=== PATIENT | female | born 1975 | race Caucasian/White ===

== ENCOUNTER → 2017-05-05 15:43 | Outpatient (CLI) | payer OTHER, SELFPAY | PROVIDERS: Visit Provider Otolaryngology | DX: J02.9 Acute pharyngitis, unspecified (principal) | CPT/HCPCS: 87070 ==

== ENCOUNTER → 2017-07-13 07:22 | Outpatient (CLI) | payer OTHER, SELFPAY ==
--- NOTE | 2017-07-13 07:36 | BI_ITS ---
MAMMOGRAPHY - BILATERAL SCREENING REASON FOR EXAM: Female, 41 years old. Routine annual screening examination. PERTINENT HISTORY: Aunt with breast cancer. TECHNIQUE: Digital bilateral breast wesley (3D mammographic acquisition) in the CC and MLO projections. 2-D mediolateral oblique (MLO) and craniocaudad (CC) views of both breasts were obtained. CAD: Full Field Digital Mammography with Computer Added Detection was performed. COMPARISON: Comparison is made with prior study dated May 28, 2016 and April 06, 2015. FINDINGS: Breast Composition: The breasts are heterogeneously dense, which may obscure small masses. There are no dominant masses or suspicious calcifications. No other significant abnormalities are identified. There has been no significant change since the prior study. BI/SCREENING MAMM (CAD), BILAT IMPRESSION: Stable bilateral screening mammogram. Yearly follow-up mammogram recommended. (A) ASSESSMENT CATEGORY: BIRADS Category 1: Negative. A letter regarding these results will be sent to the patient by the facility within 30 days. Approximately 10% of breast cancers are not detected by mammography. A normal mammogram should not delay biopsy of a clinically suspicious abnormality. [id number] Electronically Signed: Antwan Philip MD at 8:51 EDT Tel [phone], Service support ,
== END ==
DX: Z12.31 Encounter for screening mammogram for malignant neoplasm of breast (principal)
CPT/HCPCS: 77063; 77067

== ENCOUNTER → 2018-07-14 09:55 | Outpatient (CLI) | payer OTHER, SELFPAY ==
--- NOTE | 2018-07-14 09:59 | BI_ITS ---
MAMMOGRAPHY - BILATERAL SCREENING REASON FOR EXAM: Female, 42 years old. Routine annual screening examination. PERTINENT HISTORY: Aunt with breast cancer. TECHNIQUE: Digital bilateral breast wesley (3D mammographic acquisition) in the CC and MLO projections. 2-D mediolateral oblique (MLO) and craniocaudad (CC) views of both breasts were obtained. CAD: Full Field Digital Mammography with Computer Added Detection was performed. COMPARISON: Comparison is made with prior study dated July 13, 2017 and May 28, 2016. FINDINGS: Breast Composition: The breasts are heterogeneously dense, which may obscure small masses. There are no dominant masses or suspicious calcifications. No other significant abnormalities are identified. There has been no significant change since the prior study. BI/SCREENING MAMM (CAD), BILAT IMPRESSION: Stable bilateral screening mammogram. Yearly follow-up mammogram recommended. (A) ASSESSMENT CATEGORY: BIRADS Category 1: Negative. A letter regarding these results will be sent to the patient by the facility within 30 days. Approximately 10% of breast cancers are not detected by mammography. A normal mammogram should not delay biopsy of a clinically suspicious abnormality. [id number] Electronically Signed: Antwan Philip, at 11:24 EDT , Service support ,
== END ==
DX: Z12.31 Encounter for screening mammogram for malignant neoplasm of breast (principal)
CPT/HCPCS: 77063; 77067

== ENCOUNTER 2020-04-20 09:43 | Outpatient (RCR) | payer OTHER, SELFPAY | END 2020-04-20 23:59 | LOC: IMMUN 09:43 | PROVIDERS: PCP Family Medicine; Visit Provider Family Medicine | DX: Z23 Encounter for immunization (principal) | CPT/HCPCS: 0011A; 0012A; 91301 ==

== ENCOUNTER → 2021-03-27 | Outpatient (CLI) | payer OTHER, SELFPAY | END | disposition home or self-care (01) | PROVIDERS: PCP Family Medicine; Referring Provider Physician Assistant; Visit Provider Physician Assistant | DX: Z11.52 Encounter for screening for COVID-19 (principal) | CPT/HCPCS: 87635; U0005; U0003 ==

== ENCOUNTER → 2021-10-16 | Outpatient (CLI) | payer OTHER, SELFPAY ==
[2021-10-16 10:48] LABS: Mucous, Urine 0 SEEN /hpf (<or=2+)
[2021-10-16 10:55] LABS: Color, Urine Yellow (Yellow); Glucose, Dipstick Normal (Normal); Ketone-Dipstick Negative (Negative); Leukocyte Esterase-Dipstick 500 /ul (Negative); Nitrite-Dipstick Negative (Negative); Occult Blood-Urine 25 /ul (Negative); Protein-Dipstick 15 mg/dl (Negative); Specific Gravity, Urine 1.015 (1.002-1.030); Urine Bilirubin Dipstick Negative (Negative); Urine Clarity Sl. Cloudy (Clear); Urine Urobilinogen Normal (Normal)
[2021-10-16 11:03] LABS: Bacteria 1+ /hpf (None Seen); Red Blood Cells-Urine 0-5 SEEN /hpf (0-5); Squamous Epithelial Cells - UA 0-5 SEEN /hpf (5-10); White Blood Cells 25-50 SEEN /hpf (0-5)
== END | disposition home or self-care (01) ==
LOC: LABSPEC 10:20
PROVIDERS: PCP Family Medicine; Referring Provider Physician Assistant; Visit Provider Physician Assistant
DX: R53.83 Other fatigue (principal)
CPT/HCPCS: 81001; 87086; 87088

== ENCOUNTER → 2025-03-09 | Outpatient (CLI) | payer OTHER, SELFPAY ==
[2025-03-09 11:37] LABS: Follicle Stimulating Hormone 32.7 mIU/mL
[2025-03-14 01:07] LABS: Anti-Mullerian Hormone,Serum < 0.015 ng/mL (.)
== END | disposition home or self-care (01) ==
PROVIDERS: PCP Family Medicine; Referring Provider Nurse Practitioner Family; Visit Provider Nurse Practitioner Family
DX: N92.6 Irregular menstruation, unspecified (principal)
CPT/HCPCS: 36415; 82670; 83001; 83516

== ENCOUNTER → 2025-03-18 | Outpatient (CLI) | payer OTHER, SELFPAY ==
--- NOTE | 2025-03-18 10:28 | US_ITS ---
PROCEDURE: PELVIC W/ TRANSVAGINAL 03/18/2025 REASON FOR EXAM: IRREGULAR MENSES TECHNIQUE: Procedure Code: [id number] Modality: US Procedure: PELVIC W/ TRANSVAGINAL COMPARISON: None FINDINGS: Uterus measures 10.2 x 6.1 x 4 cm. Uterus is anteverted. No fibroid. Endometrium measures 9 mm. Endometrium is hyperechoic. Cervix is unremarkable. No intrauterine contraception device. Right ovary measures 3.2 x 2.6 x 2.2 cm. Dominant follicle 2.5x1.7 cm is noted. Normal blood flow. No adnexal lesions. Left ovary measures 3.2 x 1.9 x 2.2 cm. Normal blood flow. No obvious masses. No free fluid in the posterior cul-de-sac. Urinary bladder volume is 152.5 cc. US/Pelvic w/ Transvaginal IMPRESSION: No obvious abnormalities. Right ovarian dominant follicle. Reading [facility]
--- OUTSIDE RECORDS SUMMARY | 2025-03-18 10:29 | XMS RPT_ITS | CCD ---
Author Organization [facility] Team Providers Care Rotary Peel Oven Tender Name Role Phone Wanda Cm Primary Care Provider Dr. Wanda Cm Primary Care Provider Dr. Wanda Cm Referring Provider JONATHAN Hewitt Attending Provider Wanda Cm MD Primary Care Provider [phone] Wanda Cm MD Primary Care Provider ANGEL NIEVES Referring Unavailable LISRUPALI, WANDA Primary Care Unavailable CAROLYN CONLEY Referring Unavailable LISHNEVSKI, WANDA Primary Care Unavailable CAROLYN CONLEY Referring Unavailable LISHNEVSKI, WANDA Primary Care Unavailable CAROLYN CONLEY Referring Unavailable LISHNEVSKI, WANDA Primary Care Unavailable CAROLYN CONLEY Attending Unavailable STEVENI, WANDA Primary Care Unavailable CAROLYN CONLEY Admitting Unavailable Wanda Cm MD Primary Care Provider Wanda Cm MD Primary Care Provider Wanda Cm MD Primary Care Provider Wanda Cm MD Primary Care Provider [phone] Wanda Cm Referring Unavailable Lishnevski, Wanda Primary Care Unavailable Elva Lisa Attending Unavail able Wanda Cm Referring Unavailable Lishnevski, Wanda Primary Care Unavailable Sandor Ruelas Attending Unavailable Lishnevski, Wanda Referring Unavailable Jesus Max Attending Unavailable Lishnevski, Wanda Primary Care Unavailable Lishnevski, Wanda Primary Care Unavailable William Hewitt Attending Unavailable Lishnevski, Wanda Referring Unavailable LISHNEVSKI, WANDA Primary Care Unavailable LISHNEVSKI, WANDA Primary Care Unavailable JUNE EDEN Attending Unavailable LISHNEVSKI, WANDA Primary Care Unavailable LISHNEVSKI, WANDA Primary Care Unavailable LISHNEVSKI, WANDA Primary Care Unavailable LISHNEVSKI, WANDA Attending Unavailable LISHNEVSKI, WANDA Primary Care Unavailable FLORECITA GIMENEZ Attending Unavailable LISHNEVSKI, WANDA Primary Care Unavailable LISHNEVSKI, WANDA Attending Unavailable LISHNEVSKI, WANDA Primary Care Unavailable LISHNEVSKI, WANDA Attending Unavailable LISHNEVSKI, WANDA Primary Care Unavailable LISHNEVSKI, WANDA Attending Unavailable LISHNEVSKI, WANDA Primary Care Unavailable LISHNEVSKI, WANDA Primary Care Unavailable FLORECITA GIMENEZ Attending Unavailable LISHNEVSKI, WANDA Attending Unavailable LISHNEVSKI, WANDA Primary Care Unavailable MARIA M WAGNER Admitting Unavailable MARIA M WAGNER Attending Unavailable LISHNEVSKI, WANDA Primary Care Unavailable LISHNEVSKI, WANDA Attending Unavailable LISHNEVSKI, WANDA Primary Care Unavailable Allergies Allergy Classification Reported Allergen(s) Allergy Type Date of Onset Reaction(s) Facility cyclobenzaprine (1 source) cyclobenzaprine Drug Allergy 04-10-[address] [facility] Doxycycline (2 sources) Doxycycline Drug Allergy 10-04-19 15 [facility] gadobutrol (1 source) gadobutrol Drug Allergy 04-18-19 17 [facility] Opioid Agonists (2 sources) Codeine Drug Allergy 10-04-19 15 [facility] Quinolones (antibiotic) (2 sources) Ciprofloxacin Drug Allergy 10-04-19 15 [facility] Sulfamethoxazole / Trimethoprim (2 sources) Sulfamethoxazole / Trimethoprim Drug Allergy 10-04-19 15 Anaphylaxis, [facility] (20 sources) Ciprofloxacin Drug Allergy 10-04-19 15 [facility], [place] (20 sources) Codeine; Translations: [CODEINE] Drug Allergy 10-04-19 15 Unknown, [place] (20 sources) Doxycycline Drug Allergy 10-04-19 15 [place] (20 sources) Sulfamethoxazole / Trimethoprim; Translations: [SULFAMETHOXAZOLE-TR IMETHOPRIM] Drug Allergy 10-04-19 15 Anaphylaxis, [place] (2 sources) gadobutrol Drug Allergy 04-18-[address] [facility] Work Phone: (20 sources) cyclobenzaprine; Translations: [CYCLOBENZAPRINE] Drug Allergy 04-10-19 23 [facility] (20 sources) gadobutrol Drug Allergy 04-18-[address] [facility] (1 source) Codeine Drug Allergy 07-26-[address] [facility] (1 source) cyclobenzaprine Drug Allergy 10-28-[address] [facility] (1 source) gadobutrol Drug Allergy 07-26-[address] [facility] Medications Current Medications Medication Drug Class(es) Dates Sig (Normalized) Sig (Original) calcium polycarbophil (1 source) Calcium Polycarb ophil (FIBERTAB PO) Take by mouth 0 Active famotidine 20 mg oral tablet (1 source) Histamine-2 Receptor Antagonist Start: 01-05-2020 take 1 tablet by mouth twice daily famotidine (PEPCID) 20 MG tablet Indications: Gastroesophageal reflux disease without esophagitis Take 1 tablet by mouth 2 times daily 60 tablet 3 01/05/2020 Active Fish Oil-Cholecalcifero l (FISH OIL + D3 PO) (1 source) Fish Oil-Cholecalciferol (FISH OIL + D3 PO) Take by mouth 0 Active fluticasone (2 sources) Corticosteroid Fluticasone Propionate (FLONASE NA) by Nasal route 0 Active Lactobacillus acidophilus (20 sources) Lactobacillus (PROBIOTIC ACIDOPHILUS PO) Take by mouth. Active Lactobacillus (P ROBIOTIC ACIDOPHILUS PO) Take by mouth. 0 Active Lactobacillus (P ROBIOTIC ACIDOPHILUS PO) Take by mouth 0 Active levocetirizine dihydrochloride 5 mg oral tablet (20 sources) Histamine-1 Receptor Antagonist Start: 07-27-2023 End: 07-26-2024 take 1 tablet by mouth once daily in the evening levocetirizine (Xyzal) 5 MG tablet Take 1 tablet (5 mg) by mouth every evening. 30 tablet 11 07/27/2023 Active Loratadine (1 source) Loratadine (CLARITIN PO) Take by mouth daily 0 Active montelukast 10 mg oral tablet (20 sources) Leukotriene Receptor Antagonist Start: 07-27-2023 End: 01-23-2024 take 1 tablet by mouth once daily montelukast (Singulair) 10 MG tablet TAKE 1 TABLET BY MOUTH EVERY DAY NIGHTLY 90 tablet 1 11/05/2023 Active Multiple Vitamin (multivitamin) tablet (20 sources) take 1 tablet by mouth once daily Multiple Vitamin (multivitamin) tablet Take 1 tablet by mouth daily. Active take 1 tablet by mouth once geeta y Multiple Vitamin (multivitamin) tablet Take 1 tablet by mouth daily. 0 Active nitrofurantoin, macrocrystals 25 mg / nitrofurantoin, monohydrate 75 mg oral capsule (4 sources) Nitrofuran Antibacterial Start: 08-25-2024 End: 09-01-2024 take 1 capsule by mouth twice daily nitrofurantoin, macrocrystal-monohydrate, (Macrobid) 100 MG capsule Indications: Dysuria Take 1 capsule (100 mg) by mouth 2 times daily for 7 days. 14 capsule 08/25/2024 09/01/2024 Active Start: 10-16-2021 End: 10-21-2021 take 1 capsule by mouth every twelve hours at mealtime Nitrofurantoin Monohyd/M-Cryst (Macrobid) 100 mg capsule Discontinued 100 MG PO Q12H 10 5 October 16, 2021 12:00am October 21, 2021 12:03am must administer with a meal/food NONFORMULARY (1 source) NONFORMULARY Chandu n'janelle bo extract 0 Active olopatadine 1 mg/ml ophthalmic solution (20 sources) Histamine-1 Receptor Inhibitor Start: 8 take 1 drop(s) into the eye(s) twice daily olopatadine (PATANOL) 0.1 % ophthalmic solution INSTILL 1 DROP INTO BOTH EYES TWICE A DAY DIRECTED 01/01/2018 Active Olopatadine HCl (PATADAY OP) Administer into affected eye(s). Active Olopatadine HCl (PATADAY OP) Administer into affected eye(s). 0 Active Comment on above: INSTILL 1 DROP INTO BOTH EYES TWICE A DAY DIRECTED Probiotic Product (PROBIOTIC DAILY PO) (1 source) Probiotic Produc t (PROBIOTIC DAILY PO) Take by mouth 0 Active sertraline 25 mg oral tablet (8 sources) Serotonin Reuptake Inhibitor Start: 11-09-2024 End: 03-14-2025 take 1 tablet by mouth once daily sertraline (Zoloft) 25 MG tablet Take 1 tablet (25 mg) by mouth daily. 90 tablet 12/14/2024 03/14/2025 Active Start: 02-22-2020 take 1 tablet by jeanna th once daily sertraline (ZOLOFT) 25 MG tablet Indications: Depression with anxiety TAKE 1 TABLET BY MOUTH EVERY DAY 90 tablet 1 02/22/2020 Active Start: 01-05-2020 take 1 tablet by jeanna th once daily sertraline (ZOLOFT) 25 MG tablet Indications: Depression with anxiety Take 1 tablet by mouth daily 30 tablet 3 01/05/2020 Active 24 hr venlafaxine 37.5 mg extended release oral capsule (1 source) Serotonin and Norepinephrine Reuptake Inhibitor Start: 08-29-2024 take 1 capsule by mouth once daily venlafaxine ER (EFFEXOR XR) 37.5 mg 24 hr capsule Take 1 capsule by mouth once daily. 90 capsule 3 08/29/2024 Active Completed/Discontinued Medications Medication Drug Class(es) Dates Sig (Normalized) Sig (Original) [id number] 200 actuat albuterol 0.09 mg/actuat metered dose inhaler (8 sources) beta2-Adrenergic Agonist Start: 05-30-2019 End: 04-30-2022 take 2 puff(s) by inhalation every six hours as needed albuterol HFA (PROAIR HFA) 90 mcg/actuation inhaler Inhale 2 Puffs as instructed every 6 hours as needed. 1 Inhaler 05/30/2019 04/30/2022 Discontinued Comment on above: Inhale 2 Puffs as in structed every 6 hours as needed. benzonatate 100 mg oral capsule (8 sources) Non-narcotic Antitussive Start: 05-30-2019 End: 04-30-2022 take 2 capsules by mouth every eight hours as needed benzonatate (TESSALON PERLES) 100 mg capsule Take 2 capsules by mouth three times daily as needed. 30 capsule 05/30/2019 04/30/2022 Discontinued Comment on above: Take 2 capsules by [facility] three times daily as needed. EPINEPHrine 0.01 mg/ml / lidocaine hydrochloride 10 mg/ml injectable solution (1 source) Antiarrhythmic, alpha-Adrenergic Agonist, beta-Adrenergic Agonist, Catecholamine, Amide Local Anesthetic Start: 03-27-2022 End: 03-27-2022 SUBCUTANEOUS, X (OR/PROCEDURE) PRN, Starting on Eileen 03/27/22 at 1312, Until Eileen 03/27/22 at 1312, Intraprocedure Esomeprazole (8 sources) Proton Pump Inhibitor End: 04-30-2022 ESOMEPRAZOLE MAGNESIUM (NEXIUM ORAL) Take by mouth. 04/30/2022 Discontinued End: 04-30-2022 ESOMEPRAZOLE MAGNESIUM (NEXI UM ORAL) Take by mouth. 0 04/30/2022 Discontinued ESOMEPRAZOLE MAG NESIUM (NEXIUM ORAL) Take by mouth. 0 Active Comment on above: Take by mouth. 168 hr estradiol 0.80710 mg/hr transdermal system (20 sources) Estrogen Start: 09-11-2023 End: 02-22-2025 estradiol (Climara) 0.025 MG/24HR Place 1 patch on the skin 1 (one) time per week. 12 patch 3 02/23/2024 12/14/2024 Discontinued (Ineffective) estradiol (CLIMA RA) 0.025 mg/[address] 1 PATCH ON THE SKIN 1 TIME PER WEEK. Active Lidocaine (1 source) Antiarrhythmic, Amide Local Anesthetic Start: 03-27-2022 End: 03-27-2022 OTHER, X (OR/PROCEDURE) PRN, Starting on Eileen 03/27/22 at 1312, Until Eileen 03/27/22 at 1312, Intraprocedure 24 hr loratadine 10 mg / pseudoephedrine sulfate 240 mg extended release oral tablet (8 sources) alpha-Adrenergic Agonist End: 04-30-2022 take 1 tablet by mouth once loratadine-pseudoe phedrine ER (CLARITIN-D 24) 10-240 mg Tb24 Take 1 tablet by mouth. 04/30/2022 Discontinued Comment on above: Take 1 tablet by jeanna th. mupirocin 0.02 mg/mg topical ointment (8 sources) RNA Synthetase Inhibitor Antibacterial Start: 09-20-2018 End: 04-30-2022 mupirocin (BACTROBAN) 2 % ointment Indications: Hot tub folliculitis Apply 1 application to affected area three times daily. 1 Tube 09/20/2018 04/30/2022 Discontinued Comment on above: Apply 1 application to affected area three times daily. omeprazole 20 mg delayed release oral capsule (20 sources) Proton Pump Inhibitor End: 11-09-2024 take 1 capsule by mouth once daily before breakfast omeprazole (PriLOSEC) [address] capsule Take 20 mg by mouth every morning (before breakfast). Do not crush or chew. 11/09/2024 Discontinued (Therapy completed) 2 ml ondansetron 2 mg/ml injection (2 sources) Serotonin-3 Receptor Antagonist Start: 05-06-2024 End: 05-06-2024 4 mg, IntraVENous, Once PRN, nausea, vomiting, Starting on Thu05/06/24 at 1159, For 1 dose, Preprocedure oxybutynin (8 sources) Cholinergic Muscarinic Antagonist End: 04-30-2022 OXYBUTYNIN CHLORIDE (DITROPAN ORAL) Take by mouth. 04/30/2022 Discontinued End: 04-30-2022 OXYBUTYNIN CHLORIDE (DITROPA N ORAL) Take by mouth. 0 04/30/2022 Discontinued OXYBUTYNIN CHLOR KELLIE (DITROPAN ORAL) Take by mouth. 0 Active Comment on above: Take by mouth. progesterone 100 mg oral capsule (17 sources) Progesterone Start: 01-22-2024 End: 02-22-2025 take 1 capsule by mouth once daily progesterone (Prometrium) 100 MG capsule Take 1 capsule (100 mg) by mouth daily. 30 capsule 02/23/2024 11/09/2024 Discontinued (Therapy completed) Start: 09-11-2023 End: 10-11-2023 take 1 capsule by mouth once daily progesterone (Prometrium) 200 MG capsule Take 1 capsule (200 mg) by mouth daily. 12 days per month 12 capsule 6 09/11/2023 10/11/2023 Active 5 ml sodium chloride 9 mg/ml injection (6 sources) Start: 05-06-2024 End: 05-06-2024 10 mL, IntraVENous, Every 12 hours scheduled (2 times per day), First dose on Thu05/06/24 at 2100, Preprocedure Start: 05-06-2024 End: 05-06-2024 10 mL, IntraVENous, Every 12 hours scheduled (2 times per day), First dose on Thu05/06/24 at 2100, Preprocedure Start: 05-06-2024 End: 05-06-2024 take 100 mL intravenously every hour as needed, then take 20 mL intravenously every hour as needed 5-250 mL/hr, IntraVENous, PRN, if patient receiving piggyback infusions and maintenance fluids are not ordered OR KVO fluids to protect IV site / prevent frequent line interruptions/ long duration, Starting on Thu05/06/24 at 1159, Preprocedure, For piggyback infusion, administer at same rate as piggyback for a total of 25 mL. Enter 25 mL into dose field and piggyback rate into rate field of order. If piggyback is infusing at a rate less than 100 mL/hr, enter 25 mL into dose field and 100 mL/hr into rate field of order. For KVO fluids, enter rate of 20 mL/hr or less into rate field of order. Start: 05-06-2024 End: 05-06-2024 take 10 mL intravenously once as needed 10 mL, IntraVENous, PRN, line care, Starting on Thu05/06/24 at 1159, Preprocedure, After every IV line use Problems Active Problems Problem Classification Problem Date Documented Da te Episodic/Chronic Acute and chronic tonsillitis (1 source) Other chronic diseases of tonsils and adenoids; Translations: [Other chronic diseases of tonsils and adenoids] Onset: 4 Chronic Anxiety disorders (3 sources) Generalized anxiety disorder; Translations: [Generalized anxiety disorder] 11-09-2024 Chronic Cardiac dysrhythmias (1 source) Palpitations; Translations: [Palpitation] Episodic Deficiency and other anemia (1 source) Chronic anemia; Translations: [Anemia, unspecified] 12-14-2024 Episodic Deficiency and other anemia (3 sources) Anemia, unspecified; Translations: [Anemia, unspecified type] Onset: 5 Episodic Disorders of teeth and jaw (1 source) Arthralgia of left temporomandibular joint; Translations: [Arthralgia of left temporomandibular joint] Onset: 5 Episodic Esophageal disorders (18 sources) Gastroesophageal reflux disease; Translations: [Gastro-esophageal reflux disease without esophagitis] Onset: 3 Chronic Genitourinary symptoms and ill-defined conditions (6 sources) Microscopic hematuria; Translations: [Other microscopic hematuria] Onset: 5 Episodic Menopausal disorders (2 sources) Menopausal symptom; Translations: [Menopausal and female climacteric states] Onset: 5 08-29-2024 Chronic Other and unspecified benign neoplasm (2 sources) Lipoma (clinical); Translations: [Benign lipomatous neoplasm, unspecified] 01-06-2023 Episodic Other connective tissue disease (1 source) Foot pain; Translations: [Acute foot pain, right] Episodic Other diseases of kidney and ureters (20 sources) Renal mass; Translations: [Other specified disorders of kidney and ureter] Onset: 5 11-16-2014 Chronic Other female genital disorders (1 source) Abnormal uterine bleeding; Translations: [Abnormal uterine and vaginal bleeding, unspecified] Chronic Other gastrointestinal disorders (13 sources) Irritable bowel syndrome characterized by constipation; Translations: [Irritable bowel syndrome with constipation] Onset: 3 Chronic Other upper respiratory disease (1 source) Seasonal allergy; Translations: [Other seasonal allergic rhinitis] 07-27-2023 Chronic Prolapse of female genital organs (4 sources) Vaginal wall prolapse; Translations: [Cystocele, unspecified] Onset: 5 12-26-2024 Chronic Residual codes; unclassified (2 sources) Flushing; Translations: [Flushing] 08-26-2023 Episodic Residual codes; unclassified (1 source) Postmenopausal state; Translations: [Asymptomatic menopausal state] 12-14-2024 Episodic Residual codes; unclassified (3 sources) Asymptomatic menopausal state; Translations: [Late onset menopause] Onset: 5 Episodic Urinary tract infections (4 sources) Urinary tract infectious disease; Translations: [Urinary tract infection, site not specified] Episodic Viral infection (1 source) COVID-19; Translations: [COVID] Onset: 3 Past or Other Problems Problem Classification Problem Date Documented Da te Episodic/Chronic Abdominal pain (7 sources) Pain in pelvis; Translations: [Pelvic and perineal pain] Onset: 04-07-2024 Episodic E Codes: Natural/environment (1 source) Bitten or stung by nonvenomous insect and other nonvenomous arthropods, initial encounter; Translations: [Bitten or stung by nonvenomous insect and other nonvenomous arthropods, initial encounter] Onset: 12-29-2023 Episodic Immunizations and screening for infectious disease (3 sources) Viral screening status; Translations: [Encounter for screening for other viral diseases] Onset: 04-07-2024 04-07-2024 Episodic Nonmalignant breast conditions (18 sources) Breast problem; Translations: [Disorder of breast, unspecified] Onset: 05-29-2022 Episodic Other diseases of kidney and ureters (2 sources) Renal mass; Translations: [Renal mass] Onset: 11-16-2014 11-16-2014 Episodic Other screening for suspected conditions (not mental disorders or infectious disease) (16 sources) Other abnormal and inconclusive findings on diagnostic imaging of breast; Translations: [Abnormal findings on diagnostic imaging of breast] Onset: 03-27-2022 Episodic Residual codes; unclassified (2 sources) Flushing; Translations: [Flushing] Onset: 02-23-2024 Episodic Screening and history of mental health and substance abuse codes (18 sources) Ex-smoker; Translations: [Personal history of nicotine dependence] Onset: 04-30-2022 Episodic Skin and subcutaneous tissue infections (1 source) Local infection of the skin and subcutaneous tissue, unspecified; Translations: [Local infection of the skin and subcutaneous tissue, unspecified] Onset: 12-29-2023 Episodic Superficial injury; contusion (1 source) Insect bite (nonvenomous) of other part of head, initial encounter; Translations: [Insect bite (nonvenomous) of other part of head, initial encounter] Onset: 12-29-2023 Episodic Unclassified (1 source) Patient encounter status 02-23-2024 Viral infection (13 sources) Disease caused by 2019-nCoV; Translations: [COVID-19] Onset: 05-29-2022 Episodic Results Test Name Value Interpretation Reference Range Facility [id number] 01-03-2025 [id number] Only test results I received was a CMP which was normal this includes the sugar the kidney and a liver all within normal limits Normal [facility] [id number] 12-30-2024 [id number] Cmp normal Normal [facility] Comprehensive metabolic 2000 panelon 12-29-2024 Albumin [Mass/Vol] 4.4 g/dL Normal 3.9-4.9 [facility] Comment on above: Order Comment: Speci men Type: BLOOD SPECIMEN Ordering Facility: [facility] Address: [address] [place] [address] Performed By: #### 2 4323-8 #### [facility] CLIA [id number] [address] [place] [address] [place] ALP [Catalytic activity/Vol] 66 U/L Normal 34-123 [facility] Comment on above: Order Comment: Speci men Type: BLOOD SPECIMEN Ordering Facility: [facility] Address: [address] [place] [address] Performed By: #### 2 4323-8 #### [facility] CLIA [id number] [address] [place] [address] [place] ALT [Catalytic activity/Vol] 13 U/L Normal 7-38 [facility] Comment on above: Order Comment: Speci men Type: BLOOD SPECIMEN Ordering Facility: [facility] Address: [address] [place] [address] Performed By: #### 2 4323-8 #### [facility] CLIA [id number] [address] [place] [address] [place] Anion gap [Moles/Vol] 15 mmol/L Normal 8-15 [facility] Comment on above: Order Comment: Speci men Type: BLOOD SPECIMEN Ordering Facility: [facility] Address: [address] [place] [address] Performed By: #### 2 4323-8 #### [facility] CLIA [id number] [address] [place] [address] [place] AST [Catalytic activity/Vol] 16 U/L Normal 13-35 [facility] Comment on above: Order Comment: Speci men Type: BLOOD SPECIMEN Ordering Facility: [facility] Address: [place] [address] Performed By: #### 2 4323-8 #### [facility] CLIA [id number] [address] [place] [address] [place] Bilirubin [Mass/Vol] 0.4 mg/dL Normal 0.2-1.3 [facility] Comment on above: Order Comment: Speci men Type: BLOOD SPECIMEN Ordering Facility: [facility] Address: [place] [address] Performed By: #### 2 4323-8 #### [facility] CLIA [id number] [address] [place] [address] [place] Calcium [Mass/Vol] 9.3 mg/dL Normal 8.5-10.2 [facility] Comment on above: Order Comment: Speci men Type: BLOOD SPECIMEN Ordering Facility: [facility] Address: [place] [address] Performed By: #### 2 4323-8 #### [facility] CLIA [id number] [address] [place] [address] [place] Chloride [Moles/Vol] 101 mmol/L Normal 98-107 [facility] Comment on above: Order Comment: Speci men Type: BLOOD SPECIMEN Ordering Facility: [facility] Address: [place] [address] Performed By: #### 2 4323-8 #### [facility] CLIA [id number] [address] [place] [address] [place] CO2 [Moles/Vol] 23 mmol/L Normal 22-30 [facility] Comment on above: Order Comment: Speci men Type: BLOOD SPECIMEN Ordering Facility: [facility] Address: [address] [place] [address] Performed By: #### 2 4323-8 #### [facility] CLIA [id number] [address] [place] [address] [place] Creatinine [Mass/Vol] 0.76 mg/dL Normal 0.58-0.96 [facility] Comment on above: Order Comment: Speci men Type: BLOOD SPECIMEN Ordering Facility: [facility] Address: [address] [place] [address] Performed By: #### 2 4323-8 #### [facility] CLIA [id number] [address] [place] [address] [place] eGFRcr SerPlBld CKD-EPI 2020 95 mL/min/1.73m??? Normal >=60 [facility] Comment on above: Order Comment: Speci men Type: BLOOD SPECIMEN Ordering Facility: [facility] Address: [facility] [address] , [place] [address] Result Comment: Angelina mated Glomerular Filtration Rate (eGFR) is calculated using the 2020 CKD-EPI creatinine equation. This equation utilizes serum creatinine, sex, and age as parameters. The creatinine assay has traceable calibration to isotope dilution-mass spectrometry. Refer to KDIGO guidelines for clinical interpretation. In patients with unstable renal function, e.g. those with acute kidney injury, the eGFR may not accurately reflect actual GFR. Performed By: #### 2 4323-8 #### [facility] CLIA [id number] [address] [place] [address] [place] Glucose [Mass/Vol] 98 mg/dL Normal 74-99 [facility] Comment on above: Order Comment: Speci men Type: BLOOD SPECIMEN Ordering Facility: [facility] Address: [place] [address] Result Comment: The [place] [employer] (ADA) provides guidance for cutoff values for fasting glucose and random glucose. The ADA defines fasting as no caloric intake for at least 8 hours. Fasting plasma glucose results between 100 to 125 mg/dL indicate increased risk for diabetes (prediabetes). Fasting plasma glucose results greater than or equal to 126 mg/dL meet the criteria for diagnosis of diabetes. In the absence of unequivocal hyperglycemia, results should be confirmed by repeat testing. In a patient with classic symptoms of hyperglycemia or hyperglycemic crisis, random plasma glucose results greater than or equal to 200 mg/dL meet the criteria for diagnosis of diabetes. Reference: Standards of Medical Care in Diabetes 2016, [place] Diabetes Association. Diabetes Care. 2016.39(Suppl 1). Performed By: #### 2 4323-8 #### [facility] CLIA [id number] [address] [place] [address] [place] Potassium [Moles/Vol] 4.1 mmol/L Normal 3.7-5.1 [facility] Comment on above: Order Comment: Speci men Type: BLOOD SPECIMEN Ordering Facility: [facility] Address: [address] [place] [address] Performed By: #### 2 4323-8 #### [facility] CLIA [id number] [address] [place] [address] [place] Protein [Mass/Vol] 7.3 g/dL Normal 6.3-8.0 [facility] Comment on above: Order Comment: Speci men Type: BLOOD SPECIMEN Ordering Facility: [facility] Address: [address] [place] [address] Performed By: #### 2 4323-8 #### [facility] [id number] [address] [place] [address] [place] Sodium [Moles/Vol] 139 mmol/L Normal 136-144 [facility] Comment on above: Order Comment: Speci men Type: BLOOD SPECIMEN Ordering Facility: [facility] Address: [address] [place] [address] Performed By: #### 2 4323-8 #### [facility] CL[facility] [id number] [address] [place] [address] [place] Urea nitrogen [Mass/Vol] 19 mg/dL Normal 7-21 [facility] Comment on above: Order Comment: Speci men Type: BLOOD SPECIMEN Ordering Facility: [facility] Address: [address] , [place] [address] Performed By: #### 2 4323-8 #### [facility] CLIA [id number] [address] [place] [address] [place] Estradiol SerPl-mCncon 12-29 E2 [Mass/Vol] pg/mL Normal [facility] Comment on above: Order Comment: Speci men Type: BLOOD SPECIMEN Ordering Facility: [facility] Address: [address] , [place] [address] Result Comment: This test is not suitable for patients receiving treatment with the drug Fulvestrant (Faslodex). The drug causes an interference leading to falsely elevated estradiol results. Menstrual cycle Estradiol reference ranges: Follicular : < 234 pg/mL Ovulation : 41 to 398 pg/mL Luteal : < 342 pg/mL Estradiol reference ranges vary by gestational period: First trimester : 154 to 3243 pg/mL Second trimester : 1561 to 85087 pg/mL Third trimester : 8285 to >92052 pg/mL Post-menopausal Estradiol reference range: < 41 pg/mL Reference: 1. Estradiol - E2 (Estradiol III) [package insert V 3.0 Trin[place]adian]. [facility], [place], [place], August 2015. Performed By: #### 2 243-4, 32532-1 #### [facility] CLIA [id number] [address] [place] [address] [place] #### 61354-4 #### [facility] CLIA [id number] [facility] [place] [id number] [place] [facility] CLIA [id number] [address] [place] [address] [place] [facility] SerPl-aCncon 12-29-2024 Follitropin Qn 61.1 m[IU]/mL Normal See comment [facility] Comment on above: Order Comment: Speci men Type: BLOOD SPECIMEN Ordering Facility: [facility] Address: [address] [place] [address] Result Comment: Refe rence range: Follicular: 3.5-12.5 mIU/mL Ovulation: 4.7-21.5 mIU/mL Luteal: 1.7-7.7 mIU/mL Postmenopausal: 25.8-134.8 mIU/mL Performed By: #### 2 243-4, 77765-2 #### [facility] CLIA [id number] [address] [place] [address] #### 99743-1 #### [facility] CLIA [id number] [address] [place] [address] [place] [facility] CLIA [id number] [address] [place] [address] HbA1c (Bld)on 12-29-2024 Average glucose Estimated from glycated hemoglobin (Bld) [Mass/Vol] 114 mg/dL Normal [facility] Comment on above: Order Comment: Speci men Type: BLOOD SPECIMEN Ordering Facility: [facility] Address: [address] [place] [address] Result Comment: eAG: (Estimated average glucose) is a calculated value from HgbA1c and is traveling sales representative of the average blood glucose level in the last 2-3 month period. Performed By: #### 5 5454-3 #### [facility] CLIA [id number] [address] [place] [address] HbA1c (Bld) [Mass fraction] 5.6 % Normal 4.3-5.6 [facility] Comment on above: Order Comment: Speci men Type: BLOOD SPECIMEN Ordering Facility: [facility] Address: [address] [place] [address] Result Comment: Amer [place] Diabetes Association guidelines indicate that patients with HgbA1c in the range 5.7-6.4% are at increased risk for development of diabetes, and intervention by lifestyle modification may be beneficial. HgbA1c greater or equal to 6.5% is considered diagnostic of diabetes. Performed By: #### 5 5454-3 #### [facility] CLIA [id number] [address] [place] [address] [place] Lipid 1996 panelon 5 Cholesterol [Mass/Vol] 210 mg/dL High <200 [facility] Comment on above: Order Comment: Speci men Type: BLOOD SPECIMEN Ordering Facility: [facility] Address: [address] , [place] [address] Result Comment: <200 mg/dL, Desirable 200-239 mg/dL, Borderline high >239 mg/dL, High Performed By: #### 2 243-4, 03738-6 #### [facility] CLIA [id number] [address] [place] [address] [place] #### 48757-4 #### [facility] CLIA [id number] [address] [place] [address] [place] [facility] CLIA [id number] [address] [place] [address] [place] Cholesterol in HDL [Mass/Vol] 67 mg/dL Normal >39 [facility] Comment on above: Order Comment: Speci men Type: BLOOD SPECIMEN Ordering Facility: [facility] Address: [address] , [place] [address] Result Comment: 40-5 9 mg/dL, Acceptable >59 mg/dL, High: Negative risk factor for coronary heart disease <40 mg/dL, Low: Positive risk factor for coronary heart disease Performed By: #### 2 243-4, 11979-7 #### [facility] CLIA [id number] [address] [place] [address] [place] #### 77978-8 #### [facility] CLIA [id number] [address] [place] [address] [place] [facility] CLIA [id number] [address] [place] [address] [place] Cholesterol in LDL [Mass/Vol] 130 mg/dL High <100 [facility] Comment on above: Order Comment: Speci men Type: BLOOD SPECIMEN Ordering Facility: [facility] Address: [address] , [place] [address] Result Comment: <100 mg/dL, Optimal 100-129 mg/dL, Near optimal/above optimal 130-159 mg/dL, Borderline high 160-189 mg/dL, High >189 mg/dL, Very high Secondary prevention optimal LDL Cholesterol levels are recommended to be <70 mg/dL LDL cholesterol is calculated using the Aparicio-NIH equation. Performed By: #### 2 243-4, 52982-0 #### [facility] CLIA [id number] [facility] [address] [place] #### 37535-2 #### [facility] CLIA [id number] [facility] [place] [address] [place] [facility] CLIA [id number] [address] [place] [address] [place] Cholesterol in LDL/Cholesterol in HDL [Mass ratio] 1.94 {ratio} Normal <2.54 [facility] Comment on above: Order Comment: Speci men Type: BLOOD SPECIMEN Ordering Facility: [facility] Address: [facility] [address] , [place] [address] Result Comment: Refe rence: 1. National Cholesterol Education Program ATP III Guideline At-A-Glance Quick Desk Reference: National Heart, Lung, and Blood Patterson. National Institutes of Health. 2001: NIH Publication No. 01-3305. 2. An International Atherosclerosis Society position paper: global recommendations for the management of dyslipidemia: executive summary, Atherosclerosis. 2014: 232(2):410-413. Performed By: #### 2 243-4, 42286-5 #### [facility] CLIA [id number] [address] [place] #### 30271-0 #### [facility] CLIA [id number] [address] [place] [address] [place] [facility] CLIA [id number] [address] Cholesterol in VLDL [Mass/Vol] 13 mg/dL Normal <30 [facility] Comment on above: Order Comment: Speci men Type: BLOOD SPECIMEN Ordering Facility: [facility] Address: [address] , [place] [address] Performed By: #### 2 243-4, 76149-2 #### [facility] CLIA [id number] [address] [place] [address] [place] #### 38587-3 #### [facility] CLIA [id number] [address] [place] [address] [place] [facility] CLIA [id number] [address] [place] [address] [place] Cholesterol non HDL [Mass/Vol] 143 mg/dL High <130 [facility] Comment on above: Order Comment: Speci men Type: BLOOD SPECIMEN Ordering Facility: [facility] Address: [address] , [place] [address] Result Comment: <130 mg/dL, Optimal 130-159 mg/dL, Near optimal/above optimal 160-189 mg/dL, Borderline high 190-219 mg/dL, High >219 mg/dL, Very high Secondary prevention optimal non HDL Cholesterol levels are recommended to be <100 mg/dL Performed By: #### 2 243-4, 40828-9 #### [facility] CLIA [id number] [address] [place] [address] [place] #### 24487-5 #### [facility] CLIA [id number] [address] [place] [address] [place] [facility] CLIA [id number] [address] [place] [address] [place] Cholesterol.total/Chol esterol in HDL [Mass ratio] 3.13 {ratio} Normal <5.10 [facility] Comment on above: Order Comment: Speci men Type: BLOOD SPECIMEN Ordering Facility: [facility] Address: [place] [address] Performed By: #### 2 243-4, 53366-6 #### [facility] CLIA [id number] [address] [place] [address] [place] #### 77417-6 #### [facility] CLIA [id number] [address] [place] [address] [place] [facility] CLIA [id number] [address] [place] [address] [place] FASTING TIME 12 hrs Normal [facility] Comment on above: Order Comment: Speci men Type: BLOOD SPECIMEN Ordering Facility: [facility] Address: [place] [address] Performed By: #### 2 243-4, 17483-8 #### [facility] CLIA [id number] [address] [facility] [place] [address] [place] #### 66483-9 #### [facility] CLIA [id number] [address] [facility] [address] [address] [place] [facility] CLIA [id number] [address] [place] [address] [place] Triglyceride [Mass/Vol] 74 mg/dL Normal <150 [facility] Comment on above: Order Comment: Speci men Type: BLOOD SPECIMEN Ordering Facility: [facility] Address: [address], [place] [address] Result Comment: <150 mg/dL, Normal 150-199 mg/dL, Borderline high 200-499 mg/dL, High >499 mg/dL, Very high Performed By: #### 2 243-4, 13899-1 #### [facility] CLIA [id number] [address] [facility] [address] [address] [facility] [place] #### 11728-6 #### [facility] CLIA [id number] [address] [facility] [address] [address] [place] [facility] CLIA [id number] [address] [place], [place] [address] [place] [address] [place] 36on 12-26-2024 36 Appt set up with pt [facility] 36 Faxed [facility] Progress Noteon 12-26-2024 Progress Note Patient was identifi ed and seen today via Telehealth by agreement and consent. I used the following Telehealth technology: Audio and video capabilities. Patient location: Patient Location: Home. This patient encounter is appropriate and reasonable under the circumstances: . The patient has been advised of the potential risks and limitations of this mode of treatment (including but not limited to the absence of in-person examination) and has agreed to be treated in a remote fashion in spite of them. Any and all of the patient's/patient's family's questions on this issue have been answered and I have made no promises or guarantees to the patient. The patient has also been advised to contact this office for worsening conditions or problems, and seek emergency medical treatment and/or call 911 if the patient deems either necessary. The patient stated that they are currently in the [facility]. If the patient is a minor, permission has been obtained by the parent or guardian for the patient to receive medical care at this visit. [facility] - [address] [facility] [address] Dept: [phone] Dept Loc: [phone] Reason for Visit: dysuria Assessment and Plan Assessment & Plan Dysuria Orders: Urinalysis with reflex microscopic (clean catch); Future Urine culture (clean catch); Future Vaginal prolapse Orders: [facility] Urogynecology; Future current treatment plan is effective, no change in therapy, orders and follow up as documented in EMR, lab results reviewed with patient, repeat labs ordered prior to next appointment, reviewed compliance with lifestyle measures, reviewed diet, exercise and weight control, reviewed medications and side effects in detail Return visit in 1 week. Subjective HPI This is 49 year old female who complains a few days ago, she felt a bulge when she was wiping, Now she feels the bulge when she is walking .She states she has been having pressure to urinate, she states no blood in urine Review of Systems Constitutional: Negative. Negative for activity change, appetite change and fever. HENT: Negative. Negative for congestion. Eyes: Negative. Negative for discharge. Respiratory: Negative. Negative for chest tightness. Cardiovascular: Negative. Gastrointestinal: Negative. Endocrine: Negative. Negative for cold intolerance. Genitourinary: Positive for urgency. Negative for difficulty urinating. Musculoskeletal: Negative. Neurological: Negative. Negative for dizziness, facial asymmetry and headaches. Hematological: Negative. Allergies[1] Current Medications[2] Problem List[3] Medical History[4] Social History Tobacco Use Smoking status: Former Current packs/day: 0.00 Average packs/day: 0.5 packs/day for 15.0 years (7.5 ttl pk-yrs) Types: Cigarettes Start date: 11/06/2002 Quit date: 11/06/2017 Years since quittin.1 Smokeless tobacco: Never Substance Use Topics Alcohol use: Yes Alcohol/week: 10.0 standard drinks of alcohol Types: 4 Glasses of wine, 6 Cans of beer per week Comment: 1-3 weekly. Surgical History[5] Family History[6] Health Maintenance Topic Date Due MMR Vaccines (1 of 1 - Standard series) Never done Diabetes Screening Never done DTaP/Tdap/Td Vaccines (1 - Tdap) Never done Hepatitis B Vaccines (1 of 3 - 19+ 3-dose series) Never done Pneumococcal Vaccine: 50+ Years (1 of 1 - PCV) Never done Zoster Vaccines (1 of 2) Never done COVID-19 Vaccine (4 - 2024- season) 2024 Influenza Vaccine (1) 11/28/2024 Lipid Panel 01/17/2025 Mammogram 08/23/2025 Depression Screening 08/25/2025 Cervical Cancer Screening 02/22/2029 Colorectal Cancer Screening 05/06/2034 RSV Immunization for Adults (1 - 1-dose 75+ series) 2048 HIV Screening Completed Hepatitis C Screening Completed RSV Immunization under 20 Months Aged Out HIB Vaccines Aged Out IPV Vaccines Aged Out Hepatitis A Vaccines Aged Out Meningococcal Vaccine Aged Out Rotavirus Vaccines Aged Out HPV Vaccines Aged Out Meningococcal B Vaccine Aged Out Objective There were no vitals taken for this visit. Physical Exam Data Reviewed and Summarized Labs: Lab Results Component Value Date WBC 5.5 04/07/2024 HGB 13.3 04/07/2024 HCT 40.7 04/07/2024 PLT 366 04/07/2024 TSH 2.588 09/28/2020 Lab Results Component Value Date NA 137 09/01/2019 K 3.8 09/01/2019 CL 102 09/01/2019 CO2 28 04/07/2024 BUN 12 04/07/2024 CREATININE 0.66 04/07/2024 GLUCOSE 91 04/07/2024 CALCIUM 9.2 04/07/2024 PROT 7.1 04/07/2024 BILITOT 0.3 04/07/2024 ALKPHOS 55 04/07/2024 AST 15 04/07/2024 ALT 14 04/07/2024 AGRATIO 1.4 04/07/2024 GLOB 2.9 04/07/2024 @GLUCOSELAB@ No results found for: CHLPL, CHOL No results found for: TRIG No results found for: HDL No results found for: LDLCALC No results found for: (more content not included)... [facility] 36on 12-14-2024 36 Last physical was 03/2024 Patient is scheduled 04/2025 for her physical [facility] 36 Patient to be scheduled for physical I would like to go ahead and get her scheduled but please double check when her last 1 was because it cannot be earlier than a year. She believes January or February. [facility] Progress Noteon 12-14-2024 Progress Note Patient was identifi ed and seen today via Telehealth by agreement and consent. I used the following Telehealth technology: Audio and video capabilities. Patient location: Patient Location: Home. This patient encounter is appropriate and reasonable under the circumstances: Behavioral Health . The patient has been advised of the potential risks and limitations of this mode of treatment (including but not limited to the absence of in-person examination) and has agreed to be treated in a remote fashion in spite of them. Any and all of the patient's/patient's family's questions on this issue have been answered and I have made no promises or guarantees to the patient. The patient has also been advised to contact this office for worsening conditions or problems, and seek emergency medical treatment and/or call 911 if the patient deems either necessary. The patient stated that they are currently in the state [facility]. If the patient is a minor, permission has been obtained by the parent or guardian for the patient to receive medical care at this visit. [facility] - [address] [facility] [address] Dept: [phone] Dept Loc: [phone] Reason for Visit: No chief complaint on file. Assessment and Plan Assessment & Plan Chronic anemia Chronic stable recheck CBC hemoglobin Orders: Lipid panel; Future Comprehensive metabolic panel; Future Hemoglobin A1c; Future Estradiol; Future FSH; Future Estradiol; Future Postmenopausal Chronic stable patient was seeing [facility] [employer] she states she would like to switch and she is seeing a [place] provider. Who specializes in hormones. He is currently off of estradiol. She is requesting some hormone testing prior to the appointment this was done Orders: Lipid panel; Future Comprehensive metabolic panel; Future Hemoglobin A1c; Future Estradiol; Future FSH; Future Estradiol; Future SHILO (generalized anxiety disorder) Chronic stable patient doing well on Zoloft. current treatment plan is effective, no change in therapy, orders and follow up as documented in EMR, lab results reviewed with patient, repeat labs ordered prior to next appointment, reviewed compliance with lifestyle measures, reviewed diet, exercise and weight control, reviewed medications and side effects in detail Return visit in 3 months. Subjective HPI this is a 49-year-old female patient with recurrent anxiety. She feels since she got on the Zoloft she feels a lot better she still has some episodes of recurrent anxiety and depression. She is doing well she feels it is a surrounded by her. Her when she was supposed to have a.. She now switched to a new [employer] which she is david see in February. Current side effects of the Zoloft she feels its of benefit being on it Review of Systems Constitutional: Negative. Negative for activity change, appetite change and fever. HENT: Negative. Negative for congestion. Eyes: Negative. Negative for discharge. Respiratory: Negative. Negative for chest tightness. Cardiovascular: Negative. Gastrointestinal: Negative. Endocrine: Negative. Negative for cold intolerance. Genitourinary: Negative for difficulty urinating. Musculoskeletal: Negative. Neurological: Negative. Negative for dizziness, facial asymmetry and headaches. Hematological: Negative. Allergies[1] Current Medications[2] Problem List[3] Medical History[4] Social History Tobacco Use Smoking status: Former Current packs/day: 0.00 Average packs/day: 0.5 packs/day for 15.0 years (7.5 ttl pk-yrs) Types: Cigarettes Start date: 11/06/2002 Quit date: 11/06/2017 Years since quittin.1 Smokeless tobacco: Never Substance Use Topics Alcohol use: Yes Alcohol/week: 10.0 standard drinks of alcohol Types: 4 Glasses of wine, 6 Cans of beer per week Comment: 1-3 weekly. Surgical History[5] Family History[6] Health Maintenance Topic Date Due MMR Vaccines (1 of 1 - Standard series) Never done Diabetes Screening Never done DTaP/Tdap/Td Vaccines (1 - Tdap) Never done Hepatitis B Vaccines (1 of 3 - 19+ 3-dose series) Never done Pneumococcal Vaccine: 50+ Years (1 of 1 - PCV) Never done Zoster Vaccines (1 of 2) Never done COVID-19 Vaccine ( - 2024- season) 2024 Influenza Vaccine (1) 11/28/2024 Lipid Panel 01/17/2025 Mammogram 08/23/2025 Depression Screening 08/25/2025 Cervical Cancer Screening 02/22/2029 Colorectal Cancer Screening 05/06/2034 RSV Immunization for Adults (1 - 1-dose 75+ series) 2048 HIV Screening Completed Hepatitis C Screening Completed RSV Immunization under 20 Months Aged Out HIB Vaccines Aged Out IPV Vaccines Aged Out Hepatitis A Vaccines Aged Out Meningococcal Vaccine Aged Out Rotavirus Vaccines Aged Out HPV Vaccines Aged Out Meningococcal B Vaccine Aged Out Objective There wer (more content not included)... Normal [facility] 11-14-2024 36 Noted an appt is in place [facility] 11-11-2024 36 LM - called to help pt set up appt. 4 to 6-week follow-up TELEPHONE appointment is okay per Dr. Cm With DR. Cm [facility] [id number] 11-09-2024 [id number] Appt scheduled with pt per Dr. Alba [facility] [phone] I will double book myself and put 2 PM virtual or telephone to discuss [facility] 11-09-2024 29 Addended by: WANAD CM on: 11/10/2024 02:30 PM Modules accepted: Level of Service [facility] 11-09-2024 36 4 to 6-week follow-u p virtual visit by telephone anxiety [facility] Progress Note11-09-2024 Progress Note [facility] - [address] [facility] [address] Dept: [phone] Dept Loc: [phone] Reason for Visit: anxiety Patient was identified and seen today via Telehealth by agreement and consent. I used the following Telehealth technology: Audio capability only. Total length of call 20 minutes. The patient was offered and advised video for a more comprehensive evaluation, but the patient declined or was unable to use video. Patient location: Patient Location: Home. This patient encounter is appropriate and reasonable under the circumstances: Behavioral Health . The patient has been advised of the potential risks and limitations of this mode of treatment (including but not limited to the absence of in-person examination) and has agreed to be treated in a remote fashion in spite of them. Any and all of the patient's/patient's family's questions on this issue have been answered and I have made no promises or guarantees to the patient. The patient has also been advised to contact this office for worsening conditions or problems, and seek emergency medical treatment and/or call 911 if the patient deems either necessary. The patient stated that they are currently in the [facility]. If the patient is a minor, permission has been obtained by the parent or guardian for the patient to receive medical care at this visit. Assessment and Plan Assessment & Plan SHILO (generalized anxiety disorder) Acutenew onset started patient on Zoloft 25 mg 1 p.o. daily recheck in follow-up in 4 weeks if any problems or suicidal ideations to contact me immediately or go to the emergency room. current treatment plan is effective, no change in therapy, orders and follow up as documented in EMR, lab results reviewed with patient, repeat labs ordered prior to next appointment, reviewed compliance with lifestyle measures, reviewed diet, exercise and weight control, reviewed medications and side effects in detail Return visit in 4 weeks. Subjective HPI a 49 year old female patient who states she has been feeling consistent amount. She was on the low dose of Zoloft but was taken off of it as she felt better. She states that she has been having a lot of tension she is not sleeping well. She has been getting more irritable she feels she is having more episodes of surges of panic and anxiety no suicidal thoughts. Replacement follow-up yearly was doing okay at first it helped with hot flashes and her anxiety. Review of Systems Constitutional: Negative. Negative for activity change, appetite change and fever. HENT: Negative. Negative for congestion. Eyes: Negative. Negative for discharge. Respiratory: Negative. Negative for chest tightness. Cardiovascular: Negative. Gastrointestinal: Negative. Endocrine: Negative. Negative for cold intolerance. Genitourinary: Negative for difficulty urinating. Musculoskeletal: Negative. Neurological: Negative. Negative for dizziness, facial asymmetry and headaches. Hematological: Negative. Psychiatric/Behavioral : Positive for sleep disturbance. Negative for agitation, behavioral problems and suicidal ideas. The patient is nervous/anxious. The patient is not hyperactive. Allergies[1] Current Medications[2] Problem List[3] Medical History[4] Social History Tobacco Use Smoking status: Former Current packs/day: 0.00 Average packs/day: 0.5 packs/day for 15.0 years (7.5 ttl pk-yrs) Types: Cigarettes Start date: 11/06/2002 Quit date: 11/06/2017 Years since quittin.0 Smokeless tobacco: Never Substance Use Topics Alcohol use: Yes Alcohol/week: 10.0 standard drinks of alcohol Types: 4 Glasses of wine, 6 Cans of beer per week Comment: 1-3 weekly. Surgical History[5] Family History[6] Health Maintenance Topic Date Due MMR Vaccines (1 of 1 - Standard series) Never done Diabetes Screening Never done DTaP/Tdap/Td Vaccines (1 - Tdap) Never done Hepatitis B Vaccines (1 of 3 - 19+ 3-dose series) Never done Pneumococcal Vaccine: 50+ Years (1 of 1 - PCV) Never done Zoster Vaccines (1 of 2) Never done COVID-19 Vaccine ( - season) 2023 Influenza Vaccine (1) 11/28/2024 Lipid Panel 01/17/2025 Mammogram 08/23/2025 Depression Screening 08/25/2025 Cervical Cancer Screening 02/22/2029 Colorectal Cancer Screening 05/06/2034 RSV Immunization for Adults (1 - 1-dose 75+ series) 2048 HIV Screening Completed Hepatitis C Screening Completed RSV Immunization under 20 Months Aged Out HIB Vaccines Aged Out IPV Vaccines Aged Out Hepatitis A Vaccines Aged Out Meningococcal Vaccine Aged Out Rotavirus Vaccines Aged Out HPV Vaccines Aged Out Meningococcal B Vaccine Aged Out Objective There were no vitals taken for this visit. Physical Exam Data Reviewed and Summarized Labs: Lab Results Component Value Date W (more content not included)... Normal [facility] CNOVon 08-29-2024 CNOV Office Visit (OBGYWM ) DANIELLA TOLEDO ([id number]) 1975 F Date Time Provider Department 08/29/24 9:20 AM JUNE EDEN During your visit today, we recorded the following information about you: Blood pressure Weight Height Last Period 122/78 77.6 kg 1.638 m 08/25/24 June Eden MD 08/29/2024 9:55 AM Signed Daniellaadrien Toledo is a 48 year old female who presents for problem visit with menopausal symptoms. HPI: Has been on HRT for almost a year. Was doing ok at first. It did help the hot flashes and rage. Now getting significant breast pain. Has had a diagnostic mammogram and US. Mood is not as good as it was and GI symptoms. Is interested in trying a different option. Would like to try a non hormonal treatment. Did not tolerated Paxil in the past. Reviewed low dose Effexor as an option. 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 History Comments: Sexual Activity: Yes; Male Contraception: No contraception data on record PAST MEDICAL HISTORY Diagnosis Date GERD (gastroesophageal reflux disease) Urinary frequency PAST SURGICAL HISTORY Procedure Laterality Date BX BREAST W DEVICE 1ST LESION STEREOTACTIC GUIDE Left 03/27/2022 NONE FAMILY HISTORY Problem Relation Age of Onset No Known Problems Mother No Known Problems Father No Known Problems Sister No Known Problems Brother Breast Cancer Maternal Aunt Social History Tobacco Use Smoking status: Former Current packs/day: 0.00 Types: Cigarettes Quit date: 2017 Years since quittin.4 Smokeless tobacco: Never Vaping Use Vaping status: Never Used Substance Use Topics Alcohol use: Yes Alcohol/week: 3.0 standard drinks of alcohol Types: 3 Glasses of wine per week Comment: couple times a week Drug use: Never Current Outpatient Medications Medication Sig progesterone micronized (PROMETRIUM) 100 mg capsule Take 100 mg by mouth. estradiol (CLIMARA) 0.025 mg/[address] 1 PATCH ON THE SKIN 1 TIME PER WEEK. olopatadine (PATANOL) 0.1 % ophthalmic solution INSTILL 1 DROP INTO BOTH EYES TWICE A DAY DIRECTED No current facility-administered medications for this visit. Allergies As of Date: 08/29/2024 Allergen Noted Reaction BACTRIM [SULFAMETHOXAZOLE-TRIM ETH*06/13/2015 Rash CODEINE 06/13/2015 Unknown FLEXERIL [CYCLOBENZAPRINE] 04/10/2022 Rash Fully Assessed 08/29/2024 REVIEW OF SYSTEMS Abdomen: No bloating, early satiety, indigestion, or increased flatulence. Bladder: No dysuria, gross hematuria, urinary frequency, urinary urgency, or incontinence. Breast: No breast lumps, nipple d/c, overlying skin changes, redness or skin retraction and tenderness. Expanded ROS: N/A Allergies and current medication updated:Yes SENSITIVE EXAM: Sensitive exam not performed. EXAM: BP 122/78 Ht 5' 4.5 (1.64m) Wt 171 lb (77.6kg) LMP 08/25/2024 BMI 28.91 kg/(m2). GENERAL: pleasant, female in no apparent distress HEENT: Normocephalic, atraumatic, mucus membranes moist, and no lesions NECK: Supple, full range of motion, and no adenopathy DERMATOLOGY: Normal, without lesions, non-icteric, and non-hirsute BREAST: deferred CHEST: Normal inspiratory effort ABDOMEN: Deferred PELVIC: deferred BIMANUAL: deferred NEURO: alert and oriented x3,exam grossly non-focal EXTREMITIES: normal ASSESSMENT AND PLAN: Assessment AND Plan Symptomatic menopausal or female climacteric states Effexor. Wean of HRT June Eden MD Allergies As of Date: 08/29/2024 Noted Allergy Reaction BACTRIM (SULFAMETHOXAZOLE-TRIM ETH*06/13/2015 2 - Rash CODEINE 06/13/2015 16 - Unknown FLEXERIL (CYCLOBENZAPRINE) 04/10/2022 2 - Rash Date Reviewed: 08/29/2024 Reviewed by: June Eden MD - Fully Assessed Reason for Visit: Menopause Consult [1257] Primary Visit Diagnosis:Symptomatic menopausal or female climacteric states [N95.1] Order(s):venlafaxine ER (EFFEXOR XR) 37.5 mg 24 hr capsuleTake 1 capsule by mouth once daily.Disp: 90 capsuleRfl: 3 Prescriptions as of 08/29/2024 - estradiol (CLIMARA) 0.025 mg/[address] 1 PATCH ON THE SKIN 1 TIME PER WEEK. - progesterone micronized (PROMETRIUM) 100 mg capsule Take 100 mg by mouth. - venlafaxine ER (EFFEXOR XR) 37.5 mg 24 hr capsule Take 1 capsule by mouth once daily. - olopatadine (PATANOL) 0.1 % ophthalmic solution INSTILL 1 DROP INTO BOTH EYES TWICE A DAY DIRECTED Problem List As Of Date 08/29/2024 Noted Resolved Former smoker [Z87.891] 04/30/2022 GERD (gastroesophageal reflux disease) [K21.9] 04/30/2022 COVID [U07.1] 05/29/2022 Irritable bowel syndrome with constipation [K58*05/29/2022 Prescriptions ordered this encounter Disp Refills Start End VENLAFAXINE ER 37.5 (more content not included)... Normal [facility] Progress Noteon 08-25-2024 Progress Note [facility] today via [facility] by agreement and consent. I used the following Telehealth technology: Audio and video capabilities. Patient location: [place] Patient Location: Home. This patient encounter is appropriate and reasonable under the circumstances: too sick to leave home [facility] - [address] [facility] [address] Dept: [phone] Dept Loc: [phone] Reason for Visit: painful urination Assessment and Plan 1. Dysuria - Urinalysis with reflex microscopic (clean catch) - Urine culture (clean catch) - nitrofurantoin, macrocrystal-monohydra te, (Macrobid) 100 MG capsule; Take 1 capsule (100 mg) by mouth 2 times daily for 7 days., Starting Eileen 08/25/2024, Until Eileen 09/01/2024, Normal current treatment plan is effective, no change in therapy, orders and follow up as documented in EMR, lab results reviewed with patient, repeat labs ordered prior to next appointment, reviewed compliance with lifestyle measures, reviewed diet, exercise and weight control, reviewed medications and side effects in detail Return visit in 1 weeks. Subjective HPI this is a 48-year-old female who complains of urinary frequency and burning no fevers no chills no flank pain. 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 Review of Systems Constitutional: Negative. Negative for activity change, appetite change and fever. HENT: Negative. Negative for congestion. Eyes: Negative. Negative for discharge. Respiratory: Negative. Negative for chest tightness. Cardiovascular: Negative. Gastrointestinal: Negative. Endocrine: Negative. Negative for cold intolerance. Genitourinary: Positive for dysuria. Negative for difficulty urinating. Musculoskeletal: Negative. Neurological: Negative. Negative for dizziness, facial asymmetry and headaches. Hematological: Negative. Allergies[1] Current Medications[2] Problem List[3] Medical History[4] Social History Tobacco Use Smoking status: Former Current packs/day: 0.00 Average packs/day: 0.5 packs/day for 15.0 years (7.5 ttl pk-yrs) Types: Cigarettes Start date: 11/06/2002 Quit date: 11/06/2017 Years since quittin.8 Smokeless tobacco: Never Substance Use Topics Alcohol use: Yes Alcohol/week: 10.0 standard drinks of alcohol Types: 4 Glasses of wine, 6 Cans of beer per week Comment: 1-3 weekly. Surgical History[5] Family History[6] Health Maintenance Topic Date Due HIV Screening Never done MMR Vaccines (1 of 1 - Standard series) Never done Depression Screening Never done Diabetes Screening Never done DTaP/Tdap/Td Vaccines (1 - Tdap) Never done Hepatitis B Vaccines (1 of 3 - 19+ 3-dose series) Never done Pneumococcal Vaccine: 50+ Years (1 of 1 - PCV) Never done Zoster Vaccines (1 of 2) Never done COVID-19 Vaccine ( season) 2023 Influenza Vaccine (Season Ended) 2024 Lipid Panel 01/17/2025 Mammogram 08/23/2025 Cervical Cancer Screening 02/22/2029 Colorectal Cancer Screening 05/06/2034 RSV Immunization for Adults (1 - 1-dose 75+ series) 2048 Hepatitis C Screening Completed RSV Immunization under 20 Months Aged Out HIB Vaccines Aged Out IPV Vaccines Aged Out Hepatitis A Vaccines Aged Out Meningococcal Vaccine Aged Out Rotavirus Vaccines Aged Out HPV Vaccines Aged Out Meningococcal B Vaccine Aged Out Objective There were no vitals taken for this visit. Physical Exam Data Reviewed and Summarized Labs: Lab Results Component Value Date WBC 5.5 04/07/2024 HGB 13.3 04/07/2024 HCT 40.7 04/07/2024 PLT 366 04/07/2024 TSH 2.588 09/28/2020 Lab Results Component Value Date NA 137 09/01/2019 K 3.8 09/01/2019 CL 102 09/01/2019 CO2 28 04/07/2024 BUN 12 04/07/2024 CREATININE 0.66 04/07/2024 GLUCOSE 91 04/07/2024 CALCIUM 9.2 04/07/2024 PROT 7.1 04/07/2024 BILITOT 0.3 04/07/2024 ALKPHOS 55 04/07/2024 AST 15 04/07/2024 ALT 14 04/07/2024 AGRATIO 1.4 04/07/2024 GLOB 2.9 04/07/2024 @GLUCOSELAB@ No results found for: CHLPL, CHOL No results found for: TRIG No results found for: HDL No results found for: LDLCALC No results found for: VLDL No results found for: CHOLHDLRATIO Imaging/Testing: US renal complete Narrative: Patient Name: DANIELLA TOLEDO : 1975 Exam Date/Time: 01/26/2023 08:46 Procedure: US RENAL COMPLETE Ordering Provider: CM DIANA Reason For Exam: ANGIOMYOLIPOMA OF KIDNEY Examination: Renal ultrasound Clinical Indication: Angiomyolipoma Of Kidney Comparison: November 11, 2021 Findings: Multiplanar grayscale sonographic images were obtained through the kidneys and bladder. The right kidney measures 11.5 x 5.7 x 5.8 cm. No renal cysts. No solid renal parenchymal lesion, hydronephrosis, or shadowin (more content not included)... Normal [facility] DBT Breast - bilateral diagn ostic for implanton 08-23-2024 IMPRESSION: There is no mammographic or sonographic evidence of malignancy. Return to annual screening mammogram is recommended. Annual mammogram will be due in 8 months. BI-RADS Category 2: Benign RISK: Based on the Tyrer-Cuzick (TC) risk assessment model, this patient has a 13.6% lifetime risk of developing breast cancer, meaning they are at average risk for developing breast cancer. However, this is only an estimate based on available history provided on the patient's questionnaire. We encourage all patients to talk with their providers about these results, further recommendations for managing breast health, and appropriate supplemental screening options if the patient has dense breast tissue. Interpreting Radiologist: Mecca Price M.D. Electronically signed on: 08/23/2024 Vacuum Metalizing Supervisor: RADHA Transcribe Date/Time: Aug 23 2024 3:07P Dictated by: MECCA PRICE MD This examination was interpreted and the report reviewed and electronically signed by: MECCA PRICE MD on Aug 23 2024 3:48PM [facility] DIVISION OF RADIOLOGY * * *Final Report* * * DATE OF EXAM: Aug 23 2024 3:28PM [facility] 0627 - [facility] ANGELINEG W LINDSEY RJ / PROCEDURE REASON: pain * * * * Physician Interpretation * * * * RESULT: [address] [address] [place] [address] #[id number] - [facility] ANGELINEG W LINDSEY RJ #[id number] - [facility] [employer] LT HISTORY: 48 year-old patient seen for diagnostic evaluation of a palpable abnormality and diffuse pain both breasts. Patient states no personal history of breast cancer. The patient has a family history of breast cancer. COMPARISON STUDIES: The present examination has been compared to prior imaging studies dated 12/13/2020 (mammogram), 02/13/2022 (mammogram), 02/26/2022 (ultrasound), 12/16/2022 (mammogram) and 04/12/2024 (mammogram). MAMMOGRAM TECHNIQUE: The study was acquired using full field digital technology and interpreted from soft copy. Digital Breast Tomosynthesis (DBT) images were obtained and used to assist in the interpretation of this examination. MAMMOGRAM FINDINGS: The breasts are heterogeneously dense, which may obscure small masses. There are post-biopsy changes in the left breast. There is no mammographic abnormality at the site of diffuse pain. There is no mammographic abnormality at the site of left palpable concern. No suspicious masses, calcifications or other abnormalities are seen in either breast. ULTRASOUND TECHNIQUE: Targeted ultrasound of the indicated area was performed. Lozano scale images were saved. ULTRASOUND FINDINGS: No abnormality is seen at the site of clinical concern. There are no suspicious findings in the imaged area. DIVISION OF RADIOLOGY Provider, [facility] Minesh Marie - 08/23/2024 * * *Final Report* * * DATE OF EXAM: Aug 23 2024 3:28PM [facility] 0627 - [facility] DIAG W LINDSEY RJ / PROCEDURE REASON: pain * * * * Physician Interpretation * * * * RESULT: [place] [address] #[id number] APOLINAR KATY DE LA ROSA #[id number] - [facility] US BREAST LTD LT HISTORY: 48 year-old patient seen for diagnostic evaluation of a palpable abnormality and diffuse pain both breasts. Patient states no personal history of breast cancer. The patient has a family history of breast cancer. COMPARISON STUDIES: The present examination has been compared to prior imaging studies dated 12/13/2020 (mammogram), 02/13/2022 (mammogram), 02/26/2022 (ultrasound), 12/16/2022 (mammogram) and 04/12/2024 (mammogram). MAMMOGRAM TECHNIQUE: The study was acquired using full field digital technology and interpreted from soft copy. Digital Breast Tomosynthesis (DBT) images were obtained and used to assist in the interpretation of this examination. MAMMOGRAM FINDINGS: The breasts are heterogeneously dense, which may obscure small masses. There are post-biopsy changes in the left breast. There is no mammographic abnormality at the site of diffuse pain. There is no mammographic abnormality at the site of left palpable concern. No suspicious masses, calcifications or other abnormalities are seen in either breast. ULTRASOUND TECHNIQUE: Targeted ultrasound of the indicated area was performed. Lozano scale images were saved. ULTRASOUND FINDINGS: No abnormality is seen at the site of clinical concern. There are no suspicious findings in the imaged area. IMPRESSION IMPRESSION: There is no mammographic or sonographic evidence of malignancy. Return to annual screening mammogram is recommended. Annual mammogram will be due in 8 months. BI-RADS Category 2: Benign RISK: Based on the Tyrer-Cuzick (TC) risk assessment model, this patient has a 13.6% lifetime risk of developing breast cancer, meaning they are at average risk for developing breast cancer. However, this is only an estimate based on available history provided on the patient's questionnaire. We encourage all patients to talk with their providers about these results, further recommendations for managing breast health, and appropriate supplemental screening options if the patient has dense breast tissue. Interpreting Radiologist: Mecca Price M.D. Electronically signed on: 08/23/2024 Vacuum Metalizing Supervisor: RADHA Transcribe Date/Time: Aug 23 2024 3:07P Dictated by: MECCA PRICE MD This examination was interpreted and the report reviewed and electronically signed by: MECAC PRICE MD on Aug 23 2024 3:48PM EST [facility] APOLINAR DE LA ROSAon 2024 APOLINAR GALINDOO RJ * * *Final Report* * * DATE OF EXAM: Aug 23 2024 3:28PM [id number] - APOLINAR PORTILLO RJ / PROCEDURE REASON: pain * * * * Physician Interpretation * * * * RESULT: [address] [address] [place] [address] #[id number] - APOLINAR PORTILLO RJ #[id number] - [facility] [employer] BRE[employer] HISTORY: 48 year-old patient seen for diagnostic evaluation of a palpable abnormality and diffuse pain both breasts. Patient states no personal history of breast cancer. The patient has a family history of breast cancer. COMPARISON STUDIES: The present examination has been compared to prior imaging studies dated 12/13/2020 (mammogram), 02/13/2022 (mammogram), 02/26/2022 (ultrasound), 12/16/2022 (mammogram) and 04/12/2024 (mammogram). MAMMOGRAM TECHNIQUE: The study was acquired using full field digital technology and interpreted from soft copy. Digital Breast Tomosynthesis (DBT) images were obtained and used to assist in the interpretation of this examination. MAMMOGRAM FINDINGS: The breasts are heterogeneously dense, which may obscure small masses. There are post-biopsy changes in the left breast. There is no mammographic abnormality at the site of diffuse pain. There is no mammographic abnormality at the site of left palpable concern. No suspicious masses, calcifications or other abnormalities are seen in either breast. ULTRASOUND TECHNIQUE: Targeted ultrasound of the indicated area was performed. Lozano scale images were saved. ULTRASOUND FINDINGS: No abnormality is seen at the site of clinical concern. There are no suspicious findings in the imaged area. IMPRESSION: There is no mammographic or sonographic evidence of malignancy. Return to annual screening mammogram is recommended. Annual mammogram will be due in 8 months. BI-RADS Category 2: Benign RISK: Based on the Tyrer-Cuzick (TC) risk assessment model, this patient has a 13.6% lifetime risk of developing breast cancer, meaning they are at average risk for developing breast cancer. However, this is only an estimate based on available history provided on the patient's questionnaire. We encourage all patients to talk with their providers about these results, further recommendations for managing breast health, and appropriate supplemental screening options if the patient has dense breast tissue. Interpreting Radiologist: Mecca Price M.D. Electronically signed on: 08/23/2024 Vacuum Metalizing Supervisor: RADHA Transcribe Date/Time: Aug 23 2024 3:07P Dictated by: MECCA PRICE MD This examination was interpreted and the report reviewed and electronically signed by: MECCA PRICE MD on Aug 23 2024 3:48PM EST [id number] Normal [facility] BRE[facility] LTon 08-23 [facility] [employer] LT * * *Final Report* * * DATE OF EXAM: Aug 23 2024 3:43PM [id number] - [facility] [employer] LT / PROCEDURE REASON: pain * * * * Physician Interpretation * * * * [place] [address] #[id number] - [facility] KATY PORTILLO RJ #[id number] - [facility] [employer] LT HISTORY: 48 year-old patient seen for diagnostic evaluation of a palpable abnormality and diffuse pain both breasts. Patient states no personal history of breast cancer. The patient has a family history of breast cancer. COMPARISON STUDIES: The present examination has been compared to prior imaging studies dated 12/13/2020 (mammogram), 02/13/2022 (mammogram), 02/26/2022 (ultrasound), 12/16/2022 (mammogram) and 04/12/2024 (mammogram). MAMMOGRAM TECHNIQUE: The study was acquired using full field digital technology and interpreted from soft copy. Digital Breast Tomosynthesis (DBT) images were obtained and used to assist in the interpretation of this examination. MAMMOGRAM FINDINGS: The breasts are heterogeneously dense, which may obscure small masses. There are post-biopsy changes in the left breast. There is no mammographic abnormality at the site of diffuse pain. There is no mammographic abnormality at the site of left palpable concern. No suspicious masses, calcifications or other abnormalities are seen in either breast. ULTRASOUND TECHNIQUE: Targeted ultrasound of the indicated area was performed. Lozano scale images were saved. ULTRASOUND FINDINGS: No abnormality is seen at the site of clinical concern. There are no suspicious findings in the imaged area. IMPRESSION: There is no mammographic or sonographic evidence of malignancy. Return to annual screening mammogram is recommended. Annual mammogram will be due in 8 months. BI-RADS Category 2: Benign RISK: Based on the Tyrer-Cuzick (TC) risk assessment model, this patient has a 13.6% lifetime risk of developing breast cancer, meaning they are at average risk for developing breast cancer. However, this is only an estimate based on available history provided on the patient's questionnaire. We encourage all patients to talk with their providers about these results, further recommendations for managing breast health, and appropriate supplemental screening options if the patient has dense breast tissue. Interpreting Radiologist: Mecca Price M.D. Electronically signed on: 08/23/2024 Vacuum Metalizing Supervisor: RADHA Transcribe Date/Time: Aug 23 2024 3:36P Dictated by : MECCA PRICE MD This examination was interpreted and the report reviewed and electronically signed by: MECCA PRICE MD on Aug 23 2024 3:48PM EST [id number] Normal [facility] No Panel InformationOrdered By: [facility] Provider on 08-23-2024 [facility] No Panel Informationon 08-23 Radiology Study observation (narrative) [facility] US Breast - left limitedon 0 08-23-2024 IMPRESSION: There is no mammographic or sonographic evidence of malignancy. Return to annual screening mammogram is recommended. Annual mammogram will be due in 8 months. BI-RADS Category 2: Benign RISK: Based on the Tyrer-Cuzick (TC) risk assessment model, this patient has a 13.6% lifetime risk of developing breast cancer, meaning they are at average risk for developing breast cancer. However, this is only an estimate based on available history provided on the patient's questionnaire. We encourage all patients to talk with their providers about these results, further recommendations for managing breast health, and appropriate supplemental screening options if the patient has dense breast tissue. Interpreting Radiologist: Mecca Price M.D. Electronically signed on: 08/23/2024 Vacuum Metalizing Supervisor: RADHA Transcribe Date/Time: Aug 23 2024 3:36P Dictated by : MECCA PRICE MD This examination was interpreted and the report reviewed and electronically signed by: MECCA PRICE MD on Aug 23 2024 3:48PM [facility] DIVISION OF RADIOLOGY * * *Final Report* * * DATE OF EXAM: Aug 23 2024 3:43PM [facility] 0593 - [facility] BREAST LTD LT / PROCEDURE REASON: pain * * * * Physician Interpretation * * * * [place] [address] #[id number] - [facility] KATY DE LA ROSA #[id number] - [facility] BREAST [employer] LT HISTORY: 48 year-old patient seen for diagnostic evaluation of a palpable abnormality and diffuse pain both breasts. Patient states no personal history of breast cancer. The patient has a family history of breast cancer. COMPARISON STUDIES: The present examination has been compared to prior imaging studies dated 12/13/2020 (mammogram), 02/13/2022 (mammogram), 02/26/2022 (ultrasound), 12/16/2022 (mammogram) and 04/12/2024 (mammogram). MAMMOGRAM TECHNIQUE: The study was acquired using full field digital technology and interpreted from soft copy. Digital Breast Tomosynthesis (DBT) images were obtained and used to assist in the interpretation of this examination. MAMMOGRAM FINDINGS: The breasts are heterogeneously dense, which may obscure small masses. There are post-biopsy changes in the left breast. There is no mammographic abnormality at the site of diffuse pain. There is no mammographic abnormality at the site of left palpable concern. No suspicious masses, calcifications or other abnormalities are seen in either breast. ULTRASOUND TECHNIQUE: Targeted ultrasound of the indicated area was performed. Lozano scale images were saved. ULTRASOUND FINDINGS: No abnormality is seen at the site of clinical concern. There are no suspicious findings in the imaged area. DIVISION OF RADIOLOGY Provider, [facility] - 08/23/2024 * * *Final Report* * * DATE OF EXAM: Aug 23 2024 3:43PM [facility] 0593 - [facility] BREAST LTD LT / PROCEDURE REASON: pain * * * * Physician Interpretation * * * * [place] [address] #[id number] - [facility] KATY [place] #[id number] - [facility] US BREAST LTD LT HISTORY: 48 year-old patient seen for diagnostic evaluation of a palpable abnormality and diffuse pain both breasts. Patient states no personal history of breast cancer. The patient has a family history of breast cancer. COMPARISON STUDIES: The present examination has been compared to prior imaging studies dated 12/13/2020 (mammogram), 02/13/2022 (mammogram), 02/26/2022 (ultrasound), 12/16/2022 (mammogram) and 04/12/2024 (mammogram). MAMMOGRAM TECHNIQUE: The study was acquired using full field digital technology and interpreted from soft copy. Digital Breast Tomosynthesis (DBT) images were obtained and used to assist in the interpretation of this examination. MAMMOGRAM FINDINGS: The breasts are heterogeneously dense, which may obscure small masses. There are post-biopsy changes in the left breast. There is no mammographic abnormality at the site of diffuse pain. There is no mammographic abnormality at the site of left palpable concern. No suspicious masses, calcifications or other abnormalities are seen in either breast. ULTRASOUND TECHNIQUE: Targeted ultrasound of the indicated area was performed. Lozano scale images were saved. ULTRASOUND FINDINGS: No abnormality is seen at the site of clinical concern. There are no suspicious findings in the imaged area. IMPRESSION IMPRESSION: There is no mammographic or sonographic evidence of malignancy. Return to annual screening mammogram is recommended. Annual mammogram will be due in 8 months. BI-RADS Category 2: Benign RISK: Based on the Tyrer-Cuzick (TC) risk assessment model, this patient has a 13.6% lifetime risk of developing breast cancer, meaning they are at average risk for developing breast cancer. However, this is only an estimate based on available history provided on the patient's questionnaire. We encourage all patients to talk with their providers about these results, further recommendations for managing breast health, and appropriate supplemental screening options if the patient has dense breast tissue. Interpreting Radiologist: Mecca Price M.D. Electronically signed on: 08/23/2024 Vacuum Metalizing Supervisor: RADHA Transcribe Date/Time: Aug 23 2024 3:36P Dictated by : MECCA PRICE MD This examination was interpreted and the report reviewed and electronically signed by: MECCA PRICE MD on Aug 23 2024 3:48PM [facility] Urgent Care Visit Reporton 0 07-25-2024 Urgent Care Visit Report [facility] [address], [address] [place] [address] OFFICE VISIT Date of Service: 07/25/24 MR#: [id number] Acct: [id number] Name: DANIELLA TOLEDO Rep #: [id number] : 1975 Provider: JONATHAN Cowan Age/Sex: 48/F Location: [facility] Status: Signed Intake Vital Signs 10/16/21 07:59 07/25/24 11:54 Height 5 ft 5 in BP 124/80 H Position Sitting Pulse 58 L Pulse Oximetry (%) 99 Oxygen Delivery Method room air Intake Visit Reasons: JAW, EAR, FACE PAIN Accompanied by: Self Allergies codeine Allergy (Mild, Verified 07/25/24 12:04) Rash gadobutrol (From Gadavist) Allergy (Mild, Verified 07/25/24 12:04) Other Medications ???Medication ???Instructions ???Recorded ???Confirmed ???Type estradiol 0.025 mg/24 hr weekly 1 patch transdermal QWEEK 03/28/24 07/25/24 History transdermal patch levocetirizine 5 mg tablet 5 mg PO QDAY 03/28/24 07/25/24 His tory progesterone micronized 100 mg 100 mg PO QHS 03/28/24 07/25/24 Hi story capsule dexamethasone 6 mg tablet 6 mg PO DAILY #5 tabs 04/01/24 Rx prednisone 10 mg tablet 20 mg (2 x 10 mg) PO BID #20 tabs 07/25/24 07/25/24 Rx Nurse's Note: Patient has left side ear pain,jaw pain and facial pain that started about 2 hours ago and is getting worse. Patient had a HX of TMJ about 8-9 years ago. [facility] Medical History (Updated 07/25/24 @ 12:07 by William CASTILLO, PA) TMJ tenderness, left Tonsil stone Urinary tract infection with hematuria Social History (Updated 05/18/22 @ 11:09 by Rebecca Smith) Smoking Status: Current every day smoker tobacco type: cigarettes alcohol intake: current alcohol intake frequency: holidays/special occasions only HPI HPI Details: DANIELLA TOLEDO, is a 48 F who presents to the office today for initial evaluation 2 to 3-hour history of acute onset left TMJ pain. 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 She notes no left external ear discomfort to palpation. She notes no left upper extremity complaints nor complaints of chest pain/shortness of breath/dyspnea on exertion. She has taken no yijc-jxn-czjqedy products to help with her left jaw discomfort. She notes no dentition discomfort. She notes no other associated symptoms and no other alleviating/aggravatin g factors. ROS Const Constitutional: No other (As above) Exam Const General: cooperative, healthy appearing and no acute distress Orientation: alert and awake HENPA Head: normal to inspection Ears: hearing grossly normal bilaterally, external ears normal, TM's normal bilaterally and EAC's normal Nose: external nose normal Face and sinus: normal facial exam and face symmetric Mouth: oral mucosae normal, lip normal, tongue normal, oropharynx normal, moist mucous membranes and other (Point tender to palpation left TMJ aggravated with open/close of mouth) Teeth and gingiva: dentition normal Neck Neck: normal visual inspection, no meningeal signs and supple Neck mass: No Thyroid: thyroid normal Lymphatic: no lymphadenopathy noted Chest Chest palpation inspection: normal inspection of the chest Resp Effort Inspection: normal respiratory effort and able to speak in complete sentences Cardio Rate: bradycardic Pulses: radial pulses present Skin General: no rashes or lesions noted Neuro General: patient alert and patient awake Cognition: normal cognition Speech: speech normal Psych Appearance: grossly normal Mental Status: mental status grossly normal Mood: congruent mood Affect: normal affect Speech and Movement: speech and movement normal Attitude: cooperative Coding Level of Care Code Off vis,est,level 3 Diagnoses TMJ tenderness, left M26.622 Assessment and Plan Assessment and Plan (1) TMJ tenderness, left: Status: Acute Plan: Prednisone as prescribed today. Supportive measures as instructed today. Follow-up with PCP in 3 to 5 days should symptoms not resolve, sooner should symptoms only worsen or any other concerns develop. Patient states acknowledging understanding all the above. This note was generated with AutoNavi dictation software. It may contain incorrect words, spelling, and punctuation that were not noted in checking the note before signing. Medications: New prednisone 20 mg (2 x 10 mg) PO BID 20 tabs 0RF 07/25/24 1307 Date William Houston Signature: Date (if applicable) CC: Normal [facility] Office Visiton 07-15-2024 Follow-up visit [id number] Daniella Toledo 1975 F Date Provider Department Center 07/15/2024 [id number] GIMENEZ [facility] OB Offi Family History Problem Relation Age of Onset Breast cancer Other Comments: maternal aunt in 30s; maternal great aunt High Blood Pressure Mother Alcohol abuse Mother High Blood Pressure Father Breast cancer Mother's Sister Ovarian cancer Neg Hx Uterine cancer Neg Hx Colon cancer Neg Hx Family Status - Relation Status Age at Other Mother Alive Father Alive Mother's Sister Neg Hx Level of Service:82820 [place] OFFICE/OUTPATIENT ESTABLISHED LOW MDM 20 MIN Reason for Visit and Comments: Follow-up [263411] - Breast pain Normal [facility] Progress Noteon 07-15-2024 Progress Note Daniella Toledo 07/18/2024 Date Of : 1975 HPI: Daniella Bravo Paris is a 48 y.o. female No obstetric history on file. The patient was seen today. She is here regarding right intermittent breast pain. Hard area right breast outer upper quad Bilateral breast heaviness Giuliano 25 mg wnl On hrt Had cellulitis right breast few months ago took abx and got better Review Of Systems: Constitutional: No fever, chills or malaise Gastrointestinal ROS: No Indigestion, Heartburn, Nausea, vomiting, Diarrhea, Constipation,or Bowel Changes Genito-Urinary ROS: No Dysuria Psych ROS: No Depression, Homicidal thoughts,suicidal thoughts, or anxiety Physical Exam: Blood pressure 130/85, pulse 85, height 5' 5 (1.651 m), weight 173 lb (78.5 kg). General: Alert, NAD Respirations: Normal respiratory effort Right breast with 1 cm lump upper outer quad slight tenderness no skin change no nipple discharge Left breast with 1 cm lump upper outer quad +tenderness no skin changes no nipple discharge Assessment: Diagnosis Plan 1. Breast lump in female Bilateral diagnostic mammogram with tomosynthesis Bilateral breast US limited 2. Breast pain Bilateral diagnostic mammogram with tomosynthesis Bilateral breast US limited PLAN: Follow up for annual. Orders Placed This Encounter Procedures Bilateral diagnostic mammogram with tomosynthesis Breast lumps right breast upper outer quad and left breast upper outer quad Standing Status: Future Standing Expiration Date: 09/14/2025 Order Specific Question: Is the patient ? Answer: No Bilateral breast US limited Standing Status: Future Standing Expiration Date: 09/14/2025 The primary encounter diagnosis was Breast lump in female. A diagnosis of Breast pain was also pertinent to this visit. and Follow-up (Breast pain) as well as counseling on preventative health maintenance follow-up. [facility] 36on 05-09-2024 36 We have been unable to reach your patient to schedule their testing. Test Name: US abdomen, US pelvis 1st Attempt: sent [employer] message 04/13/24 Picmonic 2nd Attempt: Patient stated she is unsure if she is still needing the test. Patient is wanting to discuss at upcoming appointment. 3rd Attempt - Patient discussed with PCP, symptoms gone, exam can be canceled, 05/09 LAR [facility] Nursing Noteon 05-06-2024 Nursing Note Received pt from GI lab to recovery phase 2 alert and asking questions. brought to bedside. Vivienne CASTILLO gave update at bedside. [facility] 36on 04-28-2024 36 Reason for call:Call ed Patient to Schedule US Abdomen Complete and US pelvis. Patient stated she has an appointment today with . Patient is going to discuss if both tests are still needed at this time. Please advise. Contact [facility] Office Visiton 04-28-2024 Follow-up visit [id number] Daniella Toledo 1975 F Date Provider Department Center 04/28/2024 [id number] MAXWELL [facility] Family History Problem Relation Age of Onset Breast cancer Other Comments: maternal aunt in 30s; maternal great aunt High Blood Pressure Mother Alcohol abuse Mother High Blood Pressure Father Breast cancer Mother's Sister Ovarian cancer Neg Hx Uterine cancer Neg Hx Colon cancer Neg Hx Family Status - Relation Status Age at Other Mother Alive Father Alive Mother's Sister Neg Hx Level of Service:12856 [place] PERIODIC PREVENTIVE MED EST PATIENT 40-64YRS Reason for Visit and Comments: Annual Exam [83] [facility] Progress Noteon 04-28-2024 Progress Note Subjective Daniella Toledo is a 48 y.o. female and is here for a comprehensive physical exam. The patient reports no problems. Do you take any herbs or supplements that were not prescribed by a doctor? no Are you taking calcium supplements? no Are you taking aspirin daily? no Do you have pain that bothers you in your daily life? no Review of Systems Constitutional: Negative. Negative for activity change, appetite change and fever. HENT: Negative. Negative for congestion. Eyes: Negative. Negative for discharge. Respiratory: Negative. Negative for chest tightness. Cardiovascular: Negative. Gastrointestinal: Negative. Endocrine: Negative. Negative for cold intolerance. Genitourinary: Negative for difficulty urinating. Musculoskeletal: Negative. Neurological: Negative. Negative for dizziness, facial asymmetry and headaches. Hematological: Negative. Objective Physical Exam Vitals and nursing note reviewed. Constitutional: Appearance: Normal appearance. HENT: Head: Normocephalic and atraumatic. Nose: No congestion or rhinorrhea. Mouth/Throat: Mouth: Mucous membranes are moist. Pharynx: Oropharynx is clear. No posterior oropharyngeal erythema. Eyes: Extraocular Movements: Extraocular movements intact. Conjunctiva/sclera: Conjunctivae normal. Pupils: Pupils are equal, round, and reactive to light. Cardiovascular: Pulses: Normal pulses. Heart sounds: Normal heart sounds. No murmur heard. Pulmonary: Effort: Pulmonary effort is normal. No respiratory distress. Breath sounds: Normal breath sounds. No wheezing. Abdominal: General: Abdomen is flat. Bowel sounds are normal. Palpations: Abdomen is soft. Tenderness: There is no abdominal tenderness. Musculoskeletal: General: No swelling. Cervical back: Normal range of motion. Skin: General: Skin is warm and dry. Neurological: General: No focal deficit present. Mental Status: She is alert and oriented to person, place, and time. Mental status is at baseline. Psychiatric: Mood and Affect: Mood normal. Assessment/Plan Healthy female exam. \ 1. Patient is getting a colonoscopy and a mammogram has been already done. 2. Patient Counseling: --Nutrition: Stressed importance of moderation in sodium/caffeine intake, saturated fat and cholesterol, caloric balance, sufficient intake of fresh fruits, vegetables, fiber, calcium, iron, and 1 mg of folate supplement per day (for females capable of ). --Discussed the issue of estrogen replacement, calcium supplement, and the daily use of baby aspirin. --Exercise: Stressed the importance of regular exercise. --Substance Abuse: Discussed cessation/primary prevention of tobacco, alcohol, or other drug use; driving or other dangerous activities under the influence; availability of treatment for abuse. --Sexuality: Discussed sexually transmitted diseases, partner selection, use of condoms, avoidance of unintended and contraceptive alternatives. --Injury prevention: Discussed safety belts, safety helmets, smoke detector, smoking near bedding or upholstery. --Dental health: Discussed importance of regular tooth brushing, flossing, and dental visits. --Immunizations reviewed. --Discussed benefits of screening colonoscopy. --After hours service discussed with patient [facility]IN[facility] W LINDSEY * * *Final Report* * * DATE OF EXAM: Apr 12 2024 10:35AM [facility] 0582 - APOLINAR SCREENING W LINDSEY / PROCEDURE REASON: Z12.31 * * * * Physician Interpretation * * * * RESULT: [facility] [address] [id number] #[id number] - APOLINAR SCREENING W LINDSEY HISTORY: Patient is 48 years old and is seen for screening and area of clinical concern in the right breast. Patient states no personal history of breast cancer. Patient states no personal history of other cancers. COMPARISON STUDIES: The present examination has been compared to prior imaging studies dated 05/09/2020 (mammogram), 12/13/2020 (mammogram), 02/13/2022 (mammogram), 02/26/2022 (ultrasound) and 12/16/2022 (mammogram). MAMMOGRAM TECHNIQUE: The study was acquired using full field digital technology and interpreted from soft copy. Digital Breast Tomosynthesis (DBT) images were obtained and used to assist in the interpretation of this examination. MAMMOGRAM FINDINGS: The breasts are heterogeneously dense, which may obscure small masses. No suspicious masses, calcifications or other abnormalities are seen in either breast. There are no significant interval changes. There are benign post operative changes. IMPRESSION: There is no mammographic evidence of malignancy in either breast. Routine screening mammogram is recommended. Annual mammogram will be due in 1 year. BI-RADS Category 1: Negative RISK: Based on the Tyrer-Cuzick (TC) risk assessment model, this patient has a 11.2% lifetime risk of developing breast cancer, meaning they are at average risk for developing breast cancer. However, this is only an estimate based on available history provided on the patient's questionnaire. We encourage all patients to talk with their providers about these results, further recommendations for managing breast health, and appropriate supplemental screening options if the patient has dense breast tissue. Interpreting Radiologist: Millicent Mtz M.D. Electronically signed on: 04/13/2024 Vacuum Metalizing Supervisor: RADHA Transcribe Date/Time: Apr 12 2024 10:07A Dictated by: MILLICENT MTZ MD This examination was interpreted and the report reviewed and electronically signed by: MILLICENT MTZ MD on Apr 13 2024 11:34AM EST [id number] Normal [facility] 36on 04-11-2024 36 Pt is scheduled for a screening colonoscopy on Thursday at 12:30PM (Arrival time 11:30) w/Dr. Val Dunlap [facility] schedule updated Order submitted via new epic surgery case-Case# [id number] Endo packet mailed (see letters tab in [employer]Estrogen Gene Test for prep info) Referral updated (if available) Pt is a part of the screening program. Screening questionnaire reviewed. Reviewed any 'yes' questions with a clinician (if applicable) Ok to schedule in program. Allergies See [facility] chart Insurance: [employer] Screening Questionnaire Do you have Congestive Heart Failure ? No Do you have a pacemaker or defibrillator? No Have you had a heart attack in last 6 months? No Have you had any cardiac stents in last 12 months? No Have you had chest pain (angina)? No Are you using any blood thinner medication? No Have you been told you have an abnormal EKG, abnormal echocardiogram or heart rhythm? No Are you using Oxygen at home? If yes, how many liters of oxygen? No Do you have COPD (Chronic Obstructive Pulmonary Disease)? No Do you have Asthma? If yes, is it mild? No Do you have Sleep Apnea? Do you use a cpap? No Have you been told you have malignant hyperthermia or had any other reaction to anesthesia? No What is your height and weight? 5'5 179 BMI-30 Do you have diabetes? If yes, what medications do you take and what is your latest A1C level? No A1C- Are you Immunocompromised (have a medical condition that puts you at increased risk of infection)? No Do you have any myopathies (muscle diseases) ? No Do you have liver cirrhosis? No Are you ? No Do you receive dialysis? No Do you have any cognitive impairment like dementia; traumatic brain injury, or from stroke? No Additional questions to determine diagnostic or screening, Have you done a home stool test like the FIT or Cologuard that had a positive result? No Do you have abdominal pain? Yes Pt has occasional abdominal pain- ordered as screening Have you had any unexplained weight loss more than 20 lbs? No Have you had blood in your stool? No Have you been told you have Crohn's Disease or ulcerative colitis (inflammatory bowel disease)? No 6. Do you have anemia (low blood count)? No 7. Have you had a colonoscopy that found colon polyps? If yes, when was your last colonoscopy? No Normal [facility] Office Visiton 04-07-2024 Follow-up visit [id number] Daniella Toledo 1975 F Date Provider Department Center 04/07/2024 [id number] MAXWELL [facility] Family History Problem Relation Age of Onset Breast cancer Other Comments: maternal aunt in 30s; maternal great aunt High Blood Pressure Mother Alcohol abuse Mother High Blood Pressure Father Breast cancer Mother's Sister Ovarian cancer Neg Hx Uterine cancer Neg Hx Colon cancer Neg Hx Family Status - Relation Status Age at Other Mother Alive Father Alive Mother's Sister Neg Hx Level of Service:97158 [place] OFFICE/OUTPATIENT ESTABLISHED MOD MDM 30 MIN Reason for Visit and Comments: Abdominal Pain [518852] Follow-up [109822] - Had went to urgent care a week ago for COVID and swelling and red line to right breast, on ATB for possible cellulitis per UC, also saw UC 03/28/24 for Tonsil stones Normal [facility] Progress Noteon 04-07-2024 Progress Note [facility] - [address] [facility] [id number] Dept: [phone] Dept Loc: [phone] Reason for Visit: Abdominal Pain and Follow-up (Had went to urgent care a week ago for COVID and swelling and red line to right breast, on ATB for possible cellulitis per UC, also saw UC 03/28/24 for Tonsil stones ) Assessment and Plan 1. Epigastric pain - US abdomen complete - US pelvis - CBC auto differential - Lipase - Comprehensive metabolic panel - Urinalysis with reflex microscopic (clean catch) - Urine culture (clean catch) 2. Pelvic pain - US abdomen complete - US pelvis - CBC auto differential - Lipase - Comprehensive metabolic panel - Urinalysis with reflex microscopic (clean catch) - Urine culture (clean catch) 3. Cellulitis of right breast - US abdomen complete - US pelvis - CBC auto differential - Lipase - Comprehensive metabolic panel - Urinalysis with reflex microscopic (clean catch) - Urine culture (clean catch) 4. Need for hepatitis C screening test - Hepatitis C antibody current treatment plan is effective, no change in therapy, orders and follow up as documented in EMR, lab results reviewed with patient, repeat labs ordered prior to next appointment, reviewed compliance with lifestyle measures, reviewed diet, exercise and weight control, reviewed medications and side effects in detail Return visit in 1 weeks. Subjective Abdominal Pain Pertinent negatives include no fever or headaches. 48-year-old female that for the last 2 weeks has been in and out of the urgent care. Originally she went to the urgent care for a tonsillar stone and later was diagnosed with COVID. She is feeling better from this. She has no fevers no chills she went back to the urgent care because she saw a red streak on her breast. No lumps no bumps that she has noted no nipple discharge she was put on cephalexin and is feeling a lot better on this. She has not yet gotten her screening mammogram which we discussed the importance of getting this done now she is having abdominal pain it was around the time that she got sick. She states that she has been having alternating diarrhea and constipation. She has not yet had a colonoscopy done. She has no nausea or vomiting. Her last bowel movement was today. She denies any urinary issues. 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 Review of Systems Constitutional: Negative. Negative for activity change, appetite change and fever. HENT: Negative. Negative for congestion. Eyes: Negative. Negative for discharge. Respiratory: Negative. Negative for chest tightness. Cardiovascular: Negative. Gastrointestinal: Positive for abdominal pain. Endocrine: Negative. Negative for cold intolerance. Genitourinary: Negative for difficulty urinating. Musculoskeletal: Negative. Neurological: Negative. Negative for dizziness, facial asymmetry and headaches. Hematological: Negative. Allergies Allergen Reactions Sulfamethoxazole-Trime thoprim Anaphylaxis and Rash Doxycycline Ciprofloxacin Rash Codeine Rash Other reaction(s): Unknown Cyclobenzaprine Rash Gadobutrol Other reaction(s): Other Outpatient Medications Prior to Visit Medication Sig Dispense Refill estradiol (Climara) 0.025 MG/24HR Place 1 patch on the skin 1 (one) time per week. 12 patch 3 Lactobacillus (PROBIOTIC ACIDOPHILUS PO) Take by mouth. levocetirizine (Xyzal) 5 MG tablet Take 1 tablet (5 mg) by mouth every evening. 30 tablet 11 montelukast (Singulair) 10 MG tablet TAKE 1 TABLET BY MOUTH EVERY DAY NIGHTLY 90 tablet 1 Multiple Vitamin (multivitamin) tablet Take 1 tablet by mouth daily. Olopatadine HCl (PATADAY OP) Administer into affected eye(s). omeprazole (PriLOSEC) [address] capsule Take 20 mg by mouth every morning (before breakfast). Do not crush or chew. progesterone (Prometrium) 100 MG capsule Take 1 capsule (100 mg) by mouth daily. 30 capsule 11 No facility-administered medications prior to visit. Patient Active Problem List Diagnosis Renal mass Past Medical History: Diagnosis Date GERD (gastroesophageal reflux disease) Irritable bowel syndrome Social History Tobacco Use Smoking status: Former Current packs/day: 0.00 Average packs/day: 0.5 packs/day for 15.0 years (7.5 ttl pk-yrs) Types: Cigarettes Start date: 11/06/2002 Quit date: 11/06/2017 Years since quittin.4 Smokeless tobacco: Never Substance Use Topics Alcohol use: Yes Alcohol/week: 10.0 standard drinks of alcohol Types: 4 Glasses of wine, 6 Cans of beer per week Past Surgical History: Procedure Laterality Date BREAST SURGERY 06/04/2022 Family History Problem Relation Name Age of Onset Breast cancer Other maternal aunt in 30s; maternal great aunt High Blood Pressure Mother Lizette hoyos Alcohol abuse Mother Lizette luis (more content not included)... Normal [facility] Urgent Care Visit Reporton 0 04-01-2024 Urgent Care Visit Report [facility] [address], [address] [place] [address] OFFICE VISIT Date of Service: 04/01/24 MR#: [id number] Acct: [id number] Name: DANIELLA TOLEDO Rep #: [id number] : 1975 Provider: JONATHAN Brownlee Age/Sex: 48/F Location: [facility] Status: Signed Intake Vital Signs 10/16/21 07:59 04/01/24 13:25 Height 5 ft 5 in BP 100/60 Blood Pressure Location Rt brachial Position Sitting Respiration 15 Pulse 94 Pulse Source NIBP Temp 98.4 F Temp Source Oral Pulse Oximetry (%) 99 Oxygen Delivery Method room air Intake Visit Reasons: COUGH, DIZZY Chief Complaint: cough, dizzy, fever, sweats, nausea, diarrhea Medical Record Retrieval Specialist Required: No Is patient in pain?: No Allergies codeine Allergy (Mild, Verified 04/01/24 13:26) Rash gadobutrol (From Gadavist) Allergy (Mild, Verified 04/01/24 13:26) Other Is last menstrual period known: No Post menopausal: No Patient : No Have you fallen in the past year?: No Nurse's Note: cough, dizzy, fever, sweats x 5 days. nausea, diarrhea since last noc. also c/o right nipple swelling and redness with streak. c/o pain to same but unsure of discharge. denies hx breast CA, hx benign lumpectomy on left [facility] Medical History (Updated 04/01/24 @ 13:57 by Jesus CASTILLO, PA) Tonsil stone Urinary tract infection with hematuria Social History (Updated 05/18/22 @ 11:09 by Rebecca Smith) Smoking Status: Current every day smoker tobacco type: cigarettes alcohol intake: current alcohol intake frequency: holidays/special occasions only HPI HPI Chief Complaint: cough, dizzy, fever, sweats, nausea, diarrhea Details: DANIELLA TOLEDO, is a 48 F who presents to the office today for complaint of cough, dizziness, fever, sweats as well as some new onset of nausea and diarrhea.Patient states that the symptoms started 5 days ago and have improved somewhat with no fever today although her diarrhea and nausea have remained persistent for the past 2 days. Additionally patient states that she has right nipple irritation and swelling along with some redness. She states this has been ongoing for the past several days. She denies any history of injury to the same. No other associated symptoms or alleviating/aggravatin g factors. ROS Const Constitutional: Positive for other (ROS negative x 6 except what is described above) Exam Const General: cooperative and well developed HENPA Head: normal to inspection and atraumatic Ears: hearing grossly normal bilaterally Nose: nasal discharge clear Face and sinus: normal facial exam Mouth: oral mucosae normal Throat: abnormal tonsil bilaterally hypertrophy 1+ Chest Other: Right nipple erythema and swelling without deformity, warmth or streaking. Resp Effort Inspection: normal respiratory effort and no audible wheezes Auscultation: Bilateral: Clear to Auscultation Cardio Palpation: normal PMI Rate: regular rate Rhythm: regular rhythm Neuro General: patient alert and CN's II-XI intact bilaterally Psych Appearance: grossly normal Mental Status: mental status grossly normal Results POC YISEL Covid FluAB PCR POC Yisel Covid PCR Detected Last Edit by Dariana Urena on 04/01/24 13:44 POC YISEL FLU NOT DETECTED FLU A B Last Edit by Dariana Urena on 04/01/24 13:44 Coding Level of Care Code Off vis,new,level 3 Diagnoses COVID-19 U07.1 Cellulitis of right breast N61.0 Assessment and Plan Assessment and Plan (1) COVID-19: Status: Acute (2) Cellulitis of right breast: Status: Acute Orders: Orders POC Yisel Covid FLUAB PCR Today Medications: New cephalexin 500 mg PO Q8H 10 days 30 caps 0RF dexamethasone 6 mg PO DAILY 5 tabs 0RF Plan Keflex and Decadron as prescribed today. Patient tested positive for COVID in the office today. Encouraged to get plenty of rest, drink lots of clear liquids, and use Tylenol or Ibuprofen (unless contraindicated) for fever and comfort. Patient also educated on other symptomatic management techniques. To be seen in 7-10 days if no improvement; sooner if worsening of symptoms. Patient advised of potential red flags and when appropriate to report to the ED. Patient verbalized understanding and agreement with all the above. A grab jack man was present during entire visit. Clinical Quality Measures Falls Risk Screening/Assistive Devices Have you fallen in the past year?: No 04/01/24 1358 Date Jesus Houston Signature: Date (if applicable) CC: Normal [facility] Urgent Care Visit Reporton 1 Urgent Care Visit Report [facility] [address], [address] [place] [address] OFFICE VISIT Date of Service: 03/28/24 MR#: [id number] Acct: [id number] Name: PARISDANIELLA M Rep #: [id number] : 1975 Provider: HERMELINDO Ruelas Age/Sex: 48/F Location: [facility] Status: Signed Intake Vital Signs 10/16/21 07:59 03/28/24 11:08 Height 5 ft 5 in BP 120/78 Blood Pressure Location Rt brachial Position Sitting Respiration 12 Pulse 78 Pulse Source NIBP Temp 98.0 F Temp Source Oral Pulse Oximetry (%) 98 Oxygen Delivery Method room air Intake Visit Reasons: ST/WHITE PATCHES IN THROAT Chief Complaint: sore throat white patches in throat Medical Record Retrieval Specialist Required: No Is patient in pain?: No Allergies codeine Allergy (Mild, Verified 03/28/24 11:10) Rash gadobutrol (From Gadavist) Allergy (Mild, Verified 03/28/24 11:10) Other Medications ???Medication ???Instructions ???Recorded ???Confirmed ???Type estradiol 0.025 mg/24 hr weekly 1 patch transdermal QWEEK 03/28/24 03/28/24 History transdermal patch levocetirizine 5 mg tablet 5 mg PO QDAY 03/28/24 03/28/24 History progesterone micronized 100 mg 100 mg PO QHS 03/28/24 03/28/24 History capsule Is last menstrual period known: No Post menopausal: No Patient : No Have you fallen in the past year?: No Nurse's Note: patient here for ST, white patches in throat and left ear pain x1 day. PFS Medical History (Updated 03/28/24 @ 11:33 by Sandor Ruelas NP-C) Tonsil stone Urinary tract infection with hematuria Social History (Updated 05/18/22 @ 11:09 by Rebecca Smith) Smoking Status: Current every day smoker tobacco type: cigarettes alcohol intake: current alcohol intake frequency: holidays/special occasions only HPI HPI Chief Complaint: sore throat white patches in throat Details: DANIELLA TOLEDO, is a 48 F who presents to the office today for HPI: Patient has had a mild cough over the last several days but yesterday began to notice a sore throat and thought she noticed some white spots on her throat. She otherwise denies any nausea vomiting or fever. ROS: As noted in HPI Physical Exam: VITALS: Reviewed. GEN: Healthy appearing, well-developed, NAD. PSYCH: AOx3. Normal memory, mood, and affect. HEENT -Eyes: -No discharge or redness; -Ears: No erythema to bilateral tympanic membranes. Mild bulging of left tympanic membrane -Mouth and throat: Moist mucous membranes. No pharyngeal erythema or exudate noted NECK: CV: Regular rate and rhythm LUNGS: Normal respiratory effort. Lungs clear bilaterally. SKIN: Warm, well perfused. No skin rashes or abnormal lesions noted. MSK: Normal gait. NEURO: Ambulating with no limitations. Normal muscle strength and tone. No focal deficits. Coding Level of Care Code Off vis,est,level 3 Diagnoses Tonsil stone J35.8 Assessment and Plan Assessment and Plan (1) Tonsil stone: Status: Acute Plan: Rapid strep negative. I do feel that patient's symptoms are more consistent with a tonsillar stone on the left side. She was instructed that she could use a Waterpik or try to self dislodge if she preferred or they will eventually resolve on their own. Orders: Orders POC Yisel Rapid Strep A Today Clinical Quality Measures Falls Risk Screening/Assistive Devices Have you fallen in the past year?: No 03/28/24 1134 Date Sandor Moomaw RUG RENOVATOR-C Cosigner Signature: Date (if applicable) CC: Normal [facility] Office Visiton 02-23-2024 Follow-up visit [id number] Daniella Toledo 1975 F Date Provider Department Center 02/23/2024 [id number] VALENTIN [facility] OB Offi Family History Problem Relation Age of Onset Breast cancer Other Comments: maternal aunt in 30s; maternal great aunt High Blood Pressure Mother Alcohol abuse Mother High Blood Pressure Father Breast cancer Mother's Sister Ovarian cancer Neg Hx Uterine cancer Neg Hx Colon cancer Neg Hx Family Status - Relation Status Age at Other Mother Alive Father Alive Mother's Sister Neg Hx Level of Service:[id number] GA PERIODIC PREVENTIVE MED EST PATIENT 40-64YRS Reason for Visit and Comments: Annual Exam [83] - Annual exam Normal [facility] Progress Noteon 02-23-2024 Progress Note Daniella Toledo 02/23/2024 48 y.o. Chief Complaint Patient presents with Annual Exam Annual exam No LMP recorded. Primary Care Physician: Wanda Cm MD The patient was seen and examined. She is here for her annual exam. Pap 10/17 neg Mg 12/20 wnl Colonoscopy referral discussed Hrt doing well wants to continue Fam ho early breast cancer gene testing neg May 22 breast lump removed Specialist said no further fu needed Due for mg Missed 2 menses Over last year HPI : Daniella Toledo is a 48 y.o. female No obstetric history on file. OB History No obstetric history on file. Past Medical History: Diagnosis Date GERD (gastroesophageal reflux disease) Irritable bowel syndrome Past Surgical History: Procedure Laterality Date BREAST SURGERY 06/04/2022 Family History Problem Relation Name Age of Onset Breast cancer Other maternal aunt in 30s; maternal great aunt High Blood Pressure Mother Lizette hoyos Alcohol abuse Mother Lizette hoyos High Blood Pressure Father Breast cancer Mother's Sister Loretta hutchinson Ovarian cancer Neg Hx Uterine cancer Neg Hx Colon cancer Neg Hx Social History Socioeconomic History Marital status: Spouse name: Not on file Number of children: Not on file Years of education: Not on file Highest education level: Not on file Occupational History Not on file Tobacco Use Smoking status: Former Current packs/day: 0.00 Average packs/day: 0.5 packs/day for 15.0 years (7.5 ttl pk-yrs) Types: Cigarettes Start date: 11/06/2002 Quit date: 11/06/2017 Years since quittin.3 Smokeless tobacco: Never Vaping Use Vaping status: Never Used Substance and Sexual Activity Alcohol use: Yes Alcohol/week: 10.0 standard drinks of alcohol Types: 4 Glasses of wine, 6 Cans of beer per week Drug use: No Sexual activity: Yes Partners: Male Comment: vasectomy Other Topics Concern Not on file Social History Narrative Not on file Social Drivers of Health Financial Resource Strain: Not on file Food Insecurity: Not on file Transportation Needs: Not on file Physical Activity: Not on file Stress: Not on file Social Connections: Not on file Intimate Partner Violence: Not on file Housing Stability: Not on file MEDICATIONS: Current Outpatient Medications Medication Sig Dispense Refill Lactobacillus (PROBIOTIC ACIDOPHILUS PO) Take by mouth. levocetirizine (Xyzal) 5 MG tablet Take 1 tablet (5 mg) by mouth every evening. 30 tablet 11 montelukast (Singulair) 10 MG tablet TAKE 1 TABLET BY MOUTH EVERY DAY NIGHTLY 90 tablet 1 Multiple Vitamin (multivitamin) tablet Take 1 tablet by mouth daily. Olopatadine HCl (PATADAY OP) Administer into affected eye(s). omeprazole (PriLOSEC) [address] capsule Take 20 mg by mouth every morning (before breakfast). Do not crush or chew. estradiol (Climara) 0.025 MG/24HR Place 1 patch on the skin 1 (one) time per week. 12 patch 3 progesterone (Prometrium) 100 MG capsule Take 1 capsule (100 mg) by mouth daily. 30 capsule 11 No current facility-administered medications for this visit. ALLERGIES: Allergies as of 02/23/2024 - Reviewed 02/23/2024 Allergen Reaction Noted Sulfamethoxazole-trime thoprim Anaphylaxis and Rash 10/03/2014 Doxycycline 10/03/2014 Ciprofloxacin Rash 10/03/2014 Codeine Rash 10/03/2014 Cyclobenzaprine Rash 04/10/2022 Gadobutrol 04/18/2016 GynecologicHistory: Menstrual History: No LMP recorded. Review of Systems Constitutional: Negative for fatigue, fever and unexpected weight change. HENT: Negative for congestion and sore throat. Eyes: Negative for discharge and visual disturbance. Respiratory: Negative for cough and shortness of breath. Cardiovascular: Negative for chest pain and leg swelling. Gastrointestinal: Negative for abdominal pain, constipation, diarrhea, nausea and vomiting. Genitourinary: Negative for dysuria and pelvic pain. Musculoskeletal: Negative for arthralgias and back pain. Skin: Negative for rash. Neurological: Negative for weakness and headaches. Psychiatric/Behavioral : Negative for dysphoric mood. The patient is not nervous/anxious. PHYSICAL Exam: Constitutional: Vitals: 02/23/24 0825 BP: 129/84 Pulse: 79 Weight: 179 lb (81.2 kg) Height: 5' 5 (1.651 m) Physical Exam Constitutional: General: She is not in acute distress. Appearance: Normal appearance. HENT: Head: Normocephalic and atraumatic. Right Ear: External ear normal. Left Ear: External ear normal. Nose: Nose normal. Eyes: Conjunctiva/sclera: Conjunctivae normal. Neck: Thyroid: No thyromegaly. Cardiovascular: Rate and Rhythm: Normal rate. Pulmonary: Effort: Pulmonary effort is normal. No respiratory distress. Chest: Breasts: Right: No mass, nipple discharge, s (more content not included)... Normal [facility] 36on 01-27-2024 36 *Pharmacy requesting 90-day Rx Normal [facility] 36on 01-22-2024 36 Rx request Normal [facility] Office Visit Reporton 2023 Office Visit Report [facility] [address] [place] [address] OFFICE VISIT Date of Service: 12/29/23 MR#: [id number] Acct: [id number] Patient: DANIELLA TOLEDO Rep #: [id number] : 1975 Provider: JONATHAN Wooten Age/Sex: 48/F Location: [facility] Status: Signed Intake Vital Signs 10/16/21 07:59 12/29/23 06:39 Height 5 ft 5 in BP 128/78 H Blood Pressure Location Lt brachial Position Sitting Respiration 15 Pulse 73 Pulse Source NIBP Temp 98.6 F Temp Source Temporal Pulse Oximetry (%) 100 Oxygen Delivery Method room air Intake Visit Reasons: POSSIBLE BUG BITE ON FACE Chief Complaint: right forehead bite Medical Record Retrieval Specialist Required: No Is patient in pain?: No Allergies codeine Allergy (Mild, Verified 12/29/23 06:42) Rash gadobutrol (From Gadavist) Allergy (Mild, Verified 12/29/23 06:42) Other Is last menstrual period known: No Post menopausal: No Patient : No Have you fallen in the past year?: No Nurse's Note: right forehead bite with swelling, c/o itching x 48 hours. itching also to right latter-day with no bite/lump seen. pt concerned for infection [facility] Medical History (Updated 12/29/23 @ 06:47 by Elva CASTILLO, PA) Urinary tract infection with hematuria Social History (Updated 05/18/22 @ 11:09 by Rebecca Smith) Smoking Status: Current every day smoker tobacco type: cigarettes alcohol intake: current alcohol intake frequency: holidays/special occasions only HPI HPI Chief Complaint: right forehead bite Details: DANIELLA TOLEDO, is a 48 F who presents to the office today for concerns over a bug bite to the right side of her forehead. Patient was out camping this weekend and then woke up Thursday morning with a bite to her head where it was itchy and swollen. It is tender to touch. She also feels that beside her ear it is slightly swollen. She has not used any tvpg-aoh-drgvycy medication to help with this. ROS Const Constitutional: Positive for other (ROS negative x 6 except what is described above) Exam Const General: cooperative, healthy appearing and no acute distress Nutritional Appearance: average body habitus Orientation: alert, awake and oriented x3 HENMT Head: normal to inspection, atraumatic and other (Red raised lesion with pustular center to right side of center of scalp. ) Ears: hearing grossly normal bilaterally Nose: external nose normal Face and sinus: normal facial exam Mouth: oral mucosae normal Other: The raised area on her scalp is approximately 2 inches x 2 inches in circumference. There is some swelling noted in front of her ear it is tender to touch. Eyes General: appearance normal, both eyes and all related structures Resp Effort Inspection: normal respiratory effort Auscultation: Bilateral: Clear to Auscultation Cardio Palpation: normal PMI Rate: regular rate Rhythm: regular rhythm Heart Sounds: S1 normal, S2 normal, no gallops, no murmurs and no rubs GI Inspection: normal to inspection Auscultation: normal bowel sounds Palpation: soft, no hepatosplenomegaly and nontender Neuro General: patient alert, patient awake, patient oriented x3 and CN's II-XI intact bilaterally Coding Level of Care Code Off vis,est,level 3 Diagnoses Bug bite of face with infection S00.86XA; L08.9; W57.XXXA Assessment and Plan Assessment and Plan (1) Bug bite of face with infection: Status: Acute Plan: This does appear to be infected with cellulitis. Will treat with antibiotics and a short course of prednisone for itching. 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 Report Dictated on Electronically Signed By: Claudio Stafford MD Electronically Signed Date/Time: 01/26/2023 9:19 AM [facility] Name[facility] 1975 [id number] Exam Date/Time: 01/26/2023 08:46 Procedure: US RENAL COMPLETE Ordering Provider: CM DIANA Reason For Exam: ANGIOMYOLIPOMA OF KIDNEY Examination: Renal ultrasound Clinical Indication: Angiomyolipoma Of Kidney Comparison: November 11, 2021 Findings: Multiplanar grayscale sonographic images were obtained through the kidneys and bladder. The right kidney measures 11.5 x 5.7 x 5.8 cm. No renal cysts. No solid renal parenchymal lesion, hydronephrosis, or shadowing renal calculus. Normal echotexture. The left kidney measures 10.4 x 5.9 x 5.1 cm. No renal cysts. 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 Otherwise no solid renal parenchymal lesion, hydronephrosis, or shadowing renal calculus. Normal echotexture. Ultrasound images through the bladder demonstrate no gross evidence of bladder wall thickening. [facility] Claudio Stafford MD - 01/26/2023 Patient Name: DANIELLA TOLEDO : 1975 Exam Date/Time: 01/26/2023 08:46 Procedure: US RENAL COMPLETE Ordering Provider: CM DIANA Reason For Exam: ANGIOMYOLIPOMA OF KIDNEY Examination: Renal ultrasound Clinical Indication: Angiomyolipoma Of Kidney Comparison: November 11, 2021 Findings: Multiplanar grayscale sonographic images were obtained through the kidneys and bladder. The right kidney measures 11.5 x 5.7 x 5.8 cm. No renal cysts. No solid renal parenchymal lesion, hydronephrosis, or shadowing renal calculus. Normal echotexture. The left kidney measures 10.4 x 5.9 x 5.1 cm. No renal cysts. 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 Otherwise no solid renal parenchymal lesion, hydronephrosis, or shadowing renal calculus. Normal echotexture. Ultrasound images through the bladder demonstrate no gross evidence of bladder wall thickening. 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 Report Dictated on Electronically Signed By: Claudio Stafford MD Electronically Signed Date/Time: 01/26/2023 9:19 AM EDT [facility] Radiology Study observation (narrative) [facility] US KidneyOrdered By: Claudio corey on 01-26-2023 [facility] [employer] Work Phone: APOLINAR DIAG W LINDSEY BILATERALon 12-16-2022 [facility] ANES POSTPROC EVALon 023 ANES POSTPROC EVAL HNO ID: [id number] Author: Corey Valencia MD Service: Anesthesiology Author Type: Physician Type: Anesthesia Postprocedure Evaluation Filed: 06/04/2022 2:38 PM Note Text: POST ANESTHESIA EVALUATION NOTE : 1975 Procedure Summary Date: 06/04/22 Room / Location: [place] OR / [place] OR Anesthesia Start: 1116 Anesthesia Stop: 1253 Procedures: PLACEMENT OF BREAST LOCALIZATION DEVICE(S) PERCUTANEOUS; FIRST LESION, STEREOTACTIC GUIDANCE (Left) EXCISION BREAST LESION IDENTIFIED BY PREOPERATIVE PLACEMENT RADIOLOGICAL MARKER, OPEN, SINGLE LESION (Left) Diagnosis: Abnormal finding on breast imaging Radial scar of breast (Abnormal finding on breast imaging [R92.8]) (Radial scar of breast [N64.89]) Surgeons: Carolyn Conley MD Responsible Provider: Corey Valencia MD Anesthesia Type: general ASA Status: 2 Anesthesia Type: general Airway Type: LMA Last Vitals Vitals Value Taken Time BP 135/87 06/04/22 1315 Temp 36.8 ?C (98.2 ?F) 06/04/22 1250 HR SpO2 80 06/04/22 1250 Resp 12 06/04/22 1322 SpO2 98 % 06/04/22 1322 Vitals shown include unvalidated device data. Post Anesthesia Patient Status Patient Evaluation: PACU. PACU/ICU Patient Condition: stable. Anticipated Disposition: phase 2 then home. Neurological Status: aware and responsive. Pulmonary Status: breathing comfortably on room air Airway Control: returned to baseline unsupported. Cardiovascular Status: stable. Pain Management: clinically adequate - multimodal analgesia pain management approach Postoperative Hydration: acceptable. Intraoperative Events: no significant anesthesia events Recommendation: continue current plan of care. Anesthesia Observations No Documentation SIGNATURE: Corey Valencia MD PATIENT NAME: Daniella Toledo DATE: June 04, 2022 TIME: 2:38 PM CSN: [id number] [facility] ANES PRE-OPon 06-04-2022 ANES PRE-OP HNO ID: [id number] Author: Corey Valencia MD Service: Anesthesiology Author Type: Physician Type: Anesthesia Preprocedure Evaluation Filed: 06/04/2022 8:13 AM Note Text: ANESTHESIOLOGY DAY OF SURGERY NOTE : 1975 Procedure Information Date/Time: 06/04/22 1028 Procedures: PLACEMENT OF BREAST LOCALIZATION DEVICE(S) PERCUTANEOUS; FIRST LESION, STEREOTACTIC GUIDANCE (Left) - placed by una - betito hernandez informed will be placed at 10 EXCISION BREAST LESION IDENTIFIED BY PREOPERATIVE PLACEMENT RADIOLOGICAL MARKER, OPEN, SINGLE LESION (Left) - placed by radiology - betito florenceeter informed will be placed at 10 Location: [place] OR / [place] Surgeons: Craolyn Conley MD Estimated body mass index is 28.29 kg/m? as calculated from the following: Height as of this encounter: 165.1 cm (5' 5). Weight as of this encounter: 77.1 kg (170 lb). Most recent hematocrit and potassium results: Hematocrit 39.7 12/17/2021 Potassium 3.6 12/17/2021 Relevant Problems GI (+) GERD (gastroesophageal reflux disease) I - PHYSICAL EVALUATION AIRWAY Patient intubated: No. Tracheostomy tube not present Mallampati: I. TM distance: >3 FB. Neck ROM: full ROM without neurological symptoms. Mouth opening: adequate. Short neck: no. Thick neck: no DENTAL Dental findings: teeth intact. Additional exam findings: no II - ANESTHESIA PLAN ASA Score: 2 Anesthetic Plan: general Airway type: LMA NPO Status: adequate Beta Gabriela Monitoring Plan Monitoring plan: Standard ASA. Post Procedure Analgesic Plan Postoperative analgesic plan: parenteral or oral opioids and multimodal analgesia. Informed Consent Anesthetic risks, benefits, alternatives, personnel and consent discussed: yes. Patient / Responsible [employer] Party agrees to proceed: yes Patient / Surrogate agrees to blood products: yes DNR status not reviewed with patient and/or family prior to surgery. Significant changes in the patient condition since the History and Physical, not otherwise documented in primary service progress note: no. Potential Anesthesia issues that may suggest increased risk of complications or contraindication to planned procedure: none. Vitals Value Taken Time BP 137/80 06/04/22 0808 Pulse Resp 16 06/04/22 0808 Temp 37.4 ?C (99.3 ?F) 06/04/22 0808 SpO2 100 % 06/04/22 0808 Facility-Administered Medications as of 06/04/2022 Medication Dose Route Frequency - lidocaine (PF) 10 mg/mL (1 %) 1-2 mg injection (XYLOCAINE) 0.1-0.2 mL INTRADERMAL PRN - lactated ringers iv infusion 5-30 mL/hr INTRAVENOUS CONTINUOUS - NaCl 0.9% iv flush bag 20 mL INTRAVENOUS PRN - ceFAZolin iv piggyback 2 g in D5W (iso-osmotic) 100 mL (ANCEF) 2 g INTRAVENOUS Pre-Op Once - acetaminophen 650 mg tab(s) (TYLENOL) 650 mg ORAL Pre-Op Once - promethazine 12.5 mg tab(s) (PHENERGAN) 12.5 mg ORAL Pre-Op Once - scopolamine 1 mg over 3 days 1 Patch (TRANSDERM-SCOP) 1 Patch TRANSDERMAL ONCE Outpatient Medications as of 06/04/2022 Medication Sig - olopatadine (PATANOL) 0.1 % ophthalmic solution INSTILL 1 DROP INTO BOTH EYES TWICE A DAY DIRECTED I have interviewed and examined the patient. I have reviewed the medical record and/or the pre-anesthesia evaluation, pertinent labs, and test results. This contains updated information obtained within 48 hours of Surgery/Procedure. SIGNATURE: Corey Valencia MD PATIENT NAME: Daniella Toledo DATE: June 04, 2022 TIME: 8:12 AM CSN: [id number] [facility] BRIEF OP NOTon 06-04-2022 BRIEF OP NOT HNO ID: [id number] Author: Carolyn Conley MD Service: General Surgery Author Type: Physician Type: Brief Op Note Filed: 06/04/2022 12:51 PM Note Text: BRIEF OPERATIVE NOTATION FOR SURGICAL PROCEDURE. Daniella Toledo 1975 [id number] female LOG ID: [id number] Surgery/Procedure Date: 06/04/2022 Incision/Procedure Start Time: 11:46 AM Incision Close/Procedure End Time: 12:39 PM Surgeon(s)/Procedurali st(s) and Combination Saw Operator(s): Surgeon(s) and Role: * Carolyn Conley MD - Primary Physician Combination Saw Operator: Arminda Estevez PA-C REFERRING PHYSICIAN: Outpatient DEPT: [facility] PROVIDER: Arturo POS: [id number] ANESTHESIA: General ASA CLASS: 2 - mild DIAGNOSIS: left radial scar PROCEDURE: left preoperative stereotactic guided needle placement - [id number] EXCISION BREAST LESION - WITH SPECIMEN MAMMOGRAPHY, [id number], 70203-364-47 IVF: 700 EBL: 5 Specimens: left lumpectomy specimen ADDITIONAL DIAGNOSES: FINDINGS: good radiographic and AGNES margins COMPLICATIONS: None PMHx - PAST MEDICAL HISTORY Diagnosis Date GERD (gastroesophageal reflux disease) Urinary frequency COMORBIDITIES - None Post Op Occurrences - None Wound Classification - Clean Operative note dictated in the dictation system. - [id number] Carolyn Conley MD [facility] HISTORY PHYSICALon 3 HISTORY PHYSICAL HNO ID: [id number] Author: Carolyn Conley MD Service: General Surgery Author Type: Physician Type: HANDP Filed: 06/04/2022 7:53 AM Note Text: HISTORY AND PHYSICAL - BREAST COMPLAINT Daniella Toledo 1975 REFERRING PHYSICIAN: Wanda Cm MD CHIEF COMPLAINT: Left breast radial scar HPI: The patient is a 46 year old female with a complaint of abnormal breast imaging. Patient undergone previous screening mammography in 2020. This demonstrated no abnormalities. And had follow-up screening mammography on February 13, 2022 which demonstrated a possible left breast asymmetry and recommend additional views. She had tomograms and an ultrasound obtained on February 26, 2022. This demonstrated: IMPRESSION: SUSPICIOUS FINDING - BIOPSY SHOULD BE CONSIDERED The architectural distortion in the left breast is suspicious of malignancy. A stereotactic biopsy is recommended under tomosynthesis. She was initially scheduled for biopsy at [facility] on March 13 but inadequate visualization of the architectural distortion was noted on that facilities stereotactic machine. She was rescheduled and underwent biopsy on March 27, 2022. This demonstrated: IMPRESSION: STEREOTACTIC GUIDED BIOPSY HIGH RISK BENIGN Stereotactic guided biopsy of the area of architectural distortion in the left breast lower outer aspect posterior depth was successful with no apparent post procedure complications. 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 Pathology results are concordant with imaging findings. A surgical consultation is recommended. Localization of the architectural distortion seen on post clip lindsey images to be 1.3 cm inferior to the biopsy clip is recommended when this lesion is localized for surgical excision. The patient scheduled for surgery 2 weeks previously but then had a COVID infection. She notes some fatigue sinus issues and fog she had a light cough but no shortness of breath or other pulmonary issues. I had her return today just like a formal pulmonary exam and obtain a chest x-ray to assure that anesthesia was comfortable with her rescheduled surgery date of June 04. PAST MEDICAL HISTORY PAST MEDICAL HISTORY Diagnosis Date GERD (gastroesophageal reflux disease) Urinary frequency PAST SURGICAL HISTORY PAST SURGICAL HISTORY Procedure Laterality Date BX BREAST W DEVICE 1ST LESION STEREOTACTIC GUIDE Left 03/27/2022 NONE CURRENT MEDICATIONS Current Outpatient Medications Medication Sig Dispense Refill olopatadine (PATANOL) 0.1 % ophthalmic solution INSTILL 1 DROP INTO BOTH EYES TWICE A DAY DIRECTED No current facility-administered medications for this visit. ALLERGIES: Bactrim [Sulfamethoxazole-Trim ethoprim], Codeine, and Flexeril [Cyclobenzaprine] PERSONAL HISTORY: SOCIAL HISTORY Social History Tobacco Use Smoking status: Former Packs/day: 0.50 Types: Cigarettes Quit date: 2017 Years since quittin.1 Smokeless tobacco: Never Vaping Use Vaping Use: Never used Substance Use Topics Alcohol use: Yes Alcohol/week: 3.0 standard drinks Types: 3 Glasses of wine per week Comment: couple times a week Drug use: Never FAMILY HISTORY: FAMILY HISTORY FAMILY HISTORY Problem Relation Age of Onset No Known Problems Mother No Known Problems Father No Known Problems Sister No Known Problems Brother Breast Cancer Maternal Aunt REVIEW OF SYMPTOMS: The review of systems data was entered by the nurse and reviewed by me There are no exam notes on file for this visit. PHYSICAL EXAMINATION: General: The patient is 46 year old female, well nourished, well hydrated in no acute distress. The patient is oriented to time, place, and person. VITALS: Last menstrual period 02/12/2018. There is no height or weight on file to calculate BMI. HEENT: Normal cephalic, ataumatic, pupils are equally round, sclera are anicteric, mucous membranes are moist, oropharynx is clear. Neck has no masses, asymmetry or lymphadenopathy. Thyroid is unremarkable. Respiratory: Clear to auscultation and percussion. Normal respiratory excursion and pattern. Cardiac: Examination is regular rate and rhythm. Abdominal exam: Soft, nontender, with no palpable masses. No hepatosplenomegaly. No palpable hernias. Rectal exam: exam deferred Extremities: no clubbing, cyanosis or edema. No adenopathy. Breast: Visual inspection reveals no retractions, nipple inversion, or skin changes. Palpation of the right breast reveals no dominant or suspicious masses, but multiple benign-feeling nodules. Palpation of the left breast reveals no dominant or suspicious masses, but multiple benign-feeling nodules. Axillary exam demonstrates no suspicious masses in either the left or right axilla. There is no nipple discharge expressed from either the left or right breast. There are well-healed stereotactic biopsy site in the left upper outer quad (more content not included)... Normal [facility] NDL [facility] LTon [facility] LOC W [facility] GD LT * * *Final Report* * * DATE OF EXAM: Jun 04 2022 10:00AM MARTIN 0634 - [facility] NDL LOC W [facility] GD LT / PROCEDURE REASON: BREAST DISORDER * * * * Physician Interpretation * * * * #[id number] - [facility] NDL LOC W [facility] GD LT #[id number] - [facility] SURGICAL BREAST SPECIMEN LT STEREOTACTIC GUIDED WIRE LOCALIZATION LEFT BREAST WITH POST DIGITAL MAMMOGRAPHIC IMAGING AND RADIOGRAPHIC SPECIMEN IMAGIN06/04/2022 HISTORY: /The patient presents for left mammographic (crosshair) guided needle localization of an area of mammographic distortion and tophat clip as recommended from recent imaging study dated 06/02/2022. Pre and post localization mammographic images were obtained. Left Breast Lumpectomy. PATIENT CONSENT: A time out was performed immediately prior to procedure start with the radiology team, correctly identifying the patient name, date of , procedure, anatomy (including marking of site and side), patient position, relevant diagnostic and radiology test results, safety precautions, and procedure-specific equipment needs. The procedure was explained to the patient including the risks, benefits and alternatives. Medications and allergies were also reviewed. The risks, including but not limited to infection and bleeding, were reviewed by the performing physician and the patient agreed to undergo the procedure. The radiologist and technologist were present throughout the entire procedure. Dr. Srinivasan performed the entire procedure without an nutritional assistant. Audible Time Out Time: 932 Procedure Start Time: 934 Procedure Stop Time: 950. Correlation is made to exam dated: 03/27/2022 stereotactic biopsy - [facility]. A wire localization using stereotactic guidance was performed for the concerning area of architectural distortion located in the left breast at 3 o'clock posterior depth. This was described on the previous biopsy report. The skin was prepped in the usual manner. Local anesthetic was administered to the access site. A skin sea was made in the breast. The localization was approached from the medial aspect. A 7.5 cm modified Kopans hookwire apparatus was inserted into the targeted area through an introducer device under stereotactic guidance. The patient received additional local anesthetic during the procedure. A sterile dressing was applied to the access site. Post placement digital mammographic imaging demonstrates the tip traverses the targeted area. IMPRESSION: WIRE LOCALIZATION Wire localization for the area of architectural distortion in the left breast at 3 o'clock posterior depth was successful. The imaged specimen includes the lesion, a biopsy clip, a location device, and the distal portion of the localization wire. Targeted distortion and tophat clip is present in the surgical specimen. Results were discussed with Dr. Conley by Dr. Srinivasan at 1225 on 06/04/2022. Bridget Srinivasan M.D., jr/angie:06/04/2022 12:27:18 [employer] Professional(s): Darline Messer, RT(R)(M), [facility]; Irina Lackey RT(R)(M), [facility] Multiple national specialty organizations have released breast cancer screening guidelines for women at average risk for developing breast cancer - guidelines that are based on both evidence and opinion, yet differ on when to start and how often to screen for breast cancer. With representation from Breast Imaging, Internal Medicine, Women's Health, Family Medicine, and Medical/Surgical Oncology, the [facility] has carefully reviewed the data and reached the following consensus: 1) All women should engage in shared decision-making with their providers to decide when to start and how often to screen; 2) All women should have the opportunity to start screening mammography at age 40; 3) For women ages 45-55, we recommend annual screening mammograms; 4) For women ages 55 and over, we support both the transition from an annual to a biennial interval if this aligns more with patient's values and preferences, or continuation with annual screening; 5) All women should discuss with their providers when to stop screening mammograms. Vacuum Metalizing Supervisor: Angie Transcribe Date/Time: Jun 04 2022 10:00A Dictated by : BRIDGET SRINIVASAN MD This examination was interpreted and the report reviewed and electronically signed by: BRIDGET SRINIVASAN MD on Jun 04 2022 12:27PM EST [id number] Normal [facility] SURGICAL BREAST SPECIMEN LTon 06-04-2022 [facility] SURGICAL BREAST SPECIMEN LT * * *Final Report* * * DATE OF EXAM: Jun 04 2022 12:20PM MARTIN 0638 - [facility] SURGICAL BREAST SPECIMEN LT / PROCEDURE REASON: left breast lumpectomy * * * * Physician Interpretation * * * * #[id number] - [facility] NDL LOC W [facility] GD LT #[id number] - [facility] SURGICAL BREAST SPECIMEN LT STEREOTACTIC GUIDED WIRE LOCALIZATION LEFT BREAST WITH POST DIGITAL MAMMOGRAPHIC IMAGING AND RADIOGRAPHIC SPECIMEN IMAGIN06/04/2022 HISTORY: /The patient presents for left mammographic (crosshair) guided needle localization of an area of mammographic distortion and tophat clip as recommended from recent imaging study dated 06/02/2022. Pre and post localization mammographic images were obtained. Left Breast Lumpectomy. PATIENT CONSENT: A time out was performed immediately prior to procedure start with the radiology team, correctly identifying the patient name, date of , procedure, anatomy (including marking of site and side), patient position, relevant diagnostic and radiology test results, safety precautions, and procedure-specific equipment needs. The procedure was explained to the patient including the risks, benefits and alternatives. Medications and allergies were also reviewed. The risks, including but not limited to infection and bleeding, were reviewed by the performing physician and the patient agreed to undergo the procedure. The radiologist and technologist were present throughout the entire procedure. Dr. Srinivasan performed the entire procedure without an nutritional assistant. Audible Time Out Time: 932 Procedure Start Time: 934 Procedure Stop Time: 950. Correlation is made to exam dated: 03/27/2022 stereotactic biopsy - [facility]. A wire localization using stereotactic guidance was performed for the concerning area of architectural distortion located in the left breast at 3 o'clock posterior depth. This was described on the previous biopsy report. The skin was prepped in the usual manner. Local anesthetic was administered to the access site. A skin sea was made in the breast. The localization was approached from the medial aspect. A 7.5 cm modified Kopans hookwire apparatus was inserted into the targeted area through an introducer device under stereotactic guidance. The patient received additional local anesthetic during the procedure. A sterile dressing was applied to the access site. Post placement digital mammographic imaging demonstrates the tip traverses the targeted area. IMPRESSION: WIRE LOCALIZATION Wire localization for the area of architectural distortion in the left breast at 3 o'clock posterior depth was successful. The imaged specimen includes the lesion, a biopsy clip, a location device, and the distal portion of the localization wire. Targeted distortion and tophat clip is present in the surgical specimen. Results were discussed with Dr. Conley by Dr. Srinivasan at 1225 on 06/04/2022. Bridget Srinivasan M.D., jr/angie:06/04/2022 12:27:18 [employer] Professional(s): Darline Messer RT(R)([place]), [facility]; RT Steven(R)([place]), [facility] Multiple national specialty organizations have released breast cancer screening guidelines for women at average risk for developing breast cancer - guidelines that are based on both evidence and opinion, yet differ on when to start and how often to screen for breast cancer. With representation from Breast Imaging, Internal Medicine, Women's Health, Family Medicine, and Medical/Surgical Oncology, the [facility] has carefully reviewed the data and reached the following consensus: 1) All women should engage in shared decision-making with their providers to decide when to start and how often to screen; 2) All women should have the opportunity to start screening mammography at age 40; 3) For women ages 45-55, we recommend annual screening mammograms; 4) For women ages 55 and over, we support both the transition from an annual to a biennial interval if this aligns more with patient's values and preferences, or continuation with annual screening; 5) All women should discuss with their providers when to stop screening mammograms. Vacuum Metalizing Supervisor: Angie Transcribe Date/Time: Jun 04 2022 10:00A Dictated by : BRIDGET SRINIVASAN MD This examination was interpreted and the report reviewed and electronically signed by: BRIDGET SRINIVASAN MD on Jun 04 2022 12:27PM EST [id number] Normal [facility] OPERATIVE NOon 06-04-2022 OPERATIVE NO HNO ID: [id number] Author: Carolyn Conley MD Service: General Surgery Author Type: Physician Type: Operative Report Filed: 06/08/2022 7:09 AM Note Text: [facility] - Operative Report DANIELLA TOLEDO : 1975 AGE: 46. SEX: F PATIENT TYPE: A HOSP SVC: GNS LOCATION: [facility] ATTENDING PHYSICIAN: CAROLYN CONLEY M.D. CSN NUMBER: [id number] DATE OF SURGERY/PROCEDURE: 06/04/2022 INCISION/PROCEDURE START TIME: 11:46. INCISION CLOSE/PROCEDURE END TIME: 12:39. PREOPERATIVE DIAGNOSIS: Left breast radial scar. POSTOPERATIVE DIAGNOSIS: Left breast radial scar with good radiographic and AGNES CRUISE COORDINATOR distance measurements. SURGEON: Carolyn Conley M.D. STEREOTYPE FINISHER: Arminda Estevez PA-C SURGERY/PROCEDURE: Left preoperative stereotactic-guided needle placement by Radiology with AGNES CRUISE COORDINATOR placement earlier in the week with excisional breast biopsy/lumpectomy with specimen radiograph. ANESTHESIA: LMA. LOGIN NUMBER: [id number] ANESTHESIOLOGIST: Dr. Corey Valencia. ASA: 2. INTRAVENOUS FLUIDS: 700 mL. ESTIMATED BLOOD LOSS: 5 mL. SPECIMENS: Left lumpectomy specimen with a single tail marking the medial aspect of the excision, the wire, the superficial lateral aspect with a transverse skin ellipse, and a double tail suture marking the cranial aspect of the specimen. The closest AGNES CRUISE COORDINATOR margin was felt to be the deep margin at 5 mm. All the margins were greater than 1 cm. DRAINS: None. COMPLICATIONS: None. DISPOSITION: Patient taken to PACU in stable condition. DESCRIPTION OF PROCEDURE: Patient initially had AGNES CRUISE COORDINATOR placed earlier in the week. This was noted to be somewhat posterior and deep to the radial scar, so Radiology placed a Kopans wire prior to the patient being brought to the operating suite. I reviewed the images and planned the excision margin based on my discussion with the radiologist. She noted inserting the wire that the mass felt relatively firm, which concerned her, so we agreed to perform a wider than initially anticipated lumpectomy. The patient went to the holding area. Sign-in was performed verifying patient, site, procedure, position, critical nursing information, VTE, and antibiotic prophylaxis. Patient received 2 g of Ancef, had sequential compression devices placed. Following LMA anesthesia, the left breast was prepped and draped in usual fashion. Time-out was performed verifying patient, site, procedure, position. AGNES CRUISE COORDINATOR was used to query the breast prior to prepping and what would have been the anticipated location of the AGNES CRUISE COORDINATOR was noted to be 14 mm deep to the skin. The AGNES CRUISE COORDINATOR was noted to be deep to the radial scar and the wire was felt to be in perfect location. At this point, the left breast was prepped and draped in usual fashion. Time-out was performed verifying patient, site, procedure, position. The AGNES CRUISE COORDINATOR was again used to query the area. The midpoint of the closest AGNES CRUISE COORDINATOR site was marked and a skin ellipse was then made transversely encompassing the wire laterally. The AGNES CRUISE COORDINATOR clip, which was felt to be mid abnormality and then slightly more medially, so the entire wire would be excised. Once incision was made, dissection was carried down through subcutaneous breast tissue, then flared out and performing a lumpectomy specimen as planned. The specimen was taken down to the chest wall. Once this was completed, a single-tailed suture was placed in the medial aspect, the wire and skin ellipse were superficial to lateral, the double-tail suture was cranial. The AGNES CRUISE COORDINATOR was used to query as described above. The cavity was checked for hemostasis. With good hemostasis, it was irrigated and aspirated with sterile water. Four medium clips were placed to the deep margin, 4 small clips at the superficial margin. Subcutaneous breast closed with 3-0 Vicryl suture. Just below the dermal layer, was closed with 3-0 Vicryl sutures. Skin was closed with 4-0 Monocryl running subcuticular suture. Specimen radiograph returned, per the radiologist, clips and wire completely within the specimen and the radial scar appeared to be completely within the specimen radiograph. At this point, Dermabond was applied to the skin. Dressing applied. The patient was taken to recovery room in stable condition. Arminda Estevez was my nurse's assistant. She assisted in visualization, retraction, and subcuticular closure. There were no surgeons or qualified residents available. Carolyn Conley M.D. RG:[id number] /[id number] [facility] SURGICAL PATHOLOGYon 023 CASE REPORT [facility] Comment on above: Order Comment: Speci men Type: TISSUE SPECIMENOrdering Facility: [facility] Address: [address] [place] [phone] Result Comment: [facility] Pathology Report Case: [id number] Authorizing Provider: Carolyn Conley MD Collected: 06/04/2022 11:56 AM Ordering Location: [facility] Surgery Received: 06/04/2022 12:29 PM Pathologist: Yen Lr MD Specimen: BREAST LUMPECTOMY LEFT, Wire superficial lateral, single tail medial, double tail cranial Performed By: #### S ####[facility]CL[facility] [id number] [place] [address] [place] CLINICAL HISTORY [facility] Comment on above: Order Comment: Speci men Type: TISSUE SPECIMENOrdering Facility: [facility] Address: [address] [address] Result Comment: Pre- op diagnosis: Abnormal finding on breast imaging [R92.8] Radial scar of breast [N64.89] Performed By: #### S ####[facility] [id number] [address] [place] FINAL DIAGNOSIS [facility] Comment on above: Order Comment: Speci men Type: TISSUE SPECIMENOrdering Facility: [facility] Address: [address] [place] [address] Result Comment: A. L eft breast, lumpectomy: -Focal atypical lobular hyperplasia -Radial scar -Stromal fibrosis, pseudoangiomatous stromal hyperplasia (PASH), sclerosing adenosis, mild usual ductal hyperplasia and apocrine cysts -Biopsy site changes, biopsy clip and [facility] President identified XC 06/11/2022 Performed By: #### S ####[facility] [id number] [address] [place] FINAL PERFORMING LAB [facility] Comment on above: Order Comment: Speci men Type: TISSUE SPECIMENOrdering Facility: [facility] Address: [address] [address] Result Comment: Diag nostic interpretation performed at [facility], [address] [address] CLIA# [id number] Corrosion Engineer: Denys Power M.D. Performed By: #### S ####[facility] [id number] [address] [place] GROSS DESCRIPTION [facility] Comment on above: Order Comment: Speci men Type: TISSUE SPECIMENOrdering Facility: [facility] Address: [address], [place] [address] Result Comment: Adrien. Jovana REAST LUMPECTOMY LEFT Received in formalin in a Ketty device labeled as breast lumpectomy left is an oriented lumpectomy specimen with an embedded Agnes esl tutor device and needle localization wire. The specimen weighs 77.4 g and measures 10.5 cm medial to lateral by 7.0 cm superior to inferior by 2.0 cm anterior to posterior. There is an attached unremarkable skin segment on the anterior surface measuring 2.8 cm medial to lateral by 1.1 cm superior to inferior. The specimen is oriented per the requisition as wire superficial lateral, single suture medial, and double suture cranial. The specimen is imaged in pathology to reveal 1 biopsy clip, one AGNES esl tutor device, and one needle localization wire. The specimen is inked as follows: Superior margin blue, inferior margin green, medial margin orange, lateral margin red, anterior margin yellow, and posterior margin black. The specimen is serially sectioned from medial to lateral into 20 slices. Sectioning reveals a firm white fibrous area that involves all slices and abuts all margins. The specimen is approximately 40% soft adipose tissue and 60% firm fibrous tissue. The Agnes esl tutor is identified in slice 10 and the biopsy clip is identified in slice 11. The specimen was discussed with Dr. Berger to determine an appropriate number of sections for submission. The specimen was removed from the patient at 12:11 PM on 06/04/2022 and placed into formalin at 12:25 PM on 06/04/2022. Client Relationship Executive sections are submitted as follows: A1: Medial margin, perpendicular (slice 1, entirely submitted) A2: Client Relationship Executive of slice 3, anterior and posterior margins A3: Client Relationship Executive of slice 5, anterior and posterior margins A4: Client Relationship Executive of slice 7, anterior and posterior margins A5: Client Relationship Executive of slice 9, anterior and posterior margin A6: Slice 11, anterior posterior and superior margins A7: Slice 11, anterior and posterior margins A8: Slice 11, anterior posterior and inferior margins A9: Client Relationship Executive of slice 13, anterior and posterior margins A10: Client Relationship Executive of slice 15, anterior and posterior margins A11: Client Relationship Executive of slice 17, anterior superior and posterior margins A12: Client Relationship Executive of slice 19, anterior and posterior margins A13-14: Lateral margin, perpendicular (slice 20, entirely submitted) Gross examination performed at [facility], [address] [place] [address] ZW 06/05/22 12:17 PM Performed By: #### S ####[facility] LABALIREZA [id number] TAR[place]annah [place] [place] [address] [place] APOLINAR NDL LOC W APOLINAR GD LTon APOLINAR NDL LOC W APOLINAR GD LT * * *Final Report* * * DATE OF EXAM: Jun 02 2022 10:26AM W 0634 - APOLINAR NDL LOC W APOLINAR GD LT / PROCEDURE REASON: multiple diagnoses * * * * Physician Interpretation * * * * #[id number] - APOLINAR NDL LOC W APOLINAR GD LT STEREOTACTIC GUIDED INFRARED ACTIVATED ELECTROMAGNETIC REFLECTOR DEVICE PLACEMENT LEFT BREAST WITH POST DIGITAL MAMMOGRAPHIC AND ULTRASOUND IMAGIN06/02/2022 HISTORY: /The patient presents for LEFT mammographic (crosshair) guided needle localization with AGNES reflector of distortion and a TOPHAT clip marking the site of biopsy proven radial scar - as recommended from recent imaging study dated 03/27/2022. Pre and post localization mammographic images were obtained. PATIENT CONSENT: A time out was performed immediately prior to procedure start with the radiology team, correctly identifying the patient name, date of , procedure, anatomy (including marking of site and side), patient position, relevant diagnostic and radiology test results, safety precautions, and procedure-specific equipment needs. The procedure was explained to the patient including the risks, benefits and alternatives. Medications and allergies were also reviewed. The risks, including but not limited to infection and bleeding, were reviewed by the performing physician and the patient agreed to undergo the procedure. The radiologist and technologist were present throughout the entire procedure. Dr. Srinivasan performed the entire procedure without an nutritional assistant. Audible Time Out Time: 1000 Procedure Start Time: 1001 Procedure Stop Time: 1009 LEFT mammographic (crosshair) guided needle localization with AGNES reflector of distortion and a TOPHAT clip marking the site of biopsy proven radial scar. No prior exams were available for correlation. An infrared activated electromagnetic reflector device placement using stereotactic guidance was performed for the concerning area of architectural distortion located in the left breast at 3 o'clock middle depth. This was described on the previous ultrasound and biopsy reports. The skin was prepped in the usual manner. Local anesthetic was administered to the access site. A skin sea was made in the breast. The localization was approached from the lateral aspect. A location device was inserted into the targeted area through an introducer device under stereotactic guidance. The patient received additional local anesthetic during the procedure. A sterile dressing was applied to the access site. Post placement digital mammographic and ultrasound imaging demonstrates location device 1.5cm inferior from the geometric center of the targeted area. IMPRESSION: INFRARED ACTIVATED ELECTROMAGNETIC REFLECTOR DEVICE PLACEMENT Infrared activated electromagnetic reflector device placement for the area of architectural distortion in the left breast at 3 o'clock middle depth with placement of an infrared activated electromagnetic reflector device was successful with no apparent post procedure complications. A surgical excision, a wire localization, and a specimen radiograph are recommended. Clip placement/activation was verified with Campus President Check following the procedure. The specimen radiograph should include the Campus President reflector and the TOPHAT shaped clip. THE AGNES REFLECTOR IS 1.5CM INFERIOR TO THE CENTER OF THE MAMMOGRAPHIC DISTORTION. THEREFORE WIRE LOCALIZATION IS RECOMMENDED FOR DAY OF SURGERY. GIVEN THE PROXIMITY OF THE REFLECTOR AND TOPHAT CLIP, THEY SHOULD ALSO BE INCLUDED IN THE PLANNED EXCISION. RESULTS WERE SENT TO DR. CONLEY BY DR. SRINIVASAN VIA SECURE 3Funnel STAFF MESSAGE ON THE DAY OF THIS PROCEDURE. SRUAJ WILDER ALSO CONTACTED THE OFFICE TO CONVEY THE NEED FOR SAME DAY WIRE LOCALIZATION. Bridget Srinivasan M.D., jr/angie:06/02/2022 15:59:40 Telesales Professional(s): Melyssa Wilder RT(R)(M), [facility] Multiple national specialty organizations have released breast cancer screening guidelines for women at average risk for developing breast cancer - guidelines that are based on both evidence and opinion, yet differ on when to start and how often to screen for breast cancer. With representation from Breast Imaging, Internal Medicine, Women's Health, Family Medicine, and Medical/Surgical Oncology, the [facility] has carefully reviewed the data and reached the following consensus: 1) All women should engage in shared decision-making with their providers to decide when to start and how often to screen; 2) All women should have the opportunity to start screening mammography at age 40; 3) For women ages 45-55, we recommend annual screening mammograms; 4) For women ages 55 and over, we support both the transition from an annual to a biennial interval if this aligns more with patient's values and preferences, or continuation with annual screening; 5) All women should discuss with their providers when to stop screening mammograms. (more content not included)... [facility] HISTORY PHYSICALon HISTORY PHYSICAL HNO ID: [id number] Author: Nadine Stewart PA-C Service: ? Author Type: Physician Combination Saw Operator Type: HANDP Filed: 05/29/2022 8:35 AM Note Text: HISTORY AND PHYSICAL EXAMINATION SERVICE DATE: 05/28/2022 SERVICE TIME: 8:35 AM PRIMARY CARE PHYSICIAN: Wanda Cm MD REASON FOR VISIT: Daniella Toledo is a 46 year old female who is scheduled for Procedure(s) with comments: PLACEMENT OF BREAST LOCALIZATION DEVICE(S) PERCUTANEOUS; FIRST LESION, STEREOTACTIC GUIDANCE (Left) - placed by una - betito ceneter informed will be placed at 10 EXCISION BREAST LESION IDENTIFIED BY PREOPERATIVE PLACEMENT RADIOLOGICAL MARKER, OPEN, SINGLE LESION (Left) - placed by radiology - bteito ceneter informed will be placed at 10 at the request of Dr. Carolyn Conley for consultation. My final recommendation will be communicated back to the requesting physician by way of shared medical record or letter. Subjective The patient has the following: ACTIVE PROBLEM LIST Former Smoker Gerd (Gastroesophageal Reflux Disease) Covid Irritable Bowel Syndrome With Constipation COVID-19 Immunization Status Overdue - COVID-19 VACCINE (4 - Booster for Moderna series) Overdue since 07/22/2021 05/27/2021 Imm Admin: COVID-19 original vaccine, full dose, monovalent (MODERNA) 05/18/2020 Imm Admin: COVID-19 original vaccine, full dose, monovalent (MODERNA) 04/20/2020 Imm Admin: COVID-19 original vaccine, full dose, monovalent (MODERNA) Respiratory - COVID19 Vaccination Status: + COVID 05/18/22, symptoms completely resolved. CHIEF COMPLAINT: Pre-anesthesia optimization HPI: Daniella Toledo is a 46 year old female presenting for pre-anesthesia consultation. Pt has history of abnormal mammogram in January 2022, which lead to additional imaging and then biopsy in February 2022. 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 She was scheduled for this procedure earlier in April, but contracted COVID and it had to be rescheduled. Above procedure recommended to manage symptoms. Procedure scheduled on 06/04/2022 at [facility]. REVIEW OF SYSTEMS: General: Positive for: fever (with COVID 05/11/22-05/16/22). Negative for: unintentional weight change and weight loss >10% of BW in last 6 months. Neurological: No history of TIA's, stroke, LICENSED MARRIAGE AND FAMILY THERAPIST tumor, impaired sensorium, hemiplegia, paraplegia or quadraplegia. No neurological symptoms or problems. Negative for: multiple sclerosis. Respiratory: Positive for: tobacco use (quit in 2018, smoked x 14 years ~ 7 pack year). Negative for: asthma, COPD, current cough and obstructive sleep apnea. Cardiovascular: Negative for: arrhythmia, atrial fibrillation, CAD, chest pain, DVT/PE, hyperlipidemia, hypertension and murmur/valvular heart disease. GI: Positive for: GERD (OTC Rx prn) and irritable bowel syndrome (constipation) Negative for: dysphagia, inflammatory bowel disease, liver disease and ETOH >2 drinks/day. : Negative for: dysuria, frequent urination, urinary incontinence, nocturia >1 time per night and urgency. 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 Endocrine: No history of diabetes. Has not taken steroids within the past 30 days. No history of endocrinological symptoms or problems. Hematology: No history of bleeding or clotting disorder. Patient is not taking anti-coagulation or platelet medications. No history of hematological symptoms or problems. Oncology: No history of CA metastasis, chemo within 30 days, or radiotherapy within 90 days. No history of oncological symptoms or problems. Psych: No history of psychiatric symptoms or problems. Musculoskeletal: Negative for joint pain or swelling, back pain or muscle pain. Skin: Negative for lesions, rash and itching. PAST MEDICAL HISTORY Diagnosis Date GERD (gastroesophageal reflux disease) Urinary frequency PAST SURGICAL HISTORY Procedure Laterality Date BX BREAST W DEVICE 1ST LESION STEREOTACTIC GUIDE Left 03/27/2022 NONE FAMILY HISTORY Problem Relation Age of Onset No Known Problems Mother No Known Problems Father No Known Problems Sister No Known Problems Brother Breast Cancer Maternal Aunt Social History Tobacco Use Smoking status: Former Packs/day: 0.50 Types: Cigarettes Quit date: 2017 Years since quittin.1 Smokeless tobacco: Never Vaping Use Vaping Use: Never used Substance Use Topics Alcohol use: Yes Alcohol/week: 3.0 standard drinks Types: 3 Glasses of wine per week Comment: couple times a week Drug use: Never Prior to Admission medications as of 05/29/22 0814 Medication Sig Last Dose Taking olopatadine (PATANOL) 0.1 % ophthalmic solution INSTILL 1 DROP INTO BOTH EYES TWICE A DAY DIRECTED Taking Yes No medication comments found. ALLERGIES Allergen Reactions Bactrim [Sulfametho* Rash Codeine Unknown Flexeril [Cyclobenz* Rash Objective PHYSICAL EXAM: General: alert and oriented an (more content not included)... [facility] XR CHEST 2V FRONTAL/LATon XR CHEST 2V FRONTAL/LAT * * *Final Report* * * DATE OF EXAM: May 29 2022 10:01AM UZAIR [id number] - XR CHEST 2V FRONTAL/LAT / PROCEDURE REASON: N64.89-Radial scar of breast * * * * Physician Interpretation * * * * EXAMINATION: CHEST RADIOGRAPH (2 VIEW FRONTAL and LATERAL) CLINICAL HISTORY: Radial scar of breast . Preop MQ: XC2_6 EXAM DATE/TIME: 05/29/2022 10:01 AM COMPARISON: No relevant prior studies available. RESULT: Lines, tubes, and devices: None. Lungs and pleura: No consolidation. No lung mass. No pleural effusion. No pneumothorax. Cardiomediastinal silhouette: Normal cardiomediastinal silhouette. Bones and soft tissues: Unremarkable. IMPRESSION: No acute radiographic abnormality. Vacuum Metalizing Supervisor: ULISES Transcribe Date/Time: May 29 2022 10:57A Dictated by : PAUL PATTON MD This examination was interpreted and the report reviewed and electronically signed by: PAUL PATTON MD on May 29 2022 10:58AM EST [id number] [facility] XR Chest PA and Lateralon IMPRESSION: No acute radiographic abnormality. Vacuum Metalizing Supervisor: ULISES Transcribe Date/Time: May 29 2022 10:57A Dictated by : PAUL PATTON MD This examination was interpreted and the report reviewed and electronically signed by: PAUL PATTON MD on May 29 2022 10:58AM EST [facility] * * *Final Report* * * DATE OF EXAM: May 29 2022 10:01AM UZAIR Dickerson91 - XR CHEST 2V FRONTAL/LAT / PROCEDURE REASON: N64.89-Radial scar of breast * * * * Physician Interpretation * * * * EXAMINATION: CHEST RADIOGRAPH (2 VIEW FRONTAL & LATERAL) CLINICAL HISTORY: Radial scar of breast . Preop MQ: XC2_6 EXAM DATE/TIME: 05/29/2022 10:01 AM COMPARISON: No relevant prior studies available. RESULT: Lines, tubes, and devices: None. Lungs and pleura: No consolidation. No lung mass. No pleural effusion. No pneumothorax. Cardiomediastinal silhouette: Normal cardiomediastinal silhouette. Bones and soft tissues: Unremarkable. [facility] Provider, Lisa [facility] - 05/29/2022 * * *Final Report* * * DATE OF EXAM: May 29 2022 10:01AM UZAIR [id number] - XR CHEST 2V FRONTAL/LAT / PROCEDURE REASON: N64.89-Radial scar of breast * * * * Physician Interpretation * * * * EXAMINATION: CHEST RADIOGRAPH (2 VIEW FRONTAL & LATERAL) CLINICAL HISTORY: Radial scar of breast . Preop MQ: XC2_6 EXAM DATE/TIME: 05/29/2022 10:01 AM COMPARISON: No relevant prior studies available. RESULT: Lines, tubes, and devices: None. Lungs and pleura: No consolidation. No lung mass. No pleural effusion. No pneumothorax. Cardiomediastinal silhouette: Normal cardiomediastinal silhouette. Bones and soft tissues: Unremarkable. IMPRESSION IMPRESSION: No acute radiographic abnormality. Vacuum Metalizing Supervisor: PSCB Transcribe Date/Time: May 29 2022 10:57A Dictated by : PAUL PATTON MD This examination was interpreted and the report reviewed and electronically signed by: PAUL PATTON MD on May 29 2022 10:58AM EST [facility] Radiology Study observation (narrative) [facility] XR Chest PA and LateralOrder ed By: [facility] Provider on 05-29-2022 [facility] stereo Guidance for biops y of Breast - lefton 04-02-2022 IMPRESSION: STEREOTACTIC GUIDED BIOPSY HIGH RISK BENIGN Stereotactic guided biopsy of the area of architectural distortion in the left breast lower outer aspect posterior depth was successful with no apparent post procedure complications. 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 Pathology results are concordant with imaging findings. A surgical consultation is recommended. Localization of the architectural distortion seen on post clip lindsey images to be 1.3 cm inferior to the biopsy clip is recommended when this lesion is localized for surgical excision. SUMMARY: A breast imaging nurse navigator notified the patient of these results and helped to arrange the surgical consult. Pathology as follows: FINAL DIAGNOSIS A. Breast, left, at 3:00, posterior depth, Top hat clip, stereotactic core biopsy: ---Radial sclerosing lesion. ---Background breast with fibrocystic changes including usual ductal hyperplasia and apocrine metaplasia. ---Microcalcifications are present within benign breast. [facility] plascencia/angie:04/02/2022 19:47:04 Attending Technologist(s): RT Hanna(R)(M), [facility] Telesales Professional(s): RT Aaron(R)(M), [facility] Multiple national specialty organizations have released breast cancer screening guidelines for women at average risk for developing breast cancer - guidelines that are based on both evidence and opinion, yet differ on when to start and how often to screen for breast cancer. With representation from Breast Imaging, Internal Medicine, Women's Health, Family Medicine, and Medical/Surgical Oncology, the [facility] has carefully reviewed the data and reached the following consensus: 1) All women should engage in shared decision-making with their providers to decide when to start and how often to screen; 2) All women should have the opportunity to start screening mammography at age 40; 3) For women ages 45-55, we recommend annual screening mammograms; 4) For women ages 55 and over, we support both the transition from an annual to a biennial interval if this aligns more with patient's values and preferences, or continuation with annual screening; 5) All women should discuss with their providers when to stop screening mammograms. Vacuum Metalizing Supervisor: Angie Transcribe Date/Time: Mar 27 2022 1:09P Dictated by: SINAI VAZQUEZ MD This examination was interpreted and the report reviewed and electronically signed by: SINAI VAZQUEZ MD on Mar 27 2022 1:52PM EST This document has been addended by: SINAI VAZQUEZ MD on Apr 02 2022 7:47PM EST [facility] * * *Final Report* * * * * * SEE BOTTOM OF REPORT FOR ADDENDED TEXT * * * DATE OF EXAM: Mar 27 2022 1:31PM W 0630 - [facility] STEREO BX BREAST LT / PROCEDURE REASON: Breast disorder * * * * Physician Interpretation * * * * RESULT: #[id number] - APOLINAR STEREO BX BREAST LT STEREOTACTIC GUIDED BIOPSY LEFT BREAST USING VACUUM DEVICE WITH MARKING DEVICE INSERTED AND POST DIGITAL MAMMOGRAPHIC IMAGIN03/27/2022 HISTORY: Breast Disorder/ Left Breast Stereotactic Biopsy. central outer left breast architectural distortion. PATIENT CONSENT: A time out was performed immediately prior to procedure start with the radiology team, correctly identifying the patient name, date of , procedure, anatomy (including marking of site and side), patient position, relevant diagnostic and radiology test results, safety precautions, and procedure-specific equipment needs. The procedure was explained to the patient including the risks, benefits and alternatives. Medications and allergies were also reviewed. The risks, including but not limited to infection and bleeding, were reviewed by the performing physician and the patient agreed to undergo the procedure. The radiologist and technologist were present throughout the entire procedure. Time out: 1310 Procedure start: 1312 Procedure end: 1316 Dr. Vazquez performed the entire procedure without an nutritional assistant. Correlation is made to exams dated: 02/26/2022 mammogram, 03/13/2022 stereotactic biopsy - [facility], and 02/13/2022 mammogram. A stereotactic guided biopsy was performed for the concerning area of architectural distortion located in the left breast lower outer aspect posterior depth. This was described on the previous mammography report. The skin was prepped in the usual manner. Local anesthetic was administered to the access site. A skin sea was made in the breast. The abnormality was approached from the caudocranial aspect using a prone table. A 9 gauge biopsy needle was placed adjacent to the abnormality under computer guidance and confirmatory stereotactic mammography images were obtained to document needle placement. Once the needle was documented to be in the correct location, eight cores were obtained using the [employer] system. The patient received additional local anesthetic during the procedure. A top hat clip was inserted into the biopsy cavity. A skin closure strip and a sterile dressing were applied to the access site. As a separate procedure in a separate room with a dedicated machine, post procedure digital mammographic imaging demonstrates the location device 1.3cm superior from the geometric center of the targeted area. The specimens were sent to the laboratory for pathological analysis. [facility] Provider, [facility] - 04/03/2022 * * *Final Report* * * * * * SEE BOTTOM OF REPORT FOR ADDENDED TEXT * * * DATE OF EXAM: Mar 27 2022 1:31PM [facility] 0630 - APOLINAR STEREO BX BREAST LT / PROCEDURE REASON: Breast disorder * * * * Physician Interpretation * * * * RESULT: #[id number] - APOLINAR STEREO BX BREAST LT STEREOTACTIC GUIDED BIOPSY LEFT BREAST USING VACUUM DEVICE WITH MARKING DEVICE INSERTED AND POST DIGITAL MAMMOGRAPHIC IMAGIN03/27/2022 HISTORY: Breast Disorder/ Left Breast Stereotactic Biopsy. central outer left breast architectural distortion. PATIENT CONSENT: A time out was performed immediately prior to procedure start with the radiology team, correctly identifying the patient name, date of , procedure, anatomy (including marking of site and side), patient position, relevant diagnostic and radiology test results, safety precautions, and procedure-specific equipment needs. The procedure was explained to the patient including the risks, benefits and alternatives. Medications and allergies were also reviewed. The risks, including but not limited to infection and bleeding, were reviewed by the performing physician and the patient agreed to undergo the procedure. The radiologist and technologist were present throughout the entire procedure. Time out: 1310 Procedure start: 1312 Procedure end: 1316 Dr. Vazquez performed the entire procedure without an nutritional assistant. Correlation is made to exams dated: 02/26/2022 mammogram, 03/13/2022 stereotactic biopsy - [facility], and 02/13/2022 mammogram. A stereotactic guided biopsy was performed for the concerning area of architectural distortion located in the left breast lower outer aspect posterior depth. This was described on the previous mammography report. The skin was prepped in the usual manner. Local anesthetic was administered to the access site. A skin sea was made in the breast. The abnormality was approached from the caudocranial aspect using a prone table. A 9 gauge biopsy needle was placed adjacent to the abnormality under computer guidance and confirmatory stereotactic mammography images were obtained to document needle placement. Once the needle was documented to be in the correct location, eight cores were obtained using the [employer] system. The patient received additional local anesthetic during the procedure. A top hat clip was inserted into the biopsy cavity. A skin closure strip and a sterile dressing were applied to the access site. As a separate procedure in a separate room with a dedicated machine, post procedure digital mammographic imaging demonstrates the location device 1.3cm superior from the geometric center of the targeted area. The specimens were sent to the laboratory for pathological analysis. IMPRESSION IMPRESSION: STEREOTACTIC GUIDED BIOPSY HIGH RISK BENIGN Stereotactic guided biopsy of the area of architectural distortion in the left breast lower outer aspect posterior depth was successful with no apparent post procedure complications. 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 Pathology results are concordant with imaging findings. A surgical consultation is recommended. Localization of the architectural distortion seen on post clip lindsey images to be 1.3 cm inferior to the biopsy clip is recommended when this lesion is localized for surgical excision. SUMMARY: A breast imaging nurse navigator notified the patient of these results and helped to arrange the surgical consult. Pathology as follows: FINAL DIAGNOSIS A. Breast, left, at 3:00, posterior depth, Top hat clip, stereotactic core biopsy: ---Radial sclerosing lesion. ---Background breast with fibrocystic changes including usual ductal hyperplasia and apocrine metaplasia. ---Microcalcifications are present within benign breast. [facility]:04/02/2022 19:47:04 Attending Technologist(s): Loretta Kendrick RT(R)(M), [facility] [employer] Professional(s): Daniella Martinez RT(R)(M), [facility] Multiple national specialty organizations have released breast cancer screening guidelines for women at average risk for developing breast cancer - guidelines that are based on both evidence and opinion, yet differ on when to start and how often to screen for breast cancer. With representation from Breast Imaging, Internal Medicine, Women's Health, Family Medicine, and Medical/Surgical Oncology, the [facility] has carefully reviewed the data and reached the following consensus: 1) All women should engage in shared decision-making with their providers to decide when to start and how often to screen; 2) All women should have the opportunity to start screening mammography at age 40; 3) For women (more content not included)... [facility] Guidance for biops y of Breast - leftOrdered By: [facility] Provider on 04-02-2022 [facility] SURGICAL PATHOLOGYOrdered By : Arcenio Acuna on 03-28-2022 Case Report Surgical Pathology Report Case: [id number] Authorizing Provider: Angel Nieves MD Collected: 03/27/2022 01:15 PM Ordering Location: Mammography Received: 03/27/2022 01:45 PM Pathologist: Arcenio Acuna MD Specimen: BREAST CORE BIOPSY LEFT, Architectural distortion Left Breast 3:00 posterior depth, Top Hat Clip [facility] Work Phone: FINAL DIAGNOSIS [id number] NV mtptHcLKEriXOtP0Ipiini VHlxRW4yOP6hbTbbiFMzlZ QcFCSyUrEmb1mda773mRCl r4exRBNIfaxizYc3mQrcM8 8pv9N2LfwyE70jaZVxIXX1 FVUdGXQnoSLyARYfOZI2QT DpvJHgP1erSLAhXP9xuzaf WXobQXqcIHPnsYB4CUCdeD JfT8OuLZNuZYrnVZPfced5 AkGlRi8dsOXboHxpJVvbZH JkXHBsYWluXGZzMjBccGFy IEEuIEJyZWFzdCwgbGVmdC emQRPkLdjdOYykaZ3uzUFv oB3bWYSndARuCLHGa0EnxS Q6VWHpiFUoIHW9IBIcr2Bz Z8JpZkSim1ZzYXOxd9WpyI yvqYGxQJArlwEzZE4EKOIk NAyla4VhRVCtc7pgHlMmTI Iup99rIWVvcufiTELvIR0j JoQoq4jsu8KiKGBcnqIzr2 Mdw6x3vITdnHBhe5X0q2Pa RrGiuARuW8UoCZnoP2v4SC omIrK3t5JhiYWfuVT4REgo aEikFVDkmLSfzTCmNF1xDY Yks6ZnyO7eVS8qiOEcaTIl tYEoYBIiyiwpSGRfVS3hWQ tjmz3yRJxpjZTnQ9B1lG5i eoBhasFjjBKkf2DppQV0hM QtfK9xKsQjbXnfWYQeJWPg mE8wzMMjWOLijl4= [facility] Work Phone: Gross Description u3vakBRrJKNhvLRYIGLh MD PdRF7ftTstjWf6eYhfMFGm viL4jNQgIWkjt0neGLN7z3 llbiANClxkZWZmMVxwYXBl shdfVqM9XPhdITPnrejuFR s7NXdzNBRqpXT2BDGxsJGa T2BkOHPrRT8sdip7CLV1SN uaDGNwDhZ0IFAnWvCfVokl PDy5GIKidrP5Not1XCPuVC TeaTErj0O0QTnpqppvQXNv yOUgE487DQskj4OazYEqGD pccGFyZCANCntcKlxlcGlj w8RwmMBtPLgsOSUbWELzQO lkwpxzCUc1URViOAwsrDLz IW7jmXohFjhifGabf9DhcN BcXGlkIDUxMDAyIFxcZGIg MA5NSaLoNNPwIdY6KkNbYa M0BZt5QLMWElHvRcBoDkHs CDB6NpzvUHl9DEc4IZaGLk Q7YIV4LQPzZYOwMPW5TZL4 IFxcdCAyIFxcZiBBcmlhbC PeGDKsIHxyhpH1SNEqEBwi VIPkAGBXDAMZVLCXD1DSUT MIW3AVZDHICENXPIKlcqSV ClxlcGljTmVzdERvYzEgDQ pcbHRycGFyXGxpbjBccmlu MCANClxsdHJjaFxmczIwIF UfF0VunxBxLYjxBUSnev7b bGluIGxhYmVsZWQgYXMgYG RyGKQ4AJEoNOPylQueCoAu L2R2YQNuGRRmyHv2xCKpSN BqCFldLU56gnTuGuGmeMfd ipOipUOdhRN5yRBybRYyVL xcsrAdKBOfhxfjdK7yPY77 PFawNJ19BTotAB29NKAsGS P7GJ8ve1zizEUetV0ofPOj SEitvWqolnMgkiRrx6OmCA EooWUvXHW7MYObcbUua7Hq ezF3ByBCpCIzb4KjQ8lsQO 4gz8CvHUXlvO70VDMeOoWs wRX3xVSukBJ2pWYdrBUeaN MnWhA1YSSCVI6rRHKqBrB8 WuZuHzThWI7aDBVqCDMkWE 1lIGRheSwgdGhlIHNwZWNp bWVuIHdhcyBwbGFjZWQgaW 8kTm0bbWHrfQ8tPGLeCMmz EEQSAFAumzNpPb4bTA8qQD FdXeARk7IcwPe8KSK8Fq5l vPIkMPFkvbLnc7ZqQOilni XwzfGktcRiK9Dse8Z5nOEw OEtzXLZvOOujuRNwZE8BRT RxrfMlyBLeeMLkWDI5JCIf WWQUDzwgl2ZwFBV9OM0wie K2vM0wOHScaoFeta4oGAPo qKJLwRK5OVdpdeMwD2isks lzKOO0SYCwWIS0J6euQQYH ciCcFQLVtVH8ZCriqvGnKC 1NRCN9WGt7OYWvboBZYxfv NIJbXPrOSE9iFADqRuvyHp AyMiAxMDowMyBQTVxwYXIg DQpccGFyZFxsdHJwYXIgDQ wuGMLlF21ie3WIm7ZzFGOj g4lupNkwe4IjsWBiSLwiGQ DgiZMrMIgisP0gPkFdl9hl gNb3QUtkgjP4DCFjfn2cvN zuzE9qHDqep0cbAVZ4AHZp jQTyoRMtQWyxuYjknG9vJz HpNrn6KQubUMZdA3WfA8Dg jbL5USDrPIbjNZEyEZCzXH p9 [facility] Work Phone: Performing Lab t9fyqDAbBPNuxGCuKiMx MA QkCQNyi7odSOYsfHRqJkCx MzNcZnRuYmpcdWMxXGRlZm Wms9xnb678dWOwz4ewYWTc QkC1uQZqWMZrzUOfU763IH GiHZgpv0xbx7XaIESnzPGf n0S2STCVthcbbZz0nJhwR8 2vk6E3RjznQ1mjKDAuJSLh W3GhRE3mBLXkSup0EDX3FP N6GCAtCVUvB4EuHF9oDWGo eQXmWUk6b3nphGmdZAIyWD P0l3ngBGqqbnUrTS1dpf7n rCo8o6rioeRiAILdEFTbxS LVMQUiO2VljAvaAz0uyEn5 gVmkUojeBHG3Gjw3XV7cdz 24qrk4jOhcCUZerxoyJzC7 JIqeISGfwuqaRJu0EXugGE HywIL3KCFlwCMiT3OyODul QW7qmjr7IFU4ZMroUTAlSv V8DDBbsODsQUWbfGdsIAqh o381KDB2MzCiIB5qJ1Eli7 X1fN3qcECxLZWwkGFfVuLg CAWwsl6iwMZyAJeyp8NlDQ L3lcD4iSSwoJTuOWMfUP13 Uxvyg7MrTviak6SgX84gzZ A5KCbro8wlVF8vQwU2ixTk RLifd9orrS3zWhI6DQjhUM 4kSL7zKKUsmC0nwubgLOVx YnJkcmhlYWRccGdicmRyZm 3zuDhfMAA0ZMcxJ9ddcA8h RjB9QLemU6mmqB9fQGx3OC nrxGP2FODzvV9lYG5gqpuz d7xtZKkjIVhhYFQagaI1hu KdIRSnqVLwF6AyyP8yJQAy LM7orsbbl4bqKKJ0XErnGV OiHFY2PkDqUPCqs2Shimm4 ErWjm9DjjRUbXRtmW57bg2 73PFZwbsKjT9ipcTFsmdlm jRZjnertZZyavgI8WBIxGO BsYWluXGYxXGZzMjJcbGFu ZzEwMzNcaGljaFxmMVxkYm QdLYLaBBlxM1xnSiXiFkVw RgZVbUWsix3hjFuzNVckrL NvrSIzmYW2gM3qFTEpzrLx jj7iDVWmfEYTdNA0UTnefv RaF5pwkjrmHBZ1JNPhDEV0 J3gzGALHvvLwEWXdZFRglT EvDBXUTPZ7PLL0POQkNSRP UDJdEPG0FMQ6QSBjSXTbyF FyXHBhclxwYXJkXHBsYWlu HUFkRIIiLgRdlUjfaB4zGz VrNsDoNvxlGI3cQUYtM2cf bYHcTDMhEIUjF1ufRyWteK 9jaFxmMVxjZjJcZnMyMlxs qHUsxKRRDQCmabX7i3W2GV xwbGFpblxmMVxmczIyXGxh fknbBISrKHyrT1btNoRnSJ AdvEqxYIdgw2PiLKDiMABt UzVoPXdfVOI9u3S5AYwjsT GlbhTCQbEKMT2cqJHrjeuh YT9YYnnvBSC6 [facility] Work Phone: [facility] Work Phone: APOLINAR STEREO BX BREAST LTon APOLINAR STEREO BX BREAST LT * * *Final Report* * * * * * SEE BOTTOM OF REPORT FOR ADDENDED TEXT * * * DATE OF EXAM: Mar 27 2022 1:31PM [facility] 0630 - APOLINAR STEREO BX BREAST LT / PROCEDURE REASON: Breast disorder * * * * Physician Interpretation * * * * RESULT: #[id number] - APOLINAR STEREO BX BREAST LT STEREOTACTIC GUIDED BIOPSY LEFT BREAST USING VACUUM DEVICE WITH MARKING DEVICE INSERTED AND POST DIGITAL MAMMOGRAPHIC IMAGIN03/27/2022 HISTORY: Breast Disorder/ Left Breast Stereotactic Biopsy. central outer left breast architectural distortion. PATIENT CONSENT: A time out was performed immediately prior to procedure start with the radiology team, correctly identifying the patient name, date of , procedure, anatomy (including marking of site and side), patient position, relevant diagnostic and radiology test results, safety precautions, and procedure-specific equipment needs. The procedure was explained to the patient including the risks, benefits and alternatives. Medications and allergies were also reviewed. The risks, including but not limited to infection and bleeding, were reviewed by the performing physician and the patient agreed to undergo the procedure. The radiologist and technologist were present throughout the entire procedure. Time out: 1310 Procedure start: 1312 Procedure end: 1316 Dr. Vazquez performed the entire procedure without an nutritional assistant. Correlation is made to exams dated: 02/26/2022 mammogram, 03/13/2022 stereotactic biopsy - [facility], and 02/13/2022 mammogram. A stereotactic guided biopsy was performed for the concerning area of architectural distortion located in the left breast lower outer aspect posterior depth. This was described on the previous mammography report. The skin was prepped in the usual manner. Local anesthetic was administered to the access site. A skin sea was made in the breast. The abnormality was approached from the caudocranial aspect using a prone table. A 9 gauge biopsy needle was placed adjacent to the abnormality under computer guidance and confirmatory stereotactic mammography images were obtained to document needle placement. Once the needle was documented to be in the correct location, eight cores were obtained using the [employer] system. The patient received additional local anesthetic during the procedure. A top hat clip was inserted into the biopsy cavity. A skin closure strip and a sterile dressing were applied to the access site. As a separate procedure in a separate room with a dedicated machine, post procedure digital mammographic imaging demonstrates the location device 1.3cm superior from the geometric center of the targeted area. The specimens were sent to the laboratory for pathological analysis. IMPRESSION: STEREOTACTIC GUIDED BIOPSY HIGH RISK BENIGN Stereotactic guided biopsy of the area of architectural distortion in the left breast lower outer aspect posterior depth was successful with no apparent post procedure complications. 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 Pathology results are concordant with imaging findings. A surgical consultation is recommended. Localization of the architectural distortion seen on post clip lindsey images to be 1.3 cm inferior to the biopsy clip is recommended when this lesion is localized for surgical excision. SUMMARY: A breast imaging nurse navigator notified the patient of these results and helped to arrange the surgical consult. Pathology as follows: FINAL DIAGNOSIS ? A. Breast, left, at 3:00, posterior depth, Top hat clip, stereotactic core biopsy: ? ---Radial sclerosing lesion. ? ---Background breast with fibrocystic changes including usual ductal hyperplasia and apocrine metaplasia. ? ---Microcalcifications are present within benign breast. [facility]:04/02/2022 19:47:04 Attending Technologist(s): Loretta Kendrick RT(R)(M), [facility] [employer] Professional(s): RT Aaron(R)(M), [facility] Multiple national specialty organizations have released breast cancer screening guidelines for women at average risk for developing breast cancer - guidelines that are based on both evidence and opinion, yet differ on when to start and how often to screen for breast cancer. With representation from Breast Imaging, Internal Medicine, Women's Health, Family Medicine, and Medical/Surgical Oncology, the [facility] has carefully reviewed the data and reached the following consensus: 1) All women should engage in shared decision-making with their providers to decide when to start and how often to screen; 2) All women should have the opportunity to start screening mammography at age 40; 3) For women ages 45-55, we recommend annual screening mammograms; 4) For women ages 55 and over, we support both the transition from an annual to a biennia (more content not included)... Normal [facility] stereo Guidance for biops y of Breast - gwen 03-27-2022 IMPRESSION: STEREOTACTIC GUIDED BIOPSY Stereotactic guided biopsy of the area of architectural distortion in the left breast lower outer aspect posterior depth was successful with no apparent post procedure complications. Waiting for pathology results. A final report will be issued when these become available. [facility]:03/27/2022 13:52:14 Attending Technologist(s): Loretta Kendrick RT(R)(M), [facility] [employer] Professional(s): RT Aaron(R)(M), [facility] Multiple national specialty organizations have released breast cancer screening guidelines for women at average risk for developing breast cancer - guidelines that are based on both evidence and opinion, yet differ on when to start and how often to screen for breast cancer. With representation from Breast Imaging, Internal Medicine, Women's Health, Family Medicine, and Medical/Surgical Oncology, the [facility] has carefully reviewed the data and reached the following consensus: 1) All women should engage in shared decision-making with their providers to decide when to start and how often to screen; 2) All women should have the opportunity to start screening mammography at age 40; 3) For women ages 45-55, we recommend annual screening mammograms; 4) For women ages 55 and over, we support both the transition from an annual to a biennial interval if this aligns more with patient's values and preferences, or continuation with annual screening; 5) All women should discuss with their providers when to stop screening mammograms. Vacuum Metalizing Supervisor: Angie Transcribe Date/Time: Mar 27 2022 1:09P Dictated by: SINAI VAZQUEZ MD This examination was interpreted and the report reviewed and electronically signed by: SINAI VAZQUEZ MD on Mar 27 2022 1:52PM [facility] * * *Final Report* * * DATE OF EXAM: Mar 27 2022 1:31PM [facility] 0630 - APOLINAR STEREO BX BREAST LT / PROCEDURE REASON: Breast disorder * * * * Physician Interpretation * * * * RESULT: #[id number] - APOLINAR STEREO BX BREAST LT STEREOTACTIC GUIDED BIOPSY LEFT BREAST USING VACUUM DEVICE WITH MARKING DEVICE INSERTED AND POST DIGITAL MAMMOGRAPHIC IMAGIN03/27/2022 HISTORY: Breast Disorder/ Left Breast Stereotactic Biopsy. central outer left breast architectural distortion. PATIENT CONSENT: A time out was performed immediately prior to procedure start with the radiology team, correctly identifying the patient name, date of , procedure, anatomy (including marking of site and side), patient position, relevant diagnostic and radiology test results, safety precautions, and procedure-specific equipment needs. The procedure was explained to the patient including the risks, benefits and alternatives. Medications and allergies were also reviewed. The risks, including but not limited to infection and bleeding, were reviewed by the performing physician and the patient agreed to undergo the procedure. The radiologist and technologist were present throughout the entire procedure. Time out: 1310 Procedure start: 131 Procedure end: 1316 Dr. Vazquez performed the entire procedure without an nutritional assistant. Correlation is made to exams dated: 02/26/2022 mammogram, 03/13/2022 stereotactic biopsy - [facility], and 02/13/2022 mammogram. A stereotactic guided biopsy was performed for the concerning area of architectural distortion located in the left breast lower outer aspect posterior depth. This was described on the previous mammography report. The skin was prepped in the usual manner. Local anesthetic was administered to the access site. A skin sea was made in the breast. The abnormality was approached from the caudocranial aspect using a prone table. A 9 gauge biopsy needle was placed adjacent to the abnormality under computer guidance and confirmatory stereotactic mammography images were obtained to document needle placement. Once the needle was documented to be in the correct location, eight cores were obtained using the [employer] system. The patient received additional local anesthetic during the procedure. A top hat clip was inserted into the biopsy cavity. A skin closure strip and a sterile dressing were applied to the access site. As a separate procedure in a separate room with a dedicated machine, post procedure digital mammographic imaging demonstrates the location device 1.3cm superior from the geometric center of the targeted area. The specimens were sent to the laboratory for pathological analysis. [facility] Provider, [facility] - 03/27/2022 * * *Final Report* * * DATE OF EXAM: Mar 27 2022 1:31PM [facility] 0630 - [facility] STEREO BX BREAST LT / PROCEDURE REASON: Breast disorder * * * * Physician Interpretation * * * * RESULT: #[id number] - [facility] STEREO BX BREAST LT STEREOTACTIC GUIDED BIOPSY LEFT BREAST USING VACUUM DEVICE WITH MARKING DEVICE INSERTED AND POST DIGITAL MAMMOGRAPHIC IMAGIN03/27/2022 HISTORY: Breast Disorder/ Left Breast Stereotactic Biopsy. central outer left breast architectural distortion. PATIENT CONSENT: A time out was performed immediately prior to procedure start with the radiology team, correctly identifying the patient name, date of , procedure, anatomy (including marking of site and side), patient position, relevant diagnostic and radiology test results, safety precautions, and procedure-specific equipment needs. The procedure was explained to the patient including the risks, benefits and alternatives. Medications and allergies were also reviewed. The risks, including but not limited to infection and bleeding, were reviewed by the performing physician and the patient agreed to undergo the procedure. The radiologist and technologist were present throughout the entire procedure. Time out: 1310 Procedure start: 1312 Procedure end: 1316 Dr. Vazquez performed the entire procedure without an nutritional assistant. Correlation is made to exams dated: 02/26/2022 mammogram, 03/13/2022 stereotactic biopsy - [facility], and 02/13/2022 mammogram. A stereotactic guided biopsy was performed for the concerning area of architectural distortion located in the left breast lower outer aspect posterior depth. This was described on the previous mammography report. The skin was prepped in the usual manner. Local anesthetic was administered to the access site. A skin sea was made in the breast. The abnormality was approached from the caudocranial aspect using a prone table. A 9 gauge biopsy needle was placed adjacent to the abnormality under computer guidance and confirmatory stereotactic mammography images were obtained to document needle placement. Once the needle was documented to be in the correct location, eight cores were obtained using the [employer] system. The patient received additional local anesthetic during the procedure. A top hat clip was inserted into the biopsy cavity. A skin closure strip and a sterile dressing were applied to the access site. As a separate procedure in a separate room with a dedicated machine, post procedure digital mammographic imaging demonstrates the location device 1.3cm superior from the geometric center of the targeted area. The specimens were sent to the laboratory for pathological analysis. IMPRESSION IMPRESSION: STEREOTACTIC GUIDED BIOPSY Stereotactic guided biopsy of the area of architectural distortion in the left breast lower outer aspect posterior depth was successful with no apparent post procedure complications. Waiting for pathology results. A final report will be issued when these become available. [facility]:03/27/2022 13:52:14 Attending Technologist(s): GERARDO Ferreira)(M), [facility] [employer] Professional(s): Daniella Martinez, RT(R)(M), [facility] Multiple national specialty organizations have released breast cancer screening guidelines for women at average risk for developing breast cancer - guidelines that are based on both evidence and opinion, yet differ on when to start and how often to screen for breast cancer. With representation from Breast Imaging, Internal Medicine, Women's Health, Family Medicine, and Medical/Surgical Oncology, the [facility] has carefully reviewed the data and reached the following consensus: 1) All women should engage in shared decision-making with their providers to decide when to start and how often to screen; 2) All women should have the opportunity to start screening mammography at age 40; 3) For women ages 45-55, we recommend annual screening mammograms; 4) For women ages 55 and over, we support both the transition from an annual to a biennial interval if this aligns more with patient's values and preferences, or continuation with annual screening; 5) All women should discuss with their providers when to stop screening mammograms. Vac[employer] Metal[employer] Supervisor: Angie Transcribe Date/Time: Mar 27 2022 1:09P Dictated by: SINAI VAZQUEZ MD This examination was interpreted and the report reviewed and electronically signed by: SINAI VAZQUEZ MD on Mar 27 2022 1:52PM EST [facility] Radiology Study observation (narrative) [facility] MG stereo Guidance for biops y of Breast - leftOrdered By: Ccyumiko Provider on 03-27-2022 [facility] SURGICAL PATHOLOGYon 022 CASE REPORT Normal [facility] Comment on above: Order Comment: Speci men Type: TISSUE SPECIMEN Ordering Facility: [facility] Address: [address] [place] [phone] Result Comment: Surg ica Pathology Report Case: [id number] Authorizing Provider: Angel Nieves MD Collected: 03/27/2022 01:15 PM Ordering Location: Mammography Received: 03/27/2022 01:45 PM Pathologist: Arcenio Acuna MD Specimen: BREAST CORE BIOPSY LEFT, Architectural distortion Left Breast 3:00 posterior depth, Top Hat Clip Performed By: #### S #### [facility] CLIA [id number] [facility] DESK [address] OF [place] FINAL DIAGNOSIS Normal [facility] Comment on above: Order Comment: Speci kirstie Type: TISSUE SPECIMEN Ordering Facility: [facility] Address: [address] [place] [address] Result Comment: Mandie brandon, left, at 3:00, posterior depth, Top hat clip, stereotactic core biopsy: ---Radial sclerosing lesion. ---Background breast with fibrocystic changes including usual ductal hyperplasia and apocrine metaplasia. ---Microcalcifications are present within benign breast. Performed By: #### S #### [facility] CLIA [id number] [address] [place] [address] OF [facility] FINAL PERFORMING LAB [facility] Comment on above: Order Comment: Specisis thacker Type: TISSUE SPECIMEN Ordering Facility: [facility] Address: [address] [place] [address] Result Comment: Diag nostic interpretation performed at [facility], [address] [place] [address] CLIA# [id number] Corrosion Engineer: Denys Power M.D. Performed By: #### S #### [facility] CLIA [id number] [address] [place] [address] GROSS DESCRIPTION Normal [facility] Comment on above: Order Comment: Eulalio thacker Type: TISSUE SPECIMEN Ordering Facility: [facility] Address: [address] [place] [address] Result Comment: A. B REAST CORE BIOPSY LEFT Received in formalin labeled as ``left breast? are multiple segments of cylindrical tissue aggregating to 1.9 x 1.5 x 0.4 cm, higginbotham-white to higginbotham-yellow and of a rubbery consistency. The specimen was removed from the patient at 1:15 PM on 03/27/2022. On the same day, the specimen was placed in formalin at 1:18 PM on 03/27/2022. Totally submitted in formalin in one cassette. Gross examination performed at [facility], [address] [place] [address] MDM 03/27/2022 10:03 PM Performed By: #### S #### [facility] CLIA [id number] [address] [place] [id number] [place] APOLINAR STEREO BX BREAST LTon APOLINAR STEREO BX BREAST LT * * *Final Report* * * DATE OF EXAM: Mar 13 2022 2:18PM SSW [id number] - APOLINAR STEREO BX BREAST LT / PROCEDURE REASON: Breast disorder * * * * Physician Interpretation * * * * RESULT: #[id number] - APOLINAR STEREO BX BREAST LT STEREOTACTIC GUIDED BIOPSY: 03/13/2022 HISTORY: Not able to reproduce the distortion, pt rescheduled at [place] on 03/27/22. Correlation is made to exams dated: 02/26/2022 mammogram and 02/13/2022 mammogram. We attempted to identify the patient's targeted area of architectural distortion in the left breast at 3:00 posterior depth, however, despite multiple repositionings, this could not be visualized. Therefore the patient was rescheduled at a different facility with improved ability for visualizing architectural distortion. IMPRESSION: STEREOTACTIC GUIDED BIOPSY Biopsy not performed due to inadequate visualization of the targeted architectural distortion in the left breast. The patient was rescheduled at a different facility with improved ability for visualizing architectural distortion. The procedure was reviewed by a staff physician. rylee Glass M.D., M.D./angie:03/13/20 19:39:31 [employer] Professional(s): RT Rebecca(R)(M), [facility] Multiple national specialty organizations have released breast cancer screening guidelines for women at average risk for developing breast cancer - guidelines that are based on both evidence and opinion, yet differ on when to start and how often to screen for breast cancer. With representation from Breast Imaging, Internal Medicine, Women's Health, Family Medicine, and Medical/Surgical Oncology, the [facility] has carefully reviewed the data and reached the following consensus: 1) All women should engage in shared decision-making with their providers to decide when to start and how often to screen; 2) All women should have the opportunity to start screening mammography at age 40; 3) For women ages 45-55, we recommend annual screening mammograms; 4) For women ages 55 and over, we support both the transition from an annual to a biennial interval if this aligns more with patient's values and preferences, or continuation with annual screening; 5) All women should discuss with their providers when to stop screening mammograms. Vacuum Metal[employer] Supervisor: Angie Transcribe Date/Time: Mar 13 2022 2:17P Dictated by: PREET MCKEON MD This examination was interpreted and the report reviewed and electronically signed by: SINAI VAZQUEZ MD on Mar 13 2022 7:39PM EST [id number] Normal [facility] APOLINAR DIAG W LINDSEY LTon [facility] US BREAST LTD LTon 2 [facility] APOLINAR SCREENING W TOMOon 02-13 [facility] No Panel Informationon 11-11 Radiology Study observation (narrative) [facility] Work Phone: US PELVIS COMPLETEon Patient Name: DANIELLA TOLEDO Ultrasound ACCESSION EXAM DATE/TIME PROCEDURE ORDERING PROVIDER [id number] 11/11/2021 10:00 EDT US Pelvis Complete MD TOI, WANDA CPT code 97991 Reason For Exam (US Pelvis Complete) Other microscopic hematuria Report ULTRASOUND PELVIS: CLINICAL INDICATION: pelvic pain LMP: Not applicable COMPARISON: none TECHNIQUE: Transabdominal ultrasound of pelvis, including color flow and spectral Doppler imaging FINDINGS: Uterus: Orientation: Anteverted Size: 10.1 x 5.3 x 4.4 cm Endometrium: 4.3 mm Mass: none Cervix: normal Right Ovary: Size: 3.6 x 2.5 x 1.6 cm Mass: none Cyst: none Color flow/Doppler waveform: normal Left Ovary: Size: 4.1 x 1.6 x 2.3 cm Mass: none Cyst: none Color flow/Doppler waveform: normal Cul-de-sac: No free fluid IMPRESSION: Normal pelvic ultrasound Report Dictated on --- Final --- Dictating Physician: MD DAVIS VICTOR Signed Date and Time: 11/11/2021 10:40 am Signed by: MD DAVIS VICTOR Transcribed Date and Time: 11/11/2021 10:41 [facility] Manav Davis MD - 11/11/2021 Patient Name: DANIELLA TOLEDO Ultrasound ACCESSION EXAM DATE/TIME PROCEDURE ORDERING PROVIDER [id number] 11/11/2021 10:00 EDT US Pelvis Complete MD CM DIANA CPT code 67989 Reason For Exam (US Pelvis Complete) Other microscopic hematuria Report ULTRASOUND PELVIS: CLINICAL INDICATION: pelvic pain LMP: Not applicable COMPARISON: none TECHNIQUE: Transabdominal ultrasound of pelvis, including color flow and spectral Doppler imaging FINDINGS: Uterus: Orientation: Anteverted Size: 10.1 x 5.3 x 4.4 cm Endometrium: 4.3 mm Mass: none Cervix: normal Right Ovary: Size: 3.6 x 2.5 x 1.6 cm Mass: none Cyst: none Color flow/Doppler waveform: normal Left Ovary: Size: 4.1 x 1.6 x 2.3 cm Mass: none Cyst: none Color flow/Doppler waveform: normal Cul-de-sac: No free fluid IMPRESSION: Normal pelvic ultrasound Report Dictated on --- Final --- Dictating Physician: MD DAVIS VICTOR Signed Date and Time: 11/11/2021 10:40 am Signed by: MD DAVIS VICTOR Transcribed Date and Time: 11/11/2021 10:41 [facility] Work Phone: US PELVIS COMPLETEOrdered By : Manav Davis on 11-11-2021 [facility] Work Phone: US Pelvis Completeon 022 US Pelvis Complete Patient Name: DANIELLA TOLEDO Ultrasound ACCESSION EXAM DATE/TIME PROCEDURE ORDERING PROVIDER [id number] 11/11/2021 10:00 EDT US Pelvis Complete MD CM DIANA CPT code 74706 Reason For Exam (US Pelvis Complete) Other microscopic hematuria Report ULTRASOUND PELVIS: CLINICAL INDICATION: pelvic pain LMP: Not applicable COMPARISON: none TECHNIQUE: Transabdominal ultrasound of pelvis, including color flow and spectral Doppler imaging FINDINGS: Uterus: Orientation: Anteverted Size: 10.1 x 5.3 x 4.4 cm Endometrium: 4.3 mm Mass: none Cervix: normal Right Ovary: Size: 3.6 x 2.5 x 1.6 cm Mass: none Cyst: none Color flow/Doppler waveform: normal Left Ovary: Size: 4.1 x 1.6 x 2.3 cm Mass: none Cyst: none Color flow/Doppler waveform: normal Cul-de-sac: No free fluid IMPRESSION: Normal pelvic ultrasound Report Dictated on Final Dictating Physician: MD DAVIS VICTOR Signed Date and Time: 11/11/2021 10:40 am Signed by: MD DAVIS VICTOR Transcribed Date and Time: 11/11/2021 10:41 Normal [facility] US RETROPERITONEAL COMPLETEo n 11-11-2021 Patient Name: DANIELLA TOLEDO Ultrasound ACCESSION EXAM DATE/TIME PROCEDURE ORDERING PROVIDER [id number] 11/11/2021 10:39 EDT US Retroperitoneal MD TOI, WANDA Complete CPT code 17906 Reason For Exam (US Retroperitoneal Complete) ATTENTION TO BLADDER AND KIDNEY Report Exam type: Ultrasound retroperitoneum. CLINICAL INDICATION: ATTENTION TO BLADDER AND KIDNEY COMPARISON: None Technique: Grayscale sonographic images were obtained of the kidneys and bladder. Color Doppler was utilized. FINDINGS: Right Kidney: Size: 11.6 x 5.9 x 5.9 cm Renal Parenchyma: Normal echogenicity and cortical thickness. Hydronephrosis: None Renal Calculi: None Left Kidney: Size: 10.0 x 5.1 x 5.3 cm Renal Parenchyma: Normal echogenicity and cortical thickness. A 7 x 7 x 6 mm hyperechoic lesion is seen within the inferior kidney. Hydronephrosis: None Renal Calculi: None No intraluminal masses seen in the bladder. Prevoid volume is 391 mL. Post void volume is 20 mL. IMPRESSION: 1. No hydronephrosis. 2. 7 mm hyperechoic focus in the left inferior kidney, likely an angiomyolipoma. 6-12 month follow-up ultrasound recommended to evaluate stability. Report Dictated on --- Final --- Dictating Physician: MD STANFORD JAMES Signed Date and Time: 11/11/2021 10:34 am Signed by: MD STANFORD JAMES Transcribed Date and Time: 11/11/2021 10:39 [facility] Paul Stanford MD - 11/11/2021 Patient Name: DANIELLA TOLEDO Ultrasound ACCESSION EXAM DATE/TIME PROCEDURE ORDERING PROVIDER [id number] 11/11/2021 10:39 EDT US Retroperitoneal MD TOI, WANDA Gale CPT code 18256 Reason For Exam (US Retroperitoneal Complete) ATTENTION TO BLADDER AND KIDNEY Report Exam type: Ultrasound retroperitoneum. CLINICAL INDICATION: ATTENTION TO BLADDER AND KIDNEY COMPARISON: None Technique: Grayscale sonographic images were obtained of the kidneys and bladder. Color Doppler was utilized. FINDINGS: Right Kidney: Size: 11.6 x 5.9 x 5.9 cm Renal Parenchyma: Normal echogenicity and cortical thickness. Hydronephrosis: None Renal Calculi: None Left Kidney: Size: 10.0 x 5.1 x 5.3 cm Renal Parenchyma: Normal echogenicity and cortical thickness. A 7 x 7 x 6 mm hyperechoic lesion is seen within the inferior kidney. Hydronephrosis: None Renal Calculi: None No intraluminal masses seen in the bladder. Prevoid volume is 391 mL. Post void volume is 20 mL. IMPRESSION: 1. No hydronephrosis. 2. 7 mm hyperechoic focus in the left inferior kidney, likely an angiomyolipoma. 6-12 month follow-up ultrasound recommended to evaluate stability. Report Dictated on --- Final --- Dictating Physician: MD STANFORD JAMES Signed Date and Time: 11/11/2021 10:34 am Signed by: MD STANFORD JAMES Transcribed Date and Time: 11/11/2021 10:39 [facility] Work Phone: US RETROPERITONEAL COMPLETEO rdered By: Paul Stanford on 11-11-2021 [facility] Work Phone: US Retroperitoneal Completeo n 11-11-2021 US Retroperitoneal Complete Patient Name: DANIELLA TOLEDO Ultrasound ACCESSION EXAM DATE/TIME PROCEDURE ORDERING PROVIDER [id number] 11/11/2021 10:39 EDT US Retroperitoneal MD CM DIANA Complete CPT code 57718 Reason For Exam (US Retroperitoneal Complete) ATTENTION TO BLADDER AND KIDNEY Report Exam type: Ultrasound retroperitoneum. CLINICAL INDICATION: ATTENTION TO BLADDER AND KIDNEY COMPARISON: None Technique: Grayscale sonographic images were obtained of the kidneys and bladder. Color Doppler was utilized. FINDINGS: Right Kidney: Size: 11.6 x 5.9 x 5.9 cm Renal Parenchyma: Normal echogenicity and cortical thickness. Hydronephrosis: None Renal Calculi: None Left Kidney: Size: 10.0 x 5.1 x 5.3 cm Renal Parenchyma: Normal echogenicity and cortical thickness. A 7 x 7 x 6 mm hyperechoic lesion is seen within the inferior kidney. Hydronephrosis: None Renal Calculi: None No intraluminal masses seen in the bladder. Prevoid volume is 391 mL. Post void volume is 20 mL. IMPRESSION: 1. No hydronephrosis. 2. 7 mm hyperechoic focus in the left inferior kidney, likely an angiomyolipoma. 6-12 month follow-up ultrasound recommended to evaluate stability. Report Dictated on Final Dictating Physician: MD STANFORD JAMES Signed Date and Time: 11/11/2021 10:34 am Signed by: MD STANFORD JAMES Transcribed Date and Time: 11/11/2021 10:39 Normal [facility] Basophil percentageon 2021 Basophil percentage 25-50 SEEN /hpf 0-[address] [facility] Work Phone: Ketones Test strip Ql (U)on 10-16-2021 Ketones Ql (U) Negative Negative [facility] Work Phone: Laboratory - Chemistry and C hemistry - challengeon 10-16-2021 HCG ( test) Ql (U) Negative [facility] Work Phone: Glucose Ql (U) Negative [facility] Work Phone: Ketones Ql (U) Trace (5) [facility] Work Phone: Urobilinogen (U) [Mass/Vol] Negative [facility] Work Phone: Laboratory - Hematology and Cell countson 10-16-2021 Hemoglobin Ql (U) Hemolyzed [facility] Work Phone: Laboratory - Specimen inform ationon 10-16-2021 Clarity (U) Cloudy [facility] Work Phone: Laboratory - Urinalysison Protein Ql (U) Negative [facility] Work Phone: Mucus LM Ql (Urine sed)on Mucus Ql (Urine sed) 0 SEEN /hpf [facility] Work Phone: Nitrite ur dipstickon 2021 Nitrite Ql (U) Negative [facility] Work Phone: No Panel Informationon 10-16 Urine Leukocytes Positive [facility] Work Phone: Urine Non-Hemolyzed Blood Small [facility] Work Phone: Protein Test strip Ql (U)on 10-16-2021 Protein Ql (U) 15 mg/dl Negative [facility] Work Phone: Squamous epithelial cells de tection in urine sediment by light microscopyon 10-16-2021 Epithelial cells.squamous LM Ql (Urine sed) 0-5 SEEN /hpf 5-[address] [facility] Work Phone: Urine blood detectionon - RBC Ql (U) 25 /ul Negative [facility] Work Phone: RBC Ql (U) 0-5 SEEN /hpf 0-[address] [facility] Work Phone: Urine clarityon 10-16-2021 Clarity (U) Sl. Cloudy Clear [facility] Work Phone: Urine color determinationon 10-16-2021 Color (U) Yellow [facility] Work Phone: Urine glucose detectionon Glucose Ql (U) Normal mg/dl Normal [facility] Work Phone: Urine leukocyte esterase det ection by dipstickon 10-16-2021 Leukocyte esterase Test strip Ql (U) 500 /ul Negative [facility] Work Phone: Urine pHon 10-16-2021 pH (U) 6.0 [pH] [facility] Work Phone: Urine sediment bacteria coun t by microscopy (number/high power field)on 10-16-2021 Bacteria LM.HPF (Urine sed) [#/Area] 1 /[HPF] None Seen [facility] Work Phone: Urine specific gravity measu rementon 10-16-2021 Specific gravity (U) [Rel density] 1.[address] [facility] Work Phone: Urine total bilirubin detect ion by test stripon 10-16-2021 Bilirubin Ql (U) Negative [facility] Work Phone: Urobilinogen Auto test strip Ql (U)on 10-16-2021 Urobilinogen Ql (U) Normal mg/dl Normal [facility] Work Phone: CBCOrdered By: Florecita Gimenez on 09-28-2020 Hematocrit (Bld) [Volume fraction] 38.2 % 35.0 - 47.0 % [facility] Work Phone: Hemoglobin.gastrointes tinal spec 1 Ql (Stl) 12.7 g/dL 11.7 - 16.0 g/dL [employer] Work Phone: MCH (RBC) [Entitic mass] 32.0 pg 26.0 - 34.0 pg [employer] Work Phone: MCHC (RBC) [Mass/Vol] 33.3 % 32.0 - 36.0 % [employer] Work Phone: MCV (RBC) [Entitic vol] 96.3 fL 79.0 - 98.0 fL [employer] Work Phone: Platelet distribution width (Bld) [Ratio] 14.0 % 11.5 - 14.5 % [employer] Work Phone: Platelet mean volume (Bld) [Entitic vol] 7.6 fL 7.4 - 10.4 fL [employer] Work Phone: Platelets (Bld) [#/Vol] 246 10*3/uL 140 - 440 10*3/uL [employer] Work Phone: RBC (Bld) [#/Vol] 3.97 10*6/uL 3.80 - 5.2 0 10*6/uL [employer] Work Phone: WBC (Bld) [#/Vol] 4.2 10*3/uL 3.6 - 10.7 10*3/uL [employer] Phone: Test Performed by [facility], [address] [place], [place] [address] [employer] Work Phone: [employer] Phone: Follicle Stimulating Hormone Ordered By: Florecita Gimenez on 09-28-2020 FSH 4.2 m[IU]/mL [employer] Phone: Comment on above: Females: Follicular Phase ...... 2.3-12.6 Mid-cycle Peak ........ 5.2-17.5 Luteal Phase .......... 1.7-12.9 Post-menopausal ....... 12.7-132.2 Males: 0.7-10.8 Test Performed by [facility], [address] [place], [place] [address] [employer] Work Phone: [employer] Phone: HCG, Quantitative, Ordered By: Florecita Gimenez on 09-28-2020 hCG Quant <2 m[IU]/mL [employer] Phone: Comment on above: Females < 5 Values in should double every 2 to 3 days for the first 6 weeks.Elevated concentrations of human chorionic gonadotropin (hCG) measured in the first trimester of are observed in normal , but may serve as an indication of chorionic carcinoma, hydatiform mole, or multiple .Decreasing hCG concentrations indicate threatened or missed , recent termination of , ectopic , gestosis or intrauterine . Bailee- and postmenopausal females may have detectable hCG concentrations (< or = to 14 mIU/mL) due to pituitary production of hCG. Serum follicle-stimulating hormone measurement may aid in ruling-out in this population. Cutoffs of greater than 20 to 45 mIU/mL have been suggested and are method dependent. False-elevations (called phantom human chorionic gonadotropin: hCG) may occur with patients who have human antianimal or heterophilic antibodies. Some specimens may not dilute linearly due to abnormal forms of hCG. Elevated hCG concentrations not associated with are found in patients with other diseases such as tumors of the germ cells, ovaries, bladder, pancreas, stomach, lungs, and liver. This test is not intended to detect or monitor tumors or gestational trophoblastic disease. Test Performed by [facility], [address] [place] [id number] [employer] Work Phone: [employer] Work Phone: TSH without ReflexOrdered By : Florecita Gimenez on 09-28-2020 TSH Qn 2.588 u[IU]/mL 0.465 - 4.680 u[IU]/mL [employer] Work Phone: Test Performed by [facility], [address] [place], [place] [address] [employer] Work Phone: [employer] Work Phone: Culture, urine Bacteria identified Cx Nom (U) Positive [facility] Work Phone: Vital Signs Date Time Vital Sign Value Performing Clinician Facility 08-29-2024 09:10-0400 Body height 163.8 cm June Eden MD Work Phone: [facility] 08-29-2024 09:10-0400 Body mass index (BMI) [Ratio] 28.9 kg/m2 June Eden MD Work Phone: [facility] 08-29-2024 09:10-0400 Body weight 77.56 kg June Eden MD Work Phone: [facility] 08-29-2024 09:10-0400 Diastolic blood pressure 78 mm[Hg] June Eden MD Work Phone: [facility] 08-29-2024 09:10-0400 Systolic blood pressure 122 mm[Hg] June Eden MD Work Phone: [facility] 07-15-2024 11:22-0400 Body height 165.1 cm Florecita Gimenez MD Work Phone: [facility] 07-15-2024 11:22-0400 Body mass index (BMI) [Ratio] 28.79 kg/m2 Florecita Gimenez MD Work Phone: [facility] 07-15-2024 11:22-0400 Body weight 78.47 kg Florecita Gimenez MD Work Phone: [facility] 07-15-2024 11:22-0400 Diastolic blood pressure 85 mm[Hg] Florecita Gimenez MD Work Phone: [facility] 07-15-2024 11:22-0400 Heart rate 85 /min Florecita Gimenez MD Work Phone: [facility] 07-15-2024 11:22-0400 Systolic blood pressure 130 mm[Hg] Florecita Gimenez MD Work Phone: [facility] 05-06-2024 13:35-0500 Diastolic blood pressure 91 mm[Hg] Maria M Wagner MD Work Phone: [facility] 05-06-2024 13:35-0500 Heart rate 68 /min Maria M Wagner MD Work Phone: [facility] 05-06-2024 13:35-0500 Respiratory rate 16 /min Maria M Wagner MD Work Phone: [facility] 05-06-2024 13:35-0500 SaO2% (BldA) [Mass fraction] 98 % Maria M Wagner MD Work Phone: [facility] 05-06-2024 13:35-0500 Systolic blood pressure 126 mm[Hg] Maria M Wagner MD Work Phone: [facility] 05-06-2024 13:19-0500 Body temperature 97.5 [degF] Maria M Wagner MD Work Phone: [facility] 05-06-2024 11:47-0500 Body height 165.1 cm Maria M Wagner MD Work Phone: [facility] 05-06-2024 11:47-0500 Body mass index (BMI) [Ratio] 28.79 kg/m2 Maria M Wagner MD Work Phone: [facility] 05-06-2024 11:47-0500 Body weight 78.47 kg Maria M Wagner MD Work Phone: [facility] 04-28-2024 14:01-0500 Body height 165.1 cm Wanda Cm MD Work Phone: [facility] 04-28-2024 14:01-0500 Body mass index (BMI) [Ratio] 29.95 kg/m2 Wanda Cm MD Work Phone: [facility] 04-28-2024 14:01-0500 Body temperature 98.4 [degF] Wanda Cm MD Work Phone: [facility] 04-28-2024 14:01-0500 Body weight 81.65 kg Wanda Cm MD Work Phone: [facility] 04-28-2024 14:01-0500 Diastolic blood pressure 76 mm[Hg] Wanda Cm MD Work Phone: [facility] 04-28-2024 14:01-0500 Heart rate 82 /min Wanda Cm MD Work Phone: [facility] 04-28-2024 14:01-0500 SaO2% (BldA) [Mass fraction] 99 % Wanda Cm MD Work Phone: [facility] 04-28-2024 14:01-0500 Systolic blood pressure 126 mm[Hg] Wanda Cm MD Work Phone: [facility] 04-07-2024 08:45-0500 Body height 165.1 cm Wanda Cm MD Work Phone: [facility] 04-07-2024 08:45-0500 Body mass index (BMI) [Ratio] 30.29 kg/m2 Wanda Cm MD Work Phone: [facility] 04-07-2024 08:45-0500 Body temperature 97.59 [degF] Wanda Cm MD Work Phone: [facility] 04-07-2024 08:45-0500 Body weight 82.56 kg Wanda Cm MD Work Phone: [facility] 04-07-2024 08:45-0500 Diastolic blood pressure 88 mm[Hg] Wanda Cm MD Work Phone: [facility] 04-07-2024 08:45-0500 Heart rate 87 /min Wanda Cm MD Work Phone: [facility] 04-07-2024 08:45-0500 SaO2% (BldA) [Mass fraction] 99 % Wanda Cm MD Work Phone: [facility] 04-07-2024 08:45-0500 Systolic blood pressure 120 mm[Hg] Wanda Cm MD Work Phone: [facility] 02-23-2024 08:25-0500 Body height 165.1 cm Florecita Gimenez MD Work Phone: [facility] 02-23-2024 08:25-0500 Body mass index (BMI) [Ratio] 29.79 kg/m2 Florecita Gimenez MD Work Phone: [employer] 02-23-2024 08:25-0500 Body weight 81.19 kg Florecita Gimenez MD Work Phone: [facility] 02-23-2024 08:25-0500 Diastolic blood pressure 84 mm[Hg] Florecita Gimenez MD Work Phone: [facility] 02-23-2024 08:25-0500 Heart rate 79 /min Florecita Gimenez MD Work Phone: [facility] 02-23-2024 08:25-0500 Systolic blood pressure 129 mm[Hg] Florecita Gimenez MD Work Phone: [facility] 02-17-2023 13:46-0500 Diastolic blood pressure 88 mm[Hg] Florecita Gimenez MD Work Phone: [facility] 02-17-2023 13:46-0500 Heart rate 88 /min Florecita Gimenez MD Work Phone: [facility] 02-17-2023 13:46-0500 Systolic blood pressure 144 mm[Hg] Florecita Gimenez MD Work Phone: [facility] 02-17-2023 13:45-0500 Body height 165.1 cm Florecita Gimenez MD Work Phone: [facility] 02-17-2023 13:45-0500 Body mass index (BMI) [Ratio] 29.45 kg/m2 Florecita Gimenez MD Work Phone: [facility] 02-17-2023 13:45-0500 Body weight 80.29 kg Florecita Gimenez MD Work Phone: [facility] 01-06-2023 14:29-0400 Body height 165.1 cm Wanda Cm MD Work Phone: [facility] [employer] 01-06-2023 14:29-0400 Body mass index (BMI) [Ratio] 29.45 kg/m2 Wanda Cm MD Work Phone: [facility] 01-06-2023 14:29-0400 Body weight 80.29 kg Wanda Cm MD Work Phone: [facility] 01-06-2023 14:29-0400 Diastolic blood pressure 78 mm[Hg] Wanda Cm MD Work Phone: [facility] 01-06-2023 14:29-0400 Heart rate 94 /min Wanda Cm MD Work Phone: [facility] 01-06-2023 14:29-0400 SaO2% (BldA) [Mass fraction] 99 % Wanda Cm MD Work Phone: [facility] 01-06-2023 14:29-0400 Systolic blood pressure 124 mm[Hg] Wanda Cm MD Work Phone: [facility] 06-12-2022 14:04-0400 Body temperature 97.81 [degF] Carolyn Conley MD Work Phone: [facility] 06-12-2022 14:04-0400 Diastolic blood pressure 82 mm[Hg] Carolyn Conley MD Work Phone: [facility] 06-12-2022 14:04-0400 Heart rate 85 /min Carolyn Conley MD Work Phone: [facility] 06-12-2022 14:04-0400 SaO2% (BldA) [Mass fraction] 100 % Carolyn Conley MD Work Phone: [facility] 06-12-2022 14:04-0400 Systolic blood pressure 110 mm[Hg] Carolyn Conley MD Work Phone: [facility] 05-29-2022 08:08-0500 Body height 165.1 cm Pacc 1 Work Phone: [facility] 05-29-2022 08:08-0500 Body temperature 99.1 [degF] Pacc 1 Work Phone: [facility] 05-29-2022 08:08-0500 Body weight 77.11 kg Pacc 1 Work Phone: [facility] 05-29-2022 08:08-0500 Diastolic blood pressure 81 mm[Hg] Pacc 1 Work Phone: [facility] 05-29-2022 08:08-0500 Heart rate 92 /min Pacc 1 Work Phone: [facility] 05-29-2022 08:08-0500 Respiratory rate 18 /min Pacc 1 Work Phone: [facility] 05-29-2022 08:08-0500 SaO2% (BldA) [Mass fraction] 99 % Pacc 1 Work Phone: [facility] 05-29-2022 08:08-0500 Systolic blood pressure 126 mm[Hg] Pacc 1 Work Phone: [facility] 04-30-2022 08:38-0500 Body height 165.1 cm Pacc 1 Work Phone: [facility] 04-30-2022 08:38-0500 Body temperature 98.01 [degF] Pacc 1 Work Phone: [facility] 04-30-2022 08:38-0500 Body weight 79.83 kg Pacc 1 Work Phone: [facility] 04-30-2022 08:38-0500 Diastolic blood pressure 84 mm[Hg] Pacc 1 Work Phone: [facility] 04-30-2022 08:38-0500 Heart rate 86 /min Pacc 1 Work Phone: [facility] 04-30-2022 08:38-0500 Respiratory rate 16 /min Pacc 1 Work Phone: [facility] 04-30-2022 08:38-0500 SaO2% (BldA) [Mass fraction] 99 % Pacc 1 Work Phone: [facility] 04-30-2022 08:38-0500 Systolic blood pressure 126 mm[Hg] Pacc 1 Work Phone: [facility] 04-10-2022 08:14-0500 Body height 165.1 cm Carolyn Conley MD Work Phone: [facility] 04-10-2022 08:14-0500 Body temperature 98.49 [degF] Carolyn Conley MD Work Phone: [facility] 04-10-2022 08:14-0500 Body weight 79.38 kg Carolyn Conley MD Work Phone: [facility] 04-10-2022 08:14-0500 Diastolic blood pressure 86 mm[Hg] Carolyn Conley MD Work Phone: [facility] 04-10-2022 08:14-0500 Heart rate 100 /min Carolyn Conley MD Work Phone: [facility] 04-10-2022 08:14-0500 SaO2% (BldA) [Mass fraction] 99 % Carolyn Conley MD Work Phone: [facility] 04-10-2022 08:14-0500 Systolic blood pressure 132 mm[Hg] Carolyn Conley MD Work Phone: [facility] 10-16-2021 07:59-0400 Body height 165.[address] Wanda Cm Work Phone: [facility] Work Phone: 10-16-2021 07:59-0400 Body mass index (BMI) [Ratio] 27.9 kg/m2 Dr. Wnada Cm Work Phone: [facility] Work Phone: 10-16-2021 07:59-0400 Body temperature 98.6 [degF] Dr. Wanda Cm Work Phone: [facility] Work Phone: 10-16-2021 07:59-0400 Body weight 76.[address] Wanda Cm Work Phone: [facility] Work Phone: 10-16-2021 07:59-0400 Diastolic blood pressure 72 mm[Hg] Dr. Wanda Cm Work Phone: [facility] Work Phone: 10-16-2021 07:59-0400 Heart rate 87 /min Dr. Wanda Cm Work Phone: [facility] Work Phone: 10-16-2021 07:59-0400 Respiratory rate 14 /min Dr. Wanda Cm Work Phone: [facility] Work Phone: 10-16-2021 07:59-0400 SaO2% (BldA) [Mass fraction] 99 % Dr. Wanda Cm Work Phone: [facility] Work Phone: 10-16-2021 07:59-0400 Systolic blood pressure 122 mm[Hg] Dr. Wanda Cm Work Phone: [facility] Work Phone: Encounters Encounter Date Encounter Type Care Provider Facility Start: 12-29-2024 End: 12-29-2024 ambulatory WANDA CM Facility:[facility] Start: 12-26-2024 End: 12-26-2024 Office outpatient visit 15 minutes Wanda Cm MD Work Phone: [facility] [place] Comment on above: Dysuria (Primary Dx) ; Vaginal prolapse Start: 12-26-2024 End: 12-26-2024 ambulatory WANDA CM [facility] Start: 12-14-2024 End: 12-23-2024 Telephone encounter Wanda Cm MD Work Phone: [facility] Primary [facility] S[facility] Dunlap Start: 12-14-2024 End: 12-14-2024 Office outpatient visit 25 minutes Wanda Cm MD Work Phone: [facility] S[facility] Dunlap Comment on above: Chronic anemia (Prim mukund Dx); Postmenopausal; SHILO (generalized anxiety disorder) Start: 12-14-2024 End: 12-14-2024 ambulatory WANDA CM [facility] Start: 11-09-2024 End: 11-09-2024 Office outpatient visit 15 minutes Wanda Cm MD Work Phone: [facility] [place] Comment on above: SHILO (generalized anx iety disorder) (Primary Dx) Start: 11-09-2024 End: 11-09-2024 Office outpatient visit 25 minutes Wanda Cm MD Work Phone: [facility] [place] Comment on above: SHILO (generalized anx iety disorder) (Primary Dx) Start: 11-09-2024 End: 11-09-2024 ambulatory WANDA CM [facility] Start: 08-29-2024 End: 08-29-2024 Office outpatient new 30 minutes June Eden MD Work Phone: OB/Gynecology Comment on above: Symptomatic menopaus al or female climacteric states (Primary Dx) Start: 08-29-2024 End: 08-29-2024 ambulatory JUNE EDEN Facility:[facility] Start: 08-25-2024 End: 08-25-2024 Office outpatient visit 15 minutes Wanda Cm MD Work Phone: [facility] [place] Comment on above: Dysuria (Primary Dx) Start: 08-25-2024 End: 08-25-2024 ambulatory WANDA CM [facility] Start: 08-23-2024 [facility] Start: 08-23-2024 End: 08-23-2024 Subsequent hospital visit by physician Diagnostic Mammo On License Of [facility] Start: 07-25-2024 End: 07-25-2024 ambulatory Wanda Cm Facility:[facility] Start: 07-15-2024 End: 07-15-2024 Office outpatient visit 15 minutes Florecita Gimenez MD Work Phone: [facility] Obstetrics and Gynecology - [place] Comment on above: Breast lump in femal e (Primary Dx); Breast pain Start: 07-15-2024 End: 07-15-2024 ambulatory FLORECITA GIMENEZ [facility] Start: 05-09-2024 End: 05-12-2024 Telephone encounter [facility] Start: 05-06-2024 End: 05-06-2024 ambulatory MARIA M WAGNER [facility] Start: 05-06-2024 End: 05-06-2024 Subsequent hospital visit by physician Maria M Wagner MD Work Phone: [facility] Endoscopy Start: 05-03-2024 End: 05-03-2024 Admission to same day surgery center Maria M Wagner MD Work Phone: [facility] Colorectal Surgery - [place] Start: 05-03-2024 End: 05-03-2024 ambulatory Maria M Wagner MD Work Phone: [facility] Colorectal Surgery - [place] Start: 04-28-2024 End: 04-28-2024 Patient encounter status Wanda Cm MD Work Phone: [facility] [employer] Work Phone: Start: 04-28-2024 End: 04-28-2024 Periodic preventive med est patient 40-64yrs Wanda Cm MD Work Phone: [facility] [place] Comment on above: Well adult health ch andree (Primary Dx) Start: 04-28-2024 End: 04-28-2024 Telephone encounter Wanda Cm MD Work Phone: [facility] Start: 04-28-2024 End: 04-28-2024 ambulatory WANDA CM [facility] Start: 04-28-2024 End: 04-28-2024 Encounter for general adult medical examination without abnormal findings WANDA CM [facility] Start: 04-12-2024 End: 04-12-2024 ambulatory WANDA CM Facility:[facility] Start: 04-12-2024 End: 04-12-2024 Subsequent hospital visit by physician Screen Mammo On License Of [facility] Mammogram Start: 04-07-2024 End: 04-07-2024 Office outpatient visit 25 minutes Wanda Cm MD Work Phone: [facility] [place] Comment on above: Epigastric pain (Aissatou alexey Dx); Pelvic pain; Cellulitis of right breast; Need for hepatitis C screening test Start: 04-07-2024 End: 04-07-2024 ambulatory WANDA NANDOELISA [facility] Start: 04-01-2024 End: 04-01-2024 ambulatory Wanda Cm Facility:[facility] Start: 03-28-2024 End: 03-28-2024 ambulatory Wanda Cm Facility:[facility] Start: 02-23-2024 End: 02-23-2024 Patient encounter procedure Florecita Gimenez MD Work Phone: [facility] Start: 02-23-2024 End: 02-23-2024 Periodic preventive med est patient 40-64yrs Florecita Gimenez MD Work Phone: [facility] Obstetrics and Gynecology - [place] Comment on above: Women's annual routi ne gynecological examination (Primary Dx); Encounter for screening mammogram for malignant neoplasm of breast; Hot flashes; Screening for colon cancer Start: 02-23-2024 End: 02-23-2024 ambulatory WANDA COLLIERELISA [facility] Start: 02-23-2024 End: 02-23-2024 Encounter for gynecological examination (general) (routine) without abnormal findings FLORECITA GIMENEZ [facility] Start: 01-27-2024 End: 01-28-2024 Refill Florecita Gimenez MD Work Phone: [facility] Obstetrics and Gynecology - [place] Start: 12-29-2023 End: 12-29-2023 ambulatory Wanda Cm Facility:[facility] Start: 11-05-2023 End: 11-05-2023 Refill Wanda Cm MD Work Phone: [facility] Start: 09-11-2023 Telephone encounter Florecita luna MD Work Phone: [facility] Obstetrics & Gynecology Start: 08-26-2023 End: 08-26-2023 Office outpatient visit 10 minutes Florecita Gimenez MD Work Phone: [facility] Obstetrics & Gynecology Comment on above: Hot flashes (Primary Dx) Start: 07-27-2023 End: 07-27-2023 Office outpatient visit 15 minutes Wanda Cm MD Work Phone: [facility] Comment on above: Seasonal allergies ( Primary Dx) Start: 07-17-2023 Telephone encounter Florecita luna MD Work Phone: [facility] Start: 02-23-2023 End: 02-23-2023 Telephone encounter Giuliano Hancock [facility] Work Phone: [facility] Colorectal Surgery - [place] Comment on above: Colon Cancer Screeni ng; Colonoscopy (Screening/Surveillance program ) Start: 02-17-2023 End: 02-17-2023 Patient encounter procedure Florecita Gimenez MD Work Phone: [facility] [employer] Work Phone: Start: 02-17-2023 End: 02-17-2023 Periodic preventive med est patient 40-64yrs Florecita Gimenez MD Work Phone: [facility] Comment on above: Well woman exam with routine gynecological exam (Primary Dx); Encounter for screening mammogram for malignant neoplasm of breast; Screening for colon cancer Start: 01-26-2023 End: 01-26-2023 Patient encounter status Wanda Cm MD [facility] Work Phone: Start: 01-26-2023 End: 01-26-2023 Subsequent hospital visit by physician Wanda Cm MD Work Phone: [facility] Comment on above: Well adult health ch andree; Angiomyolipoma Start: 01-06-2023 End: 01-06-2023 Patient encounter status Wanda Cm MD [facility] Work Phone: Start: 01-06-2023 End: 01-06-2023 Periodic preventive med est patient 40-64yrs Wanda Cm MD Work Phone: [facility] Family Medicine Comment on above: Well adult health ch andree (Primary Dx); Angiomyolipoma Start: 12-16-2022 End: 12-16-2022 Subsequent hospital visit by physician Diagnostic Mammo On License Of [facility] Mammogram Start: 06-12-2022 End: 06-12-2022 Patient encounter procedure Carolyn Conley MD Work Phone: General Surgery Comment on above: Radial scar of breas t (Primary Dx); Abnormal finding on breast imaging Start: 06-10-2022 Telephone encounter Carolyn Conley MD Work Phone: General Surgery Comment on above: Patient Question (Re turn to work) opened in error Start: 06-04-2022 End: 06-04-2022 ambulatory CAROLYN CONLEY Facility:[facility] Start: 06-02-2022 ambulatory CAROLYN CONLEY Facil ity:[facility] Start: 06-02-2022 End: 06-02-2022 Subsequent hospital visit by physician Screen/Diagnostic Mammo [facility] Work Phone: Mammography Comment on above: Abnormal finding on breast imaging [R92.8] Start: 05-29-2022 End: 05-29-2022 Subsequent hospital visit by physician Radio [facility] Work Phone: Radiology Comment on above: Radial scar of breas t [N64.89] Start: 05-29-2022 Encounter for other preprocedural examination CAROLYN RIOJASTMAN [facility] Start: 05-29-2022 End: 05-29-2022 Patient encounter procedure Carolyn Conley MD Work Phone: General Surgery Comment on above: Radial scar of breas t (Primary Dx) Start: 05-29-2022 End: 05-29-2022 Admission to [place] [address] Work Phone: [facility] Start: 05-29-2022 End: 05-29-2022 ambulatory Pacc Abraham 1 Work Phone: Pre Anesthesia Comment on above: Pre-op evaluation (P rimary Dx); COVID; Gastroesophageal reflux disease, unspecified whether esophagitis present; Former smoker; Irritable bowel syndrome with constipation Start: 05-29-2022 End: 05-29-2022 [facility] Start: 05-20-2022 Telephone encounter Carolyn Conley MD Work Phone: General Surgery Comment on above: Follow Up Phone Call Start: 05-19-2022 Telephone encounter Carolyn Conley MD Work Phone: General Surgery Comment on above: Positive COVID Test Result Start: 04-30-2022 End: 04-30-2022 Admission to [facility] [place] 1 Work Phone: [facility] Start: 04-30-2022 End: 04-30-2022 ambulatory [facility] 1 Work Phone: Pre Anesthesia Comment on above: Pre-operative examin ation (Primary Dx); Gastroesophageal reflux disease, unspecified whether esophagitis present; Former smoker Start: 04-30-2022 End: 04-30-2022 Preprocedural examination done [facility] 1 Work Phone: Pre Anesthesia Start: 04-25-2022 Telephone encounter Carolyn Conley MD Work Phone: General Surgery Comment on above: Patient Update Start: 04-10-2022 End: 04-10-2022 Patient encounter procedure Carolyn Conley MD Work Phone: General Surgery Comment on above: Abnormal finding on breast imaging (Primary Dx); Radial scar of breast Start: 04-02-2022 Telephone encounter Nessa tenorio RN Work Phone: Mammography Comment on above: Results Start: 03-27-2022 ambulatory [facility] Facility:[facility] Start: 03-27-2022 End: 03-27-2022 Subsequent hospital visit by physician Procedure Mammo Muriel Kinsey Work Phone: Mammography Comment on above: Breast disorder [N64 .9] Start: 03-13-2022 End: 03-13-2022 Subsequent hospital visit by physician Procedure Mammo On License Of [facility] Mammography Start: 02-27-2022 Orders Only Angel Nieves MD Work Phone: Mammography Comment on above: Breast disorder (Aissatou alexey Dx) Start: 02-26-2022 End: 02-26-2022 Subsequent hospital visit by physician Us On License [facility] 1 Work Phone: Radiology Start: 02-14-2022 Documentation procedure Mammog allan Coordinator [facility] Start: 02-14-2022 Letter encounter Mammography Coordinator [facility] Start: 02-13-2022 End: 02-13-2022 Subsequent hospital visit by physician Screen Mammo On License Of [facility] Mammogram Start: 01-14-2022 Transcribe Orders Wanda lloyd MD Work Phone: [facility] Comment on above: Encounter for screen ing mammogram for malignant neoplasm of breast (Primary Dx) Start: 11-11-2021 End: 11-11-2021 Subsequent hospital visit by physician Wanda Cm MD Work Phone: [facility] Comment on above: Other microscopic he maturia; Pelvic pain Start: 10-16-2021 End: 10-16-[address] Wanda Cm Work Phone: [facility], Specimen Start: 10-16-2021 End: 10-16-[address] Wanda Cm Work Phone: [facility] Start: 09-28-2020 End: 09-28-2020 Subsequent hospital visit by physician Florecita Gimenez MD Work Phone: [facility] Laboratory Comment on above: Abnormal uterine ble eding Start: 06-27-2020 End: 06-27-2020 Subsequent hospital visit by physician Wanda Cm Work Phone: [facility] Comment on above: Acute foot pain, rig ht Start: 01-19-2020 End: 01-19-2020 Subsequent hospital visit by physician Wanda Cm Work Phone: [facility] Comment on above: Palpitation Procedures Date Procedure Procedure Detail Performing Clinician Start: 08-25-2024 Adult depression scr eening assessment Wanda mC MD Work Phone: Start: 08-23-2024 Us breast uni real t karlee with image limited [facility] Provider Start: 08-23-2024 End: 08-23-2024 Digital breast tomosynthesis bilateral [facility] Provider Start: 05-06-2024 Colonoscopy Maria M miranda MD Work Phone: Start: 04-12-2024 Mammography Giuliano Butler APRN - LICENSED MARRIAGE AND FAMILY THERAPIST Work Phone: Start: 02-23-2024 Microscopic observat ion [Identifier] in Cervix by Cyto stain Wanda Cm MD Work Phone: Start: 01-27-2023 Lipid 1996 panel - S sofiya or Plasma Us 1 Work Phone: Start: 01-26-2023 Us retroperitoneal r eal time w/image complete Wanda Cm MD Work Phone: Start: 12-16-2022 Digital breast tomos ynthesis bilateral Carolyn Conley MD Work Phone: Start: 06-02-2022 Perq device placemen t breast loc 1st les w/gdnce Carolyn Conley MD Work Phone: Start: 05-29-2022 Radiologic exam ches t 2 views Carolyn Conley MD Work Phone: Start: 03-27-2022 Bx breast w/device 1 st lesion stereotactic guid Angel Nieves MD Work Phone: Start: 03-27-2022 Level iv surg pathol ogy gross&microscopic exam Angel Nieves MD Work Phone: Start: 02-28-2022 Mammography Wanda perry MD Work Phone: Start: 02-26-2022 Us breast uni real t karlee with image limited [facility] Provider Start: 02-26-2022 APOLINAR DIAG W LINDSEY LEFT Cc f Provider Start: 02-13-2022 APOLINAR SCREENING W LINDSEY Cc f Provider Start: 02-13-2022 Mammography Mammograph y Coordinator Start: 11-11-2021 Us pelvic nonobstetr ic real-time image complete Wanda Cm MD Work Phone: Start: 11-11-2021 Us retroperitoneal r eal time w/image complete Wanda Cm MD Work Phone: Start: 09-28-2020 Gonadotropin follicl e stimulating hormone Florecita Gimenez MD Work Phone: Start: 09-28-2020 Microscopic observat ion [Identifier] in Cervix by Cyto stain Wanda Cm MD Work Phone: Start: 01-18-2020 Lipid 1996 panel - S sofiya or Plasma Wanda Cm MD Work Phone: Urine culture Dr. Wanda perry Work Phone: Plan of Treatment Date Care Activity Detail Author Start: 2048 RSV Immunization for Adults (1 - 1-dose 75+ series) RSV Immunization for Adults (1 - 1-dose 75+ series) [facility] Start: 05-06-2034 Screening for malign ant neoplasm of colon [facility] Start: 2033 RSV Immunization age d 60 or older (1 - 1-dose 60+ series) RSV Immunization aged 60 or older (1 - 1-dose 60+ series) [facility] Start: 02-22-2029 Screening for malign ant neoplasm of cervix [facility] Start: 01-28-2028 Lipid 1996 panel - Serum or Plasma Lipid Screening [facility] Start: 01-28-2028 Lipid panel Lipid Screening [facility] Start: 04-07-2027 Diabetes Screening Diabetes Screenin [facility] Start: 02-22-2027 Screening for malign ant neoplasm of cervix [facility] Start: 12-17-2026 LIPID SCREEN LIPID SCREEN [facility] Start: 01-27-2026 Diabetes Screening Diabetes Screenin [facility] Start: 09-28-2025 Screening for malign ant neoplasm of cervix [facility] Start: 08-25-2025 Depression Screening Depression Scre ening [facility] Start: 08-23-2025 Screening for malign ant neoplasm of breast [facility] Start: 05-04-2025 End: 05-04-2025 Patient encounter procedure 05/04/2025 8:00 AM EST [facility] [address] [place] [phone] Wanda Cm MD [address] [place] [address] [facility] Start: 04-12-2025 Screening for malign ant neoplasm of breast Mammogram [facility] Start: 03-07-2025 End: 03-07-2025 Patient encounter procedure 03/07/2025 8:30 AM EST Office Visit [facility] [address] [place] [phone] Florecita Gimenez MD [address] [place], [place] [address] [facility] Obstetrics [facility] Gynecology [facility] Start: 01-27-2025 End: 01-27-2025 Patient encounter procedure 01/27/2025 3:15 PM EDT Office Visit [facility] [address] [place] [phone] Farrukh Boykin MD [address] [place] [address] [address] [place] [address] [facility] Start: 01-17-2025 Lipid panel Lipid Panel [facility] Start: 01-13-2025 Lipid panel [facility] Start: 12-26-2024 End: 12-26-2025 Bacteria identified in Urine by Culture Urine culture (clean catch) Microbiology Routine Dysuria Expected: 12/26/2024 (Approximate), Expires: 12/26/2025 [facility] Comment on above: Expected: 12/26/2024 (Approximate), Expires: 12/26/2025 Start: 12-26-2024 End: 12-26-2025 Urinalysis complete panel - Urine Urinalysis with reflex microscopic (clean catch) Lab Routine Dysuria Expected: 12/26/2024 (Approximate), Expires: 12/26/2025 [facility] Work Phone: Comment on above: Expected: 12/26/2024 (Approximate), Expires: 12/26/2025 Start: 12-17-2024 DIABETES SCREEN DIABETES SCREEN [facility] Start: 12-14-2024 End: 12-14-2025 Comprehensive metabolic 1998 panel - Serum or Plasma Comprehensive metabolic panel Lab Routine Chronic anemia Postmenopausal Expected: 12/14/2024 (Approximate), Expires: 12/14/2025 [facility] Comment on above: Expected: 12/14/2024 (Approximate), Expires: 12/14/2025 Start: 12-14-2024 End: 12-14-2025 Estradiol Estradiol Lab Routine Chronic anemia Postmenopausal Expected: 12/14/2024 (Approximate), Expires: 12/14/2025 [employer] Comment on above: Expected: 12/14/2024 (Approximate), Expires: 12/14/2025 Start: 12-14-2024 End: 12-14-2025 FSH FSH Lab Routine Chronic anemia Postmenopausal Expected: 12/14/2024 (Approximate), Expires: 12/14/2025 [employer] Comment on above: Expected: 12/14/2024 (Approximate), Expires: 12/14/2025 Start: 12-14-2024 End: 12-14-2025 Hemoglobin A1c measurement Hemoglobin A1c Lab Routine Chronic anemia Postmenopausal Expected: 12/14/2024 (Approximate), Expires: 12/14/2025 [employer] Comment on above: Expected: 12/14/2024 (Approximate), Expires: 12/14/2025 Start: 12-14-2024 End: 12-14-2025 Lipid 1996 panel - Serum or Plasma Lipid panel Lab Routine Chronic anemia Postmenopausal Expected: 12/14/2024 (Approximate), Expires: 12/14/2025 [facility] Work Phone: Comment on above: Expected: 12/14/2024 (Approximate), Expires: 12/14/2025 Start: 11-28-2024 COVID-19 Vaccine ( season) COVID-19 Vaccine ( season) [facility] Start: 11-28-2024 Influenza vaccination [facility] Start: 11-04-2024 Screening for malign ant neoplasm of colon [facility] Start: 08-29-2024 End: 08-29-2024 Patient encounter procedure 08/29/2024 9:20 AM EDT Office Visit OB/Gynecology [address], [place] [id number] June Eden MD [address] [place] [id number] annual, new pt OB/Gynecology Comment on above: annual, new pt Start: 08-25-2024 End: 08-25-2025 Bacteria identified in Urine by Culture Urine culture (clean catch) Microbiology Routine Dysuria Expected: 08/25/2024 (Approximate), Expires: 08/25/2025 [facility] Comment on above: Expected: 08/25/2024 (Approximate), Expires: 08/25/2025 Start: 08-25-2024 End: 08-25-2025 Urinalysis complete panel - Urine Urinalysis with reflex microscopic (clean catch) Lab Routine Dysuria Expected: 08/25/2024 (Approximate), Expires: 08/25/2025 [facility] [employer] Work Phone: Comment on above: Expected: 08/25/2024 (Approximate), Expires: 08/25/2025 Start: 07-15-2024 End: 09-14-2025 DBT Breast - bilateral diagnostic Bilateral diagnostic mammogram with tomosynthesis Imaging Routine Breast pain Breast lump in female Expected: 07/15/2024, Expires: 09/14/2025 [facility] Work Phone: Comment on above: Expected: 07/15/2024 , Expires: 09/14/2025 Start: 07-15-2024 End: 09-14-2025 US Breast - bilateral limited Bilateral breast US limited Imaging Routine Breast pain Breast lump in female Expected: 07/15/2024, Expires: 09/14/2025 [facility] Comment on above: Expected: 07/15/2024 , Expires: 09/14/2025 Start: 05-06-2024 End: 05-06-2024 Admission to same day surgery center 05/06/2024 12:30 PM EST - 05/06/2024 1:00 PM EST Surgery [facility] Endoscopy [address] [place] [phone] Maria M Wagner MD [address] [place] [address] COLONOSCOPY, SCREENING [facility] Endoscopy Comment on above: COLONOSCOPY, SCREENI NG Start: 05-06-2024 End: 05-06-2024 Screening colonoscopy [facility] Start: 05-06-2024 Subsequent hospital visit by physician 05/06/2024 12:30 PM EST Hospital Encounter [facility] Endoscopy [address] [place] [phone] Maria M Wagner MD [address] [place] [address] [facility] Start: 04-28-2024 End: 04-28-2024 Patient encounter procedure 04/28/2024 2:20 PM EST Office Visit [facility] [place] [address] [place] [phone] Wanda Cm MD [address] [place] [address] [place], [place] [phone] [facility] [place] Start: 04-28-2024 End: 04-28-2025 Hemoglobin A1c measurement Hemoglobin A1c Lab Routine Well adult health check Expected: 04/28/2024 (Approximate), Expires: 04/28/2025 [facility] Comment on above: Expected: 04/28/2024 (Approximate), Expires: 04/28/2025 Start: 04-28-2024 End: 04-28-2025 Lipid 1996 panel - Serum or Plasma Lipid panel Lab Routine Well adult health check Expected: 04/28/2024 (Approximate), Expires: 04/28/2025 [facility] Work Phone: Comment on above: Expected: 04/28/2024 (Approximate), Expires: 04/28/2025 Start: 04-07-2024 End: 04-07-2025 Bacteria identified in Urine by Culture Urine culture (clean catch) Microbiology Routine Epigastric pain Pelvic pain Cellulitis of right breast Expected: 04/07/2024 (Approximate), Expires: 04/07/2025 [facility] Comment on above: Expected: 04/07/2024 (Approximate), Expires: 04/07/2025 Start: 04-07-2024 End: 04-07-2025 CBC W Auto Differential panel - Blood CBC auto differential Lab Routine Epigastric pain Pelvic pain Cellulitis of right breast Expected: 04/07/2024 (Approximate), Expires: 04/07/2025 [facility] Comment on above: Expected: 04/07/2024 (Approximate), Expires: 04/07/2025 Start: 04-07-2024 End: 04-07-2025 Comprehensive metabolic 1998 panel - Serum or Plasma Comprehensive metabolic panel Lab Routine Epigastric pain Pelvic pain Cellulitis of right breast Expected: 04/07/2024 (Approximate), Expires: 04/07/2025 [facility] Comment on above: Expected: 04/07/2024 (Approximate), Expires: 04/07/2025 Start: 04-07-2024 End: 04-07-2025 Hepatitis C virus Ab [Presence] in Serum or Plasma by Immunoassay Hepatitis C antibody Lab Routine Need for hepatitis C screening test Expected: 04/07/2024 (Approximate), Expires: 04/07/2025 [facility] Comment on above: Expected: 04/07/2024 (Approximate), Expires: 04/07/2025 Start: 04-07-2024 End: 04-07-2025 Lipase [Enzymatic activity/volume] in Serum or Plasma Lipase Lab Routine Epigastric pain Pelvic pain Cellulitis of right breast Expected: 04/07/2024 (Approximate), Expires: 04/07/2025 [employer] Comment on above: Expected: 04/07/2024 (Approximate), Expires: 04/07/2025 Start: 04-07-2024 End: 04-07-2025 Urinalysis complete panel - Urine Urinalysis with reflex microscopic (clean catch) Lab Routine Epigastric pain Pelvic pain Cellulitis of right breast Expected: 04/07/2024 (Approximate), Expires: 04/07/2025 [employer] Comment on above: Expected: 04/07/2024 (Approximate), Expires: 04/07/2025 Start: 04-07-2024 End: 04-07-2025 US Abdomen US abdomen complete Imaging Routine Epigastric pain Pelvic pain Cellulitis of right breast Expected: 04/07/2024, Expires: 04/07/2025 [facility] Work Phone: Comment on above: Expected: 04/07/2024 , Expires: 04/07/2025 Start: 04-07-2024 End: 04-07-2025 US Pelvis US pelvis Imaging Routine Epigastric pain Pelvic pain Cellulitis of right breast Expected: 04/07/2024, Expires: 04/07/2025 [employer] Comment on above: Expected: 04/07/2024 , Expires: 04/07/2025 Start: 02-23-2024 End: 04-24-2025 DBT Breast - bilateral screening Bilateral screening mammogram with tomosynthesis Imaging Routine Encounter for screening mammogram for malignant neoplasm of breast Expected: 02/23/2024, Expires: 04/24/2025 [facility] Work Phone: Comment on above: Expected: 02/23/2024 , Expires: 04/24/2025 Start: 02-23-2024 End: 02-23-2024 Patient encounter procedure [facility] Start: 12-17-2023 Mammography Mammogram Screening [facility] Start: 12-17-2023 Screening for malign ant neoplasm of breast Mammogram Screening [facility] Start: 11-29-2023 Covid-19 Vaccine () Covid-19 Vaccine () [facility] Start: 11-29-2023 Influenza vaccination Influenza Vacc ine (#1) [facility] Start: 10-08-2023 Pneumococcal Vaccine : 50+ (1 of 1 - PCV) Pneumococcal Vaccine: 50+ (1 of 1 - PCV) [facility] Start: 10-08-2023 Pneumococcal Vaccine : 50+ Years (1 of 1 - PCV) Pneumococcal Vaccine: 50+ Years (1 of 1 - PCV) [facility] Start: 10-08-2023 Shingrix Vaccine (1 of 2) Shingrix Vaccine (1 of 2) [facility] Start: 10-08-2023 Zoster Vaccines (1 o f 2) Zoster Vaccines (1 of 2) [facility] Start: 09-29-2023 Screening for malign ant neoplasm of cervix Pap smear [facility] Start: 09-01-2023 End: 09-01-2023 Telemedicine consultation with patient 09/01/2023 2:30 PM EDT Telemedicine [facility] [address] [place] [address] Florecita Gimenez MD [address] [place], [place] [phone] [facility] Start: 08-26-2023 End: 08-25-2024 Thyrotropin [Units/volume] in Serum or Plasma TSH Lab Routine Hot flashes Expected: 08/26/2023 (Approximate), Expires: 08/25/2024 [facility] Work Phone: Comment on above: Expected: 08/26/2023 (Approximate), Expires: 08/25/2024 Start: 04-26-2023 Lipid panel Lipid screen [facility] [place], [place] Start: 02-28-2023 Screening for malign ant neoplasm of breast Mammogram [facility] Start: 02-17-2023 End: 04-19-2024 DBT Breast - bilateral screening Bilateral screening mammogram with tomosynthesis Imaging Routine Encounter for screening mammogram for malignant neoplasm of breast Expected: 02/17/2023, Expires: 04/19/2024 [facility] Work Phone: Comment on above: Expected: 02/17/2023 , Expires: 04/19/2024 Start: 02-17-2023 End: 02-17-2023 Patient encounter procedure 02/17/2023 1:45 PM EST Office Visit [facility] [address] [place] [phone] Florecita Gimenez MD [address] [place], [place] [address] [facility] Start: 02-13-2023 Mammography MAMMOGRAM [facility] Start: 01-06-2023 End: 01-07-2024 CBC W Auto Differential panel - Blood CBC auto differential Lab Routine [facility] adult health check Expected: 01/06/2023 (Approximate), Expires: 01/07/2024 [facility] Comment on above: Expected: 01/06/2023 (Approximate), Expires: 01/07/2024 Start: 01-06-2023 End: 01-07-2024 Comprehensive metabolic 1998 panel - Serum or Plasma Comprehensive metabolic panel Lab Routine [facility] adult health check Expected: 01/06/2023 (Approximate), Expires: 01/07/2024 [facility] Comment on above: Expected: 01/06/2023 (Approximate), Expires: 01/07/2024 Start: 01-06-2023 End: 01-07-2024 Lipid 1996 panel - Serum or Plasma Lipid panel Lab Routine [facility] adult health check Expected: 01/06/2023 (Approximate), Expires: 01/07/2024 [facility] Work Phone: Comment on above: Expected: 01/06/2023 (Approximate), Expires: 01/07/2024 Start: 01-06-2023 End: 01-07-2024 US Kidney US renal complete Imaging Routine [facility] adult health check Angiomyolipoma Expected: 01/06/2023, Expires: 01/07/2024 [facility] Comment on above: Expected: 01/06/2023 , Expires: 01/07/2024 Start: 12-13-2022 End: 07-12-2023 Diagnostic mammography computer-aided detcj uni APOLINAR DIAGNOSTIC LT Radiology Routine Radial scar of breast Abnormal finding on breast imaging Expected: 12/13/2022, Expires: 07/12/2023 [facility] Work Phone: Comment on above: Expected: 12/13/2022 , Expires: 07/12/2023 Start: 11-28-2022 Covid-19 Vaccine ( season) Covid-19 Vaccine () [facility] Start: 11-28-2022 Influenza vaccination Influenza Vacc ine (#1) [facility] Start: 05-13-2022 End: 05-13-2022 Patient encounter procedure 05/13/2022 Office Visit Family Medicine Wanda Cm MD [address] [place] [id number] [facility] Start: 03-30-2022 DEPRESSION ASSESSMENT DEPRESSION ASS [facility] Start: 03-06-2022 Screening for malign ant neoplasm of cervix Cervical cancer screen [place] Start: 01-14-2022 End: 03-16-2023 MG Breast - bilateral Screening Bilateral screening mammogram Imaging Routine Encounter for screening mammogram for malignant neoplasm of breast Expected: 01/14/2022, Expires: 03/16/2023 [facility] Work Phone: Comment on above: Expected: 01/14/2022 , Expires: 03/16/2023 Start: 12-11-2021 End: 12-11-2021 Patient encounter procedure 12/11/2021 Office Visit Family Medicine Wanda Cm MD [address] [place] [address] [facility] Start: 11-28-2021 Influenza vaccination [facility] Start: 11-22-2021 End: 11-22-2021 Patient encounter procedure 11/22/2021 Office Visit Obstetrics and Gynecology Florecita Gimenez MD [address] [place] [address], [address] [place], [place] [id number] [facility] Start: 07-22-2021 COVID-19 VACCINE (4 - Booster for Moderna series) COVID-19 VACCINE (4 - Booster for Moderna series) [facility] Start: 07-22-2021 COVID-19 Vaccine (4 - Moderna series) COVID-19 Vaccine (4 - Moderna series) [facility] Start: 03-30-2021 DEPRESSION ASSESSMENT DEPRESSION ASS ESSMENT [facility] Start: 11-28-2020 Influenza vaccination Flu vaccine (# 1) [facility] Work Phone: Start: 10-15-2020 COVID-19 Vaccine (3 - Booster for Moderna series) COVID-19 Vaccine (3 - Booster for Moderna series) [facility] Start: 02-08-2020 End: 02-08-2020 Office Visit 02/08/2020 Office Visit Family Medicine Wanda Cm MD [address] [place] [address] [phone] [facility] Start: 11-29-2019 Influenza vaccination Flu vaccine (# 1) [place] Start: 2018 COLOGUARD (FIT-DNA) COLOGUARD (FIT-D NA) [facility] Start: 2018 Colonoscopy COLONOSCOPY [facility] Start: 2018 COLORECTAL CANCER SCREENING COLORECTAL CANCER SCREENING [facility] Start: [address] COLONOGRAPHY [facility] Start: 2018 FECAL OCCULT BLOOD FECAL OCCULT BLOO D [facility] Start: 2018 Screening for malign ant neoplasm of colon [facility] Start: 2018 SIGMOIDOSCOPY SIGMOIDOSCOPY [facility] Start: 10-08-2003 HPV TESTING HPV TESTING [facility] Start: 1994 PAP TESTING PAP TESTING [facility] Start: 1994 Screening for malign ant neoplasm of cervix Cervical Cancer Screening [facility] Start: 1992 DTaP/Tdap/Td vaccine (1 - Tdap) DTaP/Tdap/Td vaccine (1 - Tdap) [facility] Start: 1992 DTaP/Tdap/Td Vaccine s (1 - Tdap) DTaP/Tdap/Td Vaccines (1 - Tdap) [facility] Start: 1992 Hepatitis B Vaccine (1 of 3 - 19+ 3-dose series) Hepatitis B Vaccine (1 of 3 - 19+ 3-dose series) [facility] Start: 1992 Hepatitis B Vaccines (1 of 3 - 19+ 3-dose series) Hepatitis B Vaccines (1 of 3 - 19+ 3-dose series) [facility] Start: 1992 Urine microalbumin profile [facility] Start: 10-08-1991 Anxiety Screening Anxiety Screening [facility] Start: 10-08-1991 Depression Screening Depression Scre ening [facility] Start: 10-08-1991 Diabetes mellitus screening Diabetes Screening [facility] Start: 10-08-1991 Hepatitis C screening [facility] Start: 1988 HIV screening HIV screen [facility] Start: 1985 [facility] Start: 1985 Depression Screening Depression Scre ening [facility] Start: 10-08-1979 PNEUMOCOCCAL (1 - PCV) PNEUMOCOCCAL (1 - PCV) [facility] Start: 1974 MMR Vaccines (1 of 1 - Standard series) MMR Vaccines (1 of 1 - Standard series) [facility] Start: 04-09-1974 COVID-19 Vaccine (#1) COVID-19 Vacci ne (#1) [facility] Start: 1973 HEPATITIS B (1 of 3 - 3-dose series) HEPATITIS B (1 of 3 - 3-dose series) [facility] Start: 1973 Hepatitis B Vaccine (1 of 3 - 3-dose series) Hepatitis B Vaccine (1 of 3 - 3-dose series) [facility] Start: 1973 Hepatitis B Vaccines (1 of 3 - 3-dose series) Hepatitis B Vaccines (1 of 3 - 3-dose series) [facility] Start: 1973 Hepatitis C screening Hepatitis C kelsi youngn [facility] Work Phone: Start: 1973 HIV screening HIV Screening [facility] Start: 1973 Screening for malign ant neoplasm of colon [facility] End: 03-29-2023 Bx breast w/device 1st lesion stereotactic guid APOLINAR STEREO BX BREAST LT Radiology Routine Breast disorder 1 Occurrences starting 02/27/2022 until 03/29/2023 [facility] Work Phone: Comment on above: 1 Occurrences starti ng 02/27/2022 until 03/29/2023 Cytology Cervical or vaginal smear or scraping study Pap Smear Pathology and Cytology Routine Women's annual routine gynecological examination 02/23/2024 9:02 AM [employer] End: 01-19-2020 Holter Monitor 24 Hour Holter Monitor 24 Hour Cardiac Services Routine Palpitation 1 Occurrences starting 01/19/2020 until 01/19/2020 [facility] [place], [place] Comment on above: 1 Occurrences starti ng 01/19/2020 until 01/19/2020 HPV High Risk PCR HPV High Risk PCR Microbiology Routine Women's annual routine gynecological examination 02/23/2024 9:02 AM EST [employer] OUTSIDE PROCEDURE SCAN OUTSIDE P ROCEDURE SCAN Procedures Ordered: 01/23/2023 [facility] Comment on above: Ordered: 01/23/2023 End: 05-10-2023 Perq device placement breast loc 1st les w/gdnce APOLINAR NDL LOC W APOLINAR GD LT Radiology Routine Abnormal finding on breast imaging Radial scar of breast 1 Occurrences starting 04/10/2022 until 05/10/2023 [facility] Work Phone: Comment on above: 1 Occurrences starti ng 04/10/2022 until 05/10/2023 End: 06-27-2020 XR FOOT RIGHT (MIN 3 VIEWS) XR FOOT RIGHT (MIN 3 VIEWS) Imaging Routine Acute foot pain, right 1 Occurrences starting 06/27/2020 until 06/27/2020 [employer] Work Phone: Comment on above: 1 Occurrences starti ng 06/27/2020 until 06/27/2020 XR FOOT RIGHT (MIN 3 VIEWS) XR FOOT RIGHT (MIN 3 VIEWS) Imaging Routine Acute foot pain, right 06/27/2020 4:56 PM EDT [employer] Work Phone: [facility] Immunizations Immunization Date Immunization Notes Care Provider Fa [facility] 01-14-2024 influenza, seasonal, injectable, preservative free June Eden MD Work Phone: [facility] 01-14-2024 influenza virus vaccine, unspecified formulation Wanda Cm MD Work Phone: [facility] 02-03-2023 influenza virus vaccine, unspecified formulation Wanda Cm MD Work Phone: [facility] 01-02-2022 influenza, seasonal, injectable Pacc 1 Work Phone: [facility] 01-02-2022 influenza virus vaccine, unspecified formulation Wanad Cm MD Work Phone: [facility] 02-06-2021 influenza, injectabl e, quadrivalent, preservative free Pacc 1 Work Phone: [facility] 05-18-2020 Covid (Moderna) Dr. Wanda santiago Work Phone: [facility] Work Phone: 04-20-2020 Covid (Moderna) Dr. Wanda santiago Work Phone: [facility] Work Phone: 01-31-2020 influenza, injectabl e, quadrivalent, preservative free Pacc 1 Work Phone: [facility] 01-27-2019 Influenza, injectabl e, Madin Goodrich Canine Kidney, preservative free, quadrivalent Pacc 1 Work Phone: [facility] 01-11-2018 Influenza Vaccine, unspecified formulation Wanda Cm [facility] 01-11-2018 influenza, seasonal, injectable Pacc 1 Work Phone: [facility] 12-29-2015 Influenza Vaccine, unspecified formulation Wanda Cm [place] 12-29-2015 influenza virus vaccine, unspecified formulation Pacc 1 Work Phone: [facility] 12-29-2015 influenza, seasonal, injectable Pacc 1 Work Phone: [facility] Payers Date Payer Category Payer Self-pay [id number] 2023 Commercial Managed C are - HMO [id number] 2023 Private Health Insurance [id number] 2013 Private Health Insurance [id number] 2013 Commercial Managed C are - PPO [employer] PPO [id number] 2013 Private Health Insurance [id number] Unknown [id number] Unknown [id number] Unknown [id number] Unknown [id number] Social History Date Type Detail Facility Start: 01-04-2020 End: 05-06-2024 Tobacco smoking status [facility] Former smoker [facility] Start: 11-06-2002 End: 03-30-2018 History of tobacco use [facility] Start: 01-04-2020 End: 04-06-2024 Cigarettes smoked current (pack per day) - Reported [facility] Start: 01-04-2020 End: 05-06-2024 Tobacco use and exposure Never used [facility] Start: 01-04-2020 End: 07-15-2024 Alcohol intake Current drinker of alcohol (finding) [place] Start: 10-03-2014 Alcohol Comment socially [place] Start: 1975 [facility] [place] [place] Start: 10-14-2021 End: 02-26-2022 Exposure to SARS-CoV-2 (event) Not sure [facility] Start: 1975 Sex Assigned At Female S [facility] Start: 11-06-2002 End: 03-30-2018 History of tobacco use Cigarette Smoker [facility] Work Phone: Start: 03-09-2018 [facility] Work Phone: Start: 05-30-2019 Alcohol intake Not Asked [facility] Start: 04-10-2022 Alcohol Comment couple times a week [facility] Start: 01-06-2023 End: 04-06-2024 Tobacco use panel [facility] Start: 10-24-2022 Gender identity Identifies as female gender (finding) [facility] Start: 10-24-2022 Sexual orientation Heterosexual (fin ding) [facility] National Score (1-10 0), lower number is lower risk Not on file [facility] Start: 10-28-2021 Sex Female (finding) [facility] Has the [employer], [employer], [employer], or water [employer] threatened to shut off services in your home in past 12Mo No [facility] Are you now , , , , never or living with a partner? [facility] How often to you hav e a drink containing alcohol? 2-4 times a month [facility] How many standard drinks containing alcohol do you have on a typical day? 3 or 4 [facility] How often do you hav e 6 or more drinks on 1 occasion? Less than monthly [facility] Do you feel stress - tense, restless, nervous, or anxious, or unable to sleep at night because your mind is troubled all the time - these days [OSQ] Only a little [facility] (I/We) worried wheth er (my/our) food would run out before (I/we) got money to buy more. Never true [facility] Start: 05-06-2024 Alcohol Comment 1-3 weekly. [facility] ealt How often do you nee d to have someone help you when you read instructions, pamphlets, or other written material from your doctor or pharmacy [SILS] Never [facility] Functional Status Date Assessment Result Facility 08-25-2024 Patient Health Quest ionnaire 2 item (PHQ-2) [Reported] [facility] 08-25-2024 Little interest or p martha in doing things Not at all 08/25/2024 1:50 PM EDT Mychart, Generic Not at all [facility] 08-25-2024 Feeling down, depres sed, or hopeless Not at all 08/25/2024 1:50 PM EDT Populishart, Generic Not at all [facility] Clinical Notes 02-13-2022 to 12-26-2024 Wanda Cm MD - 12/26/2024 11:00 AM EDTTelephone Encounter - [place], [place] - 12/14/2024 3:09 PM EDTTelephone Encounter - [place] - 12/14/2024 3:09 PM EDTPatient Instructions Note Date & Type Note Facility 12-26-2024 History of Present illness Narrative Patient was identified and seen today via Telehealth by agreement and consent. I used the following Telehealth technology: Audio and video capabilities. Patient location: Patient Location: Home. This patient encounter is appropriate and reasonable under the circumstances: . The patient has been advised of the potential risks and limitations of this mode of treatment (including but not limited to the absence of in-person examination) and has agreed to be treated in a remote fashion in spite of them. Any and all of the patient's/patient's family's questions on this issue have been answered and I have made no promises or guarantees to the patient. The patient has also been advised to contact this office for worsening conditions or problems, and seek emergency medical treatment and/or call 911 if the patient deems either necessary. The patient stated that they are currently in the state [facility]. If the patient is a minor, permission has been obtained by the parent or guardian for the patient to receive medical care at this visit. [facility] - [address] [facility] [address] Dept: [phone] Dept Loc: [phone] Reason for Visit: dysuria Assessment and Plan Assessment & Plan Dysuria Orders: Urinalysis with reflex microscopic (clean catch); Future Urine culture (clean catch); Future Vaginal prolapse Orders: [facility] Urogynecology; Future current treatment plan is effective, no change in therapy, orders and follow up as documented in EMR, lab results reviewed with patient, repeat labs ordered prior to next appointment, reviewed compliance with lifestyle measures, reviewed diet, exercise and weight control, reviewed medications and side effects in detail Return visit in 1 week. Subjective HPI This is 49 year old female who complains a few days ago, she felt a bulge when she was wiping, Now she feels the bulge when she is walking .She states she has been having pressure to urinate, she states no blood in urine Review of Systems Constitutional: Negative. Negative for activity change, appetite change and fever. HENT: Negative. Negative for congestion. Eyes: Negative. Negative for discharge. Respiratory: Negative. Negative for chest tightness. Cardiovascular: Negative. Gastrointestinal: Negative. Endocrine: Negative. Negative for cold intolerance. Genitourinary: Positive for urgency. Negative for difficulty urinating. Musculoskeletal: Negative. Neurological: Negative. Negative for dizziness, facial asymmetry and headaches. Hematological: Negative. Allergies[1] Current Medications[2] Problem List[3] Medical History[4] Social History Tobacco Use Smoking status: Former Current packs/day: 0.00 Average packs/day: 0.5 packs/day for 15.0 years (7.5 ttl pk-yrs) Types: Cigarettes Start date: 11/06/2002 Quit date: 11/06/2017 Years since quittin.1 Smokeless tobacco: Never Substance Use Topics Alcohol use: Yes Alcohol/week: 10.0 standard drinks of alcohol Types: 4 Glasses of wine, 6 Cans of beer per week Comment: 1-3 weekly. Surgical History[5] Family History[6] Health Maintenance Topic Date Due MMR Vaccines (1 of 1 - Standard series) Never done Diabetes Screening Never done DTaP/Tdap/Td Vaccines (1 - Tdap) Never done Hepatitis B Vaccines (1 of 3 - 19+ 3-dose series) Never done Pneumococcal Vaccine: 50+ Years (1 of 1 - PCV) Never done Zoster Vaccines (1 of 2) Never done COVID-19 Vaccine (4 - 2024- season) 2024 Influenza Vaccine (1) 11/28/2024 Lipid Panel 01/17/2025 Mammogram 08/23/2025 Depression Screening 08/25/2025 Cervical Cancer Screening 02/22/2029 Colorectal Cancer Screening 05/06/2034 RSV Immunization for Adults (1 - 1-dose 75+ series) 2048 HIV Screening Completed Hepatitis C Screening Completed RSV Immunization under 20 Months Aged Out HIB Vaccines Aged Out IPV Vaccines Aged Out Hepatitis A Vaccines Aged Out Meningococcal Vaccine Aged Out Rotavirus Vaccines Aged Out HPV Vaccines Aged Out Meningococcal B Vaccine Aged Out Objective There were no vitals taken for this visit. Physical Exam Data Reviewed and Summarized Labs: Lab Results Component Value Date WBC 5.5 04/07/2024 HGB 13.3 04/07/2024 HCT 40.7 04/07/2024 PLT 366 04/07/2024 TSH 2.588 09/28/2020 Lab Results Component Value Date NA 137 09/01/2019 K 3.8 09/01/2019 CL 102 09/01/2019 CO2 28 04/07/2024 BUN 12 04/07/2024 CREATININE 0.66 04/07/2024 GLUCOSE 91 04/07/2024 CALCIUM 9.2 04/07/2024 PROT 7.1 04/07/2024 BILITOT 0.3 04/07/2024 ALKPHOS 55 04/07/2024 AST 15 04/07/2024 ALT 14 04/07/2024 AGRATIO 1.4 04/07/2024 GLOB 2.9 04/07/2024 @GLUCOSELAB@ No results found for: CHLPL, CHOL No results found for: TRIG No results found for: HDL No results found for: LDLCALC No results found for: VLDL No results found for: CHOLHDLRATIO Imaging/Testing: US renal complete Narrative: Patient Name: DANIELLA TOLEDO : 1975 [facility]#: [id number] Exam Date/Time: 01/26/2023 08:46 Procedure: US RENAL COMPLETE Ordering Provider: CM DIANA Reason For Exam: ANGIOMYOLIPOMA OF KIDNEY Examination: Renal ultrasound Clinical Indication: Angiomyolipoma Of Kidney Comparison: November 11, 2021 Findings: Multiplanar grayscale sonographic images were obtained through the kidneys and bladder. The right kidney measures 11.5 x 5.7 x 5.8 cm. No renal cysts. No solid renal parenchymal lesion, hydronephrosis, or shadowing renal calculus. Normal echotexture. The left kidney measures 10.4 x 5.9 x 5.1 cm. No renal cysts. 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 Otherwise no solid renal parenchymal lesion, hydronephrosis, or shadowing renal calculus. Normal echotexture. Ultrasound images through the bladder demonstrate no gross evidence of bladder wall thickening. 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 Report Dictated on Electronically Signed By: Claudio Stafford MD Electronically Signed Date/Time: 01/26/2023 9:19 AM EDT Wanda Cm MD [1] Allergies Allergen Reactions Sulfamethoxazole-Trimethoprim Anaphylaxis and Rash Doxycycline Ciprofloxacin Rash Codeine Rash Other reaction(s): Unknown Cyclobenzaprine Rash Flexeril Gadobutrol Rash Other reaction(s): Other. MRI based contrast [2] Current Outpatient Medications Medication Sig Dispense Refill Lactobacillus (PROBIOTIC ACIDOPHILUS PO) Take by mouth. levocetirizine (Xyzal) 5 MG tablet Take 1 tablet (5 mg) by mouth every evening. 30 tablet 11 montelukast (Singulair) 10 MG tablet TAKE 1 TABLET BY MOUTH EVERY DAY NIGHTLY 90 tablet 1 Multiple Vitamin (multivitamin) tablet Take 1 tablet by mouth daily. Olopatadine HCl (PATADAY OP) Administer into affected eye(s). (Patient not taking: Reported on 05/06/2024) sertraline (Zoloft) 25 MG tablet Take 1 tablet (25 mg) by mouth daily. 90 tablet 0 No current facility-administered medications for this visit. [3] Patient Active Problem List Diagnosis Renal mass [4] Past Medical History: Diagnosis Date GERD (gastroesophageal reflux disease) Irritable bowel syndrome [5] Past Surgical History: Procedure Laterality Date BREAST SURGERY 06/04/2022 COLONOSCOPY N/A 05/06/2024 Performed by Maria M Wagner MD at [facility] END[facility] [6] Family History Problem Relation Name Age of Onset Breast cancer Other maternal aunt in 30s; maternal great aunt High Blood Pressure Mother Lizette hoyos Alcohol abuse Mother Lizette hoyos High Blood Pressure Father Breast cancer Mother's Sister Loretta hutchinson Ovarian cancer Neg Hx Uterine cancer Neg Hx Colon cancer Neg Hx documented in this encounter [facility] 12-14-2024 Telephone encounter Note Last physical was 03/2024 Patient is scheduled 04/2025 for her physical [facility] 12-14-2024 Miscellaneous Notes Last physical was 03/2024 Patient is scheduled 04/2025 for her physical Patient to be scheduled for physical I would like to go ahead and get her scheduled but please double check when her last 1 was because it cannot be earlier than a year. She believes January or February. documented in this encounter [facility] 12-14-2024 Telephone encounter Note Patient to be scheduled for physical I would like to go ahead and get her scheduled but please double check when her last 1 was because it cannot be earlier than a year. She believes January or February. [facility] 12-14-2024 History of Present illness Narrative Images from the original note were not included. Patient was identified and seen today via Telehealth by agreement and consent. I used the following Telehealth technology: Audio and video capabilities. Patient location: Patient Location: Home. This patient encounter is appropriate and reasonable under the circumstances: Behavioral Health . The patient has been advised of the potential risks and limitations of this mode of treatment (including but not limited to the absence of in-person examination) and has agreed to be treated in a remote fashion in spite of them. Any and all of the patient's/patient's family's questions on this issue have been answered and I have made no promises or guarantees to the patient. The patient has also been advised to contact this office for worsening conditions or problems, and seek emergency medical treatment and/or call 911 if the patient deems either necessary. The patient stated that they are currently in the [facility]. If the patient is a minor, permission has been obtained by the parent or guardian for the patient to receive medical care at this visit. [facility] - [address] [facility] [address] Dept: [phone] Dept Loc: [phone] Reason for Visit: No chief complaint on file. Assessment and Plan Assessment & Plan Chronic anemia Chronic stable recheck CBC hemoglobin Orders: Lipid panel; Future Comprehensive metabolic panel; Future Hemoglobin A1c; Future Estradiol; Future FSH; Future Estradiol; Future Postmenopausal Chronic stable patient was seeing [facility] [employer] she states she would like to switch and she is seeing a [place] provider. Who specializes in hormones. He is currently off of estradiol. She is requesting some hormone testing prior to the appointment this was done Orders: Lipid panel; Future Comprehensive metabolic panel; Future Hemoglobin A1c; Future Estradiol; Future FSH; Future Estradiol; Future SHILO (generalized anxiety disorder) Chronic stable patient doing well on Zoloft. current treatment plan is effective, no change in therapy, orders and follow up as documented in EMR, lab results reviewed with patient, repeat labs ordered prior to next appointment, reviewed compliance with lifestyle measures, reviewed diet, exercise and weight control, reviewed medications and side effects in detail Return visit in 3 months. Subjective HPI this is a 49-year-old female patient with recurrent anxiety. She feels since she got on the Zoloft she feels a lot better she still has some episodes of recurrent anxiety and depression. She is doing well she feels it is a surrounded by her. Her when she was supposed to have a.. She now switched to a new [employer] which she is david see in February. Current side effects of the Zoloft she feels its of benefit being on it Review of Systems Constitutional: Negative. Negative for activity change, appetite change and fever. HENT: Negative. Negative for congestion. Eyes: Negative. Negative for discharge. Respiratory: Negative. Negative for chest tightness. Cardiovascular: Negative. Gastrointestinal: Negative. Endocrine: Negative. Negative for cold intolerance. Genitourinary: Negative for difficulty urinating. Musculoskeletal: Negative. Neurological: Negative. Negative for dizziness, facial asymmetry and headaches. Hematological: Negative. Allergies[1] Current Medications[2] Problem List[3] Medical History[4] Social History Tobacco Use Smoking status: Former Current packs/day: 0.00 Average packs/day: 0.5 packs/day for 15.0 years (7.5 ttl pk-yrs) Types: Cigarettes Start date: 11/06/2002 Quit date: 11/06/2017 Years since quittin.1 Smokeless tobacco: Never Substance Use Topics Alcohol use: Yes Alcohol/week: 10.0 standard drinks of alcohol Types: 4 Glasses of wine, 6 Cans of beer per week Comment: 1-3 weekly. Surgical History[5] Family History[6] Health Maintenance Topic Date Due MMR Vaccines (1 of 1 - Standard series) Never done Diabetes Screening Never done DTaP/Tdap/Td Vaccines (1 - Tdap) Never done Hepatitis B Vaccines (1 of 3 - 19+ 3-dose series) Never done Pneumococcal Vaccine: 50+ Years (1 of 1 - PCV) Never done Zoster Vaccines (1 of 2) Never done COVID-19 Vaccine (4 - 2024- season) 2024 Influenza Vaccine (1) 11/28/2024 Lipid Panel 01/17/2025 Mammogram 08/23/2025 Depression Screening 08/25/2025 Cervical Cancer Screening 02/22/2029 Colorectal Cancer Screening 05/06/2034 RSV Immunization for Adults (1 - 1-dose 75+ series) 2048 HIV Screening Completed Hepatitis C Screening Completed RSV Immunization under 20 Months Aged Out HIB Vaccines Aged Out IPV Vaccines Aged Out Hepatitis A Vaccines Aged Out Meningococcal Vaccine Aged Out Rotavirus Vaccines Aged Out HPV Vaccines Aged Out Meningococcal B Vaccine Aged Out Objective There were no vitals taken for this visit. Physical Exam Data Reviewed and Summarized Labs: Lab Results Component Value Date WBC 5.5 04/07/2024 HGB 13.3 04/07/2024 HCT 40.7 04/07/2024 PLT 366 04/07/2024 TSH 2.588 09/28/2020 Lab Results Component Value Date NA 137 09/01/2019 K 3.8 09/01/2019 CL 102 09/01/2019 CO2 28 04/07/2024 BUN 12 04/07/2024 CREATININE 0.66 04/07/2024 GLUCOSE 91 04/07/2024 CALCIUM 9.2 04/07/2024 PROT 7.1 04/07/2024 BILITOT 0.3 04/07/2024 ALKPHOS 55 04/07/2024 AST 15 04/07/2024 ALT 14 04/07/2024 AGRATIO 1.4 04/07/2024 GLOB 2.9 04/07/2024 @GLUCOSELAB@ No results found for: CHLPL, CHOL No results found for: TRIG No results found for: HDL No results found for: LDLCALC No results found for: VLDL No results found for: CHOLHDLRATIO Imaging/Testing: US renal complete Narrative: [facility] Name[facility] 1975 [id number] Exam Date/Time: 01/26/2023 08:46 Procedure: US RENAL COMPLETE Ordering Provider: CM DIANA Reason For Exam: ANGIOMYOLIPOMA OF KIDNEY Examination: Renal ultrasound Clinical Indication: Angiomyolipoma Of Kidney Comparison: November 11, 2021 Findings: Multiplanar grayscale sonographic images were obtained through the kidneys and bladder. The right kidney measures 11.5 x 5.7 x 5.8 cm. No renal cysts. No solid renal parenchymal lesion, hydronephrosis, or shadowing renal calculus. Normal echotexture. The left kidney measures 10.4 x 5.9 x 5.1 cm. No renal cysts. 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 Otherwise no solid renal parenchymal lesion, hydronephrosis, or shadowing renal calculus. Normal echotexture. Ultrasound images through the bladder demonstrate no gross evidence of bladder wall thickening. 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 Report Dictated on Electronically Signed By: Claudio Stafford MD Electronically Signed Date/Time: 01/26/2023 9:19 AM EDT Wanda Cm MD [1] Allergies Allergen Reactions Sulfamethoxazole-Trimethoprim Anaphylaxis and Rash Doxycycline Ciprofloxacin Rash Codeine Rash Other reaction(s): Unknown Cyclobenzaprine Rash Flexeril Gadobutrol Rash Other reaction(s): Other. MRI based contrast [2] Current Outpatient Medications Medication Sig Dispense Refill Lactobacillus (PROBIOTIC ACIDOPHILUS PO) Take by mouth. levocetirizine (Xyzal) 5 MG tablet Take 1 tablet (5 mg) by mouth every evening. 30 tablet 11 montelukast (Singulair) 10 MG tablet TAKE 1 TABLET BY MOUTH EVERY DAY NIGHTLY 90 tablet 1 Multiple Vitamin (multivitamin) tablet Take 1 tablet by mouth daily. Olopatadine HCl (PATADAY OP) Administer into affected eye(s). (Patient not taking: Reported on 05/06/2024) sertraline (Zoloft) 25 MG tablet Take 1 tablet (25 mg) by mouth daily. 90 tablet 0 No current facility-administered medications for this visit. [3] Patient Active Problem List Diagnosis Renal mass [4] Past Medical History: Diagnosis Date GERD (gastroesophageal reflux disease) Irritable bowel syndrome [5] Past Surgical History: Procedure Laterality Date BREAST SURGERY 06/04/2022 COLONOSCOPY N/A 05/06/2024 Performed by Maria M Wagner MD at [facility] [6] Family History Problem Relation Name Age of Onset Breast cancer Other maternal aunt in 30s; maternal great aunt High Blood Pressure Mother Lizette hoyos Alcohol abuse Mother Lizette hoyos High Blood Pressure Father Breast cancer Mother's Sister Loretta hutchinson Ovarian cancer Neg Hx Uterine cancer Neg Hx Colon cancer Neg Hx documented in this encounter [facility] 11-09-2024 History of Present illness Narrative Images from the original note were not included. [facility] - [address] [facility] [address] Dept: [phone] Dept Loc: [phone] Reason for Visit: anxiety Patient was identified and seen today via Telehealth by agreement and consent. I used the following Telehealth technology: Audio capability only. Total length of call 20 minutes. The patient was offered and advised video for a more comprehensive evaluation, but the patient declined or was unable to use video. Patient location: Patient Location: Home. This patient encounter is appropriate and reasonable under the circumstances: Behavioral Health . The patient has been advised of the potential risks and limitations of this mode of treatment (including but not limited to the absence of in-person examination) and has agreed to be treated in a remote fashion in spite of them. Any and all of the patient's/patient's family's questions on this issue have been answered and I have made no promises or guarantees to the patient. The patient has also been advised to contact this office for worsening conditions or problems, and seek emergency medical treatment and/or call 911 if the patient deems either necessary. The patient stated that they are currently in the [facility]. If the patient is a minor, permission has been obtained by the parent or guardian for the patient to receive medical care at this visit. Assessment and Plan Assessment & Plan SHILO (generalized anxiety disorder) Acutenew onset started patient on Zoloft 25 mg 1 p.o. daily recheck in follow-up in 4 weeks if any problems or suicidal ideations to contact me immediately or go to the emergency room. current treatment plan is effective, no change in therapy, orders and follow up as documented in EMR, lab results reviewed with patient, repeat labs ordered prior to next appointment, reviewed compliance with lifestyle measures, reviewed diet, exercise and weight control, reviewed medications and side effects in detail Return visit in 4 weeks. Subjective HPI a 49 year old female patient who states she has been feeling consistent amount. She was on the low dose of Zoloft but was taken off of it as she felt better. She states that she has been having a lot of tension she is not sleeping well. She has been getting more irritable she feels she is having more episodes of surges of panic and anxiety no suicidal thoughts. Replacement follow-up yearly was doing okay at first it helped with hot flashes and her anxiety. Review of Systems Constitutional: Negative. Negative for activity change, appetite change and fever. HENT: Negative. Negative for congestion. Eyes: Negative. Negative for discharge. Respiratory: Negative. Negative for chest tightness. Cardiovascular: Negative. Gastrointestinal: Negative. Endocrine: Negative. Negative for cold intolerance. Genitourinary: Negative for difficulty urinating. Musculoskeletal: Negative. Neurological: Negative. Negative for dizziness, facial asymmetry and headaches. Hematological: Negative. Psychiatric/Behavioral: Positive for sleep disturbance. Negative for agitation, behavioral problems and suicidal ideas. The patient is nervous/anxious. The patient is not hyperactive. Allergies[1] Current Medications[2] Problem List[3] Medical History[4] Social History Tobacco Use Smoking status: Former Current packs/day: 0.00 Average packs/day: 0.5 packs/day for 15.0 years (7.5 ttl pk-yrs) Types: Cigarettes Start date: 11/06/2002 Quit date: 11/06/2017 Years since quittin.0 Smokeless tobacco: Never Substance Use Topics Alcohol use: Yes Alcohol/week: 10.0 standard drinks of alcohol Types: 4 Glasses of wine, 6 Cans of beer per week Comment: 1-3 weekly. Surgical History[5] Family History[6] Health Maintenance Topic Date Due MMR Vaccines (1 of 1 - Standard series) Never done Diabetes Screening Never done DTaP/Tdap/Td Vaccines (1 - Tdap) Never done Hepatitis B Vaccines (1 of 3 - 19+ 3-dose series) Never done Pneumococcal Vaccine: 50+ Years (1 of 1 - PCV) Never done Zoster Vaccines (1 of 2) Never done COVID-19 Vaccine (4 - 2023- season) 2023 Influenza Vaccine (1) 11/28/2024 Lipid Panel 01/17/2025 Mammogram 08/23/2025 Depression Screening 08/25/2025 Cervical Cancer Screening 02/22/2029 Colorectal Cancer Screening 05/06/2034 RSV Immunization for Adults (1 - 1-dose 75+ series) 2048 HIV Screening Completed Hepatitis C Screening Completed RSV Immunization under 20 Months Aged Out HIB Vaccines Aged Out IPV Vaccines Aged Out Hepatitis A Vaccines Aged Out Meningococcal Vaccine Aged Out Rotavirus Vaccines Aged Out HPV Vaccines Aged Out Meningococcal B Vaccine Aged Out Objective There were no vitals taken for this visit. Physical Exam Data Reviewed and Summarized Labs: Lab Results Component Value Date WBC 5.5 04/07/2024 HGB 13.3 04/07/2024 HCT 40.7 04/07/2024 PLT 366 04/07/2024 TSH 2.588 09/28/2020 Lab Results Component Value Date NA 137 09/01/2019 K 3.8 09/01/2019 CL 102 09/01/2019 CO2 28 04/07/2024 BUN 12 04/07/2024 CREATININE 0.66 04/07/2024 GLUCOSE 91 04/07/2024 CALCIUM 9.2 04/07/2024 PROT 7.1 04/07/2024 BILITOT 0.3 04/07/2024 ALKPHOS 55 04/07/2024 AST 15 04/07/2024 ALT 14 04/07/2024 AGRATIO 1.4 04/07/2024 GLOB 2.9 04/07/2024 @GLUCOSELAB@ No results found for: CHLPL, CHOL No results found for: TRIG No results found for: HDL No results found for: LDLCALC No results found for: VLDL No results found for: CHOLHDLRATIO Imaging/Testing: US renal complete Narrative: Patient Name: DANIELLA TOLEDO : 1975 Exam Date/Time: 01/26/2023 08:46 Procedure: US RENAL COMPLETE Ordering Provider: CM DIANA Reason For Exam: ANGIOMYOLIPOMA OF KIDNEY Examination: Renal ultrasound Clinical Indication: Angiomyolipoma Of Kidney Comparison: November 11, 2021 Findings: Multiplanar grayscale sonographic images were obtained through the kidneys and bladder. The right kidney measures 11.5 x 5.7 x 5.8 cm. No renal cysts. No solid renal parenchymal lesion, hydronephrosis, or shadowing renal calculus. Normal echotexture. The left kidney measures 10.4 x 5.9 x 5.1 cm. No renal cysts. 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 Otherwise no solid renal parenchymal lesion, hydronephrosis, or shadowing renal calculus. Normal echotexture. Ultrasound images through the bladder demonstrate no gross evidence of bladder wall thickening. 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 Report Dictated on Electronically Signed By: Claudio Stafford MD Electronically Signed Date/Time: 01/26/2023 9:19 AM EDT Wanda Cm MD [1] Allergies Allergen Reactions Sulfamethoxazole-Trimethoprim Anaphylaxis and Rash Doxycycline Ciprofloxacin Rash Codeine Rash Other reaction(s): Unknown Cyclobenzaprine Rash Flexeril Gadobutrol Rash Other reaction(s): Other. MRI based contrast [2] Current Outpatient Medications Medication Sig Dispense Refill estradiol ([place]) 0.025 MG/24HR Place 1 patch on the skin 1 (one) time per week. 12 patch 3 Lactobacillus (PROBIOTIC ACIDOPHILUS PO) Take by mouth. levocetirizine (Xyzal) 5 MG tablet Take 1 tablet (5 mg) by mouth every evening. 30 tablet 11 montelukast (Singulair) 10 MG tablet TAKE 1 TABLET BY MOUTH EVERY DAY NIGHTLY 90 tablet 1 Multiple Vitamin (multivitamin) tablet Take 1 tablet by mouth daily. Olopatadine HCl (PATADAY OP) Administer into affected eye(s). (Patient not taking: Reported on 05/06/2024) sertraline (Zoloft) 25 MG tablet Take 1 tablet (25 mg) by mouth daily. 30 tablet 1 No current facility-administered medications for this visit. [3] Patient Active Problem List Diagnosis Renal mass [4] Past Medical History: Diagnosis Date GERD (gastroesophageal reflux disease) Irritable bowel syndrome [5] Past Surgical History: Procedure Laterality Date BREAST SURGERY 06/04/2022 COLONOSCOPY N/A 05/06/2024 Performed by Maria M Wagner MD at [facility] [6] Family History Problem Relation Name Age of Onset Breast cancer Other maternal aunt in 30s; maternal great aunt High Blood Pressure Mother Lizette hoyos Alcohol abuse Mother Lizette hoyos High Blood Pressure Father Breast cancer Mother's Sister Loretta hutchinson Ovarian cancer Neg Hx Uterine cancer Neg Hx Colon cancer Neg Hx documented in this encounter [facility] 11-09-2024 History of Present illness Narrative Images from the original note were not included. [facility] [place] [address] [facility] [address] Dept: [phone] Dept Loc: [phone] Reason for Visit: anxiety Patient was identified and seen today via Telehealth by agreement and consent. I used the following Telehealth technology: Audio capability only. Total length of call 20 minutes. The patient was offered and advised video for a more comprehensive evaluation, but the patient declined or was unable to use video. Patient location: Patient Location: Home. This patient encounter is appropriate and reasonable under the circumstances: Behavioral Health . The patient has been advised of the potential risks and limitations of this mode of treatment (including but not limited to the absence of in-person examination) and has agreed to be treated in a remote fashion in spite of them. Any and all of the patient's/patient's family's questions on this issue have been answered and I have made no promises or guarantees to the patient. The patient has also been advised to contact this office for worsening conditions or problems, and seek emergency medical treatment and/or call 911 if the patient deems either necessary. The patient stated that they are currently in the state of [place]. If the patient is a minor, permission has been obtained by the parent or guardian for the patient to receive medical care at this visit. Assessment and Plan Assessment & Plan SHILO (generalized anxiety disorder) Acutenew onset started patient on Zoloft 25 mg 1 p.o. daily recheck in follow-up in 4 weeks if any problems or suicidal ideations to contact me immediately or go to the emergency room. current treatment plan is effective, no change in therapy, orders and follow up as documented in EMR, lab results reviewed with patient, repeat labs ordered prior to next appointment, reviewed compliance with lifestyle measures, reviewed diet, exercise and weight control, reviewed medications and side effects in detail Return visit in 4 weeks. Subjective HPI a 49 year old female patient who states she has been feeling consistent amount. She was on the low dose of Zoloft but was taken off of it as she felt better. She states that she has been having a lot of tension she is not sleeping well. She has been getting more irritable she feels she is having more episodes of surges of panic and anxiety no suicidal thoughts. Replacement follow-up yearly was doing okay at first it helped with hot flashes and her anxiety. Review of Systems Constitutional: Negative. Negative for activity change, appetite change and fever. HENT: Negative. Negative for congestion. Eyes: Negative. Negative for discharge. Respiratory: Negative. Negative for chest tightness. Cardiovascular: Negative. Gastrointestinal: Negative. Endocrine: Negative. Negative for cold intolerance. Genitourinary: Negative for difficulty urinating. Musculoskeletal: Negative. Neurological: Negative. Negative for dizziness, facial asymmetry and headaches. Hematological: Negative. Psychiatric/Behavioral: Positive for sleep disturbance. Negative for agitation, behavioral problems and suicidal ideas. The patient is nervous/anxious. The patient is not hyperactive. Allergies[1] Current Medications[2] Problem List[3] Medical History[4] Social History Tobacco Use Smoking status: Former Current packs/day: 0.00 Average packs/day: 0.5 packs/day for 15.0 years (7.5 ttl pk-yrs) Types: Cigarettes Start date: 11/06/2002 Quit date: 11/06/2017 Years since quittin.0 Smokeless tobacco: Never Substance Use Topics Alcohol use: Yes Alcohol/week: 10.0 standard drinks of alcohol Types: 4 Glasses of wine, 6 Cans of beer per week Comment: 1-3 weekly. Surgical History[5] Family History[6] Health Maintenance Topic Date Due MMR Vaccines (1 of 1 - Standard series) Never done Diabetes Screening Never done DTaP/Tdap/Td Vaccines (1 - Tdap) Never done Hepatitis B Vaccines (1 of 3 - 19+ 3-dose series) Never done Pneumococcal Vaccine: 50+ Years (1 of 1 - PCV) Never done Zoster Vaccines (1 of 2) Never done COVID-19 Vaccine (4 - season) 2023 Influenza Vaccine (1) 11/28/2024 Lipid Panel 01/17/2025 Mammogram 08/23/2025 Depression Screening 08/25/2025 Cervical Cancer Screening 02/22/2029 Colorectal Cancer Screening 05/06/2034 RSV Immunization for Adults (1 - 1-dose 75+ series) 2048 HIV Screening Completed Hepatitis C Screening Completed RSV Immunization under 20 Months Aged Out HIB Vaccines Aged Out IPV Vaccines Aged Out Hepatitis A Vaccines Aged Out Meningococcal Vaccine Aged Out Rotavirus Vaccines Aged Out HPV Vaccines Aged Out Meningococcal B Vaccine Aged Out Objective There were no vitals taken for this visit. Physical Exam Data Reviewed and Summarized Labs: Lab Results Component Value Date WBC 5.5 04/07/2024 HGB 13.3 04/07/2024 HCT 40.7 04/07/2024 PLT 366 04/07/2024 TSH 2.588 09/28/2020 Lab Results Component Value Date NA 137 09/01/2019 K 3.8 09/01/2019 CL 102 09/01/2019 CO2 28 04/07/2024 BUN 12 04/07/2024 CREATININE 0.66 04/07/2024 GLUCOSE 91 04/07/2024 CALCIUM 9.2 04/07/2024 PROT 7.1 04/07/2024 BILITOT 0.3 04/07/2024 ALKPHOS 55 04/07/2024 AST 15 04/07/2024 ALT 14 04/07/2024 AGRATIO 1.4 04/07/2024 GLOB 2.9 04/07/2024 @GLUCOSELAB@ No results found for: CHLPL, CHOL No results found for: TRIG No results found for: HDL No results found for: LDLCALC No results found for: VLDL No results found for: CHOLHDLRATIO Imaging/Testing: US renal complete Narrative: Patient Name: DANIELLA TOLEDO : 1975 Exam Date/Time: 01/26/2023 08:46 Procedure: US RENAL COMPLETE Ordering Provider: CM DIANA Reason For Exam: ANGIOMYOLIPOMA OF KIDNEY Examination: Renal ultrasound Clinical Indication: Angiomyolipoma Of Kidney Comparison: November 11, 2021 Findings: Multiplanar grayscale sonographic images were obtained through the kidneys and bladder. The right kidney measures 11.5 x 5.7 x 5.8 cm. No renal cysts. No solid renal parenchymal lesion, hydronephrosis, or shadowing renal calculus. Normal echotexture. The left kidney measures 10.4 x 5.9 x 5.1 cm. No renal cysts. 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 Otherwise no solid renal parenchymal lesion, hydronephrosis, or shadowing renal calculus. Normal echotexture. Ultrasound images through the bladder demonstrate no gross evidence of bladder wall thickening. 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 Report Dictated on Electronically Signed By: Claudio Stafford MD Electronically Signed Date/Time: 01/26/2023 9:19 AM EDT Wanda Cm MD [1] Allergies Allergen Reactions Sulfamethoxazole-Trimethoprim Anaphylaxis and Rash Doxycycline Ciprofloxacin Rash Codeine Rash Other reaction(s): Unknown Cyclobenzaprine Rash Flexeril Gadobutrol Rash Other reaction(s): Other. MRI based contrast [2] Current Outpatient Medications Medication Sig Dispense Refill estradiol (Climara) 0.025 MG/24HR Place 1 patch on the skin 1 (one) time per week. 12 patch 3 Lactobacillus (PROBIOTIC ACIDOPHILUS PO) Take by mouth. levocetirizine (Xyzal) 5 MG tablet Take 1 tablet (5 mg) by mouth every evening. 30 tablet 11 montelukast (Singulair) 10 MG tablet TAKE 1 TABLET BY MOUTH EVERY DAY NIGHTLY 90 tablet 1 Multiple Vitamin (multivitamin) tablet Take 1 tablet by mouth daily. Olopatadine HCl (PATADAY OP) Administer into affected eye(s). (Patient not taking: Reported on 05/06/2024) sertraline (Zoloft) 25 MG tablet Take 1 tablet (25 mg) by mouth daily. 30 tablet 1 No current facility-administered medications for this visit. [3] Patient Active Problem List Diagnosis Renal mass [4] Past Medical History: Diagnosis Date GERD (gastroesophageal reflux disease) Irritable bowel syndrome [5] Past Surgical History: Procedure Laterality Date BREAST SURGERY 06/04/2022 COLONOSCOPY N/A 05/06/2024 Performed by Maria M Wagner MD at [facility] [6] Family History Problem Relation Name Age of Onset Breast cancer Other maternal aunt in 30s; maternal great aunt High Blood Pressure Mother Lizette hoyos Alcohol abuse Mother Lizette hoyos High Blood Pressure Father Breast cancer Mother's Sister Loretta hutchinson Ovarian cancer Neg Hx Uterine cancer Neg Hx Colon cancer Neg Hx documented in this encounter [facility] 11-09-2024 Miscellaneous Notes Addended by: WANDA CM on: 11/10/2024 02:30 PM Modules accepted: Level of Service documented in this encounter [facility] 11-09-2024 Note Addended by: WANDA ARECHIGA on: 11/10/2024 02:30 PM Modules accepted: Level of Service [facility] 08-29-2024 Note HNO ID: [id number] Author: JUNE EDEN MD Service: ? Author Type: Physician Type: Progress Notes Filed: 08/29/2024 09:55 Note Text: Daniella Toledo is a 48 year old female who presents for problem visit with menopausal symptoms. HPI: Has been on HRT for almost a year. Was doing ok at first. It did help the hot flashes and rage. Now getting significant breast pain. Has had a diagnostic mammogram and US. Mood is not as good as it was and GI symptoms. Is interested in trying a different option. Would like to try a non hormonal treatment. Did not tolerated Paxil in the past. Reviewed low dose Effexor as an option. 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 History Comments: Sexual Activity: Yes; Male Contraception: No contraception data on record PAST MEDICAL HISTORY Diagnosis Date GERD (gastroesophageal reflux disease) Urinary frequency PAST SURGICAL HISTORY Procedure Laterality Date BX BREAST W DEVICE 1ST LESION STEREOTACTIC GUIDE Left 03/27/2022 NONE FAMILY HISTORY Problem Relation Age of Onset No Known Problems Mother No Known Problems Father No Known Problems Sister No Known Problems Brother Breast Cancer Maternal Aunt Social History Tobacco Use Smoking status: Former Current packs/day: 0.00 Types: Cigarettes Quit date: 2017 Years since quittin.4 Smokeless tobacco: Never Vaping Use Vaping status: Never Used Substance Use Topics Alcohol use: Yes Alcohol/week: 3.0 standard drinks of alcohol Types: 3 Glasses of wine per week Comment: couple times a week Drug use: Never Current Outpatient Medications Medication Sig progesterone micronized (PROMETRIUM) 100 mg capsule Take 100 mg by mouth. estradiol (CLIMARA) 0.025 mg/[address] 1 PATCH ON THE SKIN 1 TIME PER WEEK. olopatadine (PATANOL) 0.1 % ophthalmic solution INSTILL 1 DROP INTO BOTH EYES TWICE A DAY DIRECTED No current facility-administered medications for this visit. Allergies As of Date: 08/29/2024 Allergen Noted Reaction BACTRIM [SULFAMETHOXAZOLE-TRIMETH* 016 Rash CODEINE 06/13/2015 Unknown FLEXERIL [CYCLOBENZAPRINE] 04/10/2022 Rash Fully Assessed 08/29/2024 REVIEW OF SYSTEMS Abdomen: No bloating, early satiety, indigestion, or increased flatulence. Bladder: No dysuria, gross hematuria, urinary frequency, urinary urgency, or incontinence. Breast: No breast lumps, nipple d/c, overlying skin changes, redness or skin retraction and tenderness. Expanded ROS: N/A Allergies and current medication updated:Yes SENSITIVE EXAM: Sensitive exam not performed. EXAM: BP 122/78 Ht 5' 4.5 (1.64m) Wt 171 lb (77.6kg) LMP 08/25/2024 BMI 28.91 kg/(m2). GENERAL: pleasant, female in no apparent distress HEENT: Normocephalic, atraumatic, mucus membranes moist, and no lesions NECK: Supple, full range of motion, and no adenopathy DERMATOLOGY: Normal, without lesions, non-icteric, and non-hirsute BREAST: deferred CHEST: Normal inspiratory effort ABDOMEN: Deferred PELVIC: deferred BIMANUAL: deferred NEURO: alert and oriented x3,exam grossly non-focal EXTREMITIES: normal ASSESSMENT AND PLAN: Assessment AND Plan Symptomatic menopausal or female climacteric states Effexor. Wean of HRT June Eden MD [facility] 08-29-2024 History of Present illness Narrative Daniella Toledo is a 48 year old female who presents for problem visit with menopausal symptoms. HPI: Has been on HRT for almost a year. Was doing ok at first. It did help the hot flashes and rage. Now getting significant breast pain. Has had a diagnostic mammogram and US. Mood is not as good as it was and GI symptoms. Is interested in trying a different option. Would like to try a non hormonal treatment. Did not tolerated Paxil in the past. Reviewed low dose Effexor as an option. 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 History Comments: Sexual Activity: Yes; Male Contraception: No contraception data on record PAST MEDICAL HISTORY Diagnosis Date GERD (gastroesophageal reflux disease) Urinary frequency PAST SURGICAL HISTORY Procedure Laterality Date BX BREAST W DEVICE 1ST LESION STEREOTACTIC GUIDE Left 03/27/2022 NONE FAMILY HISTORY Problem Relation Age of Onset No Known Problems Mother No Known Problems Father No Known Problems Sister No Known Problems Brother Breast Cancer Maternal Aunt Social History Tobacco Use Smoking status: Former Current packs/day: 0.00 Types: Cigarettes Quit date: 2017 Years since quittin.4 Smokeless tobacco: Never Vaping Use Vaping status: Never Used Substance Use Topics Alcohol use: Yes Alcohol/week: 3.0 standard drinks of alcohol Types: 3 Glasses of wine per week Comment: couple times a week Drug use: Never Current Outpatient Medications Medication Sig progesterone micronized (PROMETRIUM) 100 mg capsule Take 100 mg by mouth. estradiol (CLIMARA) 0.025 mg/[address] 1 PATCH ON THE SKIN 1 TIME PER WEEK. olopatadine (PATANOL) 0.1 % ophthalmic solution INSTILL 1 DROP INTO BOTH EYES TWICE A DAY DIRECTED No current facility-administered medications for this visit. Allergies As of Date: 08/29/2024 Allergen Noted Reaction BACTRIM [SULFAMETHOXAZOLE-TRIMETH* 016 Rash CODEINE 06/13/2015 Unknown FLEXERIL [CYCLOBENZAPRINE] 04/10/2022 Rash Fully Assessed 08/29/2024 REVIEW OF SYSTEMS Abdomen: No bloating, early satiety, indigestion, or increased flatulence. Bladder: No dysuria, gross hematuria, urinary frequency, urinary urgency, or incontinence. Breast: No breast lumps, nipple d/c, overlying skin changes, redness or skin retraction and tenderness. Expanded ROS: N/A Allergies and current medication updated:Yes SENSITIVE EXAM: Sensitive exam not performed. EXAM: BP 122/78 Ht 5' 4.5 (1.64m) Wt 171 lb (77.6kg) LMP 08/25/2024 BMI 28.91 kg/(m^2). GENERAL: pleasant, female in no apparent distress HEENT: Normocephalic, atraumatic, mucus membranes moist, and no lesions NECK: Supple, full range of motion, and no adenopathy DERMATOLOGY: Normal, without lesions, non-icteric, and non-hirsute BREAST: deferred CHEST: Normal inspiratory effort ABDOMEN: Deferred PELVIC: deferred BIMANUAL: deferred NEURO: alert and oriented x3,exam grossly non-focal EXTREMITIES: normal ASSESSMENT AND PLAN: Assessment & Plan Symptomatic menopausal or female climacteric states Effexor. Wean of HRT June Eden MD documented in this encounter [facility] 08-25-2024 History of Present illness Narrative Images from the original note were not included. Patient was identified and seen today via Telehealth by agreement and consent. I used the following Telehealth technology: Audio and video capabilities. Patient location: [place] Patient Location: Home. This patient encounter is appropriate and reasonable under the circumstances: too sick to leave home [facility] - [address] [facility] [address] Dept: [phone] Dept Loc: [phone] Reason for Visit: No chief complaint on file. Assessment and Plan 1. Dysuria - Urinalysis with reflex microscopic (clean catch) - Urine culture (clean catch) - nitrofurantoin, macrocrystal-monohydrate, (Macrobid) 100 MG capsule; Take 1 capsule (100 mg) by mouth 2 times daily for 7 days., Starting Eileen 08/25/2024, Until Eileen 09/01/2024, Normal current treatment plan is effective, no change in therapy, orders and follow up as documented in EMR, lab results reviewed with patient, repeat labs ordered prior to next appointment, reviewed compliance with lifestyle measures, reviewed diet, exercise and weight control, reviewed medications and side effects in detail Return visit in 1 weeks. Subjective HPI this is a 48-year-old female who complains of urinary frequency and burning no fevers no chills no flank pain. 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 Review of Systems Constitutional: Negative. Negative for activity change, appetite change and fever. HENT: Negative. Negative for congestion. Eyes: Negative. Negative for discharge. Respiratory: Negative. Negative for chest tightness. Cardiovascular: Negative. Gastrointestinal: Negative. Endocrine: Negative. Negative for cold intolerance. Genitourinary: Positive for dysuria. Negative for difficulty urinating. Musculoskeletal: Negative. Neurological: Negative. Negative for dizziness, facial asymmetry and headaches. Hematological: Negative. Allergies[1] Current Medications[2] Problem List[3] Medical History[4] Social History Tobacco Use Smoking status: Former Current packs/day: 0.00 Average packs/day: 0.5 packs/day for 15.0 years (7.5 ttl pk-yrs) Types: Cigarettes Start date: 11/06/2002 Quit date: 11/06/2017 Years since quittin.8 Smokeless tobacco: Never Substance Use Topics Alcohol use: Yes Alcohol/week: 10.0 standard drinks of alcohol Types: 4 Glasses of wine, 6 Cans of beer per week Comment: 1-3 weekly. Surgical History[5] Family History[6] Health Maintenance Topic Date Due HIV Screening Never done MMR Vaccines (1 of 1 - Standard series) Never done Depression Screening Never done Diabetes Screening Never done DTaP/Tdap/Td Vaccines (1 - Tdap) Never done Hepatitis B Vaccines (1 of 3 - 19+ 3-dose series) Never done Pneumococcal Vaccine: 50+ Years (1 of 1 - PCV) Never done Zoster Vaccines (1 of 2) Never done COVID-19 Vaccine ( - season) 2023 Influenza Vaccine (Season Ended) 2024 Lipid Panel 01/17/2025 Mammogram 08/23/2025 Cervical Cancer Screening 02/22/2029 Colorectal Cancer Screening 05/06/2034 RSV Immunization for Adults (1 - 1-dose 75+ series) 2048 Hepatitis C Screening Completed RSV Immunization under 20 Months Aged Out HIB Vaccines Aged Out IPV Vaccines Aged Out Hepatitis A Vaccines Aged Out Meningococcal Vaccine Aged Out Rotavirus Vaccines Aged Out HPV Vaccines Aged Out Meningococcal B Vaccine Aged Out Objective There were no vitals taken for this visit. Physical Exam Data Reviewed and Summarized Labs: Lab Results Component Value Date WBC 5.5 04/07/2024 HGB 13.3 04/07/2024 HCT 40.7 04/07/2024 PLT 366 04/07/2024 TSH 2.588 09/28/2020 Lab Results Component Value Date NA 137 09/01/2019 K 3.8 09/01/2019 CL 102 09/01/2019 CO2 28 04/07/2024 BUN 12 04/07/2024 CREATININE 0.66 04/07/2024 GLUCOSE 91 04/07/2024 CALCIUM 9.2 04/07/2024 PROT 7.1 04/07/2024 BILITOT 0.3 04/07/2024 ALKPHOS 55 04/07/2024 AST 15 04/07/2024 ALT 14 04/07/2024 AGRATIO 1.4 04/07/2024 GLOB 2.9 04/07/2024 @GLUCOSELAB@ No results found for: CHLPL, CHOL No results found for: TRIG No results found for: HDL No results found for: LDLCALC No results found for: VLDL No results found for: CHOLHDLRATIO Imaging/Testing: US renal complete Narrative: Patient Name: DANIELLA TOLEDO : 1975 Exam Date/Time: 01/26/2023 08:46 Procedure: US RENAL COMPLETE Ordering Provider: CM DIANA Reason For Exam: ANGIOMYOLIPOMA OF KIDNEY Examination: Renal ultrasound Clinical Indication: Angiomyolipoma Of Kidney Comparison: November 11, 2021 Findings: Multiplanar grayscale sonographic images were obtained through the kidneys and bladder. The right kidney measures 11.5 x 5.7 x 5.8 cm. No renal cysts. No solid renal parenchymal lesion, hydronephrosis, or shadowing renal calculus. Normal echotexture. The left kidney measures 10.4 x 5.9 x 5.1 cm. No renal cysts. 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 Otherwise no solid renal parenchymal lesion, hydronephrosis, or shadowing renal calculus. Normal echotexture. Ultrasound images through the bladder demonstrate no gross evidence of bladder wall thickening. 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 Report Dictated on Electronically Signed By: Claudio Stafford MD Electronically Signed Date/Time: 01/26/2023 9:19 AM EDT Wanda Cm MD . The patient has been advised of the potential risks and limitations of this mode of treatment (including but not limited to the absence of in-person examination) and has agreed to be treated in a remote fashion in spite of them. Any and all of the patient's/patient's family's questions on this issue have been answered and I have made no promises or guarantees to the patient. The patient has also been advised to contact this office for worsening conditions or problems, and seek emergency medical treatment and/or call 911 if the patient deems either necessary. The patient stated that they are currently in the [facility]. If the patient is a minor, permission has been obtained by the parent or guardian for the patient to receive medical care at this visit. [1] Allergies Allergen Reactions Sulfamethoxazole-Trimethoprim Anaphylaxis and Rash Doxycycline Ciprofloxacin Rash Codeine Rash Other reaction(s): Unknown Cyclobenzaprine Rash Flexeril Gadobutrol Rash Other reaction(s): Other. MRI based contrast [2] Current Outpatient Medications Medication Sig Dispense Refill estradiol (Climara) 0.025 MG/24HR Place 1 patch on the skin 1 (one) time per week. 12 patch 3 Lactobacillus (PROBIOTIC ACIDOPHILUS PO) Take by mouth. levocetirizine (Xyzal) 5 MG tablet Take 1 tablet (5 mg) by mouth every evening. 30 tablet 11 montelukast (Singulair) 10 MG tablet TAKE 1 TABLET BY MOUTH EVERY DAY NIGHTLY 90 tablet 1 Multiple Vitamin (multivitamin) tablet Take 1 tablet by mouth daily. nitrofurantoin, macrocrystal-monohydrate, (Macrobid) 100 MG capsule Take 1 capsule (100 mg) by mouth 2 times daily for 7 days. 14 capsule 0 Olopatadine HCl (PATADAY OP) Administer into affected eye(s). (Patient not taking: Reported on 05/06/2024) omeprazole (PriLOSEC) [address] capsule Take 20 mg by mouth every morning (before breakfast). Do not crush or chew. (Patient not taking: Reported on 05/06/2024) progesterone (Prometrium) 100 MG capsule Take 1 capsule (100 mg) by mouth daily. 30 capsule 11 No current facility-administered medications for this visit. [3] Patient Active Problem List Diagnosis Renal mass [4] Past Medical History: Diagnosis Date GERD (gastroesophageal reflux disease) Irritable bowel syndrome [5] Past Surgical History: Procedure Laterality Date BREAST SURGERY 06/04/2022 COLONOSCOPY N/A 05/06/2024 Performed by Maria M Wagner MD at [facility] [6] Family History Problem Relation Name Age of Onset Breast cancer Other maternal aunt in 30s; maternal great aunt High Blood Pressure Mother Lizette hoyos Alcohol abuse Mother Lizette hoyos High Blood Pressure Father Breast cancer Mother's Sister Loretta hutchinson Ovarian cancer Neg Hx Uterine cancer Neg Hx Colon cancer Neg Hx documented in this encounter [facility] 08-25-2024 History of Present illness Narrative Images from the original note were not included. Patient was identified and seen today via Telehealth by agreement and consent. I used the following Telehealth technology: Audio and video capabilities. Patient location: VV Patient Location: Home. This patient encounter is appropriate and reasonable under the circumstances: too sick to leave home [facility] - [address] [facility] [address] Dept: [phone] Dept Loc: [phone] Reason for Visit: painful urination Assessment and Plan 1. Dysuria - Urinalysis with reflex microscopic (clean catch) - Urine culture (clean catch) - nitrofurantoin, macrocrystal-monohydrate, (Macrobid) 100 MG capsule; Take 1 capsule (100 mg) by mouth 2 times daily for 7 days., Starting Eileen 08/25/2024, Until Eileen 09/01/2024, Normal current treatment plan is effective, no change in therapy, orders and follow up as documented in EMR, lab results reviewed with patient, repeat labs ordered prior to next appointment, reviewed compliance with lifestyle measures, reviewed diet, exercise and weight control, reviewed medications and side effects in detail Return visit in 1 weeks. Subjective HPI this is a 48-year-old female who complains of urinary frequency and burning no fevers no chills no flank pain. 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 Review of Systems Constitutional: Negative. Negative for activity change, appetite change and fever. HENT: Negative. Negative for congestion. Eyes: Negative. Negative for discharge. Respiratory: Negative. Negative for chest tightness. Cardiovascular: Negative. Gastrointestinal: Negative. Endocrine: Negative. Negative for cold intolerance. Genitourinary: Positive for dysuria. Negative for difficulty urinating. Musculoskeletal: Negative. Neurological: Negative. Negative for dizziness, facial asymmetry and headaches. Hematological: Negative. Allergies[1] Current Medications[2] Problem List[3] Medical History[4] Social History Tobacco Use Smoking status: Former Current packs/day: 0.00 Average packs/day: 0.5 packs/day for 15.0 years (7.5 ttl pk-yrs) Types: Cigarettes Start date: 11/06/2002 Quit date: 11/06/2017 Years since quittin.8 Smokeless tobacco: Never Substance Use Topics Alcohol use: Yes Alcohol/week: 10.0 standard drinks of alcohol Types: 4 Glasses of wine, 6 Cans of beer per week Comment: 1-3 weekly. Surgical History[5] Family History[6] Health Maintenance Topic Date Due HIV Screening Never done MMR Vaccines (1 of 1 - Standard series) Never done Depression Screening Never done Diabetes Screening Never done DTaP/Tdap/Td Vaccines (1 - Tdap) Never done Hepatitis B Vaccines (1 of 3 - 19+ 3-dose series) Never done Pneumococcal Vaccine: 50+ Years (1 of 1 - PCV) Never done Zoster Vaccines (1 of 2) Never done COVID-19 Vaccine ( season) 2023 Influenza Vaccine (Season Ended) 2024 Lipid Panel 01/17/2025 Mammogram 08/23/2025 Cervical Cancer Screening 02/22/2029 Colorectal Cancer Screening 05/06/2034 RSV Immunization for Adults (1 - 1-dose 75+ series) 2048 Hepatitis C Screening Completed RSV Immunization under 20 Months Aged Out HIB Vaccines Aged Out IPV Vaccines Aged Out Hepatitis A Vaccines Aged Out Meningococcal Vaccine Aged Out Rotavirus Vaccines Aged Out HPV Vaccines Aged Out Meningococcal B Vaccine Aged Out Objective There were no vitals taken for this visit. Physical Exam Data Reviewed and Summarized Labs: Lab Results Component Value Date WBC 5.5 04/07/2024 HGB 13.3 04/07/2024 HCT 40.7 04/07/2024 PLT 366 04/07/2024 TSH 2.588 09/28/2020 Lab Results Component Value Date NA 137 09/01/2019 K 3.8 09/01/2019 CL 102 09/01/2019 CO2 28 04/07/2024 BUN 12 04/07/2024 CREATININE 0.66 04/07/2024 GLUCOSE 91 04/07/2024 CALCIUM 9.2 04/07/2024 PROT 7.1 04/07/2024 BILITOT 0.3 04/07/2024 ALKPHOS 55 04/07/2024 AST 15 04/07/2024 ALT 14 04/07/2024 AGRATIO 1.4 04/07/2024 GLOB 2.9 04/07/2024 @GLUCOSELAB@ No results found for: CHLPL, CHOL No results found for: TRIG No results found for: HDL No results found for: LDLCALC No results found for: VLDL No results found for: CHOLHDLRATIO Imaging/Testing: US renal complete Narrative: Patient Name: DANIELLA TOLEDO : 1975 [facility]#: [id number] Exam Date/Time: 01/26/2023 08:46 Procedure: US RENAL COMPLETE Ordering Provider: CM DIANA Reason For Exam: ANGIOMYOLIPOMA OF KIDNEY Examination: Renal ultrasound Clinical Indication: Angiomyolipoma Of Kidney Comparison: November 11, 2021 Findings: Multiplanar grayscale sonographic images were obtained through the kidneys and bladder. The right kidney measures 11.5 x 5.7 x 5.8 cm. No renal cysts. No solid renal parenchymal lesion, hydronephrosis, or shadowing renal calculus. Normal echotexture. The left kidney measures 10.4 x 5.9 x 5.1 cm. No renal cysts. 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 Otherwise no solid renal parenchymal lesion, hydronephrosis, or shadowing renal calculus. Normal echotexture. Ultrasound images through the bladder demonstrate no gross evidence of bladder wall thickening. 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 Report Dictated on Electronically Signed By: Claudio Stafford MD Electronically Signed Date/Time: 01/26/2023 9:19 AM EDT Wanda Cm MD . The patient has been advised of the potential risks and limitations of this mode of treatment (including but not limited to the absence of in-person examination) and has agreed to be treated in a remote fashion in spite of them. Any and all of the patient's/patient's family's questions on this issue have been answered and I have made no promises or guarantees to the patient. The patient has also been advised to contact this office for worsening conditions or problems, and seek emergency medical treatment and/or call 911 if the patient deems either necessary. The patient stated that they are currently in the [facility]. If the patient is a minor, permission has been obtained by the parent or guardian for the patient to receive medical care at this visit. [1] Allergies Allergen Reactions Sulfamethoxazole-Trimethoprim Anaphylaxis and Rash Doxycycline Ciprofloxacin Rash Codeine Rash Other reaction(s): Unknown Cyclobenzaprine Rash Flexeril Gadobutrol Rash Other reaction(s): Other. MRI based contrast [2] Current Outpatient Medications Medication Sig Dispense Refill estradiol (Climara) 0.025 MG/24HR Place 1 patch on the skin 1 (one) time per week. 12 patch 3 Lactobacillus (PROBIOTIC ACIDOPHILUS PO) Take by mouth. levocetirizine (Xyzal) 5 MG tablet Take 1 tablet (5 mg) by mouth every evening. 30 tablet 11 montelukast (Singulair) 10 MG tablet TAKE 1 TABLET BY MOUTH EVERY DAY NIGHTLY 90 tablet 1 Multiple Vitamin (multivitamin) tablet Take 1 tablet by mouth daily. nitrofurantoin, macrocrystal-monohydrate, (Macrobid) 100 MG capsule Take 1 capsule (100 mg) by mouth 2 times daily for 7 days. 14 capsule 0 Olopatadine HCl (PATADAY OP) Administer into affected eye(s). (Patient not taking: Reported on 05/06/2024) omeprazole (PriLOSEC) [address] capsule Take 20 mg by mouth every morning (before breakfast). Do not crush or chew. (Patient not taking: Reported on 05/06/2024) progesterone (Prometrium) 100 MG capsule Take 1 capsule (100 mg) by mouth daily. 30 capsule 11 No current facility-administered medications for this visit. [3] Patient Active Problem List Diagnosis Renal mass [4] Past Medical History: Diagnosis Date GERD (gastroesophageal reflux disease) Irritable bowel syndrome [5] Past Surgical History: Procedure Laterality Date BREAST SURGERY 06/04/2022 COLONOSCOPY N/A 05/06/2024 Performed by Maria M Wagner MD at [facility] ENDOSCOPY [6] Family History Problem Relation Name Age of Onset Breast cancer Other maternal aunt in 30s; maternal great aunt High Blood Pressure Mother Lizette hoyos Alcohol abuse Mother Lizette hoyos High Blood Pressure Father Breast cancer Mother's Sister Loretta hutchinson Ovarian cancer Neg Hx Uterine cancer Neg Hx Colon cancer Neg Hx documented in this encounter [facility] 08-23-2024 History of Present illness Narrative Radiology Service Progress Note PATIENT NAME: Daniella Toledo DATE OF SERVICE: August 23, 2024 TIME: 4:31 PM PATIENT IDENTITY VERIFICATION COMPLETED USING TWO (2) IDENTIFIERS: Name and Date of confirmed by patient verbally. FALL SCREENING: Has the patient had 2 falls in the last year or 1 fall with injury or currently using an Ambulatory Assistive Device (Walker, Cane, Wheelchair, Crutches, etc.)? No PATIENT GENDER DATA: Assigned female at . status: : No status: NO. PATIENT RELEVANT IMPLANT DATA REVIEWED: Not Applicable PATIENT PRESENTS WITH AN IMPLANTABLE OR ATTACHED MAINSPRING STRIP GAUGER: No RADIOLOGY DEPARTMENT: Ultrasound PERIPHERAL IV DATA: Not applicable SIGNED BY: Ananya Ga RDMS August 23, 2024 4:31 PM documented in this encounter [facility] 08-23-2024 Note HNO ID: [id number] Author: ANANYA GA RDMS Service: ? Author Type: Shift Mgr Type: Progress Notes Filed: 08/23/2024 16:31 Note Text: Radiology Service Progress Note PATIENT NAME: Daniella Toledo DATE OF SERVICE: August 23, 2024 TIME: 4:31 PM PATIENT IDENTITY VERIFICATION COMPLETED USING TWO (2) IDENTIFIERS: Name and Date of confirmed by patient verbally. FALL SCREENING: Has the patient had 2 falls in the last year or 1 fall with injury or currently using an Ambulatory Assistive Device (Walker, Cane, Wheelchair, Crutches, etc.)? No PATIENT GENDER DATA: Assigned female at . status: : No status: NO. PATIENT RELEVANT IMPLANT DATA REVIEWED: Not Applicable PATIENT PRESENTS WITH AN IMPLANTABLE OR ATTACHED MAINSPRING STRIP GAUGER: No RADIOLOGY DEPARTMENT: Ultrasound PERIPHERAL IV DATA: Not applicable SIGNED BY: Ananya Ga RDMS August 23, 2024 4:31 PM [facility] 08-23-2024 History of Present illness Narrative Radiology Service Progress Note PATIENT NAME: Daniella Toledo DATE OF SERVICE: August 23, 2024 TIME: 3:57 PM PATIENT IDENTITY VERIFICATION COMPLETED USING TWO (2) IDENTIFIERS: Name and Date of confirmed by patient verbally. FALL SCREENING: Has the patient had 2 falls in the last year or 1 fall with injury or currently using an Ambulatory Assistive Device (Walker, Cane, Wheelchair, Crutches, etc.)? No PATIENT GENDER DATA: Assigned female at . status: : No status: NO. PATIENT RELEVANT IMPLANT DATA REVIEWED: Not Applicable PATIENT PRESENTS WITH AN IMPLANTABLE OR ATTACHED MAINSPRING STRIP GAUGER: No RADIOLOGY DEPARTMENT: Mammography PERIPHERAL IV DATA: Not applicable SIGNED BY: Sergio Rees August 23, 2024 3:57 PM documented in this encounter [facility] 08-23-2024 Note HNO ID: [id number] Author: JUAN M KANG Mammo Tech Service: ? Author Type: Technologist Type: Progress Notes Filed: 08/23/2024 15:57 Note Text: Radiology Service Progress Note PATIENT NAME: Daniella Toledo DATE OF SERVICE: August 23, 2024 TIME: 3:57 PM PATIENT IDENTITY VERIFICATION COMPLETED USING TWO (2) IDENTIFIERS: Name and Date of confirmed by patient verbally. FALL SCREENING: Has the patient had 2 falls in the last year or 1 fall with injury or currently using an Ambulatory Assistive Device (Walker, Cane, Wheelchair, Crutches, etc.)? No PATIENT GENDER DATA: Assigned female at . status: : No status: NO. PATIENT RELEVANT IMPLANT DATA REVIEWED: Not Applicable PATIENT PRESENTS WITH AN IMPLANTABLE OR ATTACHED MAINSPRING STRIP GAUGER: No RADIOLOGY DEPARTMENT: Mammography PERIPHERAL IV DATA: Not applicable SIGNED BY: Sergio Rees August 23, 2024 3:57 PM [facility] 07-15-2024 History of Present illness Narrative Daniella Toledo 07/18/2024 Date Of : 1975 HPI: Daniella Toledo is a 48 y.o. female No obstetric history on file. The patient was seen today. She is here regarding right intermittent breast pain. Hard area right breast outer upper quad Bilateral breast heaviness Giuliano 25 mg wnl On hrt Had cellulitis right breast few months ago took abx and got better Review Of Systems: Constitutional: No fever, chills or malaise Gastrointestinal ROS: No Indigestion, Heartburn, Nausea, vomiting, Diarrhea, Constipation,or Bowel Changes Genito-Urinary ROS: No Dysuria Psych ROS: No Depression, Homicidal thoughts,suicidal thoughts, or anxiety Physical Exam: Blood pressure 130/85, pulse 85, height 5' 5 (1.651 m), weight 173 lb (78.5 kg). General: Alert, NAD Respirations: Normal respiratory effort Right breast with 1 cm lump upper outer quad slight tenderness no skin change no nipple discharge Left breast with 1 cm lump upper outer quad +tenderness no skin changes no nipple discharge Assessment: Diagnosis Plan 1. Breast lump in female Bilateral diagnostic mammogram with tomosynthesis Bilateral breast US limited 2. Breast pain Bilateral diagnostic mammogram with tomosynthesis Bilateral breast US limited PLAN: Follow up for annual. Orders Placed This Encounter Procedures Bilateral diagnostic mammogram with tomosynthesis Breast lumps right breast upper outer quad and left breast upper outer quad Standing Status: Future Standing Expiration Date: 09/14/2025 Order Specific Question: Is the patient ? Answer: No Bilateral breast US limited Standing Status: Future Standing Expiration Date: 09/14/2025 The primary encounter diagnosis was Breast lump in female. A diagnosis of Breast pain was also pertinent to this visit. and Follow-up (Breast pain) as well as counseling on preventative health maintenance follow-up. documented in this encounter [facility] 05-09-2024 Telephone encounter Note We have been unable to reach your patient to schedule their testing. Test Name: US abdomen, US pelvis 1st Attempt: sent Culture Jam message 04/13/24 sms 2nd Attempt: Patient stated she is unsure if she is still needing the test. Patient is wanting to discuss at upcoming appointment. 3rd Attempt - Patient discussed with PCP, symptoms gone, exam can be canceled, 05/09 LAR [facility] 05-09-2024 Miscellaneous Notes We have been unable to reach your patient to schedule their testing. Test Name: US abdomen, US pelvis 1st Attempt: sent Culture Jam message 04/13/24 sms 2nd Attempt: Patient stated she is unsure if she is still needing the test. Patient is wanting to discuss at upcoming appointment. 3rd Attempt - Patient discussed with PCP, symptoms gone, exam can be canceled, 05/09 LAR documented in this encounter [facility] 05-06-2024 Note Patient: Daniella espinal Procedure Summary Date: 05/06/24 Room / Location: [place] [address] / [facility] Gastroenterology Anesthesia Start: 1248 Anesthesia Stop: 1318 Procedure: COLONOSCOPY, SCREENING Diagnosis: Encounter for screening for malignant neoplasm of colon Providers: Maria M Wagner MD Responsible Provider: No Anesthesiologist - Denisha/MD Maritza Anesthesia Type: TIVA ASA Status: 2 Anesthesia Type: TIVA Vitals Value Taken Time BP 122/70 05/06/24 1319 Temp 36.4 ?C (97.5 ?F) 05/06/24 1319 Pulse 97 05/06/24 1319 Resp 14 05/06/24 1319 SpO2 97 % 05/06/24 1319 Anesthesia Post Evaluation Patient location during evaluation: PACU Patient participation: complete - patient participated Level of consciousness: awake and alert Pain management: satisfactory to patient Airway patency: patent Dental Injury: no Cardiovascular status: acceptable, blood pressure returned to baseline and hemodynamically stable Respiratory status: acceptable and spontaneous ventilation Hydration status: euvolemic Nausea/Vomiting: controlled No notable events documented. Patient can be discharged once all PACU criteria has been met. [facility] 05-06-2024 Note Patient: Daniella espinal Procedure Summary Date: 05/06/24 Room / Location: [place] [address] / [facility] Gastroenterology Anesthesia Start: 1247 Anesthesia Stop: 1318 Procedure: COLONOSCOPY, SCREENING Diagnosis: Encounter for screening for malignant neoplasm of colon Providers: Maria M Wagner MD Responsible Provider: No Anesthesiologist - Denisha/MD Maritza Anesthesia Type: TIVA ASA Status: 2 Anesthesia Type: TIVA Vitals Value Taken Time BP 122/70 05/06/24 1319 Temp 36.4 ?C (97.5 ?F) 05/06/24 1319 Pulse 97 05/06/24 1319 Resp 14 05/06/24 1319 SpO2 97 % 05/06/24 1319 Anesthesia Post Evaluation Patient location during evaluation: PACU Patient participation: complete - patient participated Level of consciousness: awake and alert Pain score: 0 Pain management: satisfactory to patient Multimodal analgesia pain management approach Airway patency: patent Two or more strategies used to mitigate risk of obstructive sleep apnea Cardiovascular status: acceptable and hemodynamically stable Respiratory status: acceptable Hydration status: acceptable No notable events documented. MIPS #430 PONV Patient did not receive an inhalational anesthetic (XX430) MIPS # 424 Perioperative Temperature Management Anesthesia time was less than 60 minutes (4256F) MIPS #477 Multimodal Pain Management Not emergent case Patient was not administered multimodal pain management (G2149) Patient reports no pain in PACU (G2149) MIPS #404 Anesthesiology Smoking Abstinence The patient is not a current smoker (e.g. cigarette, cigar, pipe, e-cigarette/vaping/marijuana) If no stop here (XX404) I completed my handoff to the receiving clinician during which we: 1. Identified the patient 2. Identified the responsible provider 3. Reviewed the pertinent medical history 4. Discussed the surgical course 5. Reviewed intra-op anesthesia management and issues during anesthesia 6. Set expectations for post-procedure period 7. Allowed opportunity for questions and acknowledgement of understanding. [facility] 05-06-2024 Miscellaneous Notes Received pt from GI lab to recovery phase 2 alert and asking questions. brought to bedside. Vivienne CASTILLO [facility] update at bedside[facility] Dan[facility] Procedure Date: 05/06/2024 7:02 AM Gender: Female Date of : 1975 Age: 48 Admit Type: Outpatient Note Status: Finalized Endoscopist: Maria M Wagner MD, [id number] Procedure: Colonoscopy Indications: Screening for colorectal malignant neoplasm Findings: The entire examined colon appeared normal on direct and retroflexion views. Impression: - The entire examined colon is normal on direct and retroflexion views. - No specimens collected. Recommendation: - Patient has a contact number available for emergencies. The signs and symptoms of potential delayed complications were discussed with the patient. Return to normal activities tomorrow. Written discharge instructions were provided to the patient. - Resume previous diet. - Continue present medications. - Return to my office PRN. - Repeat colonoscopy in 10 years for surveillance. Referring MD: Wanda Cm MD Medicines: Monitored Anesthesia Care Procedure: Pre-Anesthesia Assessment: - Prior to the procedure, a History and Physical was performed, and patient medications and allergies were reviewed. The patient's tolerance of previous anesthesia was also reviewed. The risks and benefits of the procedure and the sedation options and risks were discussed with the patient. All questions were answered, and informed consent was obtained. Prior Anticoagulants: The patient has taken no anticoagulant or antiplatelet agents. ASA Grade Assessment: II - A patient with mild systemic disease. After reviewing the risks and benefits, the patient was deemed in satisfactory condition to undergo the procedure. - The anesthesia plan was to use monitored anesthesia care (MAC). After I obtained informed consent, the scope was passed under direct vision. Throughout the procedure, the patient's blood pressure, pulse, and oxygen saturations were monitored continuously. The Colonoscope was introduced through the anus and advanced to the cecum, identified by appendiceal orifice and ileocecal valve. The colonoscopy was performed without difficulty. The patient tolerated the procedure well. The quality of the bowel preparation was excellent. The ileocecal valve, appendiceal orifice, and rectum were photographed. Complications: No immediate complications. Procedure Code(s): --- Professional --- G0121, Colorectal cancer screening; colonoscopy on individual not meeting criteria for high risk --- Technical --- G0121, Colorectal cancer screening; colonoscopy on individual not meeting criteria for high risk Diagnosis Code(s): --- Professional --- Z12.11, Encounter for screening for malignant neoplasm of colon --- Technical --- Z12.11, Encounter for screening for malignant neoplasm of colon CPT copyright 2021 [employer]. All rights reserved. The codes documented in this report are preliminary and upon medical technologist chemistry review may be revised to meet current compliance requirements. Attending Participation: I personally performed the entire procedure. Maria M Wagner MD 05/06/2024 1:18:19 PM This report has been signed electronically. Number of Addenda: 0 Note Initiated On: 05/06/2024 7:02 AM documented in this encounter [facility] 05-06-2024 Note Formatting of this n ote might be different from the original. Received pt from GI lab to recovery phase 2 alert and asking questions. brought to bedside. Vivienne CASTILLO gave update at bedside. [facility] 05-06-2024 Note Formatting of this n ote might be different from the original. Received pt from GI lab to recovery phase 2 alert and asking questions. brought to bedside. Vivienne CASTILLO gave update at bedside. [facility] 05-06-2024 History and physical note @ASSESSMENTBEGINPHANTOM@ HPI: Daniella Toledo is a 48 y.o. female who presents today for a screening colonoscopy. She has no change in bowel pattern, blood in her stool, diarrhea, constipation, abdominal pain, change in appetite, weight loss, or other concerning GI symptoms. Physical Exam: @VSAMB@ Gen: NAD, well-developed HEENT: atraumatic; normo-cephalic; conjunctivae pink; no jaundice Resp: normal effort, no accessory muscle use CV: pulse: regular Abdomen: non-distended, non-tender Skin: no rashes, lesions, or ulcers ROS: as per HPI, otherwise non-contributory Allergies: Allergies Allergen Reactions Sulfamethoxazole-Trimethoprim Anaphylaxis and Rash Doxycycline Ciprofloxacin Rash Codeine Rash Other reaction(s): Unknown Cyclobenzaprine Rash Flexeril Gadobutrol Rash Other reaction(s): Other. MRI based contrast Past Medical History: Diagnosis Date GERD (gastroesophageal reflux disease) Irritable bowel syndrome Past Surgical History: Procedure Laterality Date BREAST SURGERY 06/04/2022 COLONOSCOPY N/A 05/06/2024 Performed by Maria M Wagner MD at [facility] ENDOSCOPY @MEDCMED@ Social History Socioeconomic History Marital status: Spouse name: Not on file Number of children: Not on file Years of education: Not on file Highest education level: Not on file Occupational History Not on file Tobacco Use Smoking status: Former Current packs/day: 0.00 Average packs/day: 0.5 packs/day for 15.0 years (7.5 ttl pk-yrs) Types: Cigarettes Start date: 11/06/2002 Quit date: 11/06/2017 Years since quittin.5 Smokeless tobacco: Never Vaping Use Vaping status: Never Used Substance and Sexual Activity Alcohol use: Yes Alcohol/week: 10.0 standard drinks of alcohol Types: 4 Glasses of wine, 6 Cans of beer per week Comment: 1-3 weekly. Drug use: No Sexual activity: Yes Partners: Male Comment: vasectomy Other Topics Concern Not on file Social History Narrative Not on file Social Drivers of Health Financial Resource Strain: Low Risk (04/06/2024) Overall Financial Resource Strain (CARDIA) Difficulty of Paying Living Expenses: Not hard at all Food Insecurity: No Food Insecurity (04/06/2024) Hunger Vital Sign Worried About Running Out of Food in the Last Year: Never true Ran Out of Food in the Last Year: Never true Transportation Needs: No Transportation Needs (04/06/2024) PRAPARE - Transportation Lack of Transportation (Medical): No Lack of Transportation (Non-Medical): No Physical Activity: Sufficiently Active (04/06/2024) Exercise Vital Sign Days of Exercise per Week: 4 days Minutes of Exercise per Session: 50 min Stress: No Stress Concern Present (04/06/2024) [employer] - Occupational Stress Questionnaire Feeling of Stress : Only a little Social Connections: Moderately Isolated (04/06/2024) Social Connection and Isolation Panel [NHANES] Frequency of Communication with Friends and Family: Twice a week Frequency of Social Gatherings with Friends and Family: Once a week Attends Adventism Services: Never Active Member of Clubs or Organizations: No Attends Club or Organization Meetings: Never Marital Status: Intimate Partner Violence: Not on file Housing Stability: Low Risk (04/06/2024) Housing Stability Vital Sign Unable to Pay for Housing in the Last Year: No Number of Times Moved in the Last Year: 0 Homeless in the Last Year: No Family History Problem Relation Name Age of Onset Breast cancer Other maternal aunt in 30s; maternal great aunt High Blood Pressure Mother Lizette hoyos Alcohol abuse Mother Lizette hoyos High Blood Pressure Father Breast cancer Mother's Sister Loretta hutchinson Ovarian cancer Neg Hx Uterine cancer Neg Hx Colon cancer Neg Hx @JORGE@ Assessment: 48 y.o. female in need of a screening colonoscopy. Plan: Details of colonoscopy are discussed including the risks of bleeding, perforation, splenic injury, respiratory and anesthetic complications. She is informed that results will be discussed with her following the procedure. Pathology results will be relayed via [employer]. Office follow up will be scheduled as indicated. No office visit is scheduled at the present time. . [facility] Phone: 05-06-2024 Note @ASSESSMENTBECKY [email or web address]@ HPI: Daniella Toledo is a 48 y.o. female who presents today for a screening colonoscopy. She has no change in bowel pattern, blood in her stool, diarrhea, constipation, abdominal pain, change in appetite, weight loss, or other concerning GI symptoms. Physical Exam: @VSAMB@ Gen: NAD, well-developed HEENT: atraumatic; normo-cephalic; conjunctivae pink; no jaundice Resp: normal effort, no accessory muscle use CV: pulse: regular Abdomen: non-distended, non-tender Skin: no rashes, lesions, or ulcers ROS: as per HPI, otherwise non-contributory Allergies: Allergies Allergen Reactions Sulfamethoxazole-Trimethoprim Anaphylaxis and Rash Doxycycline Ciprofloxacin Rash Codeine Rash Other reaction(s): Unknown Cyclobenzaprine Rash Flexeril Gadobutrol Rash Other reaction(s): Other. MRI based contrast Past Medical History: Diagnosis Date GERD (gastroesophageal reflux disease) Irritable bowel syndrome Past Surgical History: Procedure Laterality Date BREAST SURGERY 06/04/2022 COLONOSCOPY N/A 05/06/2024 Performed by Maria M Wagner MD at [facility] @[email or web address]@ Social History Socioeconomic History Marital status: Spouse name: Not on file Number of children: Not on file Years of education: Not on file Highest education level: Not on file Occupational History Not on file Tobacco Use Smoking status: Former Current packs/day: 0.00 Average packs/day: 0.5 packs/day for 15.0 years (7.5 ttl pk-yrs) Types: Cigarettes Start date: 11/06/2002 Quit date: 11/06/2017 Years since quittin.5 Smokeless tobacco: Never Vaping Use Vaping status: Never Used Substance and Sexual Activity Alcohol use: Yes Alcohol/week: 10.0 standard drinks of alcohol Types: 4 Glasses of wine, 6 Cans of beer per week Comment: 1-3 weekly. Drug use: No Sexual activity: Yes Partners: Male Comment: vasectomy Other Topics Concern Not on file Social History Narrative Not on file Social Drivers of Health Financial Resource Strain: Low Risk (04/06/2024) Overall Financial Resource Strain (CARDIA) Difficulty of Paying Living Expenses: Not hard at all Food Insecurity: No Food Insecurity (04/06/2024) Hunger Vital Sign Worried About Running Out of Food in the Last Year: Never true Ran Out of Food in the Last Year: Never true Transportation Needs: No Transportation Needs (04/06/2024) PRAPARE - Transportation Lack of Transportation (Medical): No Lack of Transportation (Non-Medical): No Physical Activity: Sufficiently Active (04/06/2024) Exercise Vital Sign Days of Exercise per Week: 4 days Minutes of Exercise per Session: 50 min Stress: No Stress Concern Present (04/06/2024) [employer] - Occupational Stress Questionnaire Feeling of Stress : Only a little Social Connections: Moderately Isolated (04/06/2024) Social Connection and Isolation Panel [NHANES] Frequency of Communication with Friends and Family: Twice a week Frequency of Social Gatherings with Friends and Family: Once a week Attends Adventism Services: Never Active Member of Clubs or Organizations: No Attends Club or Organization Meetings: Never Marital Status: Intimate Partner Violence: Not on file Housing Stability: Low Risk (04/06/2024) Housing Stability Vital Sign Unable to Pay for Housing in the Last Year: No Number of Times Moved in the Last Year: 0 Homeless in the Last Year: No Family History Problem Relation Name Age of Onset Breast cancer Other maternal aunt in 30s; maternal great aunt High Blood Pressure Mother Lizette hoyos Alcohol abuse Mother Lizette hoyos High Blood Pressure Father Breast cancer Mother's Sister Loretta hutchinson Ovarian cancer Neg Hx Uterine cancer Neg Hx Colon cancer Neg Hx @PLANBEGINPHANTOM@ Assessment: 48 y.o. female in need of a screening colonoscopy. Plan: Details of colonoscopy are discussed including the risks of bleeding, perforation, splenic injury, respiratory and anesthetic complications. She is informed that results will be discussed with her following the procedure. Pathology results will be relayed via [employer]. Office follow up will be scheduled as indicated. No office visit is scheduled at the present time. . [facility] 05-06-2024 History and physical note @[email or web address]@ HPI: Daniella Toledo is a 48 y.o. female who presents today for a screening colonoscopy. She has no change in bowel pattern, blood in her stool, diarrhea, constipation, abdominal pain, change in appetite, weight loss, or other concerning GI symptoms. Physical Exam: @VSAMB@ Gen: NAD, well-developed HEENT: atraumatic; normo-cephalic; conjunctivae pink; no jaundice Resp: normal effort, no accessory muscle use CV: pulse: regular Abdomen: non-distended, non-tender Skin: no rashes, lesions, or ulcers ROS: as per HPI, otherwise non-contributory Allergies: Allergies Allergen Reactions Sulfamethoxazole-Trimethoprim Anaphylaxis and Rash Doxycycline Ciprofloxacin Rash Codeine Rash Other reaction(s): Unknown Cyclobenzaprine Rash Flexeril Gadobutrol Rash Other reaction(s): Other. MRI based contrast Past Medical History: Diagnosis Date GERD (gastroesophageal reflux disease) Irritable bowel syndrome Past Surgical History: Procedure Laterality Date BREAST SURGERY 06/04/2022 COLONOSCOPY N/A 05/06/2024 Performed by Maria M Wagner MD at [facility] @MEDCMED@ Social History Socioeconomic History Marital status: Spouse name: Not on file Number of children: Not on file Years of education: Not on file Highest education level: Not on file Occupational History Not on file Tobacco Use Smoking status: Former Current packs/day: 0.00 Average packs/day: 0.5 packs/day for 15.0 years (7.5 ttl pk-yrs) Types: Cigarettes Start date: 11/06/2002 Quit date: 11/06/2017 Years since quittin.5 Smokeless tobacco: Never Vaping Use Vaping status: Never Used Substance and Sexual Activity Alcohol use: Yes Alcohol/week: 10.0 standard drinks of alcohol Types: 4 Glasses of wine, 6 Cans of beer per week Comment: 1-3 weekly. Drug use: No Sexual activity: Yes Partners: Male Comment: vasectomy Other Topics Concern Not on file Social History Narrative Not on file Social Drivers of Health Financial Resource Strain: Low Risk (04/06/2024) Overall Financial Resource Strain (CARDIA) Difficulty of Paying Living Expenses: Not hard at all Food Insecurity: No Food Insecurity (04/06/2024) Hunger Vital Sign Worried About Running Out of Food in the Last Year: Never true Ran Out of Food in the Last Year: Never true Transportation Needs: No Transportation Needs (04/06/2024) PRAPARE - Transportation Lack of Transportation (Medical): No Lack of Transportation (Non-Medical): No Physical Activity: Sufficiently Active (04/06/2024) Exercise Vital Sign Days of Exercise per Week: 4 days Minutes of Exercise per Session: 50 min Stress: No Stress Concern Present (04/06/2024) [employer] - Occupational Stress Questionnaire Feeling of Stress : Only a little Social Connections: Moderately Isolated (04/06/2024) Social Connection and Isolation Panel [NHANES] Frequency of Communication with Friends and Family: Twice a week Frequency of Social Gatherings with Friends and Family: Once a week Attends Adventism Services: Never Active Member of Clubs or Organizations: No Attends Club or Organization Meetings: Never Marital Status: Intimate Partner Violence: Not on file Housing Stability: Low Risk (04/06/2024) Housing Stability Vital Sign Unable to Pay for Housing in the Last Year: No Number of Times Moved in the Last Year: 0 Homeless in the Last Year: No Family History Problem Relation Name Age of Onset Breast cancer Other maternal aunt in 30s; maternal great aunt High Blood Pressure Mother Lizette hoyos Alcohol abuse Mother Lizette hoyos High Blood Pressure Father Breast cancer Mother's Sister Loretta hutchinson Ovarian cancer Neg Hx Uterine cancer Neg Hx Colon cancer Neg Hx @PLANBEGINPHANTOM@ Assessment: 48 y.o. female in need of a screening colonoscopy. Plan: Details of colonoscopy are discussed including the risks of bleeding, perforation, splenic injury, respiratory and anesthetic complications. She is informed that results will be discussed with her following the procedure. Pathology results will be relayed via [employer]. Office follow up will be scheduled as indicated. No office visit is scheduled at the present time. . documented in this encounter [facility] 05-06-2024 Note Patient: Daniella espinal Procedure Information Date/Time: 05/06/24 1230 Procedure: COLONOSCOPY, SCREENING - 30 minutes for colonoscopy Location: [place] [address] / [facility] Gastroenterology Providers: Maria M Wagner MD Relevant Problems No relevant active problems Past Medical History: Past Medical History: No date: GERD (gastroesophageal reflux disease) No date: Irritable bowel syndrome Past Surgical History: Past Surgical History: 06/04/2022: BREAST SURGERY 05/06/2024: COLONOSCOPY; N/A Comment: Performed by Maria M Wagner MD at [facility] Social History: TOBACCO: reports that she quit smoking about 6 years ago. Her smoking use included cigarettes. She started smoking about 21 years ago. She has a 7.5 pack-year smoking history. She has never used smokeless tobacco. ETOH: reports current alcohol use of about 10.0 standard drinks of alcohol per week. Social History Substance and Sexual Activity Drug Use No Family History: Family History Problem Relation Name Age of Onset Breast cancer Other maternal aunt in 30s; maternal great aunt High Blood Pressure Mother Lizette hoyos Alcohol abuse Mother Lizette hoyos High Blood Pressure Father Breast cancer Mother's Sister Loretta hutchinson Ovarian cancer Neg Hx Uterine cancer Neg Hx Colon cancer Neg Hx Screening: Having periods Clinical information reviewed: Tobacco Allergies Meds Med Hx Surg Hx OB Status Fam Hx Soc Hx Physical Exam Airway Mallampati: I TM distance: >3 FB Neck ROM: full Mouth Open: normalendotracheal tube not in place Cardiovascular Dental Comments: [place] x1 dentition normal Pulmonary Abdominal Anesthesia Plan patient is NPO appropriate Any family history or previous problems with anesthesia no ASA 2 TIVA Any family history or previous problems with anesthesia no The patient is not a current smoker. Anesthetic plan and risks discussed with patient. ROSA MARIA Screening Labs: Lab Results Component Value Date WBC 5.5 04/07/2024 HGB 13.3 04/07/2024 HCT 40.7 04/07/2024 MCV 98.5 04/07/2024 PLT 366 04/07/2024 Lab Results Component Value Date SODIUM 138 04/07/2024 NA 137 09/01/2019 POTASSIUM 4.3 04/07/2024 K 3.8 09/01/2019 CHLORIDE 101 04/07/2024 CL 102 09/01/2019 CO2 28 04/07/2024 BUN 12 04/07/2024 CREATININE 0.66 04/07/2024 GLUCOSE 91 04/07/2024 CALCIUM 9.2 04/07/2024 PROT 7.1 04/07/2024 ALKPHOS 55 04/07/2024 AST 15 04/07/2024 ALT 14 04/07/2024 EGFR 107 04/07/2024 GLOB 2.9 04/07/2024 No echocardiogram results found for the past 14 days No results found for this or any previous visit. Equipment Requests: Additional Equipment Requests [facility] 05-06-2024 Note Formatting of this n ote might be different from the original. [facility]: Daniella Tol[facility] Procedure Date: 05/06/2024 7:02 AM Gender: Female Date of : 1975 Age: 48 Admit Type: Outpatient Note Status: Finalized Endoscopist: Maria M Wagner MD, [id number] Procedure: Colonoscopy Indications: Screening for colorectal malignant neoplasm Findings: The entire examined colon appeared normal on direct and retroflexion views. Impression: - The entire examined colon is normal on direct and retroflexion views. - No specimens collected. Recommendation: - Patient has a contact number available for emergencies. The signs and symptoms of potential delayed complications were discussed with the patient. Return to normal activities tomorrow. Written discharge instructions were provided to the patient. - Resume previous diet. - Continue present medications. - Return to my office PRN. - Repeat colonoscopy in 10 years for surveillance. Referring MD: Wanda Cm MD Medicines: Monitored Anesthesia Care Procedure: Pre-Anesthesia Assessment: - Prior to the procedure, a History and Physical was performed, and patient medications and allergies were reviewed. The patient's tolerance of previous anesthesia was also reviewed. The risks and benefits of the procedure and the sedation options and risks were discussed with the patient. All questions were answered, and informed consent was obtained. Prior Anticoagulants: The patient has taken no anticoagulant or antiplatelet agents. ASA Grade Assessment: II - A patient with mild systemic disease. After reviewing the risks and benefits, the patient was deemed in satisfactory condition to undergo the procedure. - The anesthesia plan was to use monitored anesthesia care (MAC). After I obtained informed consent, the scope was passed under direct vision. Throughout the procedure, the patient's blood pressure, pulse, and oxygen saturations were monitored continuously. The Colonoscope was introduced through the anus and advanced to the cecum, identified by appendiceal orifice and ileocecal valve. The colonoscopy was performed without difficulty. The patient tolerated the procedure well. The quality of the bowel preparation was excellent. The ileocecal valve, appendiceal orifice, and rectum were photographed. Complications: No immediate complications. Procedure Code(s): --- Professional --- G0121, Colorectal cancer screening; colonoscopy on individual not meeting criteria for high risk --- Technical --- G0121, Colorectal cancer screening; colonoscopy on individual not meeting criteria for high risk Diagnosis Code(s): --- Professional --- Z12.11, Encounter for screening for malignant neoplasm of colon --- Technical --- Z12.11, Encounter for screening for malignant neoplasm of colon CPT copyright 2021 [employer]. All rights reserved. The codes documented in this report are preliminary and upon medical technologist chemistry review may be revised to meet current compliance requirements. Attending Participation: I personally performed the entire procedure. Maria M Wagner MD 05/06/2024 1:18:19 PM This report has been signed electronically. Number of Addenda: 0 Note Initiated On: 05/06/2024 7:02 AM [facility] 05-06-2024 Note Formatting of this n ote might be different from the original. [facility] Name: Daniella Toledo Procedure Date: 05/06/2024 7:02 AM Gender: Female Date of : 1975 Age: 48 Admit Type: Outpatient Note Status: Finalized Endoscopist: Maria M Wagner MD, [id number] Procedure: Colonoscopy Indications: Screening for colorectal malignant neoplasm Findings: The entire examined colon appeared normal on direct and retroflexion views. Impression: - The entire examined colon is normal on direct and retroflexion views. - No specimens collected. Recommendation: - Patient has a contact number available for emergencies. The signs and symptoms of potential delayed complications were discussed with the patient. Return to normal activities tomorrow. Written discharge instructions were provided to the patient. - Resume previous diet. - Continue present medications. - Return to my office PRN. - Repeat colonoscopy in 10 years for surveillance. Referring MD: Wanda Cm MD Medicines: Monitored Anesthesia Care Procedure: Pre-Anesthesia Assessment: - Prior to the procedure, a History and Physical was performed, and patient medications and allergies were reviewed. The patient's tolerance of previous anesthesia was also reviewed. The risks and benefits of the procedure and the sedation options and risks were discussed with the patient. All questions were answered, and informed consent was obtained. Prior Anticoagulants: The patient has taken no anticoagulant or antiplatelet agents. ASA Grade Assessment: II - A patient with mild systemic disease. After reviewing the risks and benefits, the patient was deemed in satisfactory condition to undergo the procedure. - The anesthesia plan was to use monitored anesthesia care (MAC). After I obtained informed consent, the scope was passed under direct vision. Throughout the procedure, the patient's blood pressure, pulse, and oxygen saturations were monitored continuously. The Colonoscope was introduced through the anus and advanced to the cecum, identified by appendiceal orifice and ileocecal valve. The colonoscopy was performed without difficulty. The patient tolerated the procedure well. The quality of the bowel preparation was excellent. The ileocecal valve, appendiceal orifice, and rectum were photographed. Complications: No immediate complications. Procedure Code(s): --- Professional --- G0121, Colorectal cancer screening; colonoscopy on individual not meeting criteria for high risk --- Technical --- G0121, Colorectal cancer screening; colonoscopy on individual not meeting criteria for high risk Diagnosis Code(s): --- Professional --- Z12.11, Encounter for screening for malignant neoplasm of colon --- Technical --- Z12.11, Encounter for screening for malignant neoplasm of colon CPT copyright 2021 [employer]. All rights reserved. The codes documented in this report are preliminary and upon medical technologist chemistry review may be revised to meet current compliance requirements. Attending Participation: I personally performed the entire procedure. Maria M Wagner MD 05/06/2024 1:18:19 PM This report has been signed electronically. Number of Addenda: 0 Note Initiated On: 05/06/2024 7:02 AM [facility] 05-06-2024 Note [facility] Patient Name: Daniella Toledo Procedure Date: 05/06/2024 7:02 AM Gender: Female Date of : 1975 Age: 48 Admit Type: Outpatient Note Status: Finalized Endoscopist: Maria M Wagner MD, [id number] Procedure: Colonoscopy Indications: Screening for colorectal malignant neoplasm Findings: The entire examined colon appeared normal on direct and retroflexion views. Impression: - The entire examined colon is normal on direct and retroflexion views. - No specimens collected. Recommendation: - Patient has a contact number available for emergencies. The signs and symptoms of potential delayed complications were discussed with the patient. Return to normal activities tomorrow. Written discharge instructions were provided to the patient. - Resume previous diet. - Continue present medications. - Return to my office PRN. - Repeat colonoscopy in 10 years for surveillance. Referring MD: Wanda Cm MD Medicines: Monitored Anesthesia Care Procedure: Pre-Anesthesia Assessment: - Prior to the procedure, a History and Physical was performed, and patient medications and allergies were reviewed. The patient's tolerance of previous anesthesia was also reviewed. The risks and benefits of the procedure and the sedation options and risks were discussed with the patient. All questions were answered, and informed consent was obtained. Prior Anticoagulants: The patient has taken no anticoagulant or antiplatelet agents. ASA Grade Assessment: II - A patient with mild systemic disease. After reviewing the risks and benefits, the patient was deemed in satisfactory condition to undergo the procedure. - The anesthesia plan was to use monitored anesthesia care (MAC). After I obtained informed consent, the scope was passed under direct vision. Throughout the procedure, the patient's blood pressure, pulse, and oxygen saturations were monitored continuously. The Colonoscope was introduced through the anus and advanced to the cecum, identified by appendiceal orifice and ileocecal valve. The colonoscopy was performed without difficulty. The patient tolerated the procedure well. The quality of the bowel preparation was excellent. The ileocecal valve, appendiceal orifice, and rectum were photographed. Complications: No immediate complications. Procedure Code(s): --- Professional --- G0121, Colorectal cancer screening; colonoscopy on individual not meeting criteria for high risk --- Technical --- G0121, Colorectal cancer screening; colonoscopy on individual not meeting criteria for high risk Diagnosis Code(s): --- Professional --- Z12.11, Encounter for screening for malignant neoplasm of colon --- Technical --- Z12.11, Encounter for screening for malignant neoplasm of colon CPT copyright 2021 [employer]. All rights reserved. The codes documented in this report are preliminary and upon medical technologist chemistry review may be revised to meet current compliance requirements. Attending Participation: I personally performed the entire procedure. Maria M Wagner MD 05/06/2024 1:18:19 PM This report has been signed electronically. Number of Addenda: 0 Note Initiated On: 05/06/2024 7:02 AM [facility] 04-28-2024 History of Present illness Narrative Subjective Daniella Toledo is a 48 y.o. female and is here for a comprehensive physical exam. The patient reports no problems. Do you take any herbs or supplements that were not prescribed by a doctor? no Are you taking calcium supplements? no Are you taking aspirin daily? no Do you have pain that bothers you in your daily life? no Review of Systems Constitutional: Negative. Negative for activity change, appetite change and fever. HENT: Negative. Negative for congestion. Eyes: Negative. Negative for discharge. Respiratory: Negative. Negative for chest tightness. Cardiovascular: Negative. Gastrointestinal: Negative. Endocrine: Negative. Negative for cold intolerance. Genitourinary: Negative for difficulty urinating. Musculoskeletal: Negative. Neurological: Negative. Negative for dizziness, facial asymmetry and headaches. Hematological: Negative. Objective Physical Exam Vitals and nursing note reviewed. Constitutional: Appearance: Normal appearance. HENT: Head: Normocephalic and atraumatic. Nose: No congestion or rhinorrhea. Mouth/Throat: Mouth: Mucous membranes are moist. Pharynx: Oropharynx is clear. No posterior oropharyngeal erythema. Eyes: Extraocular Movements: Extraocular movements intact. Conjunctiva/sclera: Conjunctivae normal. Pupils: Pupils are equal, round, and reactive to light. Cardiovascular: Pulses: Normal pulses. Heart sounds: Normal heart sounds. No murmur heard. Pulmonary: Effort: Pulmonary effort is normal. No respiratory distress. Breath sounds: Normal breath sounds. No wheezing. Abdominal: General: Abdomen is flat. Bowel sounds are normal. Palpations: Abdomen is soft. Tenderness: There is no abdominal tenderness. Musculoskeletal: General: No swelling. Cervical back: Normal range of motion. Skin: General: Skin is warm and dry. Neurological: General: No focal deficit present. Mental Status: She is alert and oriented to person, place, and time. Mental status is at baseline. Psychiatric: Mood and Affect: Mood normal. Assessment/Plan Healthy female exam. \ 1. Patient is getting a colonoscopy and a mammogram has been already done. 2. Patient Counseling: --Nutrition: Stressed importance of moderation in sodium/caffeine intake, saturated fat and cholesterol, caloric balance, sufficient intake of fresh fruits, vegetables, fiber, calcium, iron, and 1 mg of folate supplement per day (for females capable of ). --Discussed the issue of estrogen replacement, calcium supplement, and the daily use of baby aspirin. --Exercise: Stressed the importance of regular exercise. --Substance Abuse: Discussed cessation/primary prevention of tobacco, alcohol, or other drug use; driving or other dangerous activities under the influence; availability of treatment for abuse. --Sexuality: Discussed sexually transmitted diseases, partner selection, use of condoms, avoidance of unintended and contraceptive alternatives. --Injury prevention: Discussed safety belts, safety helmets, smoke detector, smoking near bedding or upholstery. --Dental health: Discussed importance of regular tooth brushing, flossing, and dental visits. --Immunizations reviewed. --Discussed benefits of screening colonoscopy. --After hours service discussed with patient documented in this encounter [facility] 04-28-2024 Telephone encounter Note Reason for call:Called Patient to Schedule US Abdomen Complete and US pelvis. Patient stated she has an appointment today with . Patient is going to discuss if both tests are still needed at this time. Please advise. Contact [facility] 04-28-2024 Miscellaneous Notes Reason for call:Called Patient to Schedule US Abdomen Complete and US pelvis. Patient stated she has an appointment today with . Patient is going to discuss if both tests are still needed at this time. Please advise. Contact documented in this encounter [facility] 04-26-2024 Note Colonoscopy Screenin g Program Called patient to confirm upcoming colonoscopy Spoke with patient and advised of all appointment details for procedure and answered any questions Patient confirmed appointment. [facility] 04-26-2024 Telephone encounter Note Colonoscopy Screening Program Called patient to confirm upcoming colonoscopy Spoke with patient and advised of all appointment details for procedure and answered any questions Patient confirmed appointment. [facility] 04-26-2024 Miscellaneous Notes Colonoscopy Screening Program Called patient to confirm upcoming colonoscopy Spoke with patient and advised of all appointment details for procedure and answered any questions Patient confirmed appointment. Pt is scheduled for a screening colonoscopy on Thursday at 12:30PM (Arrival time 11:30) w/Dr. Wagner Location [facility] schedule updated Order submitted via [facility] case-Case# [id number] Endo packet mailed (see letters tab in [facility] for prep info) Referral updated (if available) Pt is a part of the screening program. Screening questionnaire reviewed. Reviewed any 'yes' questions with a clinician (if applicable) Ok to schedule in program. [facility]ergies [facility] Insurance: [employer] Screening Questionnaire Do you have Congestive Heart Failure ? No Do you have a pacemaker or defibrillator? No Have you had a heart attack in last 6 months? No Have you had any cardiac stents in last 12 months? No Have you had chest pain (angina)? No Are you using any blood thinner medication? No Have you been told you have an abnormal EKG, abnormal echocardiogram or heart rhythm? No Are you using Oxygen at home? If yes, how many liters of oxygen? No Do you have COPD (Chronic Obstructive Pulmonary Disease)? No Do you have Asthma? If yes, is it mild? No Do you have Sleep Apnea? Do you use a cpap? No Have you been told you have malignant hyperthermia or had any other reaction to anesthesia? No What is your height and weight? 5'5 179 BMI-30 Do you have diabetes? If yes, what medications do you take and what is your latest A1C level? No A1C- Are you Immunocompromised (have a medical condition that puts you at increased risk of infection)? No Do you have any myopathies (muscle diseases) ? No Do you have liver cirrhosis? No Are you ? No Do you receive dialysis? No Do you have any cognitive impairment like dementia; traumatic brain injury, or from stroke? No Additional questions to determine diagnostic or screening, Have you done a home stool test like the FIT or Cologuard that had a positive result? No Do you have abdominal pain? Yes Pt has occasional abdominal pain- ordered as screening Have you had any unexplained weight loss more than 20 lbs? No Have you had blood in your stool? No Have you been told you have Crohn's Disease or ulcerative colitis (inflammatory bowel disease)? No 6. Do you have anemia (low blood count)? No 7. Have you had a colonoscopy that found colon polyps? If yes, when was your last colonoscopy? No 2nd referral Patient called office and left message requesting to schedule. I returned patients call and had to leave a message to call screening program [phone] (2nd attempt) Called today to schedule screening colonoscopy (surveillance program) Left message to call colorectal office at [phone] Screening Colonoscopy (surveillance program) Called pt today to schedule colonoscopy Left message to call colorectal office at [phone] documented in this encounter [facility] 04-12-2024 History of Present illness Narrative Radiology Service Progress Note PATIENT NAME: Daniella Toledo DATE OF SERVICE: April 12, 2024 TIME: 10:36 AM PATIENT IDENTITY VERIFICATION COMPLETED USING TWO (2) IDENTIFIERS: Name and Date of confirmed by patient verbally. FALL SCREENING: Has the patient had 2 falls in the last year or 1 fall with injury or currently using an Ambulatory Assistive Device (Walker, Cane, Wheelchair, Crutches, etc.)? No PATIENT GENDER DATA: Assigned female at . status: : No status: NO. PATIENT RELEVANT IMPLANT DATA REVIEWED: Not Applicable PATIENT PRESENTS WITH AN IMPLANTABLE OR ATTACHED MAINSPRING STRIP GAUGER: No RADIOLOGY DEPARTMENT: Mammography PERIPHERAL IV DATA: Not applicable SIGNED BY: Sergio Rees April 12, 2024 10:36 AM documented in this encounter [facility] 04-12-2024 Note HNO ID: [id number] Author: JUAN M KANG Mammo Tech Service: ? Author Type: Technologist Type: Progress Notes Filed: 04/12/2024 10:36 Note Text: Radiology Service Progress Note PATIENT NAME: Daniella Toledo DATE OF SERVICE: April 12, 2024 TIME: 10:36 AM PATIENT IDENTITY VERIFICATION COMPLETED USING TWO (2) IDENTIFIERS: Name and Date of confirmed by patient verbally. FALL SCREENING: Has the patient had 2 falls in the last year or 1 fall with injury or currently using an Ambulatory Assistive Device (Walker, Cane, Wheelchair, Crutches, etc.)? No PATIENT GENDER DATA: Assigned female at . status: : No status: NO. PATIENT RELEVANT IMPLANT DATA REVIEWED: Not Applicable PATIENT PRESENTS WITH AN IMPLANTABLE OR ATTACHED MAINSPRING STRIP GAUGER: No RADIOLOGY DEPARTMENT: Mammography PERIPHERAL IV DATA: Not applicable SIGNED BY: Sergio Rees April 12, 2024 10:36 AM [facility] 04-11-2024 Telephone encounter Note Pt is scheduled for a screening colonoscopy on Thursday at 12:30PM (Arrival time 11:30) w/Dr. Wagner Location [facility] schedule updated Order submitted via [facility] case-Case# [id number] Endo packet mailed (see letters tab in [facility] for prep info) Referral updated (if available) Pt is a part of the screening program. Screening questionnaire reviewed. Reviewed any 'yes' questions with a clinician (if applicable) Ok to schedule in program. Allergies [facility] chart Insurance: [employer] Screening Questionnaire Do you have Congestive Heart Failure ? No Do you have a pacemaker or defibrillator? No Have you had a heart attack in last 6 months? No Have you had any cardiac stents in last 12 months? No Have you had chest pain (angina)? No Are you using any blood thinner medication? No Have you been told you have an abnormal EKG, abnormal echocardiogram or heart rhythm? No Are you using Oxygen at home? If yes, how many liters of oxygen? No Do you have COPD (Chronic Obstructive Pulmonary Disease)? No Do you have Asthma? If yes, is it mild? No Do you have Sleep Apnea? Do you use a cpap? No Have you been told you have malignant hyperthermia or had any other reaction to anesthesia? No What is your height and weight? 5'5 179 BMI-30 Do you have diabetes? If yes, what medications do you take and what is your latest A1C level? No A1C- Are you Immunocompromised (have a medical condition that puts you at increased risk of infection)? No Do you have any myopathies (muscle diseases) ? No Do you have liver cirrhosis? No Are you ? No Do you receive dialysis? No Do you have any cognitive impairment like dementia; traumatic brain injury, or from stroke? No Additional questions to determine diagnostic or screening, Have you done a home stool test like the FIT or Cologuard that had a positive result? No Do you have abdominal pain? Yes Pt has occasional abdominal pain- ordered as screening Have you had any unexplained weight loss more than 20 lbs? No Have you had blood in your stool? No Have you been told you have Crohn's Disease or ulcerative colitis (inflammatory bowel disease)? No 6. Do you have anemia (low blood count)? No 7. Have you had a colonoscopy that found colon polyps? If yes, when was your last colonoscopy? No [facility] 04-11-2024 Miscellaneous Notes Pt is scheduled for a screening colonoscopy on Thursday at 12:30PM (Arrival time 11:30) w/Dr. Wagner Location [facility] schedule updated Order submitted via [facility] case-Case# [id number] Endo packet mailed (see letters tab in [facility] for prep info) Referral updated (if available) Pt is a part of the screening program. Screening questionnaire reviewed. Reviewed any 'yes' questions with a clinician (if applicable) Ok to schedule in program. Allergies [facility] chart Insurance: [employer] Screening Questionnaire Do you have Congestive Heart Failure ? No Do you have a pacemaker or defibrillator? No Have you had a heart attack in last 6 months? No Have you had any cardiac stents in last 12 months? No Have you had chest pain (angina)? No Are you using any blood thinner medication? No Have you been told you have an abnormal EKG, abnormal echocardiogram or heart rhythm? No Are you using Oxygen at home? If yes, how many liters of oxygen? No Do you have COPD (Chronic Obstructive Pulmonary Disease)? No Do you have Asthma? If yes, is it mild? No Do you have Sleep Apnea? Do you use a cpap? No Have you been told you have malignant hyperthermia or had any other reaction to anesthesia? No What is your height and weight? 5'5 179 BMI-30 Do you have diabetes? If yes, what medications do you take and what is your latest A1C level? No A1C- Are you Immunocompromised (have a medical condition that puts you at increased risk of infection)? No Do you have any myopathies (muscle diseases) ? No Do you have liver cirrhosis? No Are you ? No Do you receive dialysis? No Do you have any cognitive impairment like dementia; traumatic brain injury, or from stroke? No Additional questions to determine diagnostic or screening, Have you done a home stool test like the FIT or Cologuard that had a positive result? No Do you have abdominal pain? Yes Pt has occasional abdominal pain- ordered as screening Have you had any unexplained weight loss more than 20 lbs? No Have you had blood in your stool? No Have you been told you have Crohn's Disease or ulcerative colitis (inflammatory bowel disease)? No 6. Do you have anemia (low blood count)? No 7. Have you had a colonoscopy that found colon polyps? If yes, when was your last colonoscopy? No 2nd referral Patient called office and left message requesting to schedule. I returned patients call and had to leave a message to call screening program [phone] (2nd attempt) Called today to schedule screening colonoscopy (surveillance program) Left message to call colorectal office at [phone] Screening Colonoscopy (surveillance program) Called pt today to schedule colonoscopy Left message to call colorectal office at [phone] documented in this encounter [facility] 04-08-2024 Note 2nd referral Patient called office and left message requesting to schedule. I returned patients call and had to leave a message to call screening program [phone] [facility] 04-08-2024 Telephone encounter Note 2nd referral Patient called office and left message requesting to schedule. I returned patients call and had to leave a message to call screening program [phone] [facility] 04-08-2024 Miscellaneous Notes 2nd referral Patient called office and left message requesting to schedule. I returned patients call and had to leave a message to call screening program [phone] (2nd attempt) Called today to schedule screening colonoscopy (surveillance program) Left message to call colorectal office at [phone] Screening Colonoscopy (surveillance program) Called pt today to schedule colonoscopy Left message to call colorectal office at [phone] documented in this encounter [facility] 04-07-2024 History of Present illness Narrative Images from the original note were not included. [facility] - [address] [facility] [address] Dept: [phone] Dept Loc: [phone] Reason for Visit: Abdominal Pain and Follow-up (Had went to urgent care a week ago for COVID and swelling and red line to right breast, on ATB for possible cellulitis per UC, also saw UC 03/28/24 for Tonsil stones ) Assessment and Plan 1. Epigastric pain - US abdomen complete - US pelvis - CBC auto differential - Lipase - Comprehensive metabolic panel - Urinalysis with reflex microscopic (clean catch) - Urine culture (clean catch) 2. Pelvic pain - US abdomen complete - US pelvis - CBC auto differential - Lipase - Comprehensive metabolic panel - Urinalysis with reflex microscopic (clean catch) - Urine culture (clean catch) 3. Cellulitis of right breast - US abdomen complete - US pelvis - CBC auto differential - Lipase - Comprehensive metabolic panel - Urinalysis with reflex microscopic (clean catch) - Urine culture (clean catch) 4. Need for hepatitis C screening test - Hepatitis C antibody current treatment plan is effective, no change in therapy, orders and follow up as documented in EMR, lab results reviewed with patient, repeat labs ordered prior to next appointment, reviewed compliance with lifestyle measures, reviewed diet, exercise and weight control, reviewed medications and side effects in detail Return visit in 1 weeks. Subjective Abdominal Pain Pertinent negatives include no fever or headaches. 48-year-old female that for the last 2 weeks has been in and out of the urgent care. Originally she went to the urgent care for a tonsillar stone and later was diagnosed with COVID. She is feeling better from this. She has no fevers no chills she went back to the urgent care because she saw a red streak on her breast. No lumps no bumps that she has noted no nipple discharge she was put on cephalexin and is feeling a lot better on this. She has not yet gotten her screening mammogram which we discussed the importance of getting this done now she is having abdominal pain it was around the time that she got sick. She states that she has been having alternating diarrhea and constipation. She has not yet had a colonoscopy done. She has no nausea or vomiting. Her last bowel movement was today. She denies any urinary issues. 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 Review of Systems Constitutional: Negative. Negative for activity change, appetite change and fever. HENT: Negative. Negative for congestion. Eyes: Negative. Negative for discharge. Respiratory: Negative. Negative for chest tightness. Cardiovascular: Negative. Gastrointestinal: Positive for abdominal pain. Endocrine: Negative. Negative for cold intolerance. Genitourinary: Negative for difficulty urinating. Musculoskeletal: Negative. Neurological: Negative. Negative for dizziness, facial asymmetry and headaches. Hematological: Negative. Allergies Allergen Reactions Sulfamethoxazole-Trimethoprim Anaphylaxis and Rash Doxycycline Ciprofloxacin Rash Codeine Rash Other reaction(s): Unknown Cyclobenzaprine Rash Gadobutrol Other reaction(s): Other Outpatient Medications Prior to Visit Medication Sig Dispense Refill estradiol (Climara) 0.025 MG/24HR Place 1 patch on the skin 1 (one) time per week. 12 patch 3 Lactobacillus (PROBIOTIC ACIDOPHILUS PO) Take by mouth. levocetirizine (Xyzal) 5 MG tablet Take 1 tablet (5 mg) by mouth every evening. 30 tablet 11 montelukast (Singulair) 10 MG tablet TAKE 1 TABLET BY MOUTH EVERY DAY NIGHTLY 90 tablet 1 Multiple Vitamin (multivitamin) tablet Take 1 tablet by mouth daily. Olopatadine HCl (PATADAY OP) Administer into affected eye(s). omeprazole (PriLOSEC) [address] capsule Take 20 mg by mouth every morning (before breakfast). Do not crush or chew. progesterone (Prometrium) 100 MG capsule Take 1 capsule (100 mg) by mouth daily. 30 capsule 11 No facility-administered medications prior to visit. Patient Active Problem List Diagnosis Renal mass Past Medical History: Diagnosis Date GERD (gastroesophageal reflux disease) Irritable bowel syndrome Social History Tobacco Use Smoking status: Former Current packs/day: 0.00 Average packs/day: 0.5 packs/day for 15.0 years (7.5 ttl pk-yrs) Types: Cigarettes Start date: 11/06/2002 Quit date: 11/06/2017 Years since quittin.4 Smokeless tobacco: Never Substance Use Topics Alcohol use: Yes Alcohol/week: 10.0 standard drinks of alcohol Types: 4 Glasses of wine, 6 Cans of beer per week Past Surgical History: Procedure Laterality Date BREAST SURGERY 06/04/2022 Family History Problem Relation Name Age of Onset Breast cancer Other maternal aunt in 30s; maternal great aunt High Blood Pressure Mother Lizette hoyos Alcohol abuse Mother Lizette hoyos High Blood Pressure Father Breast cancer Mother's Sister Loretta hutchinson Ovarian cancer Neg Hx Uterine cancer Neg Hx Colon cancer Neg Hx Health Maintenance Topic Date Due HIV Screening Never done MMR Vaccines (1 of 1 - Standard series) Never done Depression Screening Never done Hepatitis C Screening Never done Diabetes Screening Never done DTaP/Tdap/Td Vaccines (1 - Tdap) Never done Hepatitis B Vaccines (1 of 3 - 19+ 3-dose series) Never done Mammogram 02/28/2023 Pneumococcal Vaccine: 50+ Years (1 of 1 - PCV) Never done Zoster Vaccines (1 of 2) Never done COVID-19 Vaccine ( season) 2023 Colorectal Cancer Screening 11/04/2024 Lipid Panel 01/17/2025 Cervical Cancer Screening 02/22/2029 RSV Immunization for Adults (1 - 1-dose 75+ series) 2048 Influenza Vaccine Completed RSV Immunization under 20 Months Aged Out HIB Vaccines Aged Out IPV Vaccines Aged Out Hepatitis A Vaccines Aged Out Meningococcal Vaccine Aged Out Rotavirus Vaccines Aged Out HPV Vaccines Aged Out Objective BP 120/88 Pulse 87 Temp 36.4 C (97.6 F) Ht 5' 5 (1.651 m) Wt 182 lb (82.6 kg) LMP 03/27/2024 (Exact Date) SpO2 99% BMI 30.29 kg/m Physical Exam Vitals and nursing note reviewed. Constitutional: Appearance: Normal appearance. HENT: Head: Normocephalic and atraumatic. Nose: No congestion or rhinorrhea. Mouth/Throat: Mouth: Mucous membranes are moist. Pharynx: Oropharynx is clear. No posterior oropharyngeal erythema. Eyes: Extraocular Movements: Extraocular movements intact. Conjunctiva/sclera: Conjunctivae normal. Pupils: Pupils are equal, round, and reactive to light. Cardiovascular: Pulses: Normal pulses. Heart sounds: Normal heart sounds. No murmur heard. Pulmonary: Effort: Pulmonary effort is normal. No respiratory distress. Breath sounds: Normal breath sounds. No wheezing. Abdominal: General: Abdomen is flat. Bowel sounds are normal. Palpations: Abdomen is soft. There is no mass. Tenderness: There is abdominal tenderness. There is no right CVA tenderness, left CVA tenderness, guarding or rebound. Hernia: No hernia is present. Musculoskeletal: General: No swelling. Cervical back: Normal range of motion. Skin: General: Skin is warm and dry. Neurological: General: No focal deficit present. Mental Status: She is alert and oriented to person, place, and time. Mental status is at baseline. Psychiatric: Mood and Affect: Mood normal. Data Reviewed and Summarized Labs: Lab Results Component Value Date WBC 4.2 09/28/2020 HGB 12.7 09/28/2020 TSH 2.588 09/28/2020 Lab Results Component Value Date NA 137 09/01/2019 K 3.8 09/01/2019 CL 102 09/01/2019 CO2 23 09/01/2019 BUN 12 09/01/2019 CREATININE 0.76 09/01/2019 GLUCOSE 93 09/01/2019 CALCIUM 8.9 09/01/2019 PROT 6.9 09/01/2019 BILITOT 0.3 09/01/2019 ALKPHOS 48 09/01/2019 AST 20 09/01/2019 @GLUCOSELAB@ No results found for: CHLPL, CHOL No results found for: TRIG No results found for: HDL No results found for: LDLCALC No results found for: VLDL No results found for: CHOLHDLRATIO Imaging/Testing: US renal complete Narrative: Patient Name: DANIELLA TOLEDO : 1975 Exam Date/Time: 01/26/2023 08:46 Procedure: US RENAL COMPLETE Ordering Provider: CM DIANA Reason For Exam: ANGIOMYOLIPOMA OF KIDNEY Examination: Renal ultrasound Clinical Indication: Angiomyolipoma Of Kidney Comparison: November 11, 2021 Findings: Multiplanar grayscale sonographic images were obtained through the kidneys and bladder. The right kidney measures 11.5 x 5.7 x 5.8 cm. No renal cysts. No solid renal parenchymal lesion, hydronephrosis, or shadowing renal calculus. Normal echotexture. The left kidney measures 10.4 x 5.9 x 5.1 cm. No renal cysts. 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 Otherwise no solid renal parenchymal lesion, hydronephrosis, or shadowing renal calculus. Normal echotexture. Ultrasound images through the bladder demonstrate no gross evidence of bladder wall thickening. 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 Report Dictated on Electronically Signed By: Claudio Stafford MD Electronically Signed Date/Time: 01/26/2023 9:19 AM EDT Wanda Cm MD documented in this encounter [facility] 02-23-2024 History of Present illness Narrative Daniella Toledo 02/23/2026 48 y.o. Chief Complaint Patient presents with Annual Exam Annual exam No LMP recorded. Primary Care Physician: Wanda Cm MD The patient was seen and examined. She is here for her annual exam. Pap 10/17 neg Mg 12/20 wnl Colonoscopy referral discussed Hrt doing well wants to continue Fam ho early breast cancer gene testing neg May 22 breast lump removed Specialist said no further fu needed Due for mg Missed 2 menses Over last year HPI : Daniella Toledo is a 48 y.o. female No obstetric history on file. OB History No obstetric history on file. Past Medical History: Diagnosis Date GERD (gastroesophageal reflux disease) Irritable bowel syndrome Past Surgical History: Procedure Laterality Date BREAST SURGERY 06/04/2022 Family History Problem Relation Name Age of Onset Breast cancer Other maternal aunt in 30s; maternal great aunt High Blood Pressure Mother Lizette hoyos Alcohol abuse Mother Lizette hoyos High Blood Pressure Father Breast cancer Mother's Sister Loretta hutchinson Ovarian cancer Neg Hx Uterine cancer Neg Hx Colon cancer Neg Hx Social History Socioeconomic History Marital status: Spouse name: Not on file Number of children: Not on file Years of education: Not on file Highest education level: Not on file Occupational History Not on file Tobacco Use Smoking status: Former Current packs/day: 0.00 Average packs/day: 0.5 packs/day for 15.0 years (7.5 ttl pk-yrs) Types: Cigarettes Start date: 11/06/2002 Quit date: 11/06/2017 Years since quittin.3 Smokeless tobacco: Never Vaping Use Vaping status: Never Used Substance and Sexual Activity Alcohol use: Yes Alcohol/week: 10.0 standard drinks of alcohol Types: 4 Glasses of wine, 6 Cans of beer per week Drug use: No Sexual activity: Yes Partners: Male Comment: vasectomy Other Topics Concern Not on file Social History Narrative Not on file Social Drivers of Health Financial Resource Strain: Not on file Food Insecurity: Not on file Transportation Needs: Not on file Physical Activity: Not on file Stress: Not on file Social Connections: Not on file Intimate Partner Violence: Not on file Housing Stability: Not on file MEDICATIONS: Current Outpatient Medications Medication Sig Dispense Refill Lactobacillus (PROBIOTIC ACIDOPHILUS PO) Take by mouth. levocetirizine (Xyzal) 5 MG tablet Take 1 tablet (5 mg) by mouth every evening. 30 tablet 11 montelukast (Singulair) 10 MG tablet TAKE 1 TABLET BY MOUTH EVERY DAY NIGHTLY 90 tablet 1 Multiple Vitamin (multivitamin) tablet Take 1 tablet by mouth daily. Olopatadine HCl (PATADAY OP) Administer into affected eye(s). omeprazole (PriLOSEC) [address] capsule Take 20 mg by mouth every morning (before breakfast). Do not crush or chew. estradiol (Climara) 0.025 MG/24HR Place 1 patch on the skin 1 (one) time per week. 12 patch 3 progesterone (Prometrium) 100 MG capsule Take 1 capsule (100 mg) by mouth daily. 30 capsule 11 No current facility-administered medications for this visit. ALLERGIES: Allergies as of 02/23/2024 - Reviewed 02/23/2024 Allergen Reaction Noted Sulfamethoxazole-trimethoprim Anaphylaxis and Rash 10/03/2014 Doxycycline 10/03/2014 Ciprofloxacin Rash 10/03/2014 Codeine Rash 10/03/2014 Cyclobenzaprine Rash 04/10/2022 Gadobutrol 04/18/2016 GynecologicHistory: Menstrual History: No LMP recorded. Review of Systems Constitutional: Negative for fatigue, fever and unexpected weight change. HENT: Negative for congestion and sore throat. Eyes: Negative for discharge and visual disturbance. Respiratory: Negative for cough and shortness of breath. Cardiovascular: Negative for chest pain and leg swelling. Gastrointestinal: Negative for abdominal pain, constipation, diarrhea, nausea and vomiting. Genitourinary: Negative for dysuria and pelvic pain. Musculoskeletal: Negative for arthralgias and back pain. Skin: Negative for rash. Neurological: Negative for weakness and headaches. Psychiatric/Behavioral: Negative for dysphoric mood. The patient is not nervous/anxious. PHYSICAL Exam: Constitutional: Vitals: 02/23/24 0825 BP: 129/84 Pulse: 79 Weight: 179 lb (81.2 kg) Height: 5' 5 (1.651 m) Physical Exam Constitutional: General: She is not in acute distress. Appearance: Normal appearance. HENT: Head: Normocephalic and atraumatic. Right Ear: External ear normal. Left Ear: External ear normal. Nose: Nose normal. Eyes: Conjunctiva/sclera: Conjunctivae normal. Neck: Thyroid: No thyromegaly. Cardiovascular: Rate and Rhythm: Normal rate. Pulmonary: Effort: Pulmonary effort is normal. No respiratory distress. Chest: Breasts: Right: No mass, nipple discharge, skin change or tenderness. Left: No mass, nipple discharge, skin change or tenderness. Abdominal: General: There is no distension. Palpations: Abdomen is soft. Tenderness: There is no abdominal tenderness. Genitourinary: General: Normal vulva. Pubic Area: No rash. Labia: Right: No rash or lesion. Left: No rash or lesion. Vagina: No vaginal discharge or bleeding. Cervix: No cervical motion tenderness. Uterus: Not enlarged and not tender. Adnexa: Right: No mass or tenderness. Left: No mass or tenderness. Rectum: Normal. Musculoskeletal: General: No swelling. Normal range of motion. Cervical back: Normal range of motion. Right lower leg: No edema. Left lower leg: No edema. Skin: General: Skin is warm and dry. Neurological: Mental Status: She is alert and oriented to person, place, and time. Mental status is at baseline. Psychiatric: Mood and Affect: Mood normal. Behavior: Behavior normal. ASSESSMENT: 48 y.o. Annual Diagnosis Plan 1. Women's annual routine gynecological examination Pap Smear HPV High Risk PCR 2. Encounter for screening mammogram for malignant neoplasm of breast Bilateral screening mammogram with tomosynthesis 3. Hot flashes 4. Screening for colon cancer [facility] Gastroenterology Chief Complaint Patient presents with Annual Exam Annual exam Past Medical History: Diagnosis Date GERD (gastroesophageal reflux disease) Irritable bowel syndrome Hereditary Breast, Ovarian, Colon and Uterine Cancer screening Done. Tobacco & Secondary smoke risks reviewed; instructed on cessation and avoidance PLAN: Follow up in about 1 year (around 02/22/2025) for annual. Repeat Annual every 1 year PAP guidelines reviewed with pt Mammograms annually if normal. colonoscopy recommendations reviewed with patient. Routine health maintenance per patients PCP. Orders Placed This Encounter Procedures HPV High Risk PCR THIS IS A CARVE-OUT LAB: SPECIMEN MUST BE SENT TO [facility] FOR PROCESSING Bilateral screening mammogram with tomosynthesis Standing Status: Future Standing Expiration Date: 04/24/2025 [facility] Gastroenterology Standing Status: Future Standing Expiration Date: 08/22/2024 Referral Priority: Routine Referral Type: Consultation Referral Reason: Specialty Services Required Requested Specialty: Gastroenterology Number of Visits Requested: 1 documented in this encounter [facility] 01-27-2024 Telephone encounter Note *Pharmacy requesting 90-day Rx [facility] 01-27-2024 Miscellaneous Notes *Pharmacy requesting 90-day Rx documented in this encounter [facility] 11-05-2023 Telephone encounter Note Recent Visits Date Type Provider Dept 01/06/23 Office Visit Wanda Cm MD [facility] Showing recent visits within past 365 days and meeting all other requirements Future Appointments No visits were found meeting these conditions. Showing future appointments within next 90 days and meeting all other requirements Requested Prescriptions Pending Prescriptions Disp Refills montelukast (Singulair) 10 MG tablet [Pharmacy Med Name: MONTELUKAST SOD 10 MG TABLET] 90 tablet 1 Sig: TAKE 1 TABLET BY MOUTH EVERY DAY NIGHTLY Provider: Wanda Cm MD Overdue for visit: Yes If yes - patient scheduled? No Most recent labs completed in chart? Yes Verified pharmacy: yes Verified day(s) supplied: yes Verified refill(s) needed (previous prescription showing no refills in chart): Yes Have you received any controlled medications from any other provider? N/A [facility] 11-05-2023 Miscellaneous Notes Recent Visits Date Type Provider Dept 01/06/23 Office Visit Wanda Cm MD [facility] Showing recent visits within past 365 days and meeting all other requirements Future Appointments No visits were found meeting these conditions. Showing future appointments within next 90 days and meeting all other requirements Requested Prescriptions Pending Prescriptions Disp Refills montelukast (Singulair) 10 MG tablet [Pharmacy Med Name: MONTELUKAST SOD 10 MG TABLET] 90 tablet 1 Sig: TAKE 1 TABLET BY MOUTH EVERY DAY NIGHTLY Provider: Wanda Cm MD Overdue for visit: Yes If yes - patient scheduled? No Most recent labs completed in chart? Yes Verified pharmacy: yes Verified day(s) supplied: yes Verified refill(s) needed (previous prescription showing no refills in chart): Yes Have you received any controlled medications from any other provider? N/A documented in this encounter [facility] 09-11-2023 Telephone encounter Note Options for menopausal symptoms reviewed and she would like to try estrogen patch and progesterone. Rx sent. She understands risks. Will fu for annual [facility] 09-11-2023 Miscellaneous Notes Options for menopausal symptoms reviewed and she would like to try estrogen patch and progesterone. Rx sent. She understands risks. Will fu for annual documented in this encounter [facility] 08-26-2023 History of Present illness Narrative Daniella Toledo 08/28/2023 Date Of : 1975 HPI: Daniella Toledo is a 47 y.o. female No obstetric history on file. The patient was seen today. She is here regarding menopause concerns. +Fatigue. +Irritable. +Hot flashes. Menses spacing out over last 6 months. +Night sweats. + Insomnia. Review Of Systems: Constitutional: No fever, chills or malaise Gastrointestinal ROS: No Indigestion, Heartburn, Nausea, vomiting, Diarrhea, Constipation,or Bowel Changes Genito-Urinary ROS: No Dysuria Psych ROS: No si/hi Physical Exam: There were no vitals taken for this visit. General: Alert, NAD Respirations: Normal respiratory effort Patient was identified and seen today via Telehealth by agreement and consent. I used the following Telehealth technology: Audio capability only. Total length of call 10 minutes. The patient was offered and advised video for a more comprehensive evaluation, but the patient declined or was unable to use video. Patient location: Patient Location: [place]. This patient encounter is appropriate and reasonable under the circumstances: transportation issues . The patient has been advised of the potential risks and limitations of this mode of treatment (including but not limited to the absence of in-person examination) and has agreed to be treated in a remote fashion in spite of them. Any and all of the patient's/patient's family's questions on this issue have been answered and I have made no promises or guarantees to the patient. The patient has also been advised to contact this office for worsening conditions or problems, and seek emergency medical treatment and/or call 911 if the patient deems either necessary. The patient stated that they are currently in the state [facility]. If the patient is a minor, permission has been obtained by the parent or guardian for the patient to receive medical care at this visit. Assessment: Diagnosis Plan 1. Hot flashes TSH TSH PLAN: Follow up for annual. Discussed options for treatment of perimenopause symptoms including hormonal and non-hormal options. She will consider and let me know if desires. Thyroid lab ordered Orders Placed This Encounter Procedures TSH Standing Status: Future Number of Occurrences: 1 Standing Expiration Date: 08/25/2024 Patient was seen with total face to face time of 15 minutes. More than 50% of this visit was counseling and education regarding The encounter diagnosis was Hot flashes. and Follow-up (Discuss menopause) as well as counseling on preventative health maintenance follow-up. documented in this encounter [facility] 07-27-2023 History of Present illness Narrative Images from the original note were not included. [facility] [address] [place] [address] [address] [facility] [address] Dept: [phone] Dept Loc: [phone] Reason for Visit: Allergies Patient was identified and seen today via Telehealth by agreement and consent. I used the following Telehealth technology: Audio capability only. Total length of call 15 minutes. The patient was offered and advised video for a more comprehensive evaluation, but the patient declined or was unable to use video. Patient location: Patient Location: Home. This patient encounter is appropriate and reasonable under the circumstances: . The patient has been advised of the potential risks and limitations of this mode of treatment (including but not limited to the absence of in-person examination) and has agreed to be treated in a remote fashion in spite of them. Any and all of the patient's/patient's family's questions on this issue have been answered and I have made no promises or guarantees to the patient. The patient has also been advised to contact this office for worsening conditions or problems, and seek emergency medical treatment and/or call 911 if the patient deems either necessary. The patient stated that they are currently in the state [facility]. If the patient is a minor, permission has been obtained by the parent or guardian for the patient to receive medical care at this visit. Assessment and Plan 1. Seasonal allergies Beverly start taking Xyzal as well as Singulair. Can try [id number] Flonase. If no improvement would recommend gerentological physiotherapist current treatment plan is effective, no change in therapy, orders and follow up as documented in EMR, lab results reviewed with patient, repeat labs ordered prior to next appointment, reviewed compliance with lifestyle measures, reviewed diet, exercise and weight control, reviewed medications and side effects in detail Subjective HPI is a 47-year-old female patient who has a history of seasonal allergies she tried Beverly they have not been helping she has got runny nose itchy eyes. She feels she is getting progressively worse its associated with a sore throat. Review of Systems Constitutional: Negative. Negative for activity change, appetite change and fever. HENT: Positive for postnasal drip. Negative for congestion. Eyes: Negative. Negative for discharge. Respiratory: Negative. Negative for chest tightness and shortness of breath. Cardiovascular: Negative. Gastrointestinal: Negative. Endocrine: Negative. Negative for cold intolerance. Genitourinary: Negative for difficulty urinating. Musculoskeletal: Negative. Neurological: Negative. Negative for dizziness, facial asymmetry and headaches. Hematological: Negative. Allergies Allergen Reactions Sulfamethoxazole-Trimethoprim Anaphylaxis and Rash Doxycycline Ciprofloxacin Rash Codeine Rash Other reaction(s): Unknown Cyclobenzaprine Rash Gadobutrol Other reaction(s): Other Outpatient Medications Prior to Visit Medication Sig Dispense Refill Lactobacillus (PROBIOTIC ACIDOPHILUS PO) Take by mouth. Multiple Vitamin (multivitamin) tablet Take 1 tablet by mouth daily. Olopatadine HCl (PATADAY OP) Administer into affected eye(s). omeprazole (PriLOSEC) [address] capsule Take 20 mg by mouth every morning (before breakfast). Do not crush or chew. No facility-administered medications prior to visit. Patient Active Problem List Diagnosis Renal mass Past Medical History: Diagnosis Date GERD (gastroesophageal reflux disease) Irritable bowel syndrome Social History Tobacco Use Smoking status: Former Packs/day: 0.50 Years: 15.00 Additional pack years: 0.00 Total pack years: 7.50 Types: Cigarettes Quit date: 11/06/2017 Years since quittin.7 Smokeless tobacco: Never Substance Use Topics Alcohol use: Yes Alcohol/week: 10.0 standard drinks of alcohol Types: 4 Glasses of wine, 6 Cans of beer per week Past Surgical History: Procedure Laterality Date BREAST SURGERY 06/04/2022 Family History Problem Relation Name Age of Onset Breast cancer Other maternal aunt in 30s; maternal great aunt High Blood Pressure Mother Lizette hoyos Alcohol abuse Mother Lizette hoyos High Blood Pressure Father Breast cancer Mother's Sister Loretta hutchinson Ovarian cancer Neg Hx Uterine cancer Neg Hx Colon cancer Neg Hx Health Maintenance Topic Date Due HIV Screening Never done MMR Vaccines (1 of 1 - Standard series) Never done Depression Screening Never done Hepatitis C Screening Never done Diabetes Screening Never done DTaP/Tdap/Td Vaccines (1 - Tdap) Never done Hepatitis B Vaccines (1 of 3 - 19+ 3-dose series) Never done COVID-19 Vaccine ( - season) 2022 Mammogram 02/28/2023 Zoster Vaccines (1 of 2) 10/08/2023 Colorectal Cancer Screening 11/04/2024 Lipid Panel 01/17/2025 Cervical Cancer Screening 09/28/2025 RSV Immunization aged 60 or older (1 - 1-dose 60+ series) 2033 Influenza Vaccine Completed RSV Immunization under 20 Months Aged Out HIB Vaccines Aged Out IPV Vaccines Aged Out Hepatitis A Vaccines Aged Out Meningococcal Vaccine Aged Out Rotavirus Vaccines Aged Out HPV Vaccines Aged Out Pneumococcal Vaccine: Pediatrics (0 to 5 Years) and At-Risk Patients (6 to 64 Years) Aged Out Objective There were no vitals taken for this visit. Physical Exam Data Reviewed and Summarized Labs: Lab Results Component Value Date WBC 4.2 09/28/2020 HGB 12.7 09/28/2020 TSH 2.588 09/28/2020 Lab Results Component Value Date NA 137 09/01/2019 K 3.8 09/01/2019 CL 102 09/01/2019 CO2 23 09/01/2019 BUN 12 09/01/2019 CREATININE 0.76 09/01/2019 GLUCOSE 93 09/01/2019 CALCIUM 8.9 09/01/2019 PROT 6.9 09/01/2019 BILITOT 0.3 09/01/2019 ALKPHOS 48 09/01/2019 AST 20 09/01/2019 @GLUCOSELAB@ No results found for: CHLPL, CHOL No results found for: TRIG No results found for: HDL No results found for: LDLCALC No results found for: VLDL No results found for: CHOLHDLRATIO Imaging/Testing: US renal complete Narrative: Patient Name: DANIELLA TOLEDO : 1975 Exam Date/Time: 01/26/2023 08:46 Procedure: US RENAL COMPLETE Ordering Provider: CM DIANA Reason For Exam: ANGIOMYOLIPOMA OF KIDNEY Examination: Renal ultrasound Clinical Indication: Angiomyolipoma Of Kidney Comparison: November 11, 2021 Findings: Multiplanar grayscale sonographic images were obtained through the kidneys and bladder. The right kidney measures 11.5 x 5.7 x 5.8 cm. No renal cysts. No solid renal parenchymal lesion, hydronephrosis, or shadowing renal calculus. Normal echotexture. The left kidney measures 10.4 x 5.9 x 5.1 cm. No renal cysts. 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 Otherwise no solid renal parenchymal lesion, hydronephrosis, or shadowing renal calculus. Normal echotexture. Ultrasound images through the bladder demonstrate no gross evidence of bladder wall thickening. 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 Report Dictated on Electronically Signed By: Claudio Stafford MD Electronically Signed Date/Time: 01/26/2023 9:19 AM EDT Wanda Cm MD documented in this encounter [facility] 07-17-2023 Telephone encounter Note L/M for pt to call to schedule a telehealth appt with [facility] 07-17-2023 Miscellaneous Notes L/M for pt to call to schedule a telehealth appt with Pt need telehealth visit to discuss symptoms see mychart message documented in this encounter [facility] 07-17-2023 Telephone encounter Note Pt need telehealth visit to discuss symptoms see mychart message [facility] Phone: 03-12-2023 Telephone encounter Note (2nd attempt) Called today to schedule screening colonoscopy (surveillance program) Left message to call colorectal office at [phone] [facility] 02-23-2023 Telephone encounter Note Screening Colonoscopy (surveillance program) Called pt today to schedule colonoscopy Left message to call colorectal office at [phone] [facility] Phone: 02-17-2023 History of Present illness Narrative Daniella Toledo 02/17/2023 47 y.o. Chief Complaint Patient presents with Annual Exam Annual exam No LMP recorded. Primary Care Physician: Wanda Cm MD The patient was seen and examined. She is here for her annual exam. Pap 10/17 wnl. Mg 12/20 wnl. Gets through [facility]. Menses regular +cramping. control declined. Colonoscopy interested primary did cologuard at 43 . Bp ok at primary. Mat aunt gene neg. HPI : Daniella Toledo is a 47 y.o. female No obstetric history on file. OB History No obstetric history on file. Past Medical History: Diagnosis Date GERD (gastroesophageal reflux disease) Irritable bowel syndrome Past Surgical History: Procedure Laterality Date BREAST SURGERY 06/04/2022 Family History Problem Relation Name Age of Onset Breast cancer Other maternal aunt in 30s; maternal great aunt High Blood Pressure Mother Lizette hoyos Alcohol abuse Mother Lizette hoyos High Blood Pressure Father Breast cancer Mother's Sister Loretta hutchinson Ovarian cancer Neg Hx Uterine cancer Neg Hx Colon cancer Neg Hx Social History Socioeconomic History Marital status: Spouse name: Not on file Number of children: Not on file Years of education: Not on file Highest education level: Not on file Occupational History Not on file Tobacco Use Smoking status: Former Packs/day: 0.50 Years: 15.00 Additional pack years: 0.00 Total pack years: 7.50 Types: Cigarettes Quit date: 11/06/2017 Years since quittin.2 Smokeless tobacco: Never Vaping Use Vaping Use: Never used Substance and Sexual Activity Alcohol use: Yes Alcohol/week: 10.0 standard drinks of alcohol Types: 4 Glasses of wine, 6 Cans of beer per week Drug use: No Sexual activity: Yes Partners: Male Comment: vasectomy Other Topics Concern Not on file Social History Narrative Not on file Social Determinants of Health Financial Resource Strain: Not on file Food Insecurity: Not on file Transportation Needs: Not on file Physical Activity: Not on file Stress: Not on file Social Connections: Not on file Intimate Partner Violence: Not on file Housing Stability: Not on file MEDICATIONS: Current Outpatient Medications Medication Sig Dispense Refill Lactobacillus (PROBIOTIC ACIDOPHILUS PO) Take by mouth. Multiple Vitamin (multivitamin) tablet Take 1 tablet by mouth daily. Olopatadine HCl (PATADAY OP) Administer into affected eye(s). omeprazole (PriLOSEC) [address] capsule Take 20 mg by mouth every morning (before breakfast). Do not crush or chew. No current facility-administered medications for this visit. ALLERGIES: Allergies as of 02/17/2023 - Reviewed 02/17/2023 Allergen Reaction Noted Sulfamethoxazole-trimethoprim Anaphylaxis and Rash 10/03/2014 Doxycycline 10/03/2014 Ciprofloxacin Rash 10/03/2014 Codeine Rash 10/03/2014 Cyclobenzaprine Rash 04/10/2022 Gadobutrol 04/18/2016 GynecologicHistory: Menstrual History: No LMP recorded. Review of Systems Constitutional: Negative for fatigue, fever and unexpected weight change. HENT: Negative for congestion and sore throat. Eyes: Negative for discharge and visual disturbance. Respiratory: Negative for cough and shortness of breath. Cardiovascular: Negative for chest pain and leg swelling. Gastrointestinal: Negative for abdominal pain, constipation, diarrhea, nausea and vomiting. Genitourinary: Negative for dysuria and pelvic pain. Musculoskeletal: Negative for arthralgias and back pain. Skin: Negative for rash. Neurological: Negative for weakness and headaches. Psychiatric/Behavioral: Negative for dysphoric mood. The patient is not nervous/anxious. PHYSICAL Exam: Constitutional: Vitals: 02/17/23 1345 02/17/23 1346 BP: (!) 144/92 (!) 144/88 Pulse: 82 88 Weight: 177 lb (80.3 kg) Height: 5' 5 (1.651 m) Physical Exam Constitutional: General: She is not in acute distress. Appearance: Normal appearance. HENT: Head: Normocephalic and atraumatic. Right Ear: External ear normal. Left Ear: External ear normal. Nose: Nose normal. Eyes: Conjunctiva/sclera: Conjunctivae normal. Neck: Thyroid: No thyromegaly. Cardiovascular: Rate and Rhythm: Normal rate. Pulmonary: Effort: Pulmonary effort is normal. No respiratory distress. Chest: Breasts: Right: No mass, nipple discharge, skin change or tenderness. Left: No mass, nipple discharge, skin change or tenderness. Abdominal: General: There is no distension. Palpations: Abdomen is soft. Tenderness: There is no abdominal tenderness. Genitourinary: General: Normal vulva. Pubic Area: No rash. Labia: Right: No rash or lesion. Left: No rash or lesion. Vagina: No vaginal discharge or bleeding. Cervix: No cervical motion tenderness. Uterus: Not enlarged and not tender. Adnexa: Right: No mass or tenderness. Left: No mass or tenderness. Rectum: Normal. Musculoskeletal: General: No swelling. Normal range of motion. Cervical back: Normal range of motion. Right lower leg: No edema. Left lower leg: No edema. Skin: General: Skin is warm and dry. Neurological: Mental Status: She is alert and oriented to person, place, and time. Mental status is at baseline. Psychiatric: Mood and Affect: Mood normal. Behavior: Behavior normal. ASSESSMENT: 47 y.o. Annual Diagnosis Plan 1. Well woman exam with routine gynecological exam 2. Encounter for screening mammogram for malignant neoplasm of breast Bilateral screening mammogram with tomosynthesis 3. Screening for colon cancer [facility] Gastroenterology Chief Complaint Patient presents with Annual Exam Annual exam Past Medical History: Diagnosis Date GERD (gastroesophageal reflux disease) Irritable bowel syndrome Hereditary Breast, Ovarian, Colon and Uterine Cancer screening Done. Tobacco & Secondary smoke risks reviewed; instructed on cessation and avoidance PLAN: Follow up in about 1 year (around 02/18/2024) for annual. Repeat Annual every 1 year PAP guidelines reviewed with pt Mammograms annually if normal. colonoscopy recommendations reviewed with patient. Routine health maintenance per patients PCP. Orders Placed This Encounter Procedures Bilateral screening mammogram with tomosynthesis Standing Status: Future Standing Expiration Date: 04/19/2024 [facility] Gastroenterology Standing Status: Future Standing Expiration Date: 08/18/2023 Referral Priority: Routine Referral Type: Consultation Referral Reason: Specialty Services Required Requested Specialty: Gastroenterology Number of Visits Requested: 1 documented in this encounter [facility] 01-06-2023 History of Present illness Narrative Subjective Daniella Toledo is a 47 y.o. female and is here for a comprehensive physical exam. The patient reports no issues except issues with sleep and hormones in which she is in a see Dr. Haynes for she has a history of an angiomyolipoma she is to follow-up with. She is not having any issues with urination.. Do you take any herbs or supplements that were not prescribed by a doctor? no Are you taking calcium supplements? no Are you taking aspirin daily? 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 Seeing [facility]. Do you have pain that bothers you in your daily life? no Review of Systems Constitutional: Negative. Negative for activity change, appetite change and fever. HENT: Negative. Negative for congestion. Eyes: Negative. Negative for discharge. Respiratory: Negative. Negative for chest tightness. Cardiovascular: Negative. Gastrointestinal: Negative. Endocrine: Negative. Negative for cold intolerance. Genitourinary: Negative for difficulty urinating. Musculoskeletal: Negative. Neurological: Negative. Negative for dizziness, facial asymmetry and headaches. Hematological: Negative. Objective Physical Exam Vitals and nursing note reviewed. Constitutional: Appearance: Normal appearance. HENT: Head: Normocephalic and atraumatic. Nose: No congestion or rhinorrhea. Mouth/Throat: Mouth: Mucous membranes are moist. Pharynx: Oropharynx is clear. No posterior oropharyngeal erythema. Eyes: Extraocular Movements: Extraocular movements intact. Conjunctiva/sclera: Conjunctivae normal. Pupils: Pupils are equal, round, and reactive to light. Cardiovascular: Pulses: Normal pulses. Heart sounds: Normal heart sounds. No murmur heard. Pulmonary: Effort: Pulmonary effort is normal. No respiratory distress. Breath sounds: Normal breath sounds. No wheezing. Abdominal: General: Abdomen is flat. Bowel sounds are normal. Palpations: Abdomen is soft. Tenderness: There is no abdominal tenderness. Musculoskeletal: General: No swelling. Cervical back: Normal range of motion. Skin: General: Skin is warm and dry. Neurological: General: No focal deficit present. Mental Status: She is alert and oriented to person, place, and time. Mental status is at baseline. Psychiatric: Mood and Affect: Mood normal. Assessment/Plan Healthy female exam. 1. Mammogram showed focal atypical lobular hyperplasia patient had a biopsy done following with breast surgeon. They recommended repeat mammogram in 1 year. 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 Patient Counseling: --Nutrition: Stressed importance of moderation in sodium/caffeine intake, saturated fat and cholesterol, caloric balance, sufficient intake of fresh fruits, vegetables, fiber, calcium, iron, and 1 mg of folate supplement per day (for females capable of ). --Discussed the issue of estrogen replacement, calcium supplement, and the daily use of baby aspirin. --Exercise: Stressed the importance of regular exercise. --Substance Abuse: Discussed cessation/primary prevention of tobacco, alcohol, or other drug use; driving or other dangerous activities under the influence; availability of treatment for abuse. --Sexuality: Discussed sexually transmitted diseases, partner selection, use of condoms, avoidance of unintended and contraceptive alternatives. --Injury prevention: Discussed safety belts, safety helmets, smoke detector, smoking near bedding or upholstery. --Dental health: Discussed importance of regular tooth brushing, flossing, and dental visits. --Immunizations reviewed. --Discussed benefits of screening colonoscopy. --After hours service discussed with patient 3. Discussed the patient's BMI with her. The BMI is in the acceptable range. 4. Follow up as needed for acute illness documented in this encounter [facility] 12-16-2022 History of Present illness Narrative Radiology Service Progress Note PATIENT NAME: Daniella Toledo DATE OF SERVICE: December 16, 2022 TIME: 8:17 AM PATIENT IDENTITY VERIFICATION COMPLETED USING TWO (2) IDENTIFIERS: Name and Date of confirmed by patient verbally. FALL SCREENING: Has the patient had 2 falls in the last year or 1 fall with injury or currently using an Ambulatory Assistive Device (Walker, Cane, Wheelchair, Crutches, etc.)? No PATIENT GENDER DATA: Female. status: : No status: NO. PATIENT RELEVANT IMPLANT DATA REVIEWED: Not Applicable RADIOLOGY DEPARTMENT: Mammography PERIPHERAL IV DATA: Not applicable SIGNED BY: RT Osmany(R) December 16, 2022 8:17 AM documented in this encounter [facility] 07-17-2022 Miscellaneous Notes Opened in error documented in this encounter [facility] 06-12-2022 History of Present illness Narrative FOLLOW UP VISIT - POST OP NAME: Daniella Toledo [facility] NO.: [id number] DATE OF SERVICE: 06/12/2022 : 1975 REFERRING PHYSICIAN: Wanda Cm MD Daniella is a patient I am following for a radial scar. The patient is a 46 year old female with a complaint of abnormal breast imaging. Patient undergone previous screening mammography in 2020. This demonstrated no abnormalities. And had follow-up screening mammography on February 13, 2022 which demonstrated a possible left breast asymmetry and recommend additional views. She had tomograms and an ultrasound obtained on February 26, 2022. This demonstrated: IMPRESSION: SUSPICIOUS FINDING - BIOPSY SHOULD BE CONSIDERED The architectural distortion in the left breast is suspicious of malignancy. A stereotactic biopsy is recommended under tomosynthesis. She was initially scheduled for biopsy at [facility] on March 13 but inadequate visualization of the architectural distortion was noted on that facilities stereotactic machine. She was rescheduled and underwent biopsy on March 27, 2022. This demonstrated: IMPRESSION: STEREOTACTIC GUIDED BIOPSY HIGH RISK BENIGN Stereotactic guided biopsy of the area of architectural distortion in the left breast lower outer aspect posterior depth was successful with no apparent post procedure complications. 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 Pathology results are concordant with imaging findings. A surgical consultation is recommended. Localization of the architectural distortion seen on post clip lindsey images to be 1.3 cm inferior to the biopsy clip is recommended when this lesion is localized for surgical excision. The patient scheduled for surgery 2 weeks previously but then had a COVID infection. She notes some fatigue sinus issues and fog she had a light cough but no shortness of breath or other pulmonary issues. I had her return today just like a formal pulmonary exam and obtain a chest x-ray to assure that anesthesia was comfortable with her rescheduled surgery date of June 04. I performed a left breast [facility] tutor and wire localized excisional breast biopsy on June 04, 2022. [facility] tutor distances and radiographic margins were all felt to be good. Pathology returned as: FINAL DIAGNOSIS A. Left breast, lumpectomy: -Focal atypical lobular hyperplasia -Radial scar -Stromal fibrosis, pseudoangiomatous stromal hyperplasia (PASH), sclerosing adenosis, mild usual ductal hyperplasia and apocrine cysts -Biopsy site changes, biopsy clip and [facility] identified The patient currently notes some incisional pain but is actually improving significantly she notes no bruising at the site.. her appetite has been good. she denies fever, chills or abdominal pain. she does note some proving incisional discomfort. VITALS: Last menstrual period 05/31/2022. On examination, the incision line is intact. There is no bruising. There is no puckering dimpling or retractions at the site Assessment IMPRESSION: Status post left wire localization [facility] localization excisional breast biopsy for focal atypical lobular hyperplasia radial scar and PASH PLAN: If the patient notes any problems or signs of wound infections, she should contact me immediately. He notes any issues with healing or other difficulties should follow-up immediately. Otherwise had like her to follow-up 6 months from the date of surgery and have a new baseline left mammogram prior to her office visit Diagnoses: (N64.89) Radial scar of breast (primary encounter diagnosis) (R92.8) Abnormal finding on breast imaging Return to Clinic: The patient is instructed to follow-up with me in 6 months, you should obtain a mammogram prior to this follow up visit. Carolyn Conley MD documented in this encounter [facility] 06-12-2022 Miscellaneous Notes Images from the original note were not included. Carolyn Conley MD You 2 days ago Yes that is fine Patient letter sent via My Chart. Alexey Comer LPN Patient called in asking if can be released to return to work on 06/12/22 for morning. Patient had surgery lumpectomy on 06/04/22. Patient has an office appointment to follow up on 06/12/22 in afternoon, however patient want to work in morning of same day. Thank you. Alexey Comer LPN documented in this encounter [facility] 06-04-2022 Note HNO ID: [id number] Author: Binta Sadler APRN.DOCTOR OF VETERINARY MEDICINE Service: ? 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 Staffing DOCTOR OF VETERINARY MEDICINE: Binta Sadler APRN.DOCTOR OF VETERINARY MEDICINE Indications and Patient Condition Indications for airway management: anesthesia Preoxygenated: yes anesthesia circuit Method: asleep Final Airway Details Final airway type: supraglottic airway Number of attempts at approach: 1 Final Supraglottic Airway: i-gel Size 4 Seal Adequate: yes SIGNATURE: Binta Sadler APRN.DOCTOR OF VETERINARY MEDICINE PATIENT NAME: Daniella Toledo DATE: June 04, 2022 TIME: 11:31 AM CSN: [id number] [facility] 05-29-2022 Note HNO ID: [id number] Author: MINDY Keane Service: Radiology Author Type: Technologist Type: Progress Notes Filed: 05/29/2022 10:05 AM Note Text: Radiology Service Progress Note PATIENT NAME: Daniella Toledo DATE OF SERVICE: May 29, 2022 TIME: 10:04 AM PATIENT IDENTITY VERIFICATION COMPLETED USING TWO (2) IDENTIFIERS: Name and Date of confirmed by patient verbally. FALL SCREENING: Has the patient had 2 falls in the last year or 1 fall with injury or currently using an Ambulatory Assistive Device (Walker, Cane, Wheelchair, Crutches, etc.)? No PATIENT GENDER DATA: Female. status: : No status: NO. PATIENT RELEVANT IMPLANT DATA REVIEWED: Not Applicable RADIOLOGY DEPARTMENT: General X-ray: Exam(s) Completed: Chest X-Ray PERIPHERAL IV DATA: Not applicable SIGNED BY: MINDY Keane May 29, 2022 10:04 AM [facility] 05-29-2022 History of Present illness Narrative Radiology Service Progress Note PATIENT NAME: Daniella Toledo DATE OF SERVICE: May 29, 2022 TIME: 10:04 AM PATIENT IDENTITY VERIFICATION COMPLETED USING TWO (2) IDENTIFIERS: Name and Date of confirmed by patient verbally. FALL SCREENING: Has the patient had 2 falls in the last year or 1 fall with injury or currently using an Ambulatory Assistive Device (Walker, Cane, Wheelchair, Crutches, etc.)? No PATIENT GENDER DATA: Female. status: : No status: NO. PATIENT RELEVANT IMPLANT DATA REVIEWED: Not Applicable RADIOLOGY DEPARTMENT: General X-ray: Exam(s) Completed: Chest X-Ray PERIPHERAL IV DATA: Not applicable SIGNED BY: MINDY Keane May 29, 2022 10:04 AM documented in this encounter [facility] 05-29-2022 History of Present illness Narrative HISTORY AND PHYSICAL - BREAST COMPLAINT Daniella Toledo 1975 REFERRING PHYSICIAN: Wanda Cm MD CHIEF COMPLAINT: Left breast radial scar HPI: The patient is a 46 year old female with a complaint of abnormal breast imaging. Patient undergone previous screening mammography in 2020. This demonstrated no abnormalities. And had follow-up screening mammography on February 13, 2022 which demonstrated a possible left breast asymmetry and recommend additional views. She had tomograms and an ultrasound obtained on February 26, 2022. This demonstrated: IMPRESSION: SUSPICIOUS FINDING - BIOPSY SHOULD BE CONSIDERED The architectural distortion in the left breast is suspicious of malignancy. A stereotactic biopsy is recommended under tomosynthesis. She was initially scheduled for biopsy at [facility] on March 13 but inadequate visualization of the architectural distortion was noted on that facilities stereotactic machine. She was rescheduled and underwent biopsy on March 27, 2022. This demonstrated: IMPRESSION: STEREOTACTIC GUIDED BIOPSY HIGH RISK BENIGN Stereotactic guided biopsy of the area of architectural distortion in the left breast lower outer aspect posterior depth was successful with no apparent post procedure complications. 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 Pathology results are concordant with imaging findings. A surgical consultation is recommended. Localization of the architectural distortion seen on post clip lindsey images to be 1.3 cm inferior to the biopsy clip is recommended when this lesion is localized for surgical excision. The patient scheduled for surgery 2 weeks previously but then had a COVID infection. She notes some fatigue sinus issues and fog she had a light cough but no shortness of breath or other pulmonary issues. I had her return today just like a formal pulmonary exam and obtain a chest x-ray to assure that anesthesia was comfortable with her rescheduled surgery date of June 04. PAST MEDICAL HISTORY Diagnosis Date GERD (gastroesophageal reflux disease) Urinary frequency PAST SURGICAL HISTORY Procedure Laterality Date BX BREAST W DEVICE 1ST LESION STEREOTACTIC GUIDE Left 03/27/2022 NONE Current Outpatient Medications Medication Sig Dispense Refill olopatadine (PATANOL) 0.1 % ophthalmic solution INSTILL 1 DROP INTO BOTH EYES TWICE A DAY DIRECTED No current facility-administered medications for this visit. ALLERGIES: Bactrim [Sulfamethoxazole-Trimethoprim], Codeine, and Flexeril [Cyclobenzaprine] PERSONAL HISTORY: Social History Tobacco Use Smoking status: Former Packs/day: 0.50 Types: Cigarettes Quit date: 2017 Years since quittin.1 Smokeless tobacco: Never Vaping Use Vaping Use: Never used Substance Use Topics Alcohol use: Yes Alcohol/week: 3.0 standard drinks Types: 3 Glasses of wine per week Comment: couple times a week Drug use: Never FAMILY HISTORY: FAMILY HISTORY Problem Relation Age of Onset No Known Problems Mother No Known Problems Father No Known Problems Sister No Known Problems Brother Breast Cancer Maternal Aunt REVIEW OF SYMPTOMS: The review of systems data was entered by the nurse and reviewed by me There are no exam notes on file for this visit. PHYSICAL EXAMINATION: General: The patient is 46 year old female, well nourished, well hydrated in no acute distress. The patient is oriented to time, place, and person. VITALS: Last menstrual period 02/12/2018. There is no height or weight on file to calculate BMI. HEENT: Normal cephalic, ataumatic, pupils are equally round, sclera are anicteric, mucous membranes are moist, oropharynx is clear. Neck has no masses, asymmetry or lymphadenopathy. Thyroid is unremarkable. Respiratory: Clear to auscultation and percussion. Normal respiratory excursion and pattern. Cardiac: Examination is regular rate and rhythm. Abdominal exam: Soft, nontender, with no palpable masses. No hepatosplenomegaly. No palpable hernias. Rectal exam: exam deferred Extremities: no clubbing, cyanosis or edema. No adenopathy. Breast: Visual inspection reveals no retractions, nipple inversion, or skin changes. Palpation of the right breast reveals no dominant or suspicious masses, but multiple benign-feeling nodules. Palpation of the left breast reveals no dominant or suspicious masses, but multiple benign-feeling nodules. Axillary exam demonstrates no suspicious masses in either the left or right axilla. There is no nipple discharge expressed from either the left or right breast. There are well-healed stereotactic biopsy site in the left upper outer quadrant LABORATORY VALUES: As Noted RADIOLOGIC STUDIES: As Noted Assessment IMPRESSION: Left breast abnormal imaging-radial scar, recommended surgical excision as a high risk benign lesion PLAN: I plan to perform a left breast needle localized excisional breast biopsy. The planned surgical procedure was discussed extensively with the patient. The risks, benefits, anticipated outcomes and possible complications were mentioned. My staff has also explained the procedure in understandable terms and the patient was given the option to take printed material concerning the planned procedure. The patient had the opportunity to ask questions concerning the planned procedure. The patient freely consents to the planned procedure. Anticipated Surgical Procedure/ CPT Code: left preoperative stereotactic guided needle placement - 43695 EXCISION BREAST LESION - WITH SPECIMEN MAMMOGRAPHY, 22748-188, 12501-958-27 Anticipated Anesthetic: General Patient weight: Last menstrual period 02/12/2018. BMI: There is no height or weight on file to calculate BMI. 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 Wanda Cm MD via shared medical record. This note will be forwarded to Dr. Wanda Cm MD. Return to Clinic: The patient is instructed to follow-up with me 1 week post operatively. Carolyn Conley MD documented in this encounter [facility] 05-29-2022 History and physical note HISTORY AND PHYSICAL EXAMINATION SERVICE DATE: 05/28/2022 SERVICE TIME: 8:35 AM PRIMARY CARE PHYSICIAN: Wanda Cm MD REASON FOR VISIT: Daniella Toledo is a 46 year old female who is scheduled for Procedure(s) with comments: PLACEMENT OF BREAST LOCALIZATION DEVICE(S) PERCUTANEOUS; FIRST LESION, STEREOTACTIC GUIDANCE (Left) - placed by radiology - betito ceneter informed will be placed at 10 EXCISION BREAST LESION IDENTIFIED BY PREOPERATIVE PLACEMENT RADIOLOGICAL MARKER, OPEN, SINGLE LESION (Left) - placed by radiology - cisse ceneter informed will be placed at 10 at the request of Dr. Carolyn Conley for consultation. My final recommendation will be communicated back to the requesting physician by way of shared medical record or letter. Subjective The patient has the following: ACTIVE PROBLEM LIST Former Smoker Gerd (Gastroesophageal Reflux Disease) Covid Irritable Bowel Syndrome With Constipation COVID-19 Immunization Status Overdue - COVID-19 VACCINE (4 - Booster for Moderna series) Overdue since 07/22/2021 05/27/2021 Imm Admin: COVID-19 original vaccine, full dose, monovalent (MODERNA) 05/18/2020 Imm Admin: COVID-19 original vaccine, full dose, monovalent (MODERNA) 04/20/2020 Imm Admin: COVID-19 original vaccine, full dose, monovalent (MODERNA) Respiratory - COVID19 Vaccination Status: + COVID 05/18/22, symptoms completely resolved. CHIEF COMPLAINT: Pre-anesthesia optimization HPI: Daniella Toledo is a 46 year old female presenting for pre-anesthesia consultation. Pt has history of abnormal mammogram in January 2022, which lead to additional imaging and then biopsy in February 2022. 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 She was scheduled for this procedure earlier in April, but contracted COVID and it had to be rescheduled. Above procedure recommended to manage symptoms. Procedure scheduled on 06/04/2022 at [facility]. REVIEW OF SYSTEMS: General: Positive for: fever (with COVID 05/11/22-05/16/22). Negative for: unintentional weight change and weight loss >10% of BW in last 6 months. Neurological: No history of TIA's, stroke, LICENSED MARRIAGE AND FAMILY THERAPIST tumor, impaired sensorium, hemiplegia, paraplegia or quadraplegia. No neurological symptoms or problems. Negative for: multiple sclerosis. Respiratory: Positive for: tobacco use (quit in 2018, smoked x 14 years ~ 7 pack year). Negative for: asthma, COPD, current cough and obstructive sleep apnea. Cardiovascular: Negative for: arrhythmia, atrial fibrillation, CAD, chest pain, DVT/PE, hyperlipidemia, hypertension and murmur/valvular heart disease. GI: Positive for: GERD (OTC Rx prn) and irritable bowel syndrome (constipation) Negative for: dysphagia, inflammatory bowel disease, liver disease and ETOH >2 drinks/day. : Negative for: dysuria, frequent urination, urinary incontinence, nocturia >1 time per night and urgency. 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 Endocrine: No history of diabetes. Has not taken steroids within the past 30 days. No history of endocrinological symptoms or problems. Hematology: No history of bleeding or clotting disorder. Patient is not taking anti-coagulation or platelet medications. No history of hematological symptoms or problems. Oncology: No history of CA metastasis, chemo within 30 days, or radiotherapy within 90 days. No history of oncological symptoms or problems. Psych: No history of psychiatric symptoms or problems. Musculoskeletal: Negative for joint pain or swelling, back pain or muscle pain. Skin: Negative for lesions, rash and itching. PAST MEDICAL HISTORY Diagnosis Date GERD (gastroesophageal reflux disease) Urinary frequency PAST SURGICAL HISTORY Procedure Laterality Date BX BREAST W DEVICE 1ST LESION STEREOTACTIC GUIDE Left 03/27/2022 NONE FAMILY HISTORY Problem Relation Age of Onset No Known Problems Mother No Known Problems Father No Known Problems Sister No Known Problems Brother Breast Cancer Maternal Aunt Social History Tobacco Use Smoking status: Former Packs/day: 0.50 Types: Cigarettes Quit date: 2018 Years since quittin.1 Smokeless tobacco: Never Vaping Use Vaping Use: Never used Substance Use Topics Alcohol use: Yes Alcohol/week: 3.0 standard drinks Types: 3 Glasses of wine per week Comment: couple times a week Drug use: Never Prior to Admission medications as of 05/29/22 0814 Medication Sig Last Dose Taking olopatadine (PATANOL) 0.1 % ophthalmic solution INSTILL 1 DROP INTO BOTH EYES TWICE A DAY DIRECTED Taking Yes No medication comments found. ALLERGIES Allergen Reactions Bactrim [Sulfametho* Rash Codeine Unknown Flexeril [Cyclobenz* Rash Objective PHYSICAL EXAM: General: alert and oriented and healthy appearance. Pertinent negatives noted - not distressed. Skin: normal color, no rash or lesions. HEENT: EOM intact and pupils equal round. Pertinent negatives noted - no carotid bruit. Cardiovascular: regular rate and rhythm, normal S1 and S2, no rub, murmurs, or gallop. Respiratory: normal breath sounds, no wheezes or crackles. No chest wall deformity or tenderness. Abdomen: soft. Pertinent negatives noted - not tender. Extremities: no deformity, no edema or tenderness, no joint swelling or clubbing. Neurological: normal cognition and motor skills. Gait normal. No weakness or sensory deficit. PAIN ASSESSMENT: VITALS: BP 126/81 Pulse 92 Temp 99.1 Resp 18 Ht 5' 5 (1.65m) Wt 170 lb (77.1kg) SpO2 99% LMP 05/26/2022 BMI 28.29 kg/(m^2). Diagnostic tests reviewed for today's visit: Lab Value Units Date High Low HB 13.0 g/dL 12/17/2021 15.5 11.5 HCT 39.7 % 12/17/2021 46.0 36.0 WBC 4.03 k/uL 12/17/2021 11.00 3.70 PLT 274 k/uL 12/17/2021 400 150 NA 136 mmol/L 12/17/2021 144 136 K 3.6 mmol/L 12/17/2021 5.1 3.7 GLUC 97 mg/dL 12/17/2021 99 74 BUN 13 mg/dL 12/17/2021 21 7 CREAT 0.74 mg/dL 12/17/2021 0.96 0.58 PTSEC No results within date range. INR No results within date range. APTT No results within date range. ALT 16 U/L 12/17/2021 38 7 AST 18 U/L 12/17/2021 35 13 TBILI 0.3 mg/dL 12/17/2021 1.3 0.2 TSH No results within date range. Lab Value Units Date High Low HCGQT No results within date range. UHCG No results within date range. HCG, BODY* No results within date range. Lab Value Units Date High Low ABORHD No results within date range. ABSCREEN No results within date range. No results found for: HBA1C No results found for this or any previous visit (from the past 8760 hour(s)). No results found for this or any previous visit (from the past 76356 hour(s)). Assessment Patient has the following medical conditions which may affect bailee-operative course: COVID Assessment: Had symptoms with fever 05/11-05/16-, + test 05/18/22, has since had 2 negative tests (last one yesterday 05/28/22). Symptoms have resolved. GERD (gastroesophageal reflux disease) Assessment: Occasional otc ppi prn Former smoker Assessment: quit in 2018, smoked x 14 years ~ 7 pack year history Irritable bowel syndrome with constipation Assessment: stable Mars Activity Status Index: METS: Climb a flight of stairs or walk up a hill (5.50 METs) DASI Score: 5.5 Patient denies any chest pain or undue shortness of breath with the above physical activity. Clinical Frailty Scale: 2. Well STOP-Bang Score: Snores loudly Denies feeling tired, fatigued, or sleepy during the daytime Has not been observed to stop breathing or choking/gasping during sleep Denies having high blood pressure BMI less than or equal to 35 kg/m^2 Patient 50 years old or younger Does not have a large neck Non-male patient STOP-Bang Score: 1 [id number] Score: Age: <65 Sex: female CHF history: No Hypertension history: No Stroke/TIA/thromboembolism history: No Vascular disease history: No Diabetes history: No [id number] Score: 1 ASA Class: 2 ANESTHESIA FINDINGS: Intubation History: No prior intubation Significant Anesthesia Considerations: has never had anesthesia Airway History: No prior intubation I - PHYSICAL EVALUATION AIRWAY Patient intubated: No. Tracheostomy tube not present Mallampati: I. TM distance: >3 FB. Neck ROM: full ROM without neurological symptoms. Mouth opening: adequate. Short neck: no. Thick neck: no DENTAL Additional comments: + crown. II - ANESTHESIA PLAN ASA Score: 2 Anesthetic Plan: general Beta Gabriela Monitoring Plan Post Procedure Analgesic Plan Prepared for Surgery: optimally prepared for surgery. Per PACC guidelines no other testing is required CONSULTS: Patient does not require consults for optimization at this time Planned Anesthetic: general The Following Tests/Procedures Have Been Initiated: No orders of the defined types were placed in this encounter. Instructions Given to Patient: Instructions located in the after visit summary. Patient given verbal and written preop instructions and voices comprehension and compliance. SIGNATURE: Nadine Stewart PA-C PATIENT NAME: Daniella Toledo DATE: May 28, 2022 TIME: 12:05 PM PAGER/CONTACT #: documented in this encounter [facility] 05-29-2022 Instructions Nadine Stewart PA-C - 05/29/2022 7:55 AM EST PATIENT PREOPERATIVE INSTRUCTIONS Carolyn Conley MD has scheduled you for your procedure at this surgery center: [facility]: [phone] -- [address] [address]. Please read below carefully for your personalized instructions. Dietary Restrictions: - No solid food after midnight. - You may have 12 ounces of clear liquids (water, clear juices such as apple juice or gatorade, carbonated beverages, clear tea, black coffee, jello) until 2 hours before scheduled arrival at facility. - Do not drink any alcohol after midnight the night before your surgery. Medications: Unless instructed differently below, stay on all of your medications until your surgery. Approved medications to take the morning of surgery with a sip of water: None If you start any new medications after today's visit, please contact the surgeon's office. Blood Thinning Medications: - Stop NSAIDS (Ibuprofen, Advil, Aleve, Motrin, Celebrex, Mobic, etc.) 7 days before surgery, as directed by your surgeon. - Stop Aspirin 7 days before surgery, as directed by your surgeon. - Stop Vitamin E, ALL multi-vitamins, herbals and dietary supplements 7 days before surgery. - You may take Tylenol (Acetaminophen) or any of your pain medications that do not contain aspirin or NSAIDS as needed. Important Reminders: - If you use CPAP/BIPAP, bring the machine with you to the surgery center. - If you are prescribed inhalers for breathing, continue using them. - Candy, mints, and tobacco products are NOT permitted the morning of surgery. - Hearing aids, dentures and glasses may be worn the morning of surgery. - NO jewelry, body piercings, makeup, hairpins or contacts are to be worn the day of surgery. If you develop symptoms such as a fever, cold, or flu, or have other changes to your health within TWO DAYS of scheduled surgery or the morning of surgery, please contact the surgery center above. Personal Belongings: -Please have photo ID and insurance cards. -If you do not have a copy of advance directives on file with us, please bring a copy with you on the day of surgery. - Leave ALL valuables and money at home or with family members. For Outpatient Procedures: - YOU MUST HAVE A RESPONSIBLE BOX BUILDER TAKE YOU HOME. A FINISHING POWDER PRESS OPERATOR OR HEALTH PROFESSOR CANNOT BE MADE A RESPONSIBLE BOX BUILDER. - We recommend that a responsible person stays with you overnight to take care of you. - You cannot stay in a hotel alone after outpatient surgery. You will not be permitted to have your surgery, if you do not have someone to take care of you. Arrival Time for Surgery: - The Surgery Center or hospital where you are having surgery will call the afternoon before surgery (or Thursday for Thursday surgery) with a scheduled arrival time. - If you have not heard by 4 pm, please contact the surgery center above. Please be aware that emergency situations arise, which may delay or change your surgical time. If this happens, we will notify you as soon as possible and regret any inconvenience. If you already have an Advance Directive, please fax a copy to [phone] or email to for it to be added to your chart. If you do not have an Advance Directive, you can find the appropriate form and more information at [email or web address]. We recommend that you complete the Advance Directive form found on the website and bring it with you the day of your surgery. It can be witnessed and scanned into your chart that day. Nadine Stewart PA-C documented in this encounter [facility] 05-21-2022 Miscellaneous Notes Images from the original note were not included. Linda Estrada; [facility] s Clerical Pool; [facility] Surg Traffic Reporter's Pool 13 minutes ago (8:28 AM) Appointment scheduled, sent a my chart message. Encounter closed. Images from the original note were not included. Carolyn Conley MD You 48 minutes ago (7:15 AM) Have her follow up with me next week. We will see how her pulmonary function is doing and decide on how she is doing Message routed to [facility] to assist with calling patient to schedule appointment. patient rescheduled breast surgery with Jarvis from 05/21/2022 to 06/04/2022 due ot being tested positive for Covid. Called to [facility] to reschedule Agnes. Will resend fax forms to Dori. Lorie Stratton Traffic Reporter Call from Breast Center Coordinator Nessa Young at [facility] to report that patient has tested postive for COVID. Called to assess patient: Patient went to [facility] center on Thursday05/18/22 at [facility]. She tested Covid positive ( I will call to have those results faxed here) Patient has symptoms of congestion and cough which started on Thursday05/11/22 Had fevers on Thu and Thu last week Sore throat and earache and fatigue are gone No fever since Still has lingering cough and head/ nasal congestion but she states she is feeling better (Congestion is apparent/ audible over phone) She cancelled the biopsy with Agnes esl tutor placement today due to positive test Surgery with DR Conley is scheduled for Thursday Patient needs to know when surgery is to be rescheduled? Please advised and call Daniella Back Positive COVID Results have been received and scanned to patient record under external lab documented in this encounter [facility] 05-20-2022 Miscellaneous Notes Attempted to reach patient in regards to below message. Left voicemail to contact me directly at [phone] to discuss further. Lorie Stratton Traffic Reporter Patient called concerning her surgery please call patient karyn. documented in this encounter [facility] 05-07-2022 Note HNO ID: [id number] Author: Millicent Mtz MD Service: ? Author Type: Physician Type: Progress Notes Filed: 05/07/2022 11:53 AM Note Text: I reviewed this case with Dr. Conley on 05.07.2022: Following lesion (radial scar) should be localized with 1 [facility] President reflector: Left breast , upper outer quadrant, poserior depth, identified with a top hat clip Mammogram dated 03.27.2022 is marked. Please note this is for planning purposes only and is not a billable event. [facility] 04-30-2022 Miscellaneous Notes Faxed [facility] paperwork to [facility] at [phone]. Fax confirmation sheet received. Patient aware. Lupe Manuel RN Called and spoke to Cricket at [facility], updated waiting on Dr Conley signature and will fax when that is done. [facility] with [employer] calling to see if FMLA forms have been filled out from Dr. Conley yet? States he spoke to Alexey on 04/18/22 and she notified him that she had received the forms at that time. Phone# for Liborio is [phone]. Please fax forms to [phone]. Thank you. Cindy Jensen RN documented in this encounter [facility] 04-30-2022 Instructions Nola Rodgers APRN.TARGETING ACQUISITION OFFICER - 04/30/2022 8:56 AM EST PATIENT PREOPERATIVE INSTRUCTIONS Carolyn Conley MD has scheduled you for your procedure at this surgery center: [facility]: [phone] -- [address] [address]. Please read below carefully for your personalized instructions. Dietary Restrictions: - No solid food after midnight. - You may have 12 ounces of clear liquids (water, clear juices such as apple juice or gatorade, carbonated beverages, clear tea, black coffee, jello) until 2 hours before scheduled arrival at facility. No red/purple coloring and no creamer/sugar Medications: Unless instructed differently below, stay on all of your medications until your surgery. Approved medications to take the morning of surgery with a sip of water: NONE If you start any new medications after today's visit, please contact the surgeon's office. Blood Thinning Medications: - Stop NSAIDS (Ibuprofen, Advil, Aleve, Motrin, Celebrex, Mobic, etc.) 7 days before surgery, as directed by your surgeon. - Stop Aspirin 7 days before surgery, as directed by your surgeon. - Stop Vitamin E, ALL multi-vitamins, herbals and dietary supplements 7 days before surgery. - You may take Tylenol (Acetaminophen) or any of your pain medications that do not contain aspirin or NSAIDS as needed. Important Reminders: - Candy, mints, and tobacco products are NOT permitted the morning of surgery. - Hearing aids, dentures and glasses may be worn the morning of surgery. - NO jewelry, body piercings, makeup, hairpins or contacts are to be worn the day of surgery. If you develop symptoms such as a fever, cold, or flu, or have other changes to your health within TWO DAYS of scheduled surgery or the morning of surgery, please contact the surgery center above. Personal Belongings: -Please have photo ID and insurance cards. -If you do not have a copy of advance directives on file with us, please bring a copy with you on the day of surgery. - Leave ALL valuables and money at home or with family members. For Outpatient Procedures: - YOU MUST HAVE A RESPONSIBLE BOX BUILDER TAKE YOU HOME. A FINISHING POWDER PRESS OPERATOR OR HEALTH PROFESSOR CANNOT BE MADE A RESPONSIBLE BOX BUILDER. - We recommend that a responsible person stays with you overnight to take care of you. - You cannot stay in a hotel alone after outpatient surgery. You will not be permitted to have your surgery, if you do not have someone to take care of you. Arrival Time for Surgery: - The Surgery Center or hospital where you are having surgery will call the afternoon before surgery (or Thursday for Thursday surgery) with a scheduled arrival time. - If you have not heard by 4 pm, please contact the surgery center above. Please be aware that emergency situations arise, which may delay or change your surgical time. If this happens, we will notify you as soon as possible and regret any inconvenience. If you already have an Advance Directive, please fax a copy to [phone] or email to for it to be added to your chart. If you do not have an Advance Directive, you can find the appropriate form and more information at [email or web address]. We recommend that you complete the Advance Directive form found on the website and bring it with you the day of your surgery. It can be witnessed and scanned into your chart that day. Nola Rodgers APRN.[place] documented in this encounter [facility] 04-30-2022 History and physical note HISTORY AND PHYSICAL EXAMINATION SERVICE DATE: 04/30/2022 SERVICE TIME: 9:14 AM PRIMARY CARE PHYSICIAN: Wanda Cm MD REASON FOR VISIT: Daniella Toledo is a 46 year old female who is scheduled for Procedure(s) with comments: PLACEMENT OF BREAST LOCALIZATION DEVICE(S) PERCUTANEOUS; FIRST LESION, STEREOTACTIC GUIDANCE (Left) - placed by una hernandez informed will be placed at 10 EXCISION BREAST LESION IDENTIFIED BY PREOPERATIVE PLACEMENT RADIOLOGICAL MARKER, OPEN, SINGLE LESION (Left) - placed by una - betito ceneter informed will be placed at 10 at the request of Dr. Carolyn Conley for consultation. My final recommendation will be communicated back to the requesting physician by way of shared medical record or letter. Subjective The patient has the following: ACTIVE PROBLEM LIST Former Smoker Gerd (Gastroesophageal Reflux Disease) COVID-19 Immunization Status Overdue - COVID-19 VACCINE (4 - Booster for Moderna series) Overdue since 07/22/2021 05/27/2021 Imm Admin: COVID-19 original vaccine, full dose, monovalent (MODERNA) 05/18/2020 Imm Admin: COVID-19 original vaccine, full dose, monovalent (MODERNA) 04/20/2020 Imm Admin: COVID-19 original vaccine, full dose, monovalent (MODERNA) CHIEF COMPLAINT: Pre-op exam HPI: Daniella Toledo is a 46 year old seen for PAC due to scheduled above surgery because of abnormal breast imaging. 04/10/2022, Dr. Conley HPI: The patient is a 46 year old female with a complaint of abnormal breast imaging. Patient undergone previous screening mammography in 2020. This demonstrated no abnormalities. And had follow-up screening mammography on February 13, 2022 which demonstrated a possible left breast asymmetry and recommend additional views. She had tomograms and an ultrasound obtained on February 26, 2022. This demonstrated: IMPRESSION: SUSPICIOUS FINDING - BIOPSY SHOULD BE CONSIDERED The architectural distortion in the left breast is suspicious of malignancy. A stereotactic biopsy is recommended under tomosynthesis. She was initially scheduled for biopsy at [facility] on March 13 but inadequate visualization of the architectural distortion was noted on that facilities stereotactic machine. She was rescheduled and underwent biopsy on March 27, 2022. This demonstrated: IMPRESSION: STEREOTACTIC GUIDED BIOPSY HIGH RISK BENIGN Stereotactic guided biopsy of the area of architectural distortion in the left breast lower outer aspect posterior depth was successful with no apparent post procedure complications. 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 Pathology results are concordant with imaging findings. A surgical consultation is recommended. Localization of the architectural distortion seen on post clip lindsey images to be 1.3 cm inferior to the biopsy clip is recommended when this lesion is localized for surgical excision. The patient has had 2 pregnancies. Her last mammogram was 2020. Her last menstrual period was 2021. Her first menstrual period was at age [age]. REVIEW OF SYSTEMS: General: No weight loss, malaise or fevers. Neurological: +hx vertigo, intermittently. No history of TIA's, stroke, LICENSED MARRIAGE AND FAMILY THERAPIST tumor, impaired sensorium, hemiplegia, paraplegia or quadraplegia. No neurological symptoms or problems. Respiratory: +former smoker. No history of current cough or dyspnea, or pneumonia in the past 6 weeks. No history of respiratory/pulmonary symptoms or problems. Cardiovascular: No history of HTN requiring medication, no history of angina, CHF, NM, cardiac surgery or stents. Denies rest pain, gangrene or revascularization/amputation for PVD. No history of cardiovascular symptoms or problems. GI: Positive for: GERD (otc rx as needed) Negative for: abdominal pain, dysphagia, hepatitis, irritable bowel syndrome, inflammatory bowel disease, liver disease, nausea, pancreatitis, vomiting and ETOH >2 drinks/day. : No history of dysuria, frequency or incontinence, stones or chronic kidney disease. No difficulty urinating, nocturia > 1 time per night or hematuria. 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 Endocrine: No history of diabetes. Has not taken steroids within the past 30 days. No history of endocrinological symptoms or problems. Hematology: No history of bleeding or clotting disorder. Patient is not taking anti-coagulation or platelet medications. No history of hematological symptoms or problems. Oncology: No history of CA metastasis, chemo within 30 days, or radiotherapy within 90 days. No history of oncological symptoms or problems. Psych: No history of psychiatric symptoms or problems. Musculoskeletal: Negative for joint pain or swelling, back pain or muscle pain. Skin: Negative for lesions, rash and itching. PAST MEDICAL HISTORY Diagnosis Date GERD (gastroesophageal reflux disease) Urinary frequency PAST SURGICAL HISTORY Procedure Laterality Date BX BREAST W DEVICE 1ST LESION STEREOTACTIC GUIDE Left 03/27/2022 NONE FAMILY HISTORY Problem Relation Age of Onset No Known Problems Mother No Known Problems Father No Known Problems Sister No Known Problems Brother Breast Cancer Maternal Aunt Social History Tobacco Use Smoking status: Former Types: Cigarettes Quit date: 2018 Years since quittin.0 Smokeless tobacco: Never Vaping Use Vaping Use: Never used Substance Use Topics Alcohol use: Yes Comment: couple times a week Drug use: Never Prior to Admission medications as of 04/30/22 0838 Medication Sig Last Dose Taking olopatadine (PATANOL) 0.1 % ophthalmic solution INSTILL 1 DROP INTO BOTH EYES TWICE A DAY DIRECTED Taking Yes No medication comments found. ALLERGIES Allergen Reactions Bactrim [Sulfametho* Rash Codeine Unknown Flexeril [Cyclobenz* Rash Objective PHYSICAL EXAM: General: alert and oriented (x3) and healthy appearance. Pertinent negatives noted - not distressed. Skin: normal color, no rash or lesions. HEENT: EOM intact and pupils equal round. Pertinent negatives noted - no carotid bruit. Cardiovascular: regular rate and rhythm, normal S1 and S2, no rub, murmurs, or gallop. Respiratory: normal breath sounds, no wheezes or crackles. No chest wall deformity or tenderness. Abdomen: soft. Pertinent negatives noted - not tender. Extremities: no deformity, no edema or tenderness, no joint swelling or clubbing. Neurological: normal cognition and motor skills. Gait normal. No weakness or sensory deficit. PAIN ASSESSMENT: VITALS: BP 126/84 Pulse 86 Temp (Src) 98 (Temporal) Resp 16 Ht 5' 5 (1.65m) Wt 176 lb (79.8kg) SpO2 99% LMP 02/12/2018 BMI 29.29 kg/(m^2). Diagnostic tests reviewed for today's visit: Lab Value Units Date High Low HB 13.0 g/dL 12/17/2021 15.5 11.5 HCT 39.7 % 12/17/2021 46.0 36.0 WBC 4.03 k/uL 12/17/2021 11.00 3.70 PLT 274 k/uL 12/17/2021 400 150 NA 136 mmol/L 12/17/2021 144 136 K 3.6 mmol/L 12/17/2021 5.1 3.7 GLUC 97 mg/dL 12/17/2021 99 74 BUN 13 mg/dL 12/17/2021 21 7 CREAT 0.74 mg/dL 12/17/2021 0.96 0.58 PTSEC No results within date range. INR No results within date range. APTT No results within date range. ALT 16 U/L 12/17/2021 38 7 AST 18 U/L 12/17/2021 35 13 TBILI 0.3 mg/dL 12/17/2021 1.3 0.2 TSH No results within date range. Lab Value Units Date High Low HCGQT No results within date range. UHCG No results within date range. HCG, BODY* No results within date range. Lab Value Units Date High Low ABORHD No results within date range. ABSCREEN No results within date range. No results found for: HBA1C No results found for this or any previous visit (from the past 8760 hour(s)). No results found for this or any previous visit (from the past 42253 hour(s)). Assessment Former smoker Assessment: 0.25-1ppd/15 years, denies asthma or COPD GERD (gastroesophageal reflux disease) Assessment: otc rx as needed Mars Activity Status Index: METS: Climb a flight of stairs or walk up a hill (5.50 METs) DASI Score: 5.5 Patient denies any chest pain or undue shortness of breath with the above physical activity. Clinical Frailty Scale: 1. Very fit STOP-Bang Score: Snores loudly Denies feeling tired, fatigued, or sleepy during the daytime Has not been observed to stop breathing or choking/gasping during sleep Denies having high blood pressure BMI less than or equal to 35 kg/m^2 Patient 50 years old or younger Does not have a large neck Non-male patient STOP-Bang Score: 1 [id number] Score: Age: <65 Sex: female CHF history: No Hypertension history: No Stroke/TIA/thromboembolism history: No Vascular disease history: No Diabetes history: No [id number] Score: 1 ARISCAT Score: Age: <=50 Preoperative SpO2: >=96% Respiratory infection in the last month: No Preoperative anemia: No Surgical incision: peripheral Duration of surgery: <2 hrs Emergency procedure: No ARISCAT Score: 0 ASA Class: 2 ANESTHESIA FINDINGS: Intubation History: No prior intubation Significant Anesthesia Considerations: has never had anesthesia Airway History: No prior intubation I - PHYSICAL EVALUATION AIRWAY Patient intubated: No. Tracheostomy tube not present Mallampati: II. TM distance: >3 FB. Neck ROM: full ROM without neurological symptoms. Mouth opening: adequate. Short neck: no. Thick neck: no Rcio present: no DENTAL Dental findings: teeth intact. Additional comments: Alderson/back. II - ANESTHESIA PLAN ASA Score: 2 Anesthetic Plan: other Anesthetic plan additional comments: *PACC/TCI - anesthesia choice. Beta Gabriela Monitoring Plan Post Procedure Analgesic Plan Informed Consent Anesthetic risks, benefits, alternatives, personnel and consent discussed: yes. Patient / Responsible [employer] agrees to proceed: yes Patient / Surrogate agrees to blood products: blood products not planned Prepared for Surgery: optimally prepared for surgery. CONSULTS: Patient does not require consults for optimization at this time Planned Anesthetic: other anesthesia choice The Following Tests/Procedures Have Been Initiated: No orders of the defined types were placed in this encounter. Instructions Given to Patient: Instructions located in the after visit summary. Patient given verbal and written preop instructions and voices comprehension and compliance. SIGNATURE: Nola Rodgers APRN.CNP PATIENT NAME: Daniella Toledo DATE: April 30, 2022 TIME: 8:55 AM PAGER/CONTACT #: documented in this encounter [facility] 04-10-2022 History of Present illness Narrative HISTORY AND PHYSICAL - BREAST COMPLAINT Daniella Toledo 1975 REFERRING PHYSICIAN: Wanda Cm MD CHIEF COMPLAINT: Left breast radial scar HPI: The patient is a 46 year old female with a complaint of abnormal breast imaging. Patient undergone previous screening mammography in 2020. This demonstrated no abnormalities. And had follow-up screening mammography on February 13, 2022 which demonstrated a possible left breast asymmetry and recommend additional views. She had tomograms and an ultrasound obtained on February 26, 2022. This demonstrated: IMPRESSION: SUSPICIOUS FINDING - BIOPSY SHOULD BE CONSIDERED The architectural distortion in the left breast is suspicious of malignancy. A stereotactic biopsy is recommended under tomosynthesis. She was initially scheduled for biopsy at [facility] on March 13 but inadequate visualization of the architectural distortion was noted on that facilities stereotactic machine. She was rescheduled and underwent biopsy on March 27, 2022. This demonstrated: IMPRESSION: STEREOTACTIC GUIDED BIOPSY HIGH RISK BENIGN Stereotactic guided biopsy of the area of architectural distortion in the left breast lower outer aspect posterior depth was successful with no apparent post procedure complications. 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 Pathology results are concordant with imaging findings. A surgical consultation is recommended. Localization of the architectural distortion seen on post clip lindsey images to be 1.3 cm inferior to the biopsy clip is recommended when this lesion is localized for surgical excision. The patient has had 2 pregnancies. Her last mammogram was 2020. Her last menstrual period was 2021. Her first menstrual period was at age [age]. PAST MEDICAL HISTORY Diagnosis Date GERD (gastroesophageal reflux disease) Urinary frequency PAST SURGICAL HISTORY Procedure Laterality Date BX BREAST W DEVICE 1ST LESION STEREOTACTIC GUIDE Left 03/27/2022 NONE Current Outpatient Medications Medication Sig Dispense Refill olopatadine (PATANOL) 0.1 % ophthalmic solution INSTILL 1 DROP INTO BOTH EYES TWICE A DAY DIRECTED benzonatate (TESSALON PERLES) 100 mg capsule Take 2 capsules by mouth three times daily as needed. 30 capsule 0 albuterol HFA (PROAIR HFA) 90 mcg/actuation inhaler Inhale 2 Puffs as instructed every 6 hours as needed. 1 Inhaler 0 loratadine-pseudoephedrine ER (CLARITIN-D 24) 10-240 mg Tb24 Take 1 tablet by mouth. mupirocin (BACTROBAN) 2 % ointment Apply 1 application to affected area three times daily. (Patient not taking: Reported on 05/30/2019 ) 1 Tube 0 OXYBUTYNIN CHLORIDE (DITROPAN ORAL) Take by mouth. ESOMEPRAZOLE MAGNESIUM (NEXIUM ORAL) Take by mouth. No current facility-administered medications for this visit. ALLERGIES: Bactrim [Sulfamethoxazole-Trimethoprim], Codeine, and Flexeril [Cyclobenzaprine] PERSONAL HISTORY: Social History Tobacco Use Smoking status: Former Types: Cigarettes Quit date: 2019 Years since quittin.0 Smokeless tobacco: Never Vaping Use Vaping Use: Never used Substance Use Topics Alcohol use: Yes Comment: couple times a week Drug use: Never FAMILY HISTORY: FAMILY HISTORY Problem Relation Age of Onset No Known Problems Mother No Known Problems Father No Known Problems Sister No Known Problems Brother REVIEW OF SYMPTOMS: The review of systems data was entered by the nurse and reviewed by md Nursing Notes: Alexey Comer LPN 04/10/2022 8:17 AM Signed REVIEW OF SYSTEMS: General: The patient denies fatigue, denies weight loss, denies weight gain, denies feeling hot, and denies feelings of cold. Eyes: The patient denies glaucoma, denies eye injury/surgery, wears glasses or contacts. Ear/Nose/Throat: The patient notes allergies, denies hayfever, denies ear infections, and denies bloody noses. Cardiovascular: The patient denies chest pain, denies heart disease, denies high blood pressure,denies cardiac stent, denies prior heart attack, denies irregular heart beat, denies high cholesterol, denies poor circulation, denies heart failure, other cardiac issues, denies claudication, denies cold feet, denies peripheral arterial stent. Respiratory: The patient denies tuberculosis, denies pneumonia, denies frequent cough, denies pulmonary embolism, denies shortness of breath, and denies coughing up blood. Gastrointestinal: The patient denies difficulty swallowing, notes acid reflux, denies ulcers, denies vomiting, denies jaundice/hepatitis, denies gallbladder problems, denies black or tarry stools, denies hemorrhoids, denies bleeding from rectum, denies diverticulitis, denies constipation, denies diarrhea, denies loss of stool control, and denies hernias. Kidney/Bladder: The patient denies kidney stones, denies urine infections, and denies bloody urine. Skin: The patient denies a history of skin cancer, denies bleeding/changing moles, and denies a history of skin rash. Neurologic: The patient denies a history of epilepsy/convulsions, denies headaches, denies head/spinal injuries, and denies stroke/TIA. Psychiatric: The patient notes psychiatric medications, denies depression, and denies voices, denies substance abuse. Endocrine: The patient denies thyroid disorders, denies diabetes, and denies hormonal problems. Hematologic: The patient denies a history of bruising, denies bleeding, and notes anemia, denies blood clots. Infections: The patient denies a history of measles and mumps, denies rheumatic fever, and denies sexually transmitted diseases. Musculoskeletal: The patient denies back pain/injury, notes back problems, denies sciatica, denies knee/foot trouble, denies arthritis, or denies gout. When was patient's last Mammogram screening? 2021 Last Colonoscopy: none Alexey Comer LPN PHYSICAL EXAMINATION: General: The patient is 46 year old female, well nourished, well hydrated in no acute distress. The patient is oriented to time, place, and person. VITALS: Blood pressure 132/86, pulse 100, temperature 36.9 C (98.5 F), height 165.1 cm (5' 5), weight 79.4 kg (175 lb), last menstrual period 02/12/2018, SpO2 99 %. Body mass index is 29.12 kg/m . HEENT: Normal cephalic, ataumatic, pupils are equally round, sclera are anicteric, mucous membranes are moist, oropharynx is clear. Neck has no masses, asymmetry or lymphadenopathy. Thyroid is unremarkable. Respiratory: Clear to auscultation and percussion. Normal respiratory excursion and pattern. Cardiac: Examination is regular rate and rhythm. Abdominal exam: Soft, nontender, with no palpable masses. No hepatosplenomegaly. No palpable hernias. Rectal exam: exam deferred Extremities: no clubbing, cyanosis or edema. No adenopathy. Breast: Visual inspection reveals no retractions, nipple inversion, or skin changes. Palpation of the right breast reveals no dominant or suspicious masses, but multiple benign-feeling nodules. Palpation of the left breast reveals no dominant or suspicious masses, but multiple benign-feeling nodules. Axillary exam demonstrates no suspicious masses in either the left or right axilla. There is no nipple discharge expressed from either the left or right breast. There are well-healed stereotactic biopsy site in the left upper outer quadrant LABORATORY VALUES: As Noted RADIOLOGIC STUDIES: As Noted Assessment IMPRESSION: Left breast abnormal imaging-radial scar, recommended surgical excision as a high risk benign lesion PLAN: I plan to perform a left breast needle localized excisional breast biopsy. The planned surgical procedure was discussed extensively with the patient. The risks, benefits, anticipated outcomes and possible complications were mentioned. My staff has also explained the procedure in understandable terms and the patient was given the option to take printed material concerning the planned procedure. The patient had the opportunity to ask questions concerning the planned procedure. The patient freely consents to the planned procedure. Anticipated Surgical Procedure/ CPT Code: left preoperative stereotactic guided needle placement - 31701 EXCISION BREAST LESION - WITH SPECIMEN MAMMOGRAPHY, 10741-289, 54226-126-90 Anticipated Anesthetic: General Patient weight: Blood pressure 132/86, pulse 100, temperature 36.9 C (98.5 F), height 165.1 cm (5' 5), weight 79.4 kg (175 lb), last menstrual period 02/12/2018, SpO2 99 %. BMI: Body mass index is 29.12 kg/m . 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 Wanda Cm MD via shared medical record. This note will be forwarded to Dr. Wanda Cm MD. Return to Clinic: The patient is instructed to follow-up with me 1 week post operatively. Carolyn Conley MD documented in this encounter [facility] 04-10-2022 Nurse Note REVIEW OF SYSTEMS: General: The patient denies fatigue, denies weight loss, denies weight gain, denies feeling hot, and denies feelings of cold. Eyes: The patient denies glaucoma, denies eye injury/surgery, wears glasses or contacts. Ear/Nose/Throat: The patient notes allergies, denies hayfever, denies ear infections, and denies bloody noses. Cardiovascular: The patient denies chest pain, denies heart disease, denies high blood pressure,denies cardiac stent, denies prior heart attack, denies irregular heart beat, denies high cholesterol, denies poor circulation, denies heart failure, other cardiac issues, denies claudication, denies cold feet, denies peripheral arterial stent. Respiratory: The patient denies tuberculosis, denies pneumonia, denies frequent cough, denies pulmonary embolism, denies shortness of breath, and denies coughing up blood. Gastrointestinal: The patient denies difficulty swallowing, notes acid reflux, denies ulcers, denies vomiting, denies jaundice/hepatitis, denies gallbladder problems, denies black or tarry stools, denies hemorrhoids, denies bleeding from rectum, denies diverticulitis, denies constipation, denies diarrhea, denies loss of stool control, and denies hernias. Kidney/Bladder: The patient denies kidney stones, denies urine infections, and denies bloody urine. Skin: The patient denies a history of skin cancer, denies bleeding/changing moles, and denies a history of skin rash. Neurologic: The patient denies a history of epilepsy/convulsions, denies headaches, denies head/spinal injuries, and denies stroke/TIA. Psychiatric: The patient notes psychiatric medications, denies depression, and denies voices, denies substance abuse. Endocrine: The patient denies thyroid disorders, denies diabetes, and denies hormonal problems. Hematologic: The patient denies a history of bruising, denies bleeding, and notes anemia, denies blood clots. Infections: The patient denies a history of measles and mumps, denies rheumatic fever, and denies sexually transmitted diseases. Musculoskeletal: The patient denies back pain/injury, notes back problems, denies sciatica, denies knee/foot trouble, denies arthritis, or denies gout. When was patient's last Mammogram screening? 2021 Last Colonoscopy: none Alexey Comer LPN documented in this encounter [facility] 04-02-2022 Miscellaneous Notes Images from the original note were not included. You [facility] Clerical Pool Just now (4:01 PM) DJ Could you please assist this patient to get scheduled with Dr Conley in the [place] office for a breast surgery consult Images from the original note were not included. Nessa Banuelos RN You; Caridad Garcia 20 minutes ago (3:38 PM) NG Pt is requesting to see a DrGatito that works out of [place]. If I am sending this to the wrong group let me know. CHANTE Keyes Lisa M [phone] 24 minutes ago (3:34 PM) NG Called the pt with her breast biopsy results. She was told per request of Dr. Vazquez that the biopsy did show a high risk lesion. Will arrange for pt to be seen in [place] for her care. documented in this encounter [facility] 03-27-2022 Note HNO ID: [id number] Author: Loretta Kendrick I'mOK Service: ? Author Type: Shift Mgr Type: Patient Education Filed: 03/27/2022 1:23 PM Note Text: Verbal and written instructions given to patient. [facility] 03-27-2022 Instructions Formatting of th is note might be different from the original. Verbal and written instructions given to patient. [facility] 03-27-2022 Miscellaneous Notes Verbal and written instructions given to patient. documented in this encounter [facility] 03-13-2022 History of Present illness Narrative Radiology Service Progress Note PATIENT NAME: Daniella Toledo DATE OF SERVICE: March 13, 2022 TIME: 2:20 PM PATIENT IDENTITY VERIFICATION COMPLETED USING TWO (2) IDENTIFIERS: Name and Date of confirmed by patient verbally. FALL SCREENING: Has the patient had 2 falls in the last year or 1 fall with injury or currently using an Ambulatory Assistive Device (Walker, Cane, Wheelchair, Crutches, etc.)? No PATIENT GENDER DATA: Female. status: : No status: NO. PATIENT RELEVANT IMPLANT DATA REVIEWED: Not Applicable RADIOLOGY DEPARTMENT: Mammography PERIPHERAL IV DATA: Not applicable SIGNED BY: RT Rebecca(R) March 13, 2022 2:20 PM documented in this encounter [facility] 02-26-2022 History of Present illness Narrative Radiology Service Progress Note PATIENT NAME: Daniella Toledo DATE OF SERVICE: February 26, 2022 TIME: 1:16 PM PATIENT IDENTITY VERIFICATION COMPLETED USING TWO (2) IDENTIFIERS: Name and Date of confirmed by patient verbally. FALL SCREENING: Has the patient had 2 falls in the last year or 1 fall with injury or currently using an Ambulatory Assistive Device (Walker, Cane, Wheelchair, Crutches, etc.)? No PATIENT GENDER DATA: Female. status: : No status: NO. PATIENT RELEVANT IMPLANT DATA REVIEWED: Not Applicable RADIOLOGY DEPARTMENT: Mammography PERIPHERAL IV DATA: Not applicable SIGNED BY: RT Quinn(R) February 26, 2022 1:16 PM documented in this encounter [facility] 02-14-2022 Miscellaneous Notes February 14, 2022 PID: [id number] Daniella Toledo [address] [place] [id number] Dear Ms. Toledo, Your recent breast imaging exam on 02/13/2022 showed a possible finding that requires additional imaging studies for a complete evaluation. Most such findings are probably benign (not cancer). Your mammogram demonstrates that you have dense breast tissue, which could hide abnormalities. Dense breast tissue, in and of itself, is a relatively common condition. Therefore, this information is not provided to cause undue concern; rather, it is to raise your awareness and promote discussion with your health care provider regarding the presence of dense breast tissue in addition to other risk factors. If you have a healthcare provider who ordered/prescribed your screening mammogram: Please call [phone] or [phone]: [phone] to schedule an appointment for your additional imaging (if you have not already done so). If you DO NOT have a healthcare provider (ie you did not have an order/prescription for your screening mammogram): Please call to schedule an appointment for your additional imaging (if you have not already done so). You must have an order/prescription from your physician when calling to schedule your appointment. If your order/prescription is not electronic, you must bring the hard copy with you on the day of your exam to avoid delays. Your imaging studies and reports are kept on file at [facility] as part of your permanent medical record, and are available for your continuing care. Thank you for allowing us to help in meeting your health care needs. Sincerely, Dr. Lau Interpreting Radiologist (Additional imaging) documented in this encounter [facility] 02-13-2022 History of Present illness Narrative Radiology Service Progress Note PATIENT NAME: Daniella Toledo DATE OF SERVICE: February 13, 2022 TIME: 10:18 AM PATIENT IDENTITY VERIFICATION COMPLETED USING TWO (2) IDENTIFIERS: Name and Date of confirmed by patient verbally. FALL SCREENING: Has the patient had 2 falls in the last year or 1 fall with injury or currently using an Ambulatory Assistive Device (Walker, Cane, Wheelchair, Crutches, etc.)? No PATIENT GENDER DATA: Female. status: : No status: NO. PATIENT RELEVANT IMPLANT DATA REVIEWED: Not Applicable RADIOLOGY DEPARTMENT: Mammography PERIPHERAL IV DATA: Not applicable SIGNED BY: RT Osmany(R) February 13, 2022 10:18 AM documented in this encounter [facility] Evaluation note Diagnosis Abnormal uterine bleeding Unspecified disorder of menstruation and other abnormal bleeding from female genital tract documented in this encounter [facility] Work Phone: Evaluation note* Diagnosis Onset Date Resolution Status Urinary tract infection with hematuria [facility] Work Phone: Evaluation note* Diagnosis Other microscopic hematuria Pelvic pain [facility] Work Phone: [facility]* Diagnosis Breast disorder- Primary Unspecified breast disorder [facility] Diagnosis Abnormal finding on breast imaging- Primary Other (abnormal) findings on radiological examination of breast 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 [facility] Diagnosis Pre-operative examination- Primary Preoperative examination, unspecified Gastroesophageal reflux disease, unspecified whether esophagitis present Former smoker Personal history of tobacco use, presenting hazards to health Abnormal finding on breast imaging Other (abnormal) findings on radiological examination of breast 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 [facility] Diagnosis Pre-op evaluation- Primary Preoperative examination, unspecified COVID Gastroesophageal reflux disease, unspecified whether esophagitis present Former smoker Personal history of tobacco use, presenting hazards to health Irritable bowel syndrome with constipation Irritable bowel syndrome Abnormal finding on breast imaging Other (abnormal) findings on radiological examination of breast 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 [facility] Diagnosis 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 Abnormal finding on breast imaging Other (abnormal) findings on radiological examination of breast 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 documented in this encounter [facility] note* Diagnosis Abnormal finding on breast imaging Other (abnormal) findings on radiological examination of breast 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 Abnormal finding on breast imaging Other (abnormal) findings on radiological examination of breast 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 documented in this encounter [facility] note* Diagnosis 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 Abnormal finding on breast imaging Other (abnormal) findings on radiological examination of breast documented in this encounter [facility] note* Diagnosis Well adult health check- Primary Unspecified general medical examination 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 [facility] note* Diagnosis Well adult health check Unspecified general medical examination 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 [facility] note* Diagnosis 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 Abnormal finding on breast imaging Other (abnormal) findings on radiological examination of breast documented in this encounter [facility] note* Diagnosis Well woman exam with routine gynecological exam- Primary Routine gynecological examination Encounter for screening mammogram for malignant neoplasm of breast Screening for colon cancer Special screening for malignant neoplasms, colon documented in this encounter [facility] note* Diagnosis Seasonal allergies- Primary Allergic rhinitis, cause unspecified documented in this encounter [facility] note* Diagnosis Hot flashes- Primary documented in this encounter [facility] note* Diagnosis Abnormal mammogram Abnormal mammogram, unspecified documented in this encounter [facility] note* Diagnosis Pre-operative examination- Primary Preoperative examination, unspecified Gastroesophageal reflux disease, unspecified whether esophagitis present Former smoker Personal history of tobacco use, presenting hazards to health Pre-op evaluation- Primary Preoperative examination, unspecified COVID Gastroesophageal reflux disease, unspecified whether esophagitis present Former smoker Personal history of tobacco use, presenting hazards to health Irritable bowel syndrome with constipation Irritable bowel syndrome 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 [facility]* Diagnosis Breast disorder Unspecified breast disorder Abnormal mammogram Abnormal mammogram, unspecified [facility] Diagnosis Women's annual routine gynecological examination- Primary Encounter for screening mammogram for malignant neoplasm of breast Hot flashes Screening for colon cancer Special screening for malignant neoplasms, colon [facility]* Diagnosis Encounter for screening mammogram for malignant neoplasm of breast- Primary [facility] Diagnosis Epigastric pain- Primary Abdominal pain, epigastric Pelvic pain Cellulitis of right breast Need for hepatitis C screening test Special screening examination for other specified viral diseases documented [facility] this [facility]* Diagnosis Well adult health check- Primary Unspecified general medical examination Encounter for screening for malignant neoplasm of colon documented [facility] this [facility]* Diagnosis Breast lump in female- Primary Lump or mass in breast Breast pain Mastodynia documented [facility]* Diagnosis Dysuria- Primary [facility]* Diagnosis Pre-operative examination- Primary Preoperative examination, unspecified Gastroesophageal reflux disease, unspecified whether esophagitis present Former smoker Personal history of tobacco use, presenting hazards to health Pre-op evaluation- Primary Preoperative examination, unspecified COVID Gastroesophageal reflux disease, unspecified whether esophagitis present Former smoker Personal history of tobacco use, presenting hazards to health Irritable bowel syndrome with constipation Irritable bowel syndrome Symptomatic menopausal or female climacteric states- Primary [facility] Diagnosis SHILO (generalized anxiety disorder)- Primary Generalized anxiety disorder [facility] Diagnosis SHILO (generalized anxiety disorder)- Primary Generalized anxiety disorder documented in this encounter [facility]* Diagnosis Chronic anemia- Primary Unspecified anemia Postmenopausal Asymptomatic postmenopausal status (age-related) (natural) SHILO (generalized anxiety disorder) Generalized anxiety disorder documented in this [facility]* Diagnosis Dysuria- Primary Vaginal prolapse Unspecified prolapse of vaginal beck [facility]* Attachments The following attachments cannot be sent through Care Everywhere. * Colonoscopy Discharge Instructions (Trinidadian) [facility] Attachments The following attachments cannot be sent through Care Everywhere. * Menopause (Trinidadian) [facility] for [facility] (narrative)* Diagnostic Procedure Only (Routine) - Pending Review Specialty Diagnoses / Procedures Referred By Madeleine dougherty Referred To Contact [facility] IM[facility] Diagnoses Breast disorder Procedures APOLINAR STEREO BX BREAST LT BX BREAST W/DEVICE 1ST LESION STEREOTACTIC GUID Angel Nieves MD [address] [place] [address] Br Imaging [address] [place] [address] Referral ID Status Reason Start Date Expiration Date Visits Requested Visits Authorized [id number] Pending Review Auto-Generat ed Referral 02/27/2022 03/29/2023 1 1 [facility] for referral (narrative)* Diagnostic Procedure Only (Routine) - Pending Review Specialty Diagnoses / Procedures Referred By Madeleine dougherty Referred To Contact BR IMAGING Diagnoses Abnormal finding on breast imaging Radial scar of breast Procedures APOLINAR NDL LOC W APOLINAR GD LT PERQ DEVICE PLACEMENT BREAST LOC 1ST LES W/Carolyn Stallings MD [address] [facility] [place] [address] Br Imaging [address] [place] [address] Referral ID Status Reason Start Date Expiration Date Visits Requested Visits Authorized [id number] Pending Review Auto-Generat ed Referral 04/10/2022 05/10/2023 1 1 [facility] for referral (narrative)* Diagnostic Procedure Only (Routine) - Closed Specialty Diagnoses / Procedures Referred By Madeleine dougherty Referred To Contact BR IMAGING Diagnoses Abnormal finding on breast imaging Radial scar of breast Procedures APOLINAR NDL LOC W APOLINAR GD LT PERQ DEVICE PLACEMENT BREAST LOC 1ST LES W/Carolyn Stallings MD [address] [facility] [place] [address] Br Imaging [address] [place] [phone] Referral ID Status Reason Start Date Expiration Date V isits Requested Visits Authorized [id number] Closed Auto-Generate d Referral 04/10/2022 05/10/2023 1 1 [facility] for referral (narrative)* Diagnostic Procedure Only (Routine) - Pending Review Specialty Diagnoses / Procedures Referred By Contac t Referred To Contact BR IMAGING Diagnoses Radial scar of breast Abnormal finding on breast imaging Procedures APOLINAR DIAGNOSTIC LT DIAGNOSTIC MAMMOGRAPHY COMPUTER-AIDED DETCJ [facility] Carolyn Colney MD [address] [place] [address] Br Imaging [address] [place] [address] Referral ID Status Reason Start Date Expiration Date Visits Requested Visits Authorized [id number] Pending Review Auto-Generat ed Referral 12/13/2022 07/12/2023 1 1 [facility] for referral (narrative)* Consultation (Routine) - Pending Review Specialty Diagnoses / Procedures [facility] Referred To Contact Gastroenterology Diagnoses Encounter for screening for malignant neoplasm of colon Procedures GA OFFICE/OUTPATIENT [facility] MDM 60-74 MINUTES Florecita Gimenez MD [address] [facility] [address] [place] [address] [facility] [address] [place] [address] Referral ID Status Reason Start Date Expiration Date Visits Requested Visits Authorized [id number] Pending Review Specialty Services Required 3 02/17/2024 1 1 [facility] for referral (narrative)* Diagnostic Procedure Only (Routine) - Closed Specialty Diagnoses / Procedures Referred By Madeleine t Referred To Contact BR IMAGING Diagnoses Breast disorder Procedures APOLINAR STEREO BX BREAST LT BX BREAST W/DEVICE 1ST LESION STEREOTACTIC GUID Angel Nieves MD [address] [place] [address] Br Imaging [address] [place] [address] Referral ID Status Reason Start Date Expiration Date V isits Requested Visits Authorized [id number] Closed Auto-Generate d Referral 02/27/2022 03/29/2023 1 1 [facility] for visit Narrative* Diagnostic Procedure Only (Routine) - Closed Specialty Diagnoses / Procedures [facility] Referred To Contact [facility] Diagnoses Abnormal finding on breast imaging Radial scar of breast Procedures APOLINAR NDL LOC W APOLINAR GD LT PERQ DEVICE PLACEMENT BREAST LOC 1ST LES W/GDNCE Carolyn Conley MD [address] [facility] [address] Br Imaging [address] [place] [address] Referral ID Status Reason Start Date Expiration Date V isits Requested Visits Authorized [id number] Closed Auto-Generate d Referral 04/10/2022 05/10/2023 1 1 [facility] for visit Narrative* Diagnostic Procedure Only (Routine) - Closed Specialty Diagnoses / Procedures Referred By [facility] t Referred To Contact BR IMAGING Diagnoses Radial scar of breast Abnormal finding on breast imaging Procedures APOLINAR DIAGNOSTIC LT DIAGNOSTIC MAMMOGRAPHY COMPUTER-AIDED DETCJ [facility] Carolyn Conley MD [address] [place] [address] Br Imaging [address] [place] [phone] Referral ID Status Reason Start Date Expiration Date V isits Requested Visits Authorized [id number] Closed Auto-Generate d Referral 12/13/2022 07/12/2023 1 1 [facility] for visit Narrative* Diagnostic Procedure Only (Routine) - Closed Specialty Diagnoses / Procedures [facility] Referred To Contact [facility] Diagnoses Breast disorder Procedures APOLINAR STEREO BX BREAST LT BX BREAST W/DEVICE 1ST LESION STEREOTACTIC GUID Angel Nieves MD [address] [place] [address] [facility] Imaging [address] [place] [address] Referral ID Status Reason Start Date Expiration Date V isits Requested Visits Authorized [id number] Closed Auto-Generate d Referral 02/27/2022 03/29/2023 1 1 [facility] for visit Narrative* Auth/Cert (Routine) Specialty Diagnoses / Procedures Referred By Contac t Referred To Contact Diagnoses Encounter for screening for malignant neoplasm of colon Procedures COLONOSCOPY, SCREENING Maria M Wagner MD [address] [facility] [address] [place] [address] Phone: tel: fax: [facility] Endoscopy [address] [place] [phone] Phone: tel: Referral ID Status Reason Start Date Expiration Date Visits Re quested Visits Authorized [id number] 1 1 [facility] Reason for Referral Status Reason Specialty Diagnoses / Procedures Referred By Contact Referred To Contact Pending Review Cardiology Diagnoses Palpitation Procedures Holter Monitor 24 Hour Wanda Cm MD [address] [place] [phone] Specialty Diagnoses / Procedures Referred By Madeleine t Referred To Contact Radiology Diagnoses Other microscopic hematuria Pelvic pain Procedures US Pelvis Complete Wanda Cm MD [address] [place] [address] Referral ID Status Reason Start Date Expiration Date Visits Re quested Visits Authorized [id number] Open 10/24/2021 10/24/2022 1 1 Specialty Diagnoses / Procedures Referred By Madeleine t Referred To Contact Radiology Diagnoses Other microscopic hematuria Procedures US RETROPERITONEAL COMPLETE Wanda Cm MD [address] [place] [phone] Referral ID Status Reason Start Date Expiration Date Visits Re quested Visits Authorized [id number] Open 10/24/2021 10/24/2022 1 1 Assessments Diagnosis Palpitation Palpitations Diagnosis Acute foot pain, right Advance Directives No Advanced Directives Records FoundDocuments on File Type Date Recorded Patient Client Relationship Executive Expl anation ACP-Advance Directive ACP-Power of Proof Tester Documents on File Type Date Recorded Patient Client Relationship Executive Expl anation ACP-Advance Directive ACP-Power of Proof Tester Date Activated Date Inactivated Comments 05/06/2024 12:00 PM 05/06/2024 3:58 PM Date Activated Date Inactivated Comments 05/06/2024 12:00 PM 05/06/2024 3:58 PM Chief Complaint and Reason for Visit Chief Complaint CONCERN FOR UTI Reason for Visit Urinary tract infect ion with hematuria Summary Purpose Family History No Family History Records FoundNo Family History Records FoundNo Family History Records FoundNo Family History Records FoundNo Family History Records FoundNo Family History Records Found Medications Administered Section Inactive Administered Medications - up to 3 most recent administrations Medication Order MAR Action Action Date Dose Rate Site lidocaine (PF) 10 mg/mL (1 %) injection (XYLOCAINE) SUBCUTANEOUS, X (OR/PROCEDURE) PRN, Starting on Thu06/02/22 at 1352, Until Thu06/02/22 at 1352, Intraprocedure Given 06/02/2022 1:52 PM EST 5 mL Breast, Left Additional Source Comments Goals (unrecognized section and content) Goals may be documented in a n alternate sectionGoals may be documented in an alternate section Care Teams (unrecognized sec tion and content) [employer]ary [employer]el Oven Tender Relationship Specialty Start Date End Date Wanda Cm MD PCP - General Family Medicine 10/03/14 [employer] Tender Relationship Specialty Start Date End Date Wanda Cm MD [address] [place] [address] PCP - General Family Medicine 12/07/14 [employer] Pe[employer] Oven Tender Relationship Specialty Start Date End Date Wanda Cm MD [address] [place] [address] PCP - General Family Medicine 12/07/14 Rotary Peel Oven Tender Relationship Specialty Start Date End Date Wanda Cm MD [address] [place] [address] PCP - General Family Medicine 12/07/14 Rotary Peel Oven Tender Relationship Specialty Start Date End Date Wanda Cm MD [address] [place] [address] PCP - General Family Medicine 12/07/14 Rotary Peel Oven Tender Relationship Specialty Start Date End Date Wanda Cm MD [address] [place] [address] PCP - General Family Medicine 12/07/14 Rotary Peel Oven Tender Relationship Specialty Start Date End Date Wanda Cm MD [address] [place] [address] [place] [address] PCP - General Family Medicine 12/07/14 Rotary Peel Oven Tender Relationship Specialty Start Date End Date Wanda Cm MD [address] [place] [address] PCP - General Family Medicine 12/07/14 Rotary Peel Oven Tender Relationship Specialty Start Date End Date Wanda Cm MD [address] [place] [address] PCP - General Family Medicine 12/07/14 Rotary Peel Oven Tender Relationship Specialty Start Date End Date Wanda Cm MD [address] [place] [address] PCP - General Family Medicine 12/07/14 Rotary Peel Oven Tender Relationship Specialty Start Date End Date Wanda Cm MD [address] [place] [address] PCP - General Family Medicine 12/07/14 Rotary Peel Oven Tender Relationship Specialty Start Date End Date Wanda Cm MD [address] [place] [address] PCP - General Family Medicine 12/07/14 Rotary Peel Oven Tender Relationship Specialty Start Date End Date Wanda Cm MD [address] [place] [address] PCP - General Family Medicine 12/07/14 Rotary Peel Oven Tender Relationship Specialty Start Date End Date Wanda Cm MD [address] [place] [address] PCP - General Family Medicine 12/07/14 Rotary Peel Oven Tender Relationship Specialty Start Date End Date Wanda Cm MD [address] [place] [address] PCP - General 10/03/14 Rotary Peel Oven Tender Relationship Specialty Start Date End Date Wanda Cm MD [address] [place] [address] PCP - General 10/03/14 Rotary Peel Oven Tender Relationship Specialty Start Date End Date Wanda Cm MD [address] [place] [address] PCP - General Family Medicine 12/07/14 Rotary Peel Oven Tender Relationship Specialty Start Date End Date Wanda Cm MD [address] [place] [address] [place] [address] PCP - General Family Medicine 12/07/14 Rotary Peel Oven Tender Relationship Specialty Start Date End Date Wanda Cm MD [address] [place] [address] [place] [address] PCP - General Family Medicine 12/07/14 Rotary Peel Oven Tender Relationship Specialty Start Date End Date Wanda Cm MD [address] [place] [address] PCP - General 10/03/14 Rotary Peel Oven Tender Relationship Specialty Start Date End Date Wanda Cm MD [address] [place] [address] PCP - General 10/03/14 Rotary Peel Oven Tender Relationship Specialty Start Date End Date Wanda Cm MD [address] [place] [address] PCP - General 10/03/14 Rotary Peel Oven Tender Relationship Specialty Start Date End Date Wanda Cm MD [address] [place] [address] PCP - General 10/03/14 Rotary Peel Oven Tender Relationship Specialty Start Date End Date Wanda Cm MD [address] [place] [address] PCP - General 10/03/14 Rotary Peel Oven Tender Relationship Specialty Start Date End Date Wanda Cm MD [address] [place] [address] [place] [address] PCP - General Family Medicine 12/07/14 Rotary Peel Oven Tender Relationship Specialty Start Date End Date Wanda Cm MD [address] [place] [address] [place] [address] PCP - General Family Medicine 12/07/14 Rotary Peel Oven Tender Relationship Specialty Start Date End Date Wanda Cm MD [address] [place] [address] [place] [address] PCP - General Family Medicine 12/07/14 Rotary Peel Oven Tender Relationship Specialty Start Date End Date Wanda Cm MD [address] [place] [address] PCP - General 10/03/14 Rotary Peel Oven Tender Relationship Specialty Start Date End Date Wanda Cm MD [address] [place] [address] PCP - General 10/03/14 Rotary Peel Oven Tender Relationship Specialty Start Date End Date Wanda Cm MD [address] [place] [address] PCP - General 10/03/14 Rotary Peel Oven Tender Relationship Specialty Start Date End Date Wanda Cm MD [address] [place] [address] PCP - General 10/03/14 Rotary Peel Oven Tender Relationship Specialty Start Date End Date Wanda Cm MD [address] [place] [address] PCP - General 10/03/14 Rotary Peel Oven Tender Relationship Specialty Start Date End Date Wanda Cm MD [address] [place] [address] PCP - General 10/03/14 Rotary Peel Oven Tender Relationship Specialty Start Date End Date Wanda Cm MD [address] [place] [address] PCP - General 10/03/14 Rotary Peel Oven Tender Relationship Specialty Start Date End Date Wanda Cm MD [address] [place] [address] PCP - General 10/03/14 Rotary Peel Oven Tender Relationship Specialty Start Date End Date Wanda Cm MD [address] [place] [address] [place] [address] PCP - General Family Medicine 12/07/14 Rotary Peel Oven Tender Relationship Specialty Start Date End Date Wanda Cm MD [address] [place] [address] PCP - General Family Medicine 12/07/14 Rotary Peel Oven Tender Relationship Specialty Start Date End Date Wanda Cm MD [address] [place] [address] PCP - General 10/03/14 Rotary Peel Oven Tender Relationship Specialty Start Date End Date Wanda Cm MD [address] [place] [address] [place] [address] PCP - General Family Medicine 12/07/14 Rotary Peel Oven Tender Relationship Specialty Start Date End Date Wanda Cm MD [address] [place] [address] PCP - General 10/03/14 Rotary Peel Oven Tender Relationship Specialty Start Date End Date Wanda Cm MD [address] [place] [address] PCP - General 10/03/14 Rotary Peel Oven Tender Relationship Specialty Start Date End Date Wanda Cm MD [address] [place] [address] PCP - General 10/03/14 INFORMATION SOURCE (unrecogn ized section and content) DATE CREATED AUTHOR 11/20/2021 [facility] DATE CREATED AUTHOR AUTHOR'S ORGANIZ ATION 04/02/2022 [facility] DATE CREATED AUTHOR AUTHOR'S ORGANIZ ATION 06/13/2022 [facility] DATE CREATED AUTHOR AUTHOR'S ORGANIZ ATION 10/29/2024 [facility] DATE CREATED AUTHOR AUTHOR'S ORGANIZ ATION 01/02/2025 [facility] DATE CREATED AUTHOR AUTHOR'S ORGANIZ ATION 01/05/2025 [facility] Source Comments (unrecognize d section and content) In the event this informatio n is protected by the Federal Confidentiality of Alcohol and Drug Abuse Patient Records regulations: The Federal rules restrict any use of the information to criminally investigate or prosecute any alcohol or drug abuse patient.[facility] the event this information is protected by the Federal Confidentiality of Alcohol and Drug Abuse Patient Records regulations: The Federal rules restrict any use of the information to criminally investigate or prosecute any alcohol or drug abuse patient.[facility] HealthIn the event this information is protected by the Federal Confidentiality of Alcohol and Drug Abuse Patient Records regulations: The Federal rules restrict any use of the information to criminally investigate or prosecute any alcohol or drug abuse patient.[facility] HealthIn the event this information is protected by the Federal Confidentiality of Alcohol and Drug Abuse Patient Records regulations: The Federal rules restrict any use of the information to criminally investigate or prosecute any alcohol or drug abuse patient.[facility] HealthIn the event this information is protected by the Federal Confidentiality of Alcohol and Drug Abuse Patient Records regulations: The Federal rules restrict any use of the information to criminally investigate or prosecute any alcohol or drug abuse patient.[facility] HealthIn the event this information is protected by the Federal Confidentiality of Alcohol and Drug Abuse Patient Records regulations: The Federal rules restrict any use of the information to criminally investigate or prosecute any alcohol or drug abuse patient.[facility] HealthIn the event this information is protected by the Federal Confidentiality of Alcohol and Drug Abuse Patient Records regulations: The Federal rules restrict any use of the information to criminally investigate or prosecute any alcohol or drug abuse patient.[facility] HealthIn the event this information is protected by the Federal Confidentiality of Alcohol and Drug Abuse Patient Records regulations: The Federal rules restrict any use of the information to criminally investigate or prosecute any alcohol or drug abuse patient.[facility] HealthIn the event this information is protected by the Federal Confidentiality of Alcohol and Drug Abuse Patient Records regulations: The Federal rules restrict any use of the information to criminally investigate or prosecute any alcohol or drug abuse patient.[facility] HealthIn the event this information is protected by the Federal Confidentiality of Alcohol and Drug Abuse Patient Records regulations: The Federal rules restrict any use of the information to criminally investigate or prosecute any alcohol or drug abuse patient.[facility] HealthIn the event this information is protected by the Federal Confidentiality of Alcohol and Drug Abuse Patient Records regulations: The Federal rules restrict any use of the information to criminally investigate or prosecute any alcohol or drug abuse patient.[facility] HealthIn the event this information is protected by the Federal Confidentiality of Alcohol and Drug Abuse Patient Records regulations: The Federal rules restrict any use of the information to criminally investigate or prosecute any alcohol or drug abuse patient.[facility] HealthIn the event this information is protected by the Federal Confidentiality of Alcohol and Drug Abuse Patient Records regulations: The Federal rules restrict any use of the information to criminally investigate or prosecute any alcohol or drug abuse patient.[facility] HealthIn the event this information is protected by the Federal Confidentiality of Alcohol and Drug Abuse Patient Records regulations: The Federal rules restrict any use of the information to criminally investigate or prosecute any alcohol or drug abuse patient.[facility] HealthIn the event this information is protected by the Federal Confidentiality of Alcohol and Drug Abuse Patient Records regulations: The Federal rules restrict any use of the information to criminally investigate or prosecute any alcohol or drug abuse patient.[facility] HealthIn the event this information is protected by the Federal Confidentiality of Alcohol and Drug Abuse Patient Records regulations: The Federal rules restrict any use of the information to criminally investigate or prosecute any alcohol or drug abuse patient.[facility] HealthIn the event this information is protected by the Federal Confidentiality of Alcohol and Drug Abuse Patient Records regulations: The Federal rules restrict any use of the information to criminally investigate or prosecute any alcohol or drug abuse patient.[facility] HealthIn the event this information is protected by the Federal Confidentiality of Alcohol and Drug Abuse Patient Records regulations: The Federal rules restrict any use of the information to criminally investigate or prosecute any alcohol or drug abuse patient.[facility] HealthIn the event this information is protected by the Federal Confidentiality of Alcohol and Drug Abuse Patient Records regulations: The Federal rules restrict any use of the information to criminally investigate or prosecute any alcohol or drug abuse patient.[facility] HealthIn the event this information is protected by the Federal Confidentiality of Alcohol and Drug Abuse Patient Records regulations: The Federal rules restrict any use of the information to criminally investigate or prosecute any alcohol or drug abuse patient.[facility] HealthIn the event this information is protected by the Federal Confidentiality of Alcohol and Drug Abuse Patient Records regulations: The Federal rules restrict any use of the information to criminally investigate or prosecute any alcohol or drug abuse patient.[facility] HealthIn the event this information is protected by the Federal Confidentiality of Alcohol and Drug Abuse Patient Records regulations: The Federal rules restrict any use of the information to criminally investigate or prosecute any alcohol or drug abuse patient.[facility] HealthIn the event this information is protected by the Federal Confidentiality of Alcohol and Drug Abuse Patient Records regulations: The Federal rules restrict any use of the information to criminally investigate or prosecute any alcohol or drug abuse patient.[facility] HealthIn the event this information is protected by the Federal Confidentiality of Alcohol and Drug Abuse Patient Records regulations: The Federal rules restrict any use of the information to criminally investigate or prosecute any alcohol or drug abuse patient.[facility] HealthIn the event this information is protected by the Federal Confidentiality of Alcohol and Drug Abuse Patient Records regulations: The Federal rules restrict any use of the information to criminally investigate or prosecute any alcohol or drug abuse patient.[facility] Reason for Visit (unrecogniz ed section and content) Reason Comments Results Reason Comments Consult Left breast mass Reason Comments Consult Reason Comments Patient Update Reason Comments Follow Up Phone Call Reason Comments Positive COVID Test Result Reason Comments Anesthesia Consult Reason Comments Pre-Op Visit Surgery on 06/04/22 Reason Comments Patient Question Return to work Reason Comments Follow Up lumpectomy Reason Comments opened in error Reason Comments Annual Exam Reason Comments Annual Exam Annual exam Reason Comments Follow-up Discuss menopause Reason Comments Med Refill Reason Comments Radiology Mammogram Not able to do the S tereo Core Bx, pt rescheduled for 03/27/22 at 13:00 at [facility]. Specialty Diagnoses / Procedures Referred By Contac t Referred To Contact [facility] Diagnoses Breast disorder Procedures APOLINAR STEREO BX BREAST LT BX BREAST W/DEVICE 1ST LESION STEREOTACTIC GUID Angel Nieves MD [address] [place] [address] [facility] [address] [place] [address] Referral ID Status Reason Start Date Expiration Date V isits Requested Visits Authorized [id number] Closed Auto-Generate d Referral 02/27/2022 03/29/2023 1 1 Reason Onset Date Comments Med Refill 01/27/2024 Reason Comments Abdominal Pain Follow-up Had went to urgent [facility] a week ago for COVID and swelling and red line to right breast, on ATB for possible cellulitis per UC, also saw UC 03/28/24 for Tonsil stones Reason Onset Date Comments Colon Cancer Screening 02/23/2023 Colonoscopy 02/23/2023 Screening/Survei llance program Reason Comments Follow-up Breast pain Reason Comments Radiology US Reason Comments Menopause Consult Scheduled Active and Recently Administ ered Medications (unrecognized section and content) Medication Order 05/04/2024 05/05/2024 05/06/2024 sodium chloride 0.9% (NS) flush 10 mL 10 mL, IntraVENous, Every 12 hours scheduled (2 times per day), First dose on Thu05/06/24 at 2100, Preprocedure PRN Medication Order 05/04/2024 05/05/2024 05/06/2024 ondansetron (Zofran) injection 4 mg 4 mg, IntraVENous, Once PRN, nausea, vomiting, Starting on Thu05/06/24 at 1159, For 1 dose, Preprocedure simethicone (Mylicon) drops (COMPLETED) Intraluminal, As needed, Starting on Thu05/06/24 at 1257, Intraprocedure 1257 (Given - Provid er: Maria M Wagner MD - Comment: Given through colonoscope) sodium chloride 0.9 % infusion 5-250 mL/hr, IntraVENous, PRN, if patient receiving piggyback infusions and maintenance fluids are not ordered OR KVO fluids to protect IV site / prevent frequent line interruptions/ long duration, Starting on Thu05/06/24 at 1159, Preprocedure, For piggyback infusion, administer at same rate as piggyback for a total of 25 mL. Enter 25 mL into dose field and piggyback rate into rate field of order. If piggyback is infusing at a rate less than 100 mL/hr, enter 25 mL into dose field and 100 mL/hr into rate field of order. For KVO fluids, enter rate of 20 mL/hr or less into rate field of order. sodium chloride 0.9% (NS) flush 10 mL 10 mL, IntraVENous, PRN, line care, Starting on Thu05/06/24 at 1159, Preprocedure, After every IV line use FOR RECORDS PERTAINING TO PATIENTS WHO ARE OR HAVE BEEN ENROLLED IN A CHEMICAL DEPENDENCY/SUBSTANCEABUSE PROGRAM, SOME INFORMATION MAY BE OMITTED. This clinical summary was aggregated from multiple sources. Caution should be exercised in using it in the provision of clinical care. This summary normalizes information from multiple sources, and as a consequence, information in this document may materially change the coding, format and clinical context of patient data. In addition, data may be omitted in some cases. CLINICAL DECISIONS SHOULD BE BASED ON THE PRIMARY CLINICAL RECORDS. [employer] [facility]. provides no warranty or guarantee of the accuracy or completeness of information in this document.
== END | disposition home or self-care (01) ==
PROVIDERS: PCP Family Medicine; Referring Provider Nurse Practitioner Family; Visit Provider Nurse Practitioner Family
DX: N92.6 Irregular menstruation, unspecified (principal)
CPT/HCPCS: 76830; 76856